=== PATIENT | female | born 1975 | race Caucasian/White ===

== ENCOUNTER 2017-07-12 05:02 | Inpatient (IN) | payer OTHER ==
[2017-07-12] MEDS ORDERED: levETIRAcetam IV 1,000 MG in SALINE 1 100ML.BAG IVPB STA (05:07)
[2017-07-12] MEDS ORDERED: SODIUM CHLORIDE 0.9% 500 ML IV STA (05:07)
[2017-07-12] MEDS ORDERED: SODIUM CHLORIDE 0.9% 1,000 ML IV STA ×2 (05:07)
--- NOTE | 2017-07-12 05:10 | ED ---
General Adult HPI - General Stated complaint: Overdose Time Seen by Provider: 07/12/17 05:07 Source: RN notes reviewed, old records reviewed - History of Present Illness Initial comments: This is a 41-year-old female to the ER for evaluation of suspected overdose. Patient is unable to give history secondary to scleral condition, unresponsiveness. Patient's history is obtained from from by EMS, patient's prior chart. Patient is presrcibed baclofen, has a prior history of seizures, roommate said that the patient did fill prescription today. - Related Data Home Medications Medication Instructions Recorded Confirmed HYDROcodone/APAP 10-325MG [[place] 1 tab PO Q6H PRN 07/12/17 07/12/17 10-325] Methylphenidate HCl [Ritalin] 20 mg PO TID 07/12/17 07/12/17 Allergies Allergy/AdvReac Type Severity Reaction Status Date / Time No Known Allergies Allergy Verified 02/16/14 02:01 Review of Systems ROS Statement: Those systems with pertinent positive or pertinent negative responses have been documented in the HPI. ROS Other: All systems not noted in ROS Statement are negative. Past Medical History Past Medical History: Seizure Disorder History of Any Multi-Drug Resistant Organisms: None Reported Past Psychological History: Unable to Obtain Smoking Status: Current every day smoker Past Alcohol Use History: Occasional Past Drug Use History: None Reported - Past Family History Mother Family Medical History: Cancer Father History Unknown: Yes General Exam Limitations: altered mental status, physical limitation General appearance: alert, anxious, lethargic, in distress Head exam: Present: atraumatic, normocephalic, normal inspection Eye exam: Present: normal appearance, PERRL, EOMI. Absent: scleral icterus, conjunctival injection, periorbital swelling ENT exam: Present: normal exam, mucous membranes moist Neck exam: Present: normal inspection. Absent: tenderness, meningismus, lymphadenopathy Respiratory exam: Present: normal lung sounds bilaterally, decreased breath sounds. Absent: respiratory distress, wheezes, rales, rhonchi, stridor Cardiovascular Exam: Present: regular rate, normal rhythm, normal heart sounds. Absent: systolic murmur, diastolic murmur, rubs, gallop, clicks GI/Abdominal exam: Present: soft, normal bowel sounds. Absent: distended, tenderness, guarding, rebound, rigid Extremities exam: Present: normal inspection, full ROM, normal capillary refill. Absent: tenderness, pedal edema, joint swelling, calf tenderness Back exam: Present: normal inspection Neurological exam: Present: altered, CN II-XII intact, other (responsive to painful stimuli). Absent: oriented X3 Psychiatric exam: Present: agitated Skin exam: Present: warm, dry, intact, normal color. Absent: rash Course Vital Signs 07/12/17 07/12/17 07/12/17 05:03 05:50 06:11 Temperature 97.9 F Pulse Rate 84 82 79 Respiratory 20 22 Rate Blood Pressure 150/84 155/80 153/81 O2 Sat by Pulse 93 L 99 99 Oximetry 07/12/17 07/12/17 07/12/17 06:45 07:15 07:41 Temperature 97.4 F L Pulse Rate 73 86 0 L Respiratory 20 16 Rate Blood Pressure 137/85 147/83 O2 Sat by Pulse 100 96 Oximetry 07/12/17 07/12/17 07/12/17 08:00 08:15 08:30 Temperature Pulse Rate 0 L 86 108 H Respiratory 20 16 Rate Blood Pressure 160/58 169/69 O2 Sat by Pulse 99 97 Oximetry 07/12/17 07/12/17 07/12/17 08:45 09:00 09:30 Temperature 98.7 F Pulse Rate 102 H 92 87 Respiratory 14 16 26 H Rate Blood Pressure 168/96 158/62 144/87 O2 Sat by Pulse 98 98 99 Oximetry - Reevaluation(s) Reevaluation #1: 07/12/17 07:23 patient is completely unresponsive to Narcan, was given Ativan for sedation as she is flailing around uncontrollably danger to herself and staff Reevaluation #2: 07/12/17 07:23 patient is reevaluated, continues to have uncontrolled body movements, positive gag EKG Findings - EKG Comments: EKG Findings:: EKG shows normal sinus rhythm rate of 78, MO 124, QRS 94, QTc 462 Medical Decision Making - Medical Decision Making 41 female to the ED for evaluation regarding his overdose, patient has positive opiates on drug screen, no response to Narcan, also follow baclofen at bedside. Patient has seizure history therefore given Regular the emergency room secondary to possible tonic-clonic movements. Patient has maintained oxygenation without difficulty here in the emergency room. Placed on supplemental O2 for support. Patient has positive GERD reflux, this time no need for the patient is patient is protecting airway without ventilatory failure. Patient was admitted to ICU for further evaluation and management of overdose - Lab Data Result diagrams: 07/12/17 05:15 07/12/17 05:15 Lab Results 07/12/17 07/12/17 07/12/17 Range/Units 05:15 05:15 05:15 WBC 13.3 H (3.8-10.6) k/uL RBC 4.48 (3.80-5.40) m/uL Hgb 13.5 (11.4-16.0) gm/dL Hct 43.1 (34.0-46.0) % MCV 96.3 (80.0-100.0) fL MCH 30.1 (25.0-35.0) pg MCHC 31.3 (31.0-37.0) g/dL RDW 15.2 (11.5-15.5) % Plt Count 193 (150-450) k/uL Neutrophils % 83 % Lymphocytes % 11 % Monocytes % 5 % Eosinophils % 1 % Basophils % 0 % Neutrophils # 11.1 H (1.3-7.7) k/uL Lymphocytes # 1.4 (1.0-4.8) k/uL Monocytes # 0.6 (0-1.0) k/uL Eosinophils # 0.1 (0-0.7) k/uL Basophils # 0.0 (0-0.2) k/uL Sodium 145 (137-145) mmol/L Potassium 5.1 (3.5-5.1) mmol/L Chloride 110 H (98-107) mmol/L Carbon Dioxide 25 (22-30) mmol/L Anion Gap 10 mmol/L BUN 22 H (7-17) mg/dL Creatinine 1.30 H (0.52-1.04) mg/dL Est GFR (MDRD) Af Amer 54 (>60 ml/min/1.73 sqM) Est GFR (MDRD) Non-Af 45 (>60 ml/min/1.73 sqM) Glucose 105 H (74-99) mg/dL Lactic Ac Sepsis Rflx Plasma Lactic Acid Kurtis (0.7-2.0) mmol/L Calcium 9.5 (8.4-10.2) mg/dL Total Bilirubin 0.3 (0.2-1.3) mg/dL AST 23 (14-36) U/L ALT 25 (9-52) U/L Alkaline Phosphatase 94 (38-126) U/L Ammonia (<30) umol/L Total Creatine Kinase 103 (30-135) U/L CK-MB (CK-2) 2.5 H* (0.0-2.4) ng/mL CK-MB (CK-2) Rel Index 2.4 Total Protein 7.1 (6.3-8.2) g/dL Albumin 4.2 (3.5-5.0) g/dL Lipase 84 (23-300) U/L Urine Color Urine Appearance (Clear) Urine pH (5.0-8.0) Ur Specific [place] (1.001-1.035) Urine Protein (Negative) Urine Glucose (UA) (Negative) Urine Ketones (Negative) Urine Blood (Negative) Urine Nitrite (Negative) Urine Bilirubin (Negative) Urine Urobilinogen (<2.0) mg/dL Ur Leukocyte Esterase (Negative) Urine WBC (0-5) /hpf Ur Squamous Epith Cells (0-4) /hpf Amorphous Sediment (None) /hpf Urine HCG, Qual (Not Detectd) Salicylates <1.0 mg/dL Urine Opiates Screen (NotDetected) Ur Oxycodone Screen (NotDetected) Urine Methadone Screen (NotDetected) Ur Propoxyphene Screen (NotDetected) Acetaminophen <10.0 ug/mL Ur Barbiturates Screen (NotDetected) Phenytoin <3.0 ug/mL Valproic Acid <10.0 ug/mL Carbamazepine <3.0 ug/mL U Tricyclic Antidepress (NotDetected) Ur Phencyclidine Scrn (NotDetected) Ur Amphetamines Screen (NotDetected) U Methamphetamines Scrn (NotDetected) U Benzodiazepines Scrn (NotDetected) [place] <0.2 mmol/L Urine Cocaine Screen (NotDetected) U Marijuana (THC) Screen (NotDetected) Serum Alcohol <10 mg/dL 07/12/17 07/12/17 07/12/17 Range/Units 05:31 05:31 05:37 WBC (3.8-10.6) k/uL RBC (3.80-5.40) m/uL Hgb (11.4-16.0) gm/dL Hct (34.0-46.0) % MCV (80.0-100.0) fL MCH (25.0-35.0) pg MCHC (31.0-37.0) g/dL RDW (11.5-15.5) % Plt Count (150-450) k/uL Neutrophils % % Lymphocytes % % Monocytes % % Eosinophils % % Basophils % % Neutrophils # (1.3-7.7) k/uL Lymphocytes # (1.0-4.8) k/uL Monocytes # (0-1.0) k/uL Eosinophils # (0-0.7) k/uL Basophils # (0-0.2) k/uL Sodium (137-145) mmol/L Potassium (3.5-5.1) mmol/L Chloride (98-107) mmol/L Carbon Dioxide (22-30) mmol/L Anion Gap mmol/L BUN (7-17) mg/dL Creatinine (0.52-1.04) mg/dL Est GFR (MDRD) Af Amer (>60 ml/min/1.73 sqM) Est GFR (MDRD) Non-Af (>60 ml/min/1.73 sqM) Glucose (74-99) mg/dL Lactic Ac Sepsis Rflx Plasma Lactic Acid Kurtis 2.4 H* (0.7-2.0) mmol/L Calcium (8.4-10.2) mg/dL Total Bilirubin (0.2-1.3) mg/dL AST (14-36) U/L ALT (9-52) U/L Alkaline Phosphatase (38-126) U/L Ammonia 14 (<30) umol/L Total Creatine Kinase (30-135) U/L CK-MB (CK-2) (0.0-2.4) ng/mL CK-MB (CK-2) Rel Index Total Protein (6.3-8.2) g/dL Albumin (3.5-5.0) g/dL Lipase (23-300) U/L Urine Color Light Yellow Urine Appearance Cloudy H (Clear) Urine pH 7.0 (5.0-8.0) Ur Specific [place] 1.009 (1.001-1.035) Urine Protein Negative (Negative) Urine Glucose (UA) Negative (Negative) Urine Ketones Negative (Negative) Urine Blood Negative (Negative) Urine Nitrite Negative (Negative) Urine Bilirubin Negative (Negative) Urine Urobilinogen <2.0 (<2.0) mg/dL Ur Leukocyte Esterase Negative (Negative) Urine WBC <1 (0-5) /hpf Ur Squamous Epith Cells 1 (0-4) /hpf Amorphous Sediment Rare H (None) /hpf Urine HCG, Qual Not Detected (Not Detectd) Salicylates mg/dL Urine Opiates Screen Detected H (NotDetected) Ur Oxycodone Screen Not Detected (NotDetected) Urine Methadone Screen Not Detected (NotDetected) Ur Propoxyphene Screen Not Detected (NotDetected) Acetaminophen ug/mL Ur Barbiturates Screen Not Detected (NotDetected) Phenytoin ug/mL Valproic Acid ug/mL Carbamazepine ug/mL U Tricyclic Antidepress Not Detected (NotDetected) Ur Phencyclidine Scrn Not Detected (NotDetected) Ur Amphetamines Screen Not Detected (NotDetected) U Methamphetamines Scrn Not Detected (NotDetected) U Benzodiazepines Scrn Not Detected (NotDetected) [place] mmol/L Urine Cocaine Screen Not Detected (NotDetected) U Marijuana (THC) Screen Not Detected (NotDetected) Serum Alcohol mg/dL 07/12/17 Range/Units 06:09 WBC (3.8-10.6) k/uL RBC (3.80-5.40) m/uL Hgb (11.4-16.0) gm/dL Hct (34.0-46.0) % MCV (80.0-100.0) fL MCH (25.0-35.0) pg MCHC (31.0-37.0) g/dL RDW (11.5-15.5) % Plt Count (150-450) k/uL Neutrophils % % Lymphocytes % % Monocytes % % Eosinophils % % Basophils % % Neutrophils # (1.3-7.7) k/uL Lymphocytes # (1.0-4.8) k/uL Monocytes # (0-1.0) k/uL Eosinophils # (0-0.7) k/uL Basophils # (0-0.2) k/uL Sodium (137-145) mmol/L Potassium (3.5-5.1) mmol/L Chloride (98-107) mmol/L Carbon Dioxide (22-30) mmol/L Anion Gap mmol/L BUN (7-17) mg/dL Creatinine (0.52-1.04) mg/dL Est GFR (MDRD) Af Amer (>60 ml/min/1.73 sqM) Est GFR (MDRD) Non-Af (>60 ml/min/1.73 sqM) Glucose (74-99) mg/dL Lactic Ac Sepsis Rflx Y Plasma Lactic Acid Kurtis (0.7-2.0) mmol/L Calcium (8.4-10.2) mg/dL Total Bilirubin (0.2-1.3) mg/dL AST (14-36) U/L ALT (9-52) U/L Alkaline Phosphatase (38-126) U/L Ammonia (<30) umol/L Total Creatine Kinase (30-135) U/L CK-MB (CK-2) (0.0-2.4) ng/mL CK-MB (CK-2) Rel Index Total Protein (6.3-8.2) g/dL Albumin (3.5-5.0) g/dL Lipase (23-300) U/L Urine Color Urine Appearance (Clear) Urine pH (5.0-8.0) Ur Specific [place] (1.001-1.035) Urine Protein (Negative) Urine Glucose (UA) (Negative) Urine Ketones (Negative) Urine Blood (Negative) Urine Nitrite (Negative) Urine Bilirubin (Negative) Urine Urobilinogen (<2.0) mg/dL Ur Leukocyte Esterase (Negative) Urine WBC (0-5) /hpf Ur Squamous Epith Cells (0-4) /hpf Amorphous Sediment (None) /hpf Urine HCG, Qual (Not Detectd) Salicylates mg/dL Urine Opiates Screen (NotDetected) Ur Oxycodone Screen (NotDetected) Urine Methadone Screen (NotDetected) Ur Propoxyphene Screen (NotDetected) Acetaminophen ug/mL Ur Barbiturates Screen (NotDetected) Phenytoin ug/mL Valproic Acid ug/mL Carbamazepine ug/mL U Tricyclic Antidepress (NotDetected) Ur Phencyclidine Scrn (NotDetected) Ur Amphetamines Screen (NotDetected) U Methamphetamines Scrn (NotDetected) U Benzodiazepines Scrn (NotDetected) [place] mmol/L Urine Cocaine Screen (NotDetected) U Marijuana (THC) Screen (NotDetected) Serum Alcohol mg/dL - Radiology Data Radiology results: report reviewed (CT brain is negative for acute disease, chest x-ray is negative for acute disease), image reviewed Disposition Clinical Impression: Drug overdose, Altered mental state Disposition: ADMITTED IP TO THIS [facility] Condition: Serious
[2017-07-12] MEDS ORDERED: LORazepam 2 MG/ML INJ IV STA ×2 (05:19→21:30)
[2017-07-12 05:36] LABS: Basophils % (A) 0 %; CH 30.5; CHCM 31.8; Eosinophils # (A) 0.1 k/uL (0-0.7); Eosinophils % (A) 1 %; HCT 43.1 % (34.0-46.0); HDW 2.15; HGB 13.5 gm/dL (11.4-16.0); Luc # (Auto) 0.11; Luc % (Auto) 1; Lymphocytes # (A) 1.4 k/uL (1.0-4.8); Lymphocytes % (A) 11 %; MCH 30.1 pg (25.0-35.0); MCHC 31.3 g/dL (31.0-37.0); MCV 96.3 fL (80.0-100.0); Mean Platelet Volume 8.1; Monocytes # (A) 0.6 k/uL (0-1.0); Monocytes % (A) 5 %; Neutrophils # (A) 11.1 k/uL (1.3-7.7); Neutrophils % (A) 83 %; RBC 4.48 m/uL (3.80-5.40); RDW 15.2 % (11.5-15.5); WBC 13.3 k/uL (3.8-10.6); WBC (Perox) 12.94
[2017-07-12 05:49] LABS: ALT 25 U/L (9-52); AST 23 U/L (14-36); Acetaminophen <10.0 ug/mL; Alcohol <10 mg/dL; Alkaline Phosphatase 94 U/L (38-126); Anion Gap 10 mmol/L; Blood Urea Nitrogen 22 mg/dL (7-17); Calcium 9.5 mg/dL (8.4-10.2); Carbamazepine (Tegretol) <3.0 ug/mL; Carbon Dioxide 25 mmol/L (22-30); Chloride 110 mmol/L (98-107); Glucose 105 mg/dL (74-99); Lithium <0.2 mmol/L; Non-African American GFR(MDRD) 45 (>60 ml/min/1.73 sqM); Potassium 5.1 mmol/L (3.5-5.1); Salicylate <1.0 mg/dL; Sodium 145 mmol/L (137-145); Total Bilirubin 0.3 mg/dL (0.2-1.3); Total Protein 7.1 g/dL (6.3-8.2)
[2017-07-12 05:53] LABS: Amorphous Sediment,Urine Rare /hpf; Appearance,Urine Cloudy (Clear); Bilirubin,Urine Negative (Negative); Glucose,Urine (UA) Negative (Negative); Ketones,Urine Negative (Negative); Leukocyte Esterase,Urine Negative (Negative); Nitrite,Urine Negative (Negative); Particle Count 1997; Protein,Urine Negative (Negative); Specific Gravity,Urine 1.009 (1.001-1.035); Squamous Epithelial Cell,Urine 1 /hpf (0-4); UA Billing (MACRO vs. MICRO) MICRO; Urobilinogen,Urine <2.0 mg/dL (<2.0); WBC,Urine <1 /hpf (0-5)
[2017-07-12 06:13] LABS: Creatine Kinase MB 2.5 ng/mL (0.0-2.4)
[2017-07-12] MEDS ORDERED: NALOXONE 0.4 MG/ML 10 ML VIAL IVP STA (06:33)
--- NOTE | 2017-07-12 07:05 | CT ---
EXAM: CT Head Without Intravenous Contrast. CLINICAL HISTORY: Reason: seizure activity TECHNIQUE: Axial computed tomography images of the head/brain without intravenous contrast. CTDI is 59.6 mGy and DLP is 1204 mGy-cm. This CT exam was performed using one or more of the following dose reduction techniques: automated exposure control, adjustment of the mA and/or kV according to patient size, and/or use of iterative reconstruction technique. COMPARISON: 02/16/14 FINDINGS: Brain: Unremarkable. No hemorrhage. No significant white matter disease. No edema. Ventricles: Unremarkable. No ventriculomegaly. Ventricular volumes are unchanged since the prior exam. Bones: No acute fracture. Sinuses: Unremarkable as visualized. No acute sinusitis. Mastoid air cells: Unremarkable as visualized. No mastoid effusion. IMPRESSION: No evidence of acute intracranial abnormality.
[2017-07-12] MEDS ORDERED: NALOXONE 0.4 MG/ML 1 ML VIAL IV PRN (07:14)
[2017-07-12] MEDS: IPRATROPIUM-ALBUTEROL 3 ML NEB INHALATION SCH ×4 (07:58→19:34)
--- NOTE | 2017-07-12 08:12 | XR ---
EXAMINATION TYPE: XR chest 1V portable DATE OF EXAM: 07/12/2017 COMPARISON: Prior chest x-ray 07/02/2013 HISTORY: Unresponsive, possible overdose TECHNIQUE: Single frontal view of the chest is obtained. FINDINGS: The patient is rotated. There are overlying cardiac leads. There is no focal air space opac ity, pleural effusion, or pneumothorax seen. The cardiac silhouette size is within normal limits. The osseous structures are intact. IMPRESSION: No acute process.
[2017-07-12] MEDS ORDERED: MIDAZOLAM (PF) 1 MG/ML 5 ML VIAL IV STA (08:21)
[2017-07-12] MEDS ORDERED: SUCCINYLCHOLINE CHLORIDE VIAL 200 MG/10 ML VIAL IV STA ×2 (08:21→08:41)
--- NOTE | 2017-07-12 08:53 | XR ---
EXAMINATION TYPE: XR chest 1V portable DATE OF EXAM: 07/12/2017 COMPARISON: Prior chest x-ray same date earlier time. HISTORY: Status post intubation TECHNIQUE: Single frontal view of the chest is obtained. FINDINGS: Interval placement of an endotracheal tube and NG tube which are overlying appropriate pos itions. No significant change. IMPRESSION: Status post intubation.
[2017-07-12] MEDS: PROPOFOL 1,000 MG/100 ML VIAL IV SCH ×3 (09:01→14:08)
[2017-07-12 09:45] LABS: Glucose,Whole Blood 118 mg/dL (75-99)
[2017-07-12 09:51] LABS: ABG PH 7.34 (7.35-7.45)
[2017-07-12 09:52] LABS: ABG Base Excess -4.5 mmol/L; ABG HCO3 20 mmol/L (21-25); ABG Oxygen Saturation 99.7 % (94-97); ABG PCO2 39 mmHg (35-45); ABG PO2 210 mmHg (83-108); ABG TCO2 21 mmol/L (19-24)
--- NOTE | 2017-07-12 10:06 | P.CNPUL ---
History of Present Illness Consult date: 07/12/17 Chief complaint: Drug overdose History of present illness: This is a 41-year-old female patient with a history of seizure disorders and chronic and ongoing tobacco dependence. Her home medications as listed as [place] 7.5-325 mg every 4 hours when necessary and Ritalin. She was found unresponsive and brought to the emergency room. There is some question of baclofen overdose. She remained unresponsive to Narcan. She eventually received Ativan for sedation. She received Keppra. She was flailing about became a danger to herself and staff. She was subsequently intubated and placed on the mechanical ventilator and transferred here to the intensive care unit. Her urine drug screen was positive for opiates. She is currently on assist control mode at 24, tidal volume 350, FiO2 60% and a PEEP of 5. Blood gases reveal a P O2 of 210, pCO2 39 pH 7.34 on 100% FiO2 at the time. She is currently sedated with propofol at 32 mcg/kg/m. She is a 0.9 normal saline at 100 mL per hour. Labs reveal a white count of 13.3. Hemoglobin 13.5. Creatinine 1.30. Lactic acid 2.4. Chest x-ray reveals atelectasis of the right lung base. She's been afebrile. Hemodynamically stable. Review of Systems ROS unobtainable: due to endotracheal tube Past Medical History Past Medical History: Seizure Disorder History of Any Multi-Drug Resistant Organisms: None Reported Past Surgical History: Unable to Obtain Past Psychological History: Unable to Obtain Smoking Status: Current every day smoker Past Alcohol Use History: Occasional Past Drug Use History: None Reported Medications and Allergies Home Medications Medication Instructions Recorded Confirmed Type HYDROcodone/APAP 10-325MG [[place] 1 tab PO Q6H PRN 07/12/17 07/12/17 History 10-325] Methylphenidate HCl [Ritalin] 20 mg PO TID 07/12/17 07/12/17 History Allergies Allergy/AdvReac Type Severity Reaction Status Date / Time No Known Allergies Allergy Verified 02/16/14 02:01 Physical Exam Vitals: Vital Signs Temp Pulse Resp BP Pulse Ox 07/12/17 09:30 98.7 F 87 26 H 144/87 99 07/12/17 09:00 92 16 158/62 98 07/12/17 08:45 102 H 14 168/96 98 07/12/17 08:30 108 H 16 169/69 97 07/12/17 08:15 86 20 160/58 99 07/12/17 07:15 86 16 147/83 96 07/12/17 06:45 97.4 F L 73 20 137/85 100 07/12/17 06:11 79 153/81 99 07/12/17 05:50 82 22 155/80 99 07/12/17 05:03 97.9 F 84 20 150/84 93 L Intake and Output 07/11/17 07/12/17 07/12/17 22:59 06:59 14:59 Intake Total 6.748 Output Total 750 Balance -743.252 Intake: Intake, IV Titration 6.748 Amount Propofol 1,000 mg In 100 6.748 ml @ Titrate IV .Q0M JAMES Rx#:[id number] Output: Gastric Drainage 200 Urine 550 Other: # Bowel Movements 2 Weight 86.137 kg GENERAL EXAM: Intubated, sedated. HEAD: Normocephalic. EYES: Sluggish reaction of pupils, equal size. NOSE: Clear with pink turbinates. THROAT: Endotracheal and gastric tube secured in place. No erythema or exudates. NECK: No masses, no JVD. CHEST: No chest wall deformity. LUNGS: Equal air entry with no crackles, wheeze, rhonchi or dullness. CVS: S1 and S2 normal with no audible murmur, regular rhythm. ABDOMEN: No hepatosplenomegaly, normal bowel sounds, no guarding or rigidity. SPINE: No scoliosis or deformity SKIN: No rashes CENTRAL NERVOUS SYSTEM: No focal deficits, tone is normal in all 4 extremities. EXTREMITIES: There is no peripheral edema. No clubbing, no cyanosis. Peripheral pulses are intact. Results - Laboratory Findings CBC and BMP: 07/12/17 05:15 07/12/17 05:15 Abnormal lab findings: Abnormal Labs 07/12/17 07/12/17 07/12/17 05:15 05:15 05:15 WBC 13.3 H Neutrophils # 11.1 H Chloride 110 H BUN 22 H Creatinine 1.30 H Glucose 105 H POC Glucose (mg/dL) Plasma Lactic Acid Kurtis CK-MB (CK-2) 2.5 H* Urine Appearance Amorphous Sediment Urine Opiates Screen 11/07/12/17 07/12/17 05:31 05:37 09:43 WBC Neutrophils # Chloride BUN Creatinine Glucose POC Glucose (mg/dL) 118 H Plasma Lactic Acid Kurt[place] 2.4 H* CK-MB (CK-2) Urine Appearance Cloudy H Amorphous Sediment Rare H Urine Opiates Screen Detected H - Diagnostic Findings Chest x-ray: image reviewed Assessment and Plan Assessment: Impression: #1 Drug overdose of unclear intention with significant altered mental status requiring intubation and mechanical ventilatory support. #2 Acute hypoxic respiratory failure secondary to drug overdose. #3 History of seizure disorder. #4 Chronic tobacco dependence. Plan: The patient was seen and evaluated by Dr. Martinez. Her chest x-ray, ABGs and labs were all reviewed. Ventilator adjustment were were made. We'll continue with sedation with propofol for now. Continue IV fluids. She is on bronchodilators every 4 hours. She is on Lovenox for DVT prophylaxis. Protonix for GI prophylaxis. We will obtain an EEG stat as the patient does have a history of seizure disorder. She did receive Keppra in the emergency room. We will continue to follow and make further recommendations based on her clinical status. When she is more fully awake and cooperative we'll plan for extubation. I, the cosigning physician, have performed a history and physical examination on the patient. She remains intubated and on the mechanical ventilator. Lung sounds are clear. Maintaining good O2 saturations in the 90s. I have discussed the assessment and plan of care with my nurse practitioner, Beatriz Khan. I attest the above note as dictated by her. Time with Patient: Greater than 30
[2017-07-12] MEDS ORDERED: HYDROmorphone 1 MG/ML 1 ML SYRINGE IVP PRN (10:23)
[2017-07-12] MEDS: ENOXAPARIN 40 MG/0.4 ML SYRINGE SQ SCH (10:41)
[2017-07-12] MEDS: PANTOPRAZOLE 40 MG/10 ML VIAL IVP SCH (10:41)
[2017-07-12 11:16] LABS: ABG Base Excess -7.1 mmol/L; ABG HCO3 17 mmol/L (21-25); ABG Oxygen Saturation 99.7 % (94-97); ABG PCO2 30 mmHg (35-45); ABG PH 7.37 (7.35-7.45); ABG PO2 191 mmHg (83-108); ABG TCO2 18 mmol/L (19-24)
[2017-07-12] MEDS: HYDROmorphone 1 MG/ML 1 ML SYRINGE IVP PRN ×2 (13:58→21:00)
--- NOTE | 2017-07-12 20:45 | EEG ---
ELECTROENCEPHALOGRAM REPORT INDICATION FOR EXAMINATION: This patient is a 41-year-old female who currently intubated on the ventilator and is unresponsive in the ICU. Patient with suspected drug overdose. AGE: 41. EEG FINDINGS: A routine 21-channel awake digital EEG recording was accomplished utilizing the 10-20 international system with bipolar and referential montages. The background activity in the most alert resting state consists of a low amplitude, poorly developed and poorly sustained 4 Hz activity over the posterior head region. This posterior rhythm attenuates minimally to eye opening. There is a small amount of low amplitude 18-20 Hz beta activity seen maximally over the anterior head regions. Muscle and movement artifact was minimally seen throughout the tracing. Hyperventilation was not performed. Photic stimulation at flash frequencies of 2-30 Hz produced a minimal occipital driving response. The main feature of this tracing is the finding of an early burst suppression pattern with episodes of attenuation followed by 3-4 Hz activity frequently throughout the entire tracing. No epileptiform discharges were seen. IMPRESSION: This EEG gives evidence of a severe widespread diffuse disturbance in cerebral function. The EEG failed to reveal any focal, lateralized, or epileptiform abnormalities. The EEG also demonstrates early signs of burst suppression pattern. Would recommend a follow-up EEG for comparison. Clinical correlation is strongly recommended. MMEVE / NENAN: [id number] /
--- NOTE | 2017-07-12 21:51 | P.CNNES ---
History of Present Illness Consult date: 07/12/17 Reason for Consult: Patient being evaluated for obtundation and drug overdose. History of Present Illness: This patient is a 41-year-old right-handed white female who was found unresponsive in her apartment by her roommate. Apparently she was collapsed on the floor and was not arousable. Apparently she was found to have an empty bottle of baclofen living next to her and she had just filled the prescription the day before. There was concern she may have overdosed on this medication. The patient remained unresponsive and EMS was called to the scene. She was transferred by EMS to the emergency room where she apparently showed signs of agitation and was moving her arms and legs all about. She was given some Ativan. She has a history of underlying seizure disorder and it was not clear if these abnormal movements were related to seizure activity. She was loaded with 1 g of IV Keppra in the ER and then had to be intubated for protection of her airways. Her urine drug screen was performed and was positive for opiates. She was sent for a computed tomography scan of the brain which was reported negative for any acute intracranial abnormality. The patient was then transferred to the intensive care unit where she remained on the ventilator. Apparently she was having frequent myoclonic jerks in the ICU this morning. For this reason a stat EEG was ordered and was reviewed this afternoon. The EEG failed to reveal any epileptic discharge to explain her movements. The patient was given some Ativan and then placed on a Diprivan drip. This evening the patient remains on 65 mics of Diprivan. Despite this heavy sedation when evaluated in the ICU this evening she is agitated and opening her eyes. She is attempting to remove the ET tube. She was restrained and given some sedation. Most likely she will be given a weaning parameters tomorrow. We have recommended that she should be maintained on Keppra 500 mg IV piggyback every 12 hours. We will plan to get a repeat CAT scan of the brain tomorrow as well as the initial CAT scan failed to reveal good pineda-white differentiation. This suggests possibility is some edema. We will plan to get a follow-up CT of the brain tomorrow. The patient was very agitated when examined today in the ICU. She does not follow any commands. She is moving all 4 extremities. At this time she will be placed back on the higher dose of Diprivan and closely monitored overnight. Neurology is now been consulted for further evaluation and recommendations. Review of Systems ROS unobtainable: due to mental status Constitutional: Denies chills, Denies fever Eyes: denies blurred vision, denies pain Ears, nose, mouth and throat: Denies headache, Denies sore throat Cardiovascular: Denies chest pain, Denies shortness of breath Respiratory: Denies cough Gastrointestinal: Denies abdominal pain, Denies diarrhea, Denies nausea, Denies vomiting Genitourinary: Denies dysuria, Denies hematuria Musculoskeletal: Denies myalgias Integumentary: Denies pruritus, Denies rash Neurological: Reports change in mentation, Reports confusion, Reports convulsions, Denies numbness, Denies weakness Psychiatric: Denies anxiety, Denies depression Endocrine: Denies fatigue, Denies weight change Past Medical History Past Medical History: Cancer, CVA/TIA, GERD/Reflux, Memory Impairment, Seizure Disorder, Thyroid Disorder Additional Past Medical History / Comment(s): "EPILEPSY"-LAST SEIZURE IN 2011. OVERDOSE W/RESP FAILURE AND PLACED ON VENT IN 2011. THYROID CANCER. RADIATION, HERNIATED DISCS, PAST MIGRAINES,LOWER BACK AND RT HIP PAIN.PER PTS FAMILY-PT IS AN ALCOHOLIC". PER FAMILY "PT HAVING DIARRHEA/WATERY/BLOODY STOOL ON DAILY BASIS AND BELIEVE SHE WAS ON ABX WHEN INCARCERATED ABOUT MONTH AGO" History of Any Multi-Drug Resistant Organisms: None Reported Past Surgical History: Heart Catheterization, Tubal Ligation Additional Past Surgical History / Comment(s): D&C, RT GROIN CYST REMOVED, PAST PICC LINE/REMOVED Past Anesthesia/Blood Transfusion Reactions: No Reported Reaction Smoking Status: Current every day smoker - Past Family History Mother Family Medical History: Cancer Father History Unknown: Yes Medications and Allergies Home Medications Medication Instructions Recorded Confirmed Type HYDROcodone/APAP 10-325MG [[place] 1 tab PO Q6H PRN 07/12/17 07/12/17 History 10-325] Methylphenidate HCl [Ritalin] 20 mg PO TID 07/12/17 07/12/17 History Allergies Allergy/AdvReac Type Severity Reaction Status Date / Time No Known Allergies Allergy Verified 02/16/14 02:01 Physical Examination - Vital Signs Vital Signs: Vital Signs Temp Pulse Pulse Resp BP BP Pulse Ox 07/12/17 19:00 69 30 H 133/68 100 07/12/17 18:56 68 29 H 133/68 100 07/12/17 18:43 69 24 124/77 100 07/12/17 17:02 75 24 121/81 98 07/12/17 16:30 70 24 121/81 99 07/12/17 16:27 74 07/12/17 16:08 69 07/12/17 16:00 68 24 115/77 100 07/12/17 15:30 72 24 116/79 99 07/12/17 15:24 75 24 99 07/12/17 15:00 72 24 119/74 99 07/12/17 14:30 70 24 122/70 99 07/12/17 14:00 74 24 137/85 99 07/12/17 13:30 82 24 151/99 99 07/12/17 13:00 75 80 24 138/86 99 07/12/17 12:30 75 24 147/93 100 07/12/17 12:00 98.2 F 76 24 140/92 99 07/12/17 11:30 76 24 145/95 07/12/17 11:26 75 24 07/12/17 11:24 99 07/12/17 11:00 80 24 156/94 99 07/12/17 10:30 75 160/87 100 07/12/17 10:00 97.2 F L 93 24 141/82 100 07/12/17 09:42 76 07/12/17 09:30 98.7 F 87 26 H 144/87 99 07/12/17 09:00 92 16 158/62 98 07/12/17 08:45 102 H 14 168/96 98 07/12/17 08:30 108 H 16 169/69 97 07/12/17 08:15 86 20 160/58 99 07/12/17 08:00 0 L 07/12/17 07:41 0 L 07/12/17 07:15 86 16 147/83 96 07/12/17 06:45 97.4 F L 73 20 137/85 100 07/12/17 06:11 79 153/81 99 07/12/17 05:50 82 22 155/80 99 07/12/17 05:03 97.9 F 84 20 150/84 93 L Intake and Output 07/12/17 07/12/17 07/12/17 06:59 14:59 22:59 Intake Total 590.740 500 Output Total 1300 700 Balance -709.260 -200 Intake: Intake, IV Titration 590.740 500 Amount Propofol 1,000 mg In 100 90.740 ml @ Titrate IV .Q0M [facility] Rx#:[id number] Sodium Chloride 0.9% 1, 500 500 000 ml @ 100 mls/hr IV . Q10H [facility] Rx#:[id number] Output: Gastric Drainage 200 Urine 1100 700 Other: Voiding Method Indwelling Catheter Indwelling Catheter # Bowel Movements 2 Weight 86.137 kg 86.137 kg Patient Weight 07/13/17 06:59 Weight 86.137 kg - Constitutional General appearance: average body habitus - EENT EENT: PERRL, mucous membranes moist - Respiratory Respiratory: lungs clear, normal breath sounds - Cardiovascular Cardiovascular: regular rate, normal S1, normal S2 Extremities: no peripheral edema bilaterally - Gastrointestinal Gastrointestinal: normoactive bowel sounds - Integumentary Integumentary: normal - Neurologic Cranial nerve examination: PERRL, EOMI, V1/V2/V3 grossly intact, face symmetric , intact gag reflex Speech examination: other (Patient currently intubated on the ventilator.) Sensorimotor examination: intact Detailed motor examination: grossly full strength in all extremities Motor examination - right side: 4/5: biceps, triceps, wrist flexion, wrist extension, surveillance supervisor, hip flexors, knee extensors, dorsiflexion, toe extension (EHL) , plantarflexion Motor examination - left side: 4/5: biceps, triceps, wrist flexion, wrist extension, surveillance supervisor, hip flexors, knee extensors, dorsiflexion, toe extension (EHL) , plantarflexion Detailed sensory examination: intact Reflex and gait examination: intact Reflexes: 1+: ankle, bicep, knee, tricep - Musculoskeletal Musculoskeletal: no pain Results - Laboratory Findings CBC and BMP: 07/12/17 05:15 07/12/17 05:15 Abnormal Lab Findings: Abnormal Labs 07/12/17 07/12/17 07/12/17 05:15 05:15 05:15 WBC 13.3 H Neutrophils # 11.1 H ABG pH ABG pCO2 ABG pO2 ABG HCO3 ABG Total CO2 ABG O2 Saturation Chloride 110 H BUN 22 H Creatinine 1.30 H Glucose 105 H POC Glucose (mg/dL) Plasma Lactic Acid Kurtis CK-MB (CK-2) 2.5 H* Urine Appearance Amorphous Sediment Urine Opiates Screen 07/12/17 07/12/17 07/12/17 05:31 05:37 09:04 WBC Neutrophils # ABG pH 7.34 L ABG pCO2 ABG pO2 210 H ABG HCO3 20 L ABG Total CO2 ABG O2 Saturation 99.7 H Chloride BUN Creatinine Glucose POC Glucose (mg/dL) Plasma Lactic Acid Kurtis 2.4 H* CK-MB (CK-2) Urine Appearance Cloudy H Amorphous Sediment Rare H Urine Opiates Screen Detected H 07/12/17 07/12/17 09:43 11:05 WBC Neutrophils # ABG pH ABG pCO2 30 L ABG pO2 191 H ABG HCO3 17 L ABG Total CO2 18 L ABG O2 Saturation 99.7 H Chloride BUN Creatinine Glucose POC Glucose (mg/dL) 118 H Plasma Lactic Acid Kurtis CK-MB (CK-2) Urine Appearance Amorphous Sediment Urine Opiates Screen Assessment and Plan (1) Drug overdose Current Visit: Yes Status: Acute SNOMED Code(s): 55375753 (2) Acute encephalopathy Current Visit: Yes Status: Acute SNOMED Code(s): 0468987 (3) Myoclonus Current Visit: Yes Status: Acute SNOMED Code(s): 02751626 (4) History of seizures Current Visit: Yes Status: Acute SNOMED Code(s): 853352033 Plan: This patient is a 41-year-old female who was found unresponsive at her home. There was question of possible drug overdose with baclofen. An empty bottle was found next to her at her home. She was transferred to the emergency room where she was treated with Narcan. She then became excessively agitated and was intubated for protection of her airways. Coming into the ICU she began having myoclonic jerks. She has a history of seizure disorder but was not taking any anticonvulsant medications at the time of her admission to ER. Patient was given a bolus of IV Keppra in the ER and admitted to the ICU. She was intubated as noted for airway protection. She was sent for a computed tomography scan of the brain which was reported negative for any acute changes. She did undergo routine EEG today which revealed severe slowing with early burst suppression pattern. We have recommended to have a follow-up EEG for comparison. The patient remains on Diprivan at this time in the ICU however still is very agitated. She was startled and began moving all extremities attempting to pull out her ET tube during her neurological examination in the ICU. She was given 90 sedation in her dose of Diprivan was increased. We have recommended the patient have a repeat computed tomography scan of the brain tomorrow morning for comparison. We will also plan to get a repeat EEG in 24 hours depending on how responsive she is tomorrow. The patient does seem to be moving all 4 extremities despite being on fairly high dose of Diprivan. We will continue close neurological follow-up with this patient in the ICU. Her overall prognosis at this time remains very guarded. Time with Patient: Greater than 30
[2017-07-12] MEDS: levETIRAcetam IV 500 MG in SODIUM CHLORIDE 0.9% 100 ML IVPB SCH (22:44)
[2017-07-13] MEDS: HYDROmorphone 1 MG/ML 1 ML SYRINGE IVP PRN ×3 (02:10→06:51)
[2017-07-13] MEDS ORDERED: LORazepam 2 MG/ML INJ IV PRN (02:41)
[2017-07-13 04:36] LABS: Basophils % (A) 0 %; CH 30.4; CHCM 30.7; Eosinophils # (A) 0.1 k/uL (0-0.7); Eosinophils % (A) 1 %; HCT 37.8 % (34.0-46.0); HDW 2.27; HGB 11.7 gm/dL (11.4-16.0); Hypochromasia Slight; Luc % (Auto) 1; Lymphocytes # (A) 1.2 k/uL (1.0-4.8); Lymphocytes % (A) 10 %; MCH 30.9 pg (25.0-35.0); MCHC 31.1 g/dL (31.0-37.0); MCV 99.4 fL (80.0-100.0); Mean Platelet Volume 7.2; Monocytes # (A) 0.3 k/uL (0-1.0); Monocytes % (A) 3 %; Neutrophils # (A) 10.1 k/uL (1.3-7.7); Neutrophils % (A) 85 %; RDW 13.7 % (11.5-15.5); WBC 11.9 k/uL (3.8-10.6); WBC (Perox) 12.16
[2017-07-13 05:10] LABS: ALT 25 U/L (9-52); AST 20 U/L (14-36); Alkaline Phosphatase 76 U/L (38-126); Anion Gap 8 mmol/L; Blood Urea Nitrogen 8 mg/dL (7-17); Calcium 8.5 mg/dL (8.4-10.2); Carbon Dioxide 20 mmol/L (22-30); Non-African American GFR(MDRD) >60 (>60 ml/min/1.73 sqM); Phosphorus 3.9 mg/dL (2.5-4.5); Potassium 3.4 mmol/L (3.5-5.1); Sodium 143 mmol/L (137-145); Total Bilirubin 0.4 mg/dL (0.2-1.3); Total Protein 6.3 g/dL (6.3-8.2)
[2017-07-13] MEDS ORDERED: Potassium Replacement Protocol 1 EACH MISC MISCELLANE PRN (06:05)
[2017-07-13 06:09] LABS: Chloride 115 mmol/L (98-107); Glucose 94 mg/dL (74-99)
[2017-07-13] MEDS ORDERED: ONDANSETRON 4 MG/2 ML VIAL IVP PRN (07:00)
[2017-07-13] MEDS: POTASSIUM CHLORIDE ER 20 MEQ TAB.ER PO SCH (07:48)
[2017-07-13] MEDS: ENOXAPARIN 40 MG/0.4 ML SYRINGE SQ SCH (08:17)
[2017-07-13] MEDS: PANTOPRAZOLE 40 MG/10 ML VIAL IVP SCH (08:17)
[2017-07-13] MEDS: levETIRAcetam IV 500 MG in SODIUM CHLORIDE 0.9% 100 ML IVPB SCH ×2 (08:17→20:24)
[2017-07-13] MEDS: IPRATROPIUM-ALBUTEROL 3 ML NEB INHALATION SCH ×4 (08:26→19:49)
--- NOTE | 2017-07-13 08:29 | XR ---
EXAMINATION TYPE: XR chest 1V DATE OF EXAM: 07/13/2017 COMPARISON: Prior chest x-ray 07/02/2017 HISTORY: Shortness of breath, extubated TECHNIQUE: Single frontal view of the chest is obtained. FINDINGS: Retrocardiac density is suspected, patient is rotated. There are overlying cardiac leads. Patchy basilar density also noted on the right. No evident pneumothorax or pleural effusion. Cardiome diastinal silhouette not significantly changed. Pulmonary vascularity and jesus are stable. There is b een interval removal of endotracheal and NG tube. IMPRESSION: Basilar atelectasis, correlate to exclude pneumonia, follow-up PA and lateral chest x-ra y suggested. Interval extubation.
--- NOTE | 2017-07-13 09:34 | CT ---
EXAMINATION TYPE: CT brain wo con DATE OF EXAM: 07/13/2017 COMPARISON: 07/12/2017 INDICATION: Follow up to prior CT, overdose DLP: 931 mGycm, Automated exposure control for dose reduction was used. CONTRAST: None CT of the brain is performed utilizing 3 mm thick sections through the posterior fossa and 3 mm thick sections through the remaining calvarium. Study is not performed within 24 hours of arrival to the hospital. No abnormal hyperdensity is present to suggest an acute intracranial hemorrhage. No mass lesion is evident. No acute infarcts are evident. Ventricles and sulci are appropriate for the patient age. Paranasal sinuses and mastoid air cells within the [id number] are clear. IMPRESSIONS: 1. No acute intracranial process. 2. No significant change from prior study
[2017-07-13] MEDS: ACETAMINOPHEN TAB 325 MG TAB PO PRN ×2 (10:41→16:52)
--- NOTE | 2017-07-13 12:08 | P.PN ---
Subjective Progress Note Date: 07/13/17 Principal diagnosis: overdose 41-year-old female that was admitted yesterday with suspected overdose. Patient was intubated into ER secondary to patient not protecting her airway. Patient was admitted to the ICU. In the ICU she will circumflex coronary high doses of sedation still was not able to sedate. The patient was extubated last night. No seizures no chest pain no nausea no vomiting no abdominal pain she denies any shortness of breath Objective - Vital Signs Vital signs: Vital Signs Temp 98.6 F 07/13/17 08:00 Pulse 84 07/13/17 11:28 Resp 26 H 07/13/17 11:00 BP 142/90 07/13/17 11:00 Pulse Ox 92 L 07/13/17 11:00 Intake & Output 07/12/17 07/13/17 07/13/17 18:59 06:59 18:59 Intake Total 318.186 6606 600 Output Total 1900 710 270 Balance -909.260 990 330 Weight 86.137 kg 86.2 kg Intake: IV 1200 200 Sodium Chloride 0.9% 1, 1200 200 000 ml @ 100 mls/hr IV . Q10H [facility] Rx#:[id number] Intake, IV Titration 990.740 200 400 Amount Propofol 1,000 mg In 100 90.740 100 ml @ Titrate IV .Q0M [facility] Rx#:[id number] Sodium Chloride 0.9% 1, 900 100 000 ml @ 100 mls/hr IV . Q10H [facility] Rx#:[id number] levETIRAcetam IV 500 mg 400 In Sodium Chloride 0.9% 100 ml @ 400 mls/hr IVPB Q12HR [facility] Rx#:[id number] Oral 300 Output: Gastric Drainage 200 Urine 1700 710 270 Other: Voiding Method Indwelling Catheter Indwelling Catheter Indwelling Catheter # Bowel Movements 2 - Exam gen:alert and oriented lungs:clear to auscultation heart:s1s2 abdomen:soft and depressible,non tender ext:no edema - Labs CBC & Chem 7: 07/13/17 04:05 07/13/17 04:05 Labs: Abnormal Lab Results - Last 24 Hours (Table) 07/13/17 07/13/17 Range/Units 04:05 04:05 WBC 11.9 H (3.8-10.6) k/uL Neutrophils # 10.1 H (1.3-7.7) k/uL Potassium 3.4 L (3.5-5.1) mmol/L Chloride 115 H (98-107) mmol/L Carbon Dioxide 20 L (22-30) mmol/L Albumin 3.3 L (3.5-5.0) g/dL Microbiology - Last 24 Hours (Table) 07/12/17 12:30 Urine Culture - Preliminary Urine,Catheterized Assessment and Plan (1) Altered mental state Narrative/Plan: I suspect secondary to baclofen, now resolved Current Visit: Yes Status: Acute Code(s): R41.82 - ALTERED MENTAL STATUS, UNSPECIFIED SNOMED Code(s): 963843299 (2) Drug overdose Narrative/Plan: Patient and bottles of baclofen with 30 tablets only had 14 in ER We'll ask for psych eval Patient denies any intent to commit suicide Current Visit: Yes Status: Acute Code(s): T50.901A - POISONING BY UNSP DRUG/ MEDS/BIOL SUBST, ACCIDENTAL, INIT SNOMED Code(s): 16758387 (3) Seizure Current Visit: Yes Status: Acute Code(s): R56.9 - UNSPECIFIED CONVULSIONS SNOMED Code(s): 20372325 (4) Respiratory failure Narrative/Plan: extubated yesterday Current Visit: Yes Status: Acute Code(s): J96.90 - RESPIRATORY FAILURE, UNSP , UNSP W HYPOXIA OR HYPERCAPNIA SNOMED Code(s): 842502253 Plan: transfer to med surg tele
--- NOTE | 2017-07-13 12:11 | P.PN ---
Subjective Progress Note Date: 07/13/17 Principal diagnosis: Drug overdose of unclear intention, severely depressed LOC, requiring intubation and mechanical ventilation This is a 41-year-old female patient with a history of seizure disorders and chronic and ongoing tobacco dependence. Her home medications as listed as [place] 7.5-325 mg every 4 hours when necessary and Ritalin. She was found unresponsive and brought to the emergency room. There is some question of baclofen overdose. She remained unresponsive to Narcan. She eventually received Ativan for sedation. She received Keppra. She was flailing about became a danger to herself and staff. She was subsequently intubated and placed on the mechanical ventilator and transferred here to the intensive care unit. Her urine drug screen was positive for opiates. She is currently on assist control mode at 24, tidal volume 350, FiO2 60% and a PEEP of 5. Blood gases reveal a P O2 of 210, pCO2 39 pH 7.34 on 100% FiO2 at the time. She is currently sedated with propofol at 32 mcg/kg/m. She is a 0.9 normal saline at 100 mL per hour. Labs reveal a white count of 13.3. Hemoglobin 13.5. Creatinine 1.30. Lactic acid 2.4. Chest x-ray reveals atelectasis of the right lung base. She's been afebrile. Hemodynamically stable. On 07/13/2017 patient seen in follow-up in the intensive care. She was extubated yesterday in the evening, Dr. Martinez was paged because patient was completely awake of 65 mics of propofol, following commands, hemodynamically stable, but extremely anxious. Decision was made to proceed with extubation, the patient was successfully extubated to 4 L nasal cannula. This morning she is awake, alert, although has memory lapses, she does not remember taking excess medication, she denies intentionally overdosing. She does not remember being brought to the hospital, or anything beyond that. He is alert, oriented 2. She is currently on room air with O2 sat at 92%. Her respirations are even and nonlabored, lung sounds are positive for some bibasilar crackles. But no wheezes, no rhonchi noted. She has an effective cough. She sit up in bed in no acute distress. She has been tolerating a regular diet. Chest x-ray from has been reviewed with Dr. Martinez and shows basilar atelectasis. She's had no seizure activity. The EEG failed to reveal any epileptic discharge to explain her myoclonic jerks yesterday. CT of the brain on 07/12/2017 showed no evidence of acute intracranial abnormality. Repeat CT from 07/13/2017 showed no acute process and no significant change from prior study. 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 He states patient has been a heavy drinker, drinks on average appointment of [employer] every other day. She's had a previous intentional suicide about 8 years ago after the of her fianc, at that time she was found unresponsive and was intubated as well. Patient denies any psychiatric history, she denies intentionally trying to hurt herself. Objective - Vital Signs Vital signs: Vital Signs Temp 98.6 F 07/13/17 08:00 Pulse 84 07/13/17 11:28 Resp 26 H 07/13/17 11:00 BP 142/90 07/13/17 11:00 Pulse Ox 92 L 07/13/17 11:00 Intake & Output 07/12/17 07/13/17 07/13/17 18:59 06:59 18:59 Intake Total 934.639 2873 600 Output Total 1900 710 270 Balance -909.260 990 330 Weight 86.137 kg 86.2 kg Intake: IV 1200 200 Sodium Chloride 0.9% 1, 1200 200 000 ml @ 100 mls/hr IV . Q10H [facility] Rx#:[id number] Intake, IV Titration 990.740 200 400 Amount Propofol 1,000 mg In 100 90.740 100 ml @ Titrate IV .Q0M [facility] Rx#:[id number] Sodium Chloride 0.9% 1, 900 100 000 ml @ 100 mls/hr IV . Q10H [facility] Rx#:[id number] levETIRAcetam IV 500 mg 400 In Sodium Chloride 0.9% 100 ml @ 400 mls/hr IVPB Q12HR [facility] Rx#:[id number] Oral 300 Output: Gastric Drainage 200 Urine 1700 710 270 Other: Voiding Method Indwelling Catheter Indwelling Catheter Indwelling Catheter # Bowel Movements 2 - Exam GENERAL EXAM: Alert, active, comfortable in no apparent distress. HEAD: Normocephalic/atraumatic. EYES: Normal reaction of pupils, equal size. Conjunctiva pink, sclera white. NOSE: Clear with pink turbinates. THROAT: No erythema or exudates. NECK: No masses, no JVD, no thyroid enlargement, no adenopathy. CHEST: No chest wall deformity. Symmetrical expansion. LUNGS: Equal air entry with bibasilar crackles, but no wheezes, no rhonchi or dullness. CVS: Regular rate and rhythm, normal S1 and S2, no gallops, no murmurs, no rubs ABDOMEN: Soft, nontender. No hepatosplenomegaly, normal bowel sounds, no guarding or rigidity. EXTREMITIES: No clubbing, no edema, no cyanosis, 2+ pulses and upper and lower extremities. MUSCULOSKELETAL: Muscle strength and tone normal. SPINE: No scoliosis or deformity SKIN: No rashes CENTRAL NERVOUS SYSTEM: Alert and oriented -3. No focal deficits, tone is normal in all 4 extremities. PSYCHIATRIC: Alert and oriented -2. Appropriate affect. Intact judgment and insight. - Labs CBC & Chem 7: 07/13/17 04:05 07/13/17 04:05 Labs: Abnormal Lab Results - Last 24 Hours (Table) 07/13/17 07/13/17 Range/Units 04:05 04:05 WBC 11.9 H (3.8-10.6) k/uL Neutrophils # 10.1 H (1.3-7.7) k/uL Potassium 3.4 L (3.5-5.1) mmol/L Chloride 115 H (98-107) mmol/L Carbon Dioxide 20 L (22-30) mmol/L Albumin 3.3 L (3.5-5.0) g/dL Microbiology - Last 24 Hours (Table) 07/12/17 12:30 Urine Culture - Preliminary Urine,Catheterized Assessment and Plan Plan: Impression: #1 Drug overdose of unclear intention with significant altered mental status requiring intubation and mechanical ventilatory support. #2 Acute hypoxic respiratory failure secondary to drug overdose. #3 History of seizure disorder. #4 Chronic tobacco dependence. #5 history of previous drug overdose 8 years ago after the of her fianc, that required intubation and mechanical ventilation #6 substance abuse, EtOH abuse, reportedly drinks a pint of [place] whiskey every other day Plan: We will stop the IV fluids, patient is tolerating oral intake well. Hemodynamically stable, also stable from pulmonary standpoint. She is stable for transfer out to medical surgical floor today. We will let the primary decide whether to consult psychiatric services. Encourage incentive spirometer. Monitor for DTs, unknown the date of patient's last drink. I performed a history & physical examination of the patient and discussed their management with my nurse practitioner, Patricia Darden. I reviewed the nurse practitioner's note and agree with the documented findings and plan of care. Lung sounds are positive for bibasilar crackles, no rhonchi, no wheezes. The findings and the impression was discussed with the patient. I attest to the documentation by the nurse practitioner. Time with Patient: Greater than 30
[2017-07-13] MEDS ORDERED: KETOROLAC 30 MG/ML 1 ML VIAL IVP ONE (15:43)
--- NOTE | 2017-07-13 17:10 | P.HPIM ---
History of Present Illness H&P Date: 07/12/17 Chief Complaint: altered mental status 41-year-old female that was admitted to the ER with altered mental status with suspected baclofen overdose. Patient only has 14 tablets left from a prescription she had trouble yesterday. No other history been able to obtain at this time Review of Systems ROS unobtainable: due to mental status Constitutional: Reports fever Ears, nose, mouth and throat: Denies sore throat Past Medical History Past Medical History: Seizure Disorder History of Any Multi-Drug Resistant Organisms: None Reported Past Surgical History: Unable to Obtain Past Psychological History: Unable to Obtain Smoking Status: Current every day smoker Past Alcohol Use History: Occasional Past Drug Use History: None Reported - Past Family History Mother Family Medical History: Cancer Father History Unknown: Yes Medications and Allergies Home Medications Medication Instructions Recorded Confirmed Type HYDROcodone/APAP 10-325MG [[place] 1 tab PO Q6H PRN 07/12/17 07/12/17 History 10-325] Methylphenidate HCl [Ritalin] 20 mg PO TID 07/12/17 07/12/17 History Allergies Allergy/AdvReac Type Severity Reaction Status Date / Time No Known Allergies Allergy Verified 02/16/14 02:01 Physical Exam Vitals: Vital Signs Temp Pulse Resp BP Pulse Ox 07/12/17 06:45 97.4 F L 73 20 137/85 100 07/12/17 06:11 79 153/81 99 07/12/17 05:50 82 22 155/80 99 07/12/17 05:03 97.9 F 84 20 150/84 93 L Intake and Output 07/11/17 07/12/17 07/12/17 22:59 06:59 14:59 Other: Weight 86.137 kg - Constitutional General appearance: obese, severe distress - EENT Eyes: PERRLA - Neck Neck: no lymphadenopathy, stridor - Respiratory Respiratory: bilateral: rhonchi, negative: wheezing - Cardiovascular Rhythm: regular Heart sounds: normal: S1, S2 - Integumentary Integumentary: normal, no rash - Neurologic Patient not following commands seems to be moving extremities - Psychiatric not following commands Results CBC & Chem 7: 07/13/17 04:05 07/13/17 04:05 Labs: Abnormal Lab Results - Last 24 Hours (Table) 11/07/12/17 07/12/17 Range/Units 05:15 05:15 05:15 WBC 13.3 H (3.8-10.6) k/uL Neutrophils # 11.1 H (1.3-7.7) k/uL Chloride 110 H (98-107) mmol/L BUN 22 H (7-17) mg/dL Creatinine 1.30 H (0.52-1.04) mg/dL Glucose 105 H (74-99) mg/dL Plasma Lactic Acid Kurtis (0.7-2.0) mmol/L CK-MB (CK-2) 2.5 H* (0.0-2.4) ng/mL Urine Appearance (Clear) Amorphous Sediment (None) /hpf Urine Opiates Screen (NotDetected) 07/12/17 07/12/17 Range/Units 05:31 05:37 WBC (3.8-10.6) k/uL Neutrophils # (1.3-7.7) k/uL Chloride (98-107) mmol/L BUN (7-17) mg/dL Creatinine (0.52-1.04) mg/dL Glucose (74-99) mg/dL Plasma Lactic Acid Kurtis 2.4 H* (0.7-2.0) mmol/L CK-MB (CK-2) (0.0-2.4) ng/mL Urine Appearance Cloudy H (Clear) Amorphous Sediment Rare H (None) /hpf Urine Opiates Screen Detected H (NotDetected) Assessment and Plan (1) Altered mental state Narrative/Plan: Suspect secondary to baclofen overdose Concerns for airway Discussed with Dr. Alvarado We'll intubate Current Visit: Yes Status: Acute Code(s): R41.82 - ALTERED MENTAL STATUS, UNSPECIFIED SNOMED Code(s): 139308930 (2) Drug overdose Narrative/Plan: 14 pills out of 30 pill bottle No further history at this time Current Visit: Yes Status: Acute Code(s): T50.901A - POISONING BY UNSP DRUG/ MEDS/BIOL SUBST, ACCIDENTAL, INIT SNOMED Code(s): 25198985 (3) Seizure Current Visit: Yes Status: Acute Code(s): R56.9 - UNSPECIFIED CONVULSIONS SNOMED Code(s): 45654767 Plan: We'll admit to ICU Dr. Martinez to assist with management of mechanical ventilation Time with Patient: Greater than 30
[2017-07-13] MEDS ORDERED: KETOROLAC 30 MG/ML 1 ML VIAL IVP SCH (18:00)
[2017-07-14 07:20] VITALS: BP 130/85; PULSE 72; RESP 18; TEMP 98.1
[2017-07-14] MEDS: IPRATROPIUM-ALBUTEROL 3 ML NEB INHALATION SCH ×2 (07:28→11:13)
[2017-07-14] MEDS: ACETAMINOPHEN TAB 325 MG TAB PO PRN (08:23)
[2017-07-14] MEDS: ENOXAPARIN 40 MG/0.4 ML SYRINGE SQ SCH (08:24)
[2017-07-14] MEDS: PANTOPRAZOLE 40 MG/10 ML VIAL IVP SCH (08:25)
--- NOTE | 2017-07-14 09:12 | P.PN ---
Subjective Progress Note Date: 07/13/17 Patient seen today in the ICU for neurologic follow-up and evaluation. She was seen yesterday in the ICU for possible drug overdose. She was intubated at the time of her neurological evaluation yesterday. She showed sudden alertness and agitation and was attempting to pull out her ET Tube and lines. She was on 65 mics of Diprivan at that time. It was decided by Pulmonary Medicine to extubate her yesterday evening. The patient is now examined in the intensive care unit. She was extubated yesterday evening. She is able to answer all questions appropriately. She denies any attempt at overdose or suicide with her medications. She is not clear how the baclofen medications were not accounted for when she was found unresponsive at her home. Apparently she has a history of suicidal attempt 8 years ago. This was following the of her fiance at the time. Her physician has now ordered a psychiatry consultation for her. The patient did undergo follow-up CAT scan of the brain today. This is reported negative and unchanged from her previous. She is showing significant improvement in her mental status compared to yesterday and does not require further follow-up EEG at this time. The patient is anticipating discharge hopefully in the next 24 hours. Neurologically she is very much intact with no focal deficits. We will continue close neurological follow-up with this patient during this admission. Objective - Vital Signs Vital signs: Vital Signs Temp 98.6 F 07/13/17 12:00 Pulse 95 07/13/17 13:00 Resp 24 07/13/17 13:00 BP 148/73 07/13/17 13:00 Pulse Ox 92 L 07/13/17 13:00 Intake & Output 07/12/17 07/13/17 07/13/17 18:59 06:59 18:59 Intake Total 925.320 7690 900 Output Total 1900 710 470 Balance -909.260 990 430 Weight 86.137 kg 86.2 kg Intake: IV 1200 500 Sodium Chloride 0.9% 1, 1200 500 000 ml @ 100 mls/hr IV . Q10H [facility] Rx#:[id number] Intake, IV Titration 990.740 200 400 Amount Propofol 1,000 mg In 100 90.740 100 ml @ Titrate IV .Q0M [facility] Rx#:[id number] Sodium Chloride 0.9% 1, 900 100 000 ml @ 100 mls/hr IV . Q10H [facility] Rx#:[id number] levETIRAcetam IV 500 mg 400 In Sodium Chloride 0.9% 100 ml @ 400 mls/hr IVPB Q12HR [facility] Rx#:[id number] Oral 300 Output: Gastric Drainage 200 Urine 1700 710 470 Other: Voiding Method Indwelling Catheter Indwelling Catheter Indwelling Catheter # Bowel Movements 2 - Exam Physical Examination: PHYSICAL EXAMINATION: Patient is resting comfortably in bed. VITAL SIGNS: Blood pressure is [138/65]. Heart rate is [81]. Respiration is [24] . Temperature is [98.2]. HEENT: Head is atraumatic, neck is supple, there were no carotid bruits. CHEST: Lungs are clear to auscultation and percussion. CARDIAC: S1, S2 normal rate and rhythm. There is no murmur. ABDOMEN: Soft and nontender. Bowel sounds are present. EXTREMITIES: There is no pedal edema. Peripheral pulses are present. Neurological examination: This patient has a nonfocal neurological examination today in the ICU. - Labs CBC & Chem 7: 07/13/17 04:05 07/13/17 04:05 Labs: Abnormal Lab Results - Last 24 Hours (Table) 07/13/17 07/13/17 Range/Units 04:05 04:05 WBC 11.9 H (3.8-10.6) k/uL Neutrophils # 10.1 H (1.3-7.7) k/uL Potassium 3.4 L (3.5-5.1) mmol/L Chloride 115 H (98-107) mmol/L Carbon Dioxide 20 L (22-30) mmol/L Albumin 3.3 L (3.5-5.0) g/dL Microbiology - Last 24 Hours (Table) 07/12/17 12:30 Urine Culture - Preliminary Urine,Catheterized Assessment and Plan (1) Drug overdose Current Visit: Yes Status: Acute SNOMED Code(s): 10355113 (2) Acute encephalopathy Current Visit: Yes Status: Acute SNOMED Code(s): 1702026 (3) Myoclonus Current Visit: Yes Status: Acute SNOMED Code(s): 97914155 (4) History of seizures Current Visit: Yes Status: Acute SNOMED Code(s): 039246433 Plan: This patient is a 41 year old female being evaluated in the ICU for suspected drug overdose and obtundation yesterday. The patient was intially intubated and was on the ventilator last night at the time of her neurologic examination. She was sucessfully extubated yesterday evening and is now more awake and alert. Patient is back to baseline today in the ICU. She is following all commands. Her neurological examination is nonfocal. She was restarted on Keppra as she does have a history of seizure disorder. Her Keppra blood level is pending from the laboratory today. She does complain of chronic low back pain and muscle spasms. We recommended that a vitamin D level should be checked for her. We will have her continue on Keppra 500 mg twice a day and we will await her blood levels to return from the laboratory. Patient will be transferred out of the ICU later today. We will continue close neurological follow-up with this patient. Her overall prognosis at this time remains guarded.
[2017-07-14] MEDS: levETIRAcetam IV 500 MG in SODIUM CHLORIDE 0.9% 100 ML IVPB SCH (09:47)
--- NOTE | 2017-07-14 18:50 | P.PN ---
Subjective Progress Note Date: 07/14/17 Patient seen today in the ICU for neurologic follow-up and evaluation. She was seen yesterday in the ICU for possible drug overdose. She was intubated at the time of her neurological evaluation yesterday. She showed sudden alertness and agitation and was attempting to pull out her ET Tube and lines. She was on 65 mics of Diprivan at that time. It was decided by Pulmonary Medicine to extubate her yesterday evening. The patient is now examined in the intensive care unit. She was extubated yesterday evening. She is able to answer all questions appropriately. She denies any attempt at overdose or suicide with her medications. She is not clear how the baclofen medications were not accounted for when she was found unresponsive at her home. Apparently she has a history of suicidal attempt 8 years ago. This was following the of her fiance at the time. Her physician has now ordered a psychiatry consultation for her. The patient did undergo follow-up CAT scan of the brain today. This is reported negative and unchanged from her previous. She is showing significant improvement in her mental status compared to yesterday and does not require further follow-up EEG at this time. The patient is anticipating discharge hopefully in the next 24 hours. Neurologically she is very much intact with no focal deficits. The patient is cleared by psychiatry she may be considered for discharge home. We will continue close neurological follow-up with this patient during this admission. Objective - Vital Signs Vital signs: Vital Signs Temp 98.1 F 07/14/17 07:19 Pulse 72 07/14/17 07:19 Resp 18 07/14/17 07:19 BP 130/85 07/14/17 07:19 Pulse Ox 96 07/14/17 07:19 Intake & Output 07/13/17 07/14/17 07/14/17 18:59 06:59 18:59 Intake Total 900 950 Output Total 820 Balance 80 950 Intake: IV 500 Sodium Chloride 0.9% 1, 500 000 ml @ 100 mls/hr IV . Q10H [facility] Rx#:[id number] Intake, IV Titration 400 Amount levETIRAcetam IV 500 mg 400 In Sodium Chloride 0.9% 100 ml @ 400 mls/hr IVPB Q12HR [facility] Rx#:[id number] Oral 950 Output: Urine 820 Other: Voiding Method Indwelling Catheter Toilet # Voids 1 - Exam Physical Examination: PHYSICAL EXAMINATION: Patient is resting comfortably in bed. VITAL SIGNS: Blood pressure is [130/85]. Heart rate is [72]. Respiration is [18] . Temperature is [98.1]. HEENT: Head is atraumatic, neck is supple, there were no carotid bruits. CHEST: Lungs are clear to auscultation and percussion. CARDIAC: S1, S2 normal rate and rhythm. There is no murmur. ABDOMEN: Soft and nontender. Bowel sounds are present. EXTREMITIES: There is no pedal edema. Peripheral pulses are present. Neurological examination: This patient has a nonfocal neurological examination today. - Labs CBC & Chem 7: 07/13/17 04:05 07/13/17 04:05 Labs: Microbiology - Last 24 Hours (Table) 07/12/17 12:30 Urine Culture - Final Urine,Catheterized Assessment and Plan (1) Drug overdose Status: Acute SNOMED Code(s): 77106187 (2) Acute encephalopathy Status: Acute SNOMED Code(s): 5346474 (3) Myoclonus Status: Acute SNOMED Code(s): 30853950 (4) History of seizures Status: Acute SNOMED Code(s): 008299784 Plan: This patient is a 41-year-old right-handed white female who was initially evaluated in the intensive care unit after being found unresponsive at home. Patient was initially intubated and transferred to the ICU. She was extubated yesterday and is now back to baseline level of function. She underwent a routine EEG which failed to reveal any evidence of underlying seizure disorder. She does have a history of previous seizures in the past. She has now been restarted on Keppra monotherapy for seizure prophylaxis. Patient apparently overdosed on baclofen at home. She is awaiting an psychiatry consultation for further evaluation regarding history of previous suicidal attempt 8 years ago. Neurologically the patient is intact. We are waiting final recommendations per psychiatry. She is being considered for possible discharge home later today. Overall prognosis at this time remains guarded.
--- NOTE | 2017-08-27 17:05 | P.PN ---
Progress Note - Text Progress Note Date: 07/14/17 I was told that patient had left against medical advise. We were not informed of this until after the fact by 45min. Again patient had denied any suicidal intent in overdose yesterday. Psychiatry has not evaluated the patient yet.
--- NOTE | 2017-08-27 17:10 | P.DS ---
Providers Date of admission: 07/12/17 07:14 Expected date of discharge: 07/14/17 Attending physician: Jeferson Albright MD Consults: 07/12/17 07:14 Consult Physician Routine Consulting Provider: Luis Miguel Martinez Consult Reason/Comments: icu Do you want consulting provider notified?: Yes 07/12/17 09:51 Consult Physician Stat Consulting Provider: Jose Lin Consult Reason/Comments: seizures, overdose Do you want consulting provider notified?: Yes 07/13/17 13:06 Consult Physician Routine Consulting Provider: Ashli Irving Consult Reason/Comments: poss. intentional overdose Do you want consulting provider notified?: Yes Primary care physician: Stated None - Discharge Diagnosis(es) (1) Altered mental state Status: Acute (2) Drug overdose Status: Acute (3) Seizure Status: Acute Hospital Course: 41 y/o female that was admiitd to the icu after a suspected overdose. Pt was intubated in the er for airway protection. Patient was later extubated the same day. Ptient transfered to the floor next day. Patient then left AMA before psych eval. We were not called until after patient left. Patient Condition at Discharge: Stable Plan - Discharge Summary Discharge Rx Participant: No New Discharge Prescriptions: No Action Methylphenidate HCl [Ritalin] 20 mg PO TID HYDROcodone/APAP 10-325MG [[place] 10-325] 1 tab PO Q6H PRN PRN Reason: Pain Discharge Medication List HYDROcodone/APAP 10-325MG [[place] 10-325] 1 tab PO Q6H PRN 07/12/17 [History] Methylphenidate HCl [Ritalin] 20 mg PO TID 07/12/17 [History] Follow up Appointment(s)/Referral(s): None,Stated [Primary Care Provider] - 1-2 days Discharge Disposition: Left Against Medical Advice
== END 2017-07-14 09:15 | disposition left against medical advice (07) | DRG 812 ==
LOC: EC 05:02 → 6ICU 07:14 → 5ONC 07-13 21:36
PROVIDERS: ADMIT Family Medicine; ATTEND Family Medicine
PROC: 5A1935Z Respiratory Ventilation, Less than 24 Consecutive Hours (ICD-10-PCS; principal; 2017-07-12)
PROC: 0BH17EZ Insertion of Endotracheal Airway into Trachea, Via Natural or Artificial Opening (ICD-10-PCS; 2017-07-12)
DX: T42.8X1A Poisoning by antiparkinsonism drugs and other central muscle-tone depressants, accidental (unintentional), initial encounter (principal); J96.01 Acute respiratory failure with hypoxia; G93.40 Encephalopathy, unspecified; F10.10 Alcohol abuse, uncomplicated; F17.200 Nicotine dependence, unspecified, uncomplicated; G40.909 Epilepsy, unspecified, not intractable, without status epilepticus; J98.11 Atelectasis; K21.9 Gastro-esophageal reflux disease without esophagitis; G43.909 Migraine, unspecified, not intractable, without status migrainosus; G25.3 Myoclonus; Z85.850 Personal history of malignant neoplasm of thyroid; Z79.899 Other long term (current) drug therapy; Z91.5 Personal history of self-harm; Y92.009 Unspecified place in unspecified non-institutional (private) residence as the place of occurrence of the external cause
CPT/HCPCS: 31500; 36415; 36600; 43753; 51702; 70450; 71010; 80053; 80156; 80164; 80178; 80185; 80306; 80320; 81001; 81025; 82140; 82306; 82550; 82553; 82805; 83520; 83605; 83690; 83735; 84100; 85025; 87086; 93005; 94640; 95816; 96360; 96361; 96374; 96375; 99285

== ENCOUNTER 2018-01-15 09:29 | Day surgery (SDC) | payer OTHER ==
[2018-01-11 10:07] VITALS: BMI 28.8
[~2018-01-15 09:29] MED LIST: LACTATED RINGERS 1,000 ML IV SCH; LIDOCAINE 1% 20 ML VIAL (10MG/ML) FOR IV START INTRADERMA PRN
[2018-01-15 09:51] VITALS: RESP 16; TEMP 98.2
[2018-01-15] MEDS ORDERED: PROPOFOL 10 MG/ML 20 ML VIAL IV ONE (10:07)
[2018-01-15] MEDS ORDERED: LIDOCAINE 1% INJ 10MG/ML (20 ML MDV) ONE (10:07)
--- NOTE | 2018-01-15 10:57 | P.PCN ---
Date of Procedure: 01/15/18 Procedure(s) Performed: Procedure: 1. Esophagogastroduodenoscopy and biopsy. 2. Colonoscopy and biopsy. Preoperative diagnosis: 1. Small sliding hiatal hernia with no obvious esophagitis or complicated reflux disease. 2. Mild antral gastritis. 3. Normal colon and terminal ileum. 4. Multiple biopsies obtained from the duodenum, antrum, esophagus, terminal ileum and right colon. Preparation: HalfLytely prep. Sedation: Was provided by anesthesia. Brief clinical history: The patient is a 42-year-old female who I have evaluated in the office earlier this month for chronic diarrhea. This evaluation is to assess for celiac disease, inflammatory bowel disease or other pathology. Procedure: With the patient on her left lateral decubitus and after informed consent and adequate sedation, I passed the Olympus-GIF 160 video upper endoscope through the cricopharyngeus down the esophagus. GE junction was at 41 cm from the incisors and there was a small sliding hiatal hernia but no obvious esophagitis or complicated reflux disease. The endoscope was then passed into the stomach which was insufflated with air and inspected in detail including the retroflex view in the cardia. There was minimal mottling and erythema in the antrum but no ulcers or erosions. Pyloric channel, duodenal bulb, post bulbar area and descending duodenum appeared within normal limits because of her diarrhea, I obtained biopsies from the duodenum, antrum and esophagus then the endoscope was withdrawn and I proceeded with the colonoscopy. Perianal area did not show any fissures or fistulas. There were no masses felt on digital rectal examination. The Olympus CFQ 160L video colonoscope was then inserted in the rectum in the usual fashion and advanced to the cecum. I intubated the ileocecal valve and examined the terminal ileum. The preparation was less than ideal. Terminal ileum and colon appeared healthy with no edema, erythema, friability, ulceration, exudation or spontaneous bleeding. No polyps or tumors were seen or any obvious diverticular disease. I obtained biopsies from the terminal ileum and right colon then the endoscope was withdrawn. The patient tolerated the procedure well. Plan: The patient was reassured. Will await biopsy results and make further plans based on her course and biopsy results. I will keep you updated on her progress.
[2018-01-15 11:17] VITALS: BP 130/79; PULSE 64
== END 2018-01-15 11:40 | disposition home or self-care (01) ==
LOC: ORWHC2ENDO 09:29
DX: K29.50 Unspecified chronic gastritis without bleeding (principal); K44.9 Diaphragmatic hernia without obstruction or gangrene; K21.9 Gastro-esophageal reflux disease without esophagitis; M19.90 Unspecified osteoarthritis, unspecified site; E78.5 Hyperlipidemia, unspecified; G43.909 Migraine, unspecified, not intractable, without status migrainosus; M54.5 Low back pain; E07.9 Disorder of thyroid, unspecified; Z85.850 Personal history of malignant neoplasm of thyroid; F17.210 Nicotine dependence, cigarettes, uncomplicated; Z79.899 Other long term (current) drug therapy
CPT/HCPCS: 81025; 88305; 45380; 43239; J2001; J2704

== ENCOUNTER 2018-04-28 11:38 | Emergency (ER) | payer OTHER ==
[2018-04-28 11:54] VITALS: RESP 18
[2018-04-28] MEDS ORDERED: LORazepam 2 MG/ML INJ IV STA (12:01)
--- NOTE | 2018-04-28 12:04 | ED ---
General Adult HPI - General Chief complaint: Seizure Stated complaint: SEIZURE Time Seen by Provider: 04/28/18 11:49 Source: patient, EMS, RN notes reviewed Mode of arrival: EMS Limitations: no limitations - History of Present Illness Initial comments: 42-year-old female presents for evaluation of seizure. "EMS patient had a 3 minute seizure while at alcohol rehab. She has been sober for approximately one week. Patient states she has been given Ativan and trazodone while at rehab. Patient does have remote history of seizure disorder. She is not on any daily prophylactic medication. He does spend many years since she had her last seizure. Patient has no complaints time my evaluation. No headache. No numbness or tingling. No focal weakness. Denies any injury or pain. - Related Data Home Medications Medication Instructions Recorded Confirmed Methylphenidate HCl [Ritalin] 20 mg PO TID 07/12/17 01/15/18 Fenofibrate Nanocrystallized 145 mg PO DAILY 01/11/18 01/15/18 [Fenofibrate] Allergies Allergy/AdvReac Type Severity Reaction Status Date / Time No Known Allergies Allergy Verified 01/11/18 10:01 Review of Systems ROS Statement: Those systems with pertinent positive or pertinent negative responses have been documented in the HPI. ROS Other: All systems not noted in ROS Statement are negative. Past Medical History Past Medical History: Cancer, Hyperlipidemia, Osteoarthritis (OA), Seizure Disorder Additional Past Medical History / Comment(s): LAST SEIZURE IN 2011. OVERDOSE W/ RESP FAILURE AND PLACED ON VENT IN 2011. THYROID CANCER. RADIATION, HERNIATED DISCS, PAST MIGRAINES,LOWER BACK AND RT HIP PAIN, AND KNEE. PT HAVING DIARRHEA /WATERY/BLOODY STOOL ON DAILY BASIS History of Any Multi-Drug Resistant Organisms: None Reported Past Surgical History: Tubal Ligation Additional Past Surgical History / Comment(s): D&C, RT GROIN CYST REMOVED, PAST PICC LINE/REMOVED Past Anesthesia/Blood Transfusion Reactions: No Reported Reaction Past Psychological History: ADD/ADHD, Anxiety Smoking Status: Current every day smoker - Past Family History Mother Family Medical History: Cancer Father History Unknown: Yes Family Medical History: Deep Vein Thrombosis (DVT) General Exam Limitations: no limitations General appearance: alert, in no apparent distress Head exam: Present: atraumatic, normocephalic Eye exam: Present: normal appearance, PERRL, EOMI ENT exam: Present: normal exam Neck exam: Present: normal inspection. Absent: tenderness, meningismus Respiratory exam: Present: normal lung sounds bilaterally. Absent: respiratory distress, wheezes Cardiovascular Exam: Present: regular rate, normal rhythm, bradycardia GI/Abdominal exam: Present: soft. Absent: distended, tenderness, guarding Extremities exam: Present: normal inspection, full ROM Back exam: Present: normal inspection, full ROM Neurological exam: Present: alert, oriented X3, CN II-XII intact. Absent: motor sensory deficit Psychiatric exam: Present: normal affect, normal mood Skin exam: Present: warm, dry, intact. Absent: cyanosis, diaphoretic Course Vital Signs 04/28/18 04/28/18 11:49 12:48 Temperature 98.4 F Pulse Rate 68 65 Respiratory 18 18 Rate Blood Pressure 125/71 O2 Sat by Pulse 95 97 Oximetry EKG Findings - EKG Comments: EKG Findings:: EKG: Normal sinus rhythm, rate of 68, WI interval 144, QRS duration 102, QTC 429, no signs of ST segment elevation Medical Decision Making - Medical Decision Making 42-year-old female presenting with suspected seizure. Patient does have history of seizure disorder. She is not on prophylactic medication. She is alert and oriented time my evaluation. She is 7 days since her last drink although she has no signs of delirium tremens. She is on Ativan and is given additional dose in the emergency department. Vitals are stable, well-appearing , normal neurologic exam. She will be discharged back to rehab. May require increased dose of Ativan. Follow up as an outpatient with neurology. - Lab Data Result diagrams: 04/28/18 12:43 04/28/18 12:43 Lab Results 04/28/18 04/28/18 Range/Units 12:43 12:43 WBC 8.9 (3.8-10.6) k/uL RBC 4.03 (3.80-5.40) m/uL Hgb 13.6 (11.4-16.0) gm/dL Hct 43.1 (34.0-46.0) % MCV 107.1 H (80.0-100.0) fL MCH 33.7 (25.0-35.0) pg MCHC 31.5 (31.0-37.0) g/dL RDW 15.5 (11.5-15.5) % Plt Count 185 (150-450) k/uL Neutrophils % Not Reportable Neutrophils % (Manual) 77 % Lymphocytes % Not Reportable Lymphocytes % (Manual) 12 % Monocytes % Not Reportable Monocytes % (Manual) 11 % Eosinophils % Not Reportable Basophils % Not Reportable Myelocytes % 1 % Neutrophils # Not Reportable Neutrophils # (Manual) 6.85 (1.3-7.7) k/uL Lymphocytes # Not Reportable Lymphocytes # (Manual) 1.07 (1.0-4.8) k/uL Monocytes # Not Reportable Monocytes # (Manual) 0.98 (0-1.0) k/uL Eosinophils # Not Reportable Basophils # Not Reportable Myelocytes # (Manual) 0.09 H (0) k/uL Nucleated RBCs 0 (0-0) /100 WBC Manual Slide Review Performed Polychromasia Present Macrocytosis Marked Sodium 140 (137-145) mmol/L Potassium 4.6 (3.5-5.1) mmol/L Chloride 104 (98-107) mmol/L Carbon Dioxide 29 (22-30) mmol/L Anion Gap 7 mmol/L BUN 13 (7-17) mg/dL Creatinine 0.55 (0.52-1.04) mg/dL Est GFR (CKD-EPI)AfAm >90 (>60 ml/min/1.73 sqM) Est GFR (CKD-EPI)NonAf >90 (>60 ml/min/1.73 sqM) Glucose 119 H (74-99) mg/dL Calcium 9.2 (8.4-10.2) mg/dL Total Bilirubin 0.3 (0.2-1.3) mg/dL AST 72 H (14-36) U/L ALT 82 H (9-52) U/L Alkaline Phosphatase 83 (38-126) U/L Total Protein 6.6 (6.3-8.2) g/dL Albumin 3.6 (3.5-5.0) g/dL Serum Alcohol <10 mg/dL Disposition Clinical Impression: Generalized seizure, History of seizures Disposition: HOME SELF-CARE Condition: Fair Instructions: Recurrent Seizures in Adults (ED) Is patient prescribed a controlled substance at d/c from ED?: No Referrals: Jim Rojas MD [Primary Care Provider] - 1-2 days Anastacia Gomez MD [STAFF PHYSICIAN] - 1-2 days Time of Disposition: 13:51
[2018-04-28 13:03] LABS: HCT 43.1 % (34.0-46.0); HGB 13.6 gm/dL (11.4-16.0); MCH 33.7 pg (25.0-35.0); MCHC 31.5 g/dL (31.0-37.0); MCV 107.1 fL (80.0-100.0); Macrocytosis Marked; Mean Platelet Volume 7.7; Platelet Count 185 k/uL (150-450); RBC 4.03 m/uL (3.80-5.40); RDW 15.5 % (11.5-15.5); WBC 8.9 k/uL (3.8-10.6)
[2018-04-28 13:10] LABS: ALT 82 U/L (9-52); AST 72 U/L (14-36); Albumin 3.6 g/dL (3.5-5.0); Alcohol <10 mg/dL; Alkaline Phosphatase 83 U/L (38-126); Anion Gap 7 mmol/L; Blood Urea Nitrogen 13 mg/dL (7-17); Calcium 9.2 mg/dL (8.4-10.2); Carbon Dioxide 29 mmol/L (22-30); Chloride 104 mmol/L (98-107); Glucose 119 mg/dL (74-99); Potassium 4.6 mmol/L (3.5-5.1); Sodium 140 mmol/L (137-145); Total Bilirubin 0.3 mg/dL (0.2-1.3); Total Protein 6.6 g/dL (6.3-8.2)
[2018-04-28 13:19] LABS: Lymphocytes # (M) 1.07 k/uL (1.0-4.8); Monocytes # (M) 0.98 k/uL (0-1.0); Myelocytes # (M) 0.09 k/uL (0); Myelocytes % 1 %; Neutrophils # (M) 6.85 k/uL (1.3-7.7); Neutrophils % (M) 77 %; Nucleated Red Blood Cells 0 /100 WBC (0-0); Total Cells Counted 200
[2018-04-28 13:20] LABS: Polychromasia Present
[2018-04-28 14:15] VITALS: BP 122/68; PULSE 66; TEMP 98.6
== END 2018-04-28 14:16 | disposition home or self-care (01) ==
LOC: EC 11:38
DX: G40.909 Epilepsy, unspecified, not intractable, without status epilepticus (principal); F41.9 Anxiety disorder, unspecified; E78.5 Hyperlipidemia, unspecified; F90.9 Attention-deficit hyperactivity disorder, unspecified type; F17.200 Nicotine dependence, unspecified, uncomplicated; Z85.850 Personal history of malignant neoplasm of thyroid; Z79.899 Other long term (current) drug therapy
CPT/HCPCS: 36415; 93005; 80053; 85025; 99284; 96374; G0480; J2060; 80320

== ENCOUNTER 2018-04-28 20:15 | Inpatient (IN) | payer OTHER ==
[2018-04-28] MEDS ORDERED: THIAMINE 100 MG/ML 2 ML VIAL IM STA (20:42)
[2018-04-28] MEDS ORDERED: LORazepam 2 MG/ML INJ IV PRN ×3 (20:42)
[2018-04-28] MEDS ORDERED: ACETAMINOPHEN TAB 325 MG TAB PO STA (20:43)
--- NOTE | 2018-04-28 20:46 | ED ---
Seizure HPI - General Chief Complaint: Seizure Stated Complaint: seizure Time Seen by Provider: 04/28/18 20:17 Source: patient, EMS Mode of arrival: EMS Limitations: language barrier - History of Present Illness Initial Comments: Patient is a 42-year-old female presenting for seizure. Patient states that she was seen here earlier today after she had a seizure. She does not recall any of the details that seizure and states that she was given Ativan and discharged back to [place] where she is in a call rehab. She states that she did drink one fifth alcohol daily and her last drink was approximately 9 days ago. She went back to [place] and couple hours later, she had another seizure where she fell and hit her head. She is again unclear of the details of the seizure but states that she has no lingering symptoms but does have head pain were her head hit the ground. She denies any back pain, neck pain, nausea/vomiting/diarrhea. - Related Data Home Medications Medication Instructions Recorded Confirmed Methylphenidate HCl [Ritalin] 20 mg PO TID 07/12/17 01/15/18 Fenofibrate Nanocrystallized 145 mg PO DAILY 01/11/18 01/15/18 [Fenofibrate] Allergies Allergy/AdvReac Type Severity Reaction Status Date / Time No Known Allergies Allergy Verified 01/11/18 10:01 Review of Systems ROS Statement: Those systems with pertinent positive or pertinent negative responses have been documented in the HPI. Constitutional: Negative for chills, fatigue and fever. HENT: Negative for congestion. Respiratory: Negative for chest tightness, shortness of breath and wheezing. Negative for cough Cardiovascular: Negative for chest pain and palpitations. Gastrointestinal: Negative for abdominal pain. Negative for abdominal distention , diarrhea, nausea and vomiting. Genitourinary: Negative for dysuria. Musculoskeletal: Negative for back pain, neck pain and neck stiffness. Skin: Negative for color change. Neurological: Negative for dizziness, speech difficulty, weakness and light- headedness. Positive for headache and seizure Psychiatric/Behavioral: Negative for agitation and confusion. Negative for anxiety ROS Other: All systems not noted in ROS Statement are negative. Past Medical History Past Medical History: Cancer, Hyperlipidemia, Osteoarthritis (OA), Seizure Disorder Additional Past Medical History / Comment(s): LAST SEIZURE IN 2011. OVERDOSE W/ RESP FAILURE AND PLACED ON VENT IN 2011. THYROID CANCER. RADIATION, HERNIATED DISCS, PAST MIGRAINES,LOWER BACK AND RT HIP PAIN, AND KNEE. PT HAVING DIARRHEA /WATERY/BLOODY STOOL ON DAILY BASIS History of Any Multi-Drug Resistant Organisms: None Reported Past Surgical History: Tubal Ligation Additional Past Surgical History / Comment(s): D&C, RT GROIN CYST REMOVED, PAST PICC LINE/REMOVED Past Anesthesia/Blood Transfusion Reactions: No Reported Reaction Past Psychological History: ADD/ADHD, Anxiety Smoking Status: Current every day smoker Past Alcohol Use History: Abuse Past Drug Use History: None Reported - Past Family History Mother Family Medical History: Cancer Father History Unknown: Yes Family Medical History: Deep Vein Thrombosis (DVT) General Exam - General Exam Comments Initial Comments: Constitutional: Pt is oriented to person, place, and time. Pt appears well- developed and well-nourished. No distress. HENT: Head: Normocephalic and scalp hematoma present on the occipital region Eyes: EOM are normal. Neck: Normal range of motion. Neck supple. Cardiovascular: Normal rate, regular rhythm, S1 normal, S2 normal and normal heart sounds. Exam reveals no gallop and no friction rub. No murmur heard. Pulmonary/Chest: Effort normal and breath sounds normal. No tachypnea and no bradypnea. No respiratory distress. No wheezes or rales noted. Abdominal: Soft. Bowel sounds are normal. Pt exhibits no shifting dullness, no distension, no pulsatile liver, no fluid wave, no abdominal bruit and no ascites. There is no tenderness. There is no rigidity, no rebound, no guarding, no tenderness at McBurney's point and negative Zhu's sign. Musculoskeletal: Normal range of motion. Neurological: Pt is alert and oriented to person, place, and time. No cranial nerve deficit. No tremors present. Skin: Skin is warm and dry. No rash noted. Pt is not diaphoretic. No erythema. No pallor. Psychiatric: Pt has a normal mood and affect. Pt behavior is normal. Thought content normal. Limitations: language barrier Course Vital Signs 04/28/18 04/28/18 04/28/18 20:15 21:37 22:39 Temperature 98.5 F 101.3 F H 98.9 F Pulse Rate 85 83 Respiratory 16 16 Rate Blood Pressure 135/90 112/56 O2 Sat by Pulse 95 97 Oximetry Medical Decision Making - Medical Decision Making Laboratory studies showed that there is no leukocytosis and there is no anion. Serum alcohol was also less than 10. However, because patient has had repeated seizures, it was felt that it was unsafe to send the patient home and therefore she will be admitted to hospital for seizure precautions and treatment for delirium tremens. Additionally, CT of the head was performed and showed no evidence of acute pathology.Explained all labs and diagnostic test results and that we will admit patient to hospital. Pt is agreeable to plan and case has been discussed with Dr. Frost and they agree to accept the pt. - Lab Data Result diagrams: 04/28/18 21:20 04/28/18 21:20 Lab Results 04/28/18 04/28/18 Range/Units 21:20 21:20 WBC 8.0 (3.8-10.6) k/uL RBC 3.53 L (3.80-5.40) m/uL Hgb 12.1 (11.4-16.0) gm/dL Hct 36.8 (34.0-46.0) % MCV 104.3 H (80.0-100.0) fL MCH 34.2 (25.0-35.0) pg MCHC 32.8 (31.0-37.0) g/dL RDW 15.0 (11.5-15.5) % Plt Count 170 (150-450) k/uL Neutrophils % 75 % Lymphocytes % 13 % Monocytes % 8 % Eosinophils % 1 % Basophils % 1 % Neutrophils # 6.0 (1.3-7.7) k/uL Lymphocytes # 1.1 (1.0-4.8) k/uL Monocytes # 0.6 (0-1.0) k/uL Eosinophils # 0.1 (0-0.7) k/uL Basophils # 0.0 (0-0.2) k/uL Macrocytosis Moderate Sodium 139 (137-145) mmol/L Potassium 4.7 (3.5-5.1) mmol/L Chloride 102 (98-107) mmol/L Carbon Dioxide 32 H (22-30) mmol/L Anion Gap 5 mmol/L BUN 12 (7-17) mg/dL Creatinine 0.60 (0.52-1.04) mg/dL Est GFR (CKD-EPI)AfAm >90 (>60 ml/min/1.73 sqM) Est GFR (CKD-EPI)NonAf >90 (>60 ml/min/1.73 sqM) Glucose 141 H (74-99) mg/dL Calcium 9.3 (8.4-10.2) mg/dL Serum Alcohol <10 mg/dL Disposition Clinical Impression: Alcohol withdrawal, Seizure Disposition: ADMITTED IP TO THIS [facility] Condition: Good Referrals: Jim Rojas MD [Primary Care Provider] - 1-2 days Decision to Admit Reason: Admit from EC Decision Date: 04/29/18 Decision Time: 00:01
[2018-04-28 21:39] LABS: Basophils % (A) 1 %; Eosinophils # (A) 0.1 k/uL (0-0.7); Eosinophils % (A) 1 %; HCT 36.8 % (34.0-46.0); HGB 12.1 gm/dL (11.4-16.0); Lymphocytes # (A) 1.1 k/uL (1.0-4.8); Lymphocytes % (A) 13 %; MCH 34.2 pg (25.0-35.0); MCHC 32.8 g/dL (31.0-37.0); MCV 104.3 fL (80.0-100.0); Macrocytosis Moderate; Mean Platelet Volume 7.9; Monocytes # (A) 0.6 k/uL (0-1.0); Monocytes % (A) 8 %; Neutrophils % (A) 75 %; Platelet Count 170 k/uL (150-450); RBC 3.53 m/uL (3.80-5.40)
[2018-04-28 21:57] LABS: Alcohol <10 mg/dL; Anion Gap 5 mmol/L; Blood Urea Nitrogen 12 mg/dL (7-17); Calcium 9.3 mg/dL (8.4-10.2); Carbon Dioxide 32 mmol/L (22-30); Chloride 102 mmol/L (98-107); Glucose 141 mg/dL (74-99); Potassium 4.7 mmol/L (3.5-5.1); Sodium 139 mmol/L (137-145)
--- NOTE | 2018-04-28 22:01 | CT ---
EXAMINATION TYPE: CT brain wo con DATE OF EXAM: 04/28/2018 COMPARISON: 07/13/2017 HISTORY: 42-year-old female pain and Seizure. TECHNIQUE: Examination was done in axial plane without intravenous contrast. Coronal and sagittal r econstructions performed. CT DLP: 820.7 mGycm Automated exposure control for dose reduction was used. FINDINGS: There is no evidence of acute intracranial hemorrhage, acute ischemic changes, mass, mass-effect, or extra-axial fluid collection. There is no effacement of cerebral sulci or basal subarachnoid cister ns. There is no hydrocephalus. There is no midline shift. Cox-white matter distinction is preserv ed. Partially empty sella. Large posterior scalp contusion. No underlying calvarial fracture. Paranasal sinuses and mastoid air cells well pneumatized. Orbits and globes are intact. IMPRESSION: Large posterior scalp contusion/hematoma. No acute intracranial abnormality seen.
[2018-04-28] MEDS: THIAMINE 100 MG TAB PO SCH (22:48)
[2018-04-29] MEDS ORDERED: NALOXONE 0.4 MG/ML 1 ML VIAL IV PRN (00:02)
--- NOTE | 2018-04-29 00:07 | ED ---
Medical Decision Making - Lab Data Result diagrams: 04/28/18 21:20 04/28/18 21:20 Lab Results 04/28/18 04/28/18 Range/Units 21:20 21:20 WBC 8.0 (3.8-10.6) k/uL RBC 3.53 L (3.80-5.40) m/uL Hgb 12.1 (11.4-16.0) gm/dL Hct 36.8 (34.0-46.0) % MCV 104.3 H (80.0-100.0) fL MCH 34.2 (25.0-35.0) pg MCHC 32.8 (31.0-37.0) g/dL RDW 15.0 (11.5-15.5) % Plt Count 170 (150-450) k/uL Neutrophils % 75 % Lymphocytes % 13 % Monocytes % 8 % Eosinophils % 1 % Basophils % 1 % Neutrophils # 6.0 (1.3-7.7) k/uL Lymphocytes # 1.1 (1.0-4.8) k/uL Monocytes # 0.6 (0-1.0) k/uL Eosinophils # 0.1 (0-0.7) k/uL Basophils # 0.0 (0-0.2) k/uL Macrocytosis Moderate Sodium 139 (137-145) mmol/L Potassium 4.7 (3.5-5.1) mmol/L Chloride 102 (98-107) mmol/L Carbon Dioxide 32 H (22-30) mmol/L Anion Gap 5 mmol/L BUN 12 (7-17) mg/dL Creatinine 0.60 (0.52-1.04) mg/dL Est GFR (CKD-EPI)AfAm >90 (>60 ml/min/1.73 sqM) Est GFR (CKD-EPI)NonAf >90 (>60 ml/min/1.73 sqM) Glucose 141 H (74-99) mg/dL Calcium 9.3 (8.4-10.2) mg/dL Serum Alcohol <10 mg/dL - EKG Data EKG Comments: EKG shows normal sinus rhythm with a rate of 75 bpm. MS interval 144, QRS duration 92, QTC 437. There is nonspecific T-wave inversions in lead V2 but no significant ST depressions or elevations. Disposition Clinical Impression: Alcohol withdrawal, Seizure Disposition: ADMITTED IP TO THIS [facility] Condition: Good Referrals: Jim Rojas MD [Primary Care Provider] - 1-2 days
[2018-04-29 01:42] VITALS: BMI 29.1
[2018-04-29] MEDS: SODIUM CHLORIDE 0.9% 1,000 ML IV SCH ×2 (01:51→06:27)
[2018-04-29] MEDS: ACETAMINOPHEN TAB 325 MG TAB PO PRN ×2 (04:19→10:17)
[2018-04-29] MEDS ORDERED: LORazepam 2 MG/ML INJ IV PRN (04:29)
--- NOTE | 2018-04-29 06:06 | P.HPIM ---
History of Present Illness H&P Date: 04/29/18 Chief Complaint: seizure 42 year old female with history of alcohol abuse. No history of seizure disorder , but patient had a seizure attack 9 years ago related to alcohol withdrawal. Patient is currently at [facility], for alcohol rehab, she voluntarily admitted 1 week ago, with her last alcohol drink was 1 week ago. she was kept on ativan per CIWA scale, for alcohol withdrawal precautions up until ( 2 days ago ). SHe had a seizure on monday and was brought to the hospital , given some ativan and was discharged back to [facility]. THen while there , she was smoking at the smoking pod, when bystanders described that she fell backward and hit her head on the cement, and started to have body shakes in what looked like a seizure, it is not clear if she threw up during the attack or after, but she denies any tongue biting, loss of bladder or bowel control , she woke up confused initially and was not fully aware until she got to the hospital by ambulance. bystanders described the seizure attack lasting 2-3 minutes. EMS called and was brought to the hospital. she was given some zofran for nausea en route to the hospital. no further seizure attacks since then. Patient was admited for further monitoring . CT of the head showed posterior scalp contusion/hematoma, no acute intracranial abnormalities. patient is not currently taking any medications. She used to be on synthroid in the past, but her doctor has stopped it. she currently denies any chest pain, trouble breathing, coughing, fevers, chills , denies any changes in her bowel or urinary habits, she denies any GI bleeding. denies any abd pain, changes in her vision, or hearing, denies any focal neurological deficits at this time. She is bothered by the throbbing pain in the back of her head secondary to the fall. she admits to alcohol abuse where she was drinking a 1/5 th daily Review of Systems Pertinent positives as noted in HPI. All other systems were reviewed and are negative Past Medical History Past Medical History: Hyperlipidemia, Osteoarthritis (OA) Additional Past Medical History / Comment(s): 2 seizures on 04/28/18 at [facility]. apparently was last day ativan was given to patient at [facility].LAST SEIZURE IN 2011 due to withdrawals. OVERDOSE W/RESP FAILURE AND PLACED ON VENT IN 2011. THYROID disorder (denies hisotry of cancer), HERNIATED DISCS, PAST MIGRAINES,LOWER BACK AND RT HIP PAIN, AND KNEE. History of Any Multi-Drug Resistant Organisms: None Reported Past Surgical History: Tubal Ligation Additional Past Surgical History / Comment(s): EGD and colonoscopy recently, D&C , RT GROIN CYST REMOVED, PAST PICC LINE/REMOVED Past Anesthesia/Blood Transfusion Reactions: No Reported Reaction Past Psychological History: ADD/ADHD, Anxiety Additional Psychological History / Comment(s): pt currently residing at [facility] for etoh drinks a fifth a day last drink 9 days ago Smoking Status: Current every day smoker Past Alcohol Use History: Abuse Additional Past Alcohol Use History / Comment(s): SMOKES 1PPD FROM AGE 20 Past Drug Use History: None Reported - Past Family History Mother Family Medical History: Cancer Father History Unknown: Yes Family Medical History: Deep Vein Thrombosis (DVT) Medications and Allergies Home Medications Medication Instructions Recorded Confirmed Type Loperamide [Imodium] 2 mg PO QID 04/29/18 04/29/18 History traZODone HCL 150 mg PO HS 04/29/18 04/29/18 History Allergies Allergy/AdvReac Type Severity Reaction Status Date / Time No Known Allergies Allergy Verified 04/29/18 01:27 Physical Exam Vitals: Vital Signs Temp Pulse Pulse Resp BP BP Pulse Ox 04/29/18 01:18 97.8 F 74 18 124/73 94 L 04/29/18 00:49 97.7 F 72 16 111/60 94 L 04/28/18 22:39 98.9 F 83 16 112/56 97 04/28/18 21:37 101.3 F H 04/28/18 20:15 98.5 F 85 16 135/90 95 Intake and Output 04/28/18 04/28/18 04/29/18 14:59 22:59 06:59 Other: Voiding Method Toilet Weight 81.647 kg 89.5 kg Constitutional: No acute distress, conversant, pleasant, well- developed Eyes: Anicteric sclerae, moist conjunctiva, no lid-lag Pupils equal round reactive to light ENMT: NC , palpable lump over the occipital region of the head 4 x 4 centimeters raised with contusion no active bleeding no visible wounds tender to palpation Oropharynx clear, no erythema, or exudates Neck: Supple, FROM, no masses, or JVD No carotid bruits No thyromegaly Lungs: Clear to auscultation Clear to percussion Normal respiratory effort, no accessory muscle use Cardiovascular: Heart regular in rate and rhythm, No murmurs, gallops, or rubs No peripheral edema Abdominal: Soft Nontender, no guarding, rebound or rigidity Abdomen moving with respiration Normoactive bowel sounds No hepatomegaly, No splenomegaly No palpable mass No abdominal wall hernia noted Skin: Normal temperature, tone, texture, turgor No induration No subcutaneous nodules No rash, lesions No ulcers Extremities: No digital cyanosis No clubbing Pedal pulses intact and symmetrical Radial pulses intact and symmetrical No calf tenderness Psychiatric: Alert and oriented to person, place and time Appropriate affect fair judgment Neuro Muscles Strength 5/5 in all 4 extremities Sensation to light touch grossly present throughout Cranial nerves II-XII grossly intact No focal sensory deficits Lymphatics: no palpable cervical or supraclavicular , or inguinal lymph nodes Results CBC & Chem 7: 04/28/18 21:20 04/28/18 21:20 Labs: Abnormal Lab Results - Last 24 Hours (Table) 04/28/18 04/28/18 Range/Units 21:20 21:20 RBC 3.53 L (3.80-5.40) m/uL MCV 104.3 H (80.0-100.0) fL Carbon Dioxide 32 H (22-30) mmol/L Glucose 141 H (74-99) mg/dL Thrombosis Risk Factor Assmnt - Choose All That Apply Any of the Below Risk Factors Present?: Yes Each Factor Represents 1 point: Age 41-60 years, Obesity (BMI >25) Other Risk Factors: No Other congenital or acquired thrombophilia - If yes, enter type in comment: No Thrombosis Risk Factor Assessment Total Risk Factor Score: 2 Thrombosis Risk Factor Assessment Level: Low Risk Assessment and Plan Assessment: 42-year-old female with history of withdrawal seizures, admitted as an inpatient with anticipated length of stay of more than 48 hours due to repeated seizures, resulting and occipital scalp hematoma. Patient admits to alcohol abuse her last drink was about 7 days ago she voluntarily admitted to [facility] for rehab. She was kept on benzos per CIWA scale for alcohol withdrawal precautions up until 2 days ago. Plan: Seizure attack, could be related to alcohol withdrawal however her last drink was over 7 days ago Check EEG Neuro consult Seizure precautions and pads Ativan when necessary for seizures Ativan for symptoms of alcohol withdrawals Thiamine IV fluid hydration Fall precautions Occipital scalp hematoma Monitor for any increase in size Avoid blood thinners Tobacco smoking Patient counseled to quit smoking Nicotine replacement therapy offered DVT prophylaxis Mechanical, will avoid pharmacologic DVT prophylaxis due to scalp hematoma History of thyroid disorder Currently not on Synthroid Check TSH Macrocytosis without anemia Check vitamin B12 and RBC folate This is most likely due to alcohol abuse 1 spike of fever No evidence of acute infection symptoms No leukocytosis Continue to monitor Alcohol abuse Patient counseled to abstain from alcohol Management as above Surrogate decision-maker: Patient's son Dilip CODE STATUS: Full code Anticipated discharge: 48-[address]: Pending clinical course most likely back to [facility] rehab A total of 60 minutes was spent on the care of this complex patient more than 50 % of the time was spent in counseling and care coordination.
[2018-04-29 07:27] LABS: Basophils # (A) 0.1 k/uL (0-0.2); Basophils % (A) 1 %; Eosinophils # (A) 0.1 k/uL (0-0.7); Eosinophils % (A) 1 %; HCT 38.1 % (34.0-46.0); Lymphocytes # (A) 1.5 k/uL (1.0-4.8); Lymphocytes % (A) 25 %; MCH 33.9 pg (25.0-35.0); MCHC 31.6 g/dL (31.0-37.0); MCV 107.3 fL (80.0-100.0); Macrocytosis Marked; Mean Platelet Volume 7.2; Monocytes # (A) 0.6 k/uL (0-1.0); Monocytes % (A) 9 %; Neutrophils # (A) 3.8 k/uL (1.3-7.7); Neutrophils % (A) 62 %; Platelet Count 169 k/uL (150-450); RBC 3.55 m/uL (3.80-5.40); RDW 15.5 % (11.5-15.5); WBC 6.1 k/uL (3.8-10.6)
[2018-04-29 07:41] LABS: ALT 72 U/L (9-52); AST 54 U/L (14-36); Albumin 3.1 g/dL (3.5-5.0); Alkaline Phosphatase 64 U/L (38-126); Anion Gap 5 mmol/L; Blood Urea Nitrogen 12 mg/dL (7-17); Calcium 8.9 mg/dL (8.4-10.2); Carbon Dioxide 28 mmol/L (22-30); Chloride 107 mmol/L (98-107); Glucose 87 mg/dL (74-99); Potassium 4.3 mmol/L (3.5-5.1); Sodium 140 mmol/L (137-145); Total Bilirubin 0.2 mg/dL (0.2-1.3); Total Protein 5.7 g/dL (6.3-8.2)
[2018-04-29 07:58] LABS: Polychromasia Present
--- NOTE | 2018-04-29 11:58 | P.CONS ---
History of Present Illness - Reason for Consult Consult date: 04/29/18 Alcohol withdrawal seizure - Chief Complaint Alcohol withdrawal seizure - History of Present Illness This 42-year-old female being evaluated by the neurology service for seizure activity. She has no history of seizure disorder and is on no antiepileptic medication. She reports having 1 seizure about 9 years ago that she says were related to drug overdose. She was at the [facility] rehab facility for about a week. She said they stopped her Ativan which apparently is given for the first week only. She was on a smoke break when she had what sounds like tonic clonic seizure activity by bystanders. Was no tongue biting, no sphincter incontinence. Apparently there was some confusion afterwards. There is been no seizure activity since then. At the time my exam she is resting comfortably in bed in no acute distress. I did awaken her in the first thing she asked was for a dose of Ativan. She is asking that she be discharged with an order for continued Ativan. He does have some occipital pain from the fall. CT of the brain showed no acute intracranial abnormalities but she did show a contusion in this area. Review of Systems All systems: negative Constitutional: Reports as per HPI Past Medical History Past Medical History: Hyperlipidemia, Osteoarthritis (OA) Additional Past Medical History / Comment(s): 2 seizures on 04/28/18 at [facility]. apparently was last day ativan was given to patient at [facility].LAST SEIZURE IN 2011 due to withdrawals. OVERDOSE W/RESP FAILURE AND PLACED ON VENT IN 2011. THYROID disorder (denies hisotry of cancer), HERNIATED DISCS, PAST MIGRAINES,LOWER BACK AND RT HIP PAIN, AND KNEE. History of Any Multi-Drug Resistant Organisms: None Reported Past Surgical History: Tubal Ligation Additional Past Surgical History / Comment(s): EGD and colonoscopy recently, D&C , RT GROIN CYST REMOVED, PAST PICC LINE/REMOVED Past Anesthesia/Blood Transfusion Reactions: No Reported Reaction Past Psychological History: ADD/ADHD, Anxiety Additional Psychological History / Comment(s): pt currently residing at [facility] for etoh drinks a fifth a day last drink 9 days ago Smoking Status: Current every day smoker Past Alcohol Use History: Abuse Additional Past Alcohol Use History / Comment(s): SMOKES 1PPD FROM AGE 20 Past Drug Use History: None Reported - Past Family History Mother Family Medical History: Cancer Father History Unknown: Yes Family Medical History: Deep Vein Thrombosis (DVT) Medications and Allergies Home Medications Medication Instructions Recorded Confirmed Type Loperamide [Imodium] 2 mg PO QID 04/29/18 04/29/18 History traZODone HCL 150 mg PO HS 04/29/18 04/29/18 History Allergies Allergy/AdvReac Type Severity Reaction Status Date / Time No Known Allergies Allergy Verified 04/29/18 01:27 Physical Exam Vitals: Vital Signs Temp Pulse Pulse Resp BP BP Pulse Ox 04/29/18 08:56 55 L 18 04/29/18 05:47 98.2 F 55 L 18 111/66 95 04/29/18 01:18 97.8 F 74 18 124/73 94 L 04/29/18 00:49 97.7 F 72 16 111/60 94 L 04/28/18 22:39 98.9 F 83 16 112/56 97 04/28/18 21:37 101.3 F H 04/28/18 20:15 98.5 F 85 16 135/90 95 Intake and Output 04/28/18 04/29/18 04/29/18 22:59 06:59 14:59 Intake Total 440 Balance 440 Intake: Oral 440 Other: Voiding Method Toilet Toilet # Voids 1 Weight 81.647 kg 89.5 kg 89.5 kg - Constitutional General appearance: cooperative, disheveled, no acute distress - EENT Eyes: no abnormal pupil, EOMI, PERRLA, poor dentition, no ptosis ENT: hearing grossly normal - Neck Neck: normal ROM, no rigidity - Respiratory Respiratory: negative: prolonged expiration, prolonged inspiration - Cardiovascular Rhythm: regular - Gastrointestinal General gastrointestinal: no distended, no tenderness - Neurologic The patient is alert awake and oriented 3. Speech and language are normal. There is no facial asymmetry. Strength is 5 out of 5 in bilateral upper and lower extremities. There is no sensory deficit. No tremors or seizures are seen. Cranial nerves II through XII are intact globally. Results CBC & Chem 7: 04/29/18 06:41 04/29/18 06:41 Labs: Abnormal Lab Results - Last 24 Hours (Table) 04/28/18 04/28/18 04/29/18 Range/Units 21:20 21:20 06:41 RBC 3.53 L 3.55 L (3.80-5.40) m/uL MCV 104.3 H 107.3 H (80.0-100.0) fL Carbon Dioxide 32 H (22-30) mmol/L Glucose 141 H (74-99) mg/dL AST (14-36) U/L ALT (9-52) U/L Total Protein (6.3-8.2) g/dL Albumin (3.5-5.0) g/dL 04/29/18 Range/Units 06:41 RBC (3.80-5.40) m/uL MCV (80.0-100.0) fL Carbon Dioxide (22-30) mmol/L Glucose (74-99) mg/dL AST 54 H (14-36) U/L ALT 72 H (9-52) U/L Total Protein 5.7 L (6.3-8.2) g/dL Albumin 3.1 L (3.5-5.0) g/dL Assessment and Plan (1) Hypothyroidism Current Visit: Yes Status: Chronic Code(s): E03.9 - HYPOTHYROIDISM, UNSPECIFIED SNOMED Code(s): 02530711 (2) Alcohol withdrawal Current Visit: Yes Status: Acute Code(s): F10.239 - ALCOHOL DEPENDENCE WITH WITHDRAWAL, UNSPECIFIED SNOMED Code(s): 108693798 (3) Seizure Current Visit: Yes Status: Acute Code(s): R56.9 - UNSPECIFIED CONVULSIONS SNOMED Code(s): 35477381 Plan: This patient has had some witnessed seizure activity likely associated with her alcohol withdrawal. Continue seizure precautions. Continue IV fluids. No need for initiation of antiepileptic medication at this point. However, if she has further unprovoked seizures she would need to be started on antiepileptic medication. EEG will be ordered. We can be called as needed for any further seizure activity. I have performed a history and physical on the above patient. I have reviewed the above note, and agree.
[2018-04-29] MEDS: THIAMINE 100 MG TAB PO SCH ×2 (12:29→17:24)
[2018-04-29] MEDS ORDERED: IBUPROFEN 600 MG TAB PO PRN (13:25)
[2018-04-29] MEDS ORDERED: HYOSCYAMINE ORAL DROPS 1.875 MG/15 ML BOTTLE SUBLINGUAL PRN (13:25)
[2018-04-29] MEDS ORDERED: NON-FORMULARY DRUG (Calcium/Magnesium 1000mg/500mg 1 TAB) PO PRN (13:25)
[2018-04-29] MEDS ORDERED: busPIRone HCl 10 MG TAB PO SCH (13:30)
--- NOTE | 2018-04-29 13:30 | P.PN ---
Progress Note - Text Progress Note Date: 04/29/18 Patient was seen and examined. No acute events overnight. Patient reports having a seizure on Monday,after being taken off of Ativan on at [facility]. Patient states she came to the ED here, and was sent back with by mouth Ativan. Patient reports having 2 seizure like episodes all at [facility]. She does not remember any of the events. Patient reports postictal confusion after these episodes. Patient is admitted for alcohol withdrawal induced seizures and Neurology consult. AOx3 RRR. Normal S1-S2. No murmurs rubs or gallops. Clear to auscultation bilaterally. No lower extremity edema. 1. Seizure: Likely EtOH induced. CIWA protocol. Ativan IV PRN for SZ. Neurology consulted, recommends no AE medications at this time. Seizure precautions. FU Neurology and EEG 2. EtOH abuse: Stopped Ativan taper on . CIWA protocol. Ativan IV PRN for WD. Start Thiamine, FA and MVI. Seizure precautions. 3. Headache: At the site of laceration. CT head shows large posterior scalp contusion. Local wound care. Tylenol and Ibuprofen PRN for pain management. 4. Macrocytosis: MCV 107.3. FU B12/Folate 5. Transaminitis: AST 54 ALT 72. Likely due to EtOH abuse. NS at 100 ml/h. FU acute Hep panel 6. Thyroid disorder? No medications at home. TSH within normal limits. 7. IBS: Continue Imodium scheduled and Hyoscyamine PRN. 8. DVT/GI Prophylaxis: Heparin 5000 units TID.
[2018-04-29] MEDS: LOPERAMIDE 2 MG CAP PO SCH ×2 (17:24→20:32)
[2018-04-29] MEDS: HEPARIN SODIUM,PORCINE 5,000 UNIT/ML 1 ML VIAL SQ SCH (20:32)
[2018-04-30] MEDS: LOPERAMIDE 2 MG CAP PO SCH ×4 (07:39→19:59)
[2018-04-30] MEDS: HEPARIN SODIUM,PORCINE 5,000 UNIT/ML 1 ML VIAL SQ SCH ×2 (07:39→19:59)
[2018-04-30] MEDS: SODIUM CHLORIDE 0.9% 1,000 ML IV SCH (10:30)
--- NOTE | 2018-04-30 11:36 | P.PN ---
Subjective Progress Note Date: 04/30/18 Principal diagnosis: Seizures Patient was seen and examined. No acute events overnight. Patient reports no further seizure episodes. She denies any complaints. Patient states that she needs antiepileptic medication to go back to rehab. Objective - Vital Signs Vital signs: Vital Signs Temp 97.8 F 04/30/18 07:21 Pulse 62 04/30/18 07:21 Resp 18 04/30/18 07:21 BP 157/80 04/30/18 07:21 Pulse Ox 98 04/30/18 07:21 Intake & Output 04/29/18 04/30/18 04/30/18 18:59 06:59 18:59 Intake Total 1620 Balance 1620 Weight 89.5 kg 89.5 kg 89.5 kg Intake: Intake, IV Titration 700 Amount Sodium Chloride 0.9% 1, 700 000 ml @ 100 mls/hr IV . Q10H [facility] Rx#:[id number] Oral 920 Other: Voiding Method Toilet Toilet Toilet # Voids 1 2 2 - Exam General: [non toxic], [no distress], [appears at stated age] Derm: [warm], [dry] Head: [atraumatic], [normocephalic], [symmetric] Eyes: [EOMI], [no lid lag], [anicteric sclera] Mouth: [no lip lesion], [mucus membranes moist] Cardiovascular: [S1S2 reg], [no murmur], [positive posterior tibial pulse bilateral], Lungs: [CTA bilateral], [no rhonchi, no rales] , [no accessory muscle use] Abdominal: [soft], [ nontender to palpation], [no guarding], [no appreciable organomegaly] Ext: [no gross muscle atrophy], [no edema], [no contractures] Neuro: [ CN II-XI grossly intact], [no focal neuro deficits] Psych: [Alert], [oriented], [appropriate affect] - Labs CBC & Chem 7: 04/29/18 06:41 04/29/18 06:41 Assessment and Plan Assessment: 1. Seizure: Likely EtOH induced. [facility] protocol. Ativan IV PRN for SZ. Neurology consulted, recommends no AE medications at this time. Seizure precautions. FU Neurology and EEG 2. EtOH abuse: Stopped Ativan taper on . CIWA protocol. Ativan IV PRN for WD. Start Thiamine, FA and MVI. Seizure precautions. 3. Headache: At the site of laceration. CT head shows large posterior scalp contusion. Local wound care. Tylenol and Ibuprofen PRN for pain management. 4. Macrocytosis: MCV 107.3. FU B12/Folate 5. Transaminitis: AST 54 ALT 72. Likely due to EtOH abuse. NS at 100 ml/h. FU acute Hep panel 6. Thyroid disorder? No medications at home. TSH within normal limits. 7. IBS: Continue Imodium scheduled and Hyoscyamine PRN. 8. DVT/GI Prophylaxis: Heparin 5000 units TID. Patient has had no further seizure episodes. She is pending EEG, likely to be done tomorrow. Neurology to decide between AE medication after her EEG. Likely DC back to rehab tomorrow.
[2018-04-30] MEDS: THIAMINE 100 MG TAB PO SCH ×2 (12:12→17:06)
[2018-04-30] MEDS: FOLIC ACID 1 MG TAB PO SCH (12:13)
[2018-04-30] MEDS: MULTIVITAMINS, THERA 1 EACH TAB PO SCH (12:13)
[2018-05-01] MEDS: SODIUM CHLORIDE 0.9% 1,000 ML IV SCH ×3 (06:05→16:51)
[2018-05-01] MEDS: ACETAMINOPHEN TAB 325 MG TAB PO PRN (07:24)
[2018-05-01] MEDS: LOPERAMIDE 2 MG CAP PO SCH ×3 (08:41→18:10)
[2018-05-01] MEDS: HEPARIN SODIUM,PORCINE 5,000 UNIT/ML 1 ML VIAL SQ SCH (08:41)
--- NOTE | 2018-05-01 10:39 | P.PN ---
Progress Note - Text Progress Note Date: 05/01/18 No additional seizure activity. Hope to discharge home today if EEG negative.
[2018-05-01] MEDS: THIAMINE 100 MG TAB PO SCH ×2 (11:37→16:52)
[2018-05-01] MEDS: FOLIC ACID 1 MG TAB PO SCH (11:37)
[2018-05-01] MEDS: MULTIVITAMINS, THERA 1 EACH TAB PO SCH (11:37)
[2018-05-01 12:13] LABS: Hepatitis B Core IgM Non-Reactive (Non-Reactive)
[2018-05-01 15:25] VITALS: BP 144/69; PULSE 50; RESP 18; TEMP 98
--- NOTE | 2018-05-01 18:27 | P.DS ---
Providers Date of admission: 04/29/18 00:01 Expected date of discharge: 05/01/18 Attending physician: Dulce Frost MD Consults: 04/29/18 06:17 Consult Physician Routine Consulting Provider: Anastacia Gomez Consult Reason/Comments: seizure Do you want consulting provider notified?: Yes Primary care physician: Jim Rojas Hospital Course: Discharge Diagnosis: Seizure secondary to alcohol withdrawal Alcohol abuse Macrocytosis Mild transaminitis secondary to EtOH use Hospital Course: Patient is a 42-year-old female with a history of dyslipidemia, osteoarthritis, alcohol abuse who was sent in from [place] for seizure. Patient had been admitted to [place] one week prior. Her CIWA scale was discontinued 2 days prior to admission. On admission her vital signs were within normal limits. Initial laboratory analysis was unremarkable. Head CT showed large posterior scalp contusion or hematoma. She was admitted to the general medical floor for further monitoring. She was seen by neurology. They recommended an EEG. She was monitored and did not require any additional CIWA scale. Her headache resolved and her hematoma with healing. She was determined stable for discharge by neurology. There was some discrepancy about whether she'll be able to return to [place] her home. Patient was fine with either disposition and wanted to leave the hospital. Neurology did not recommend any antiepileptic drug is all of her seizures have been associated with alcohol. Her last one prior to this was when detoxing 9 years ago. She was also noted to have transaminitis which was decreasing. She underwent a hepatitis profile which was negative. She was noted to have macrocytosis and TSH, RBC folate, and B12 were also within normal limits. She will follow up with her primary care physician Dr. Rojas. Patient seen and examined at bedside. Headache resolved. No additional seizures. Anxious to go home. No chest pain, shortness of breath, nausea, or vomiting. Vital signs reviewed and stable. General: non toxic, no distress, appears at stated age Derm: warm, dry Head: atraumatic, normocephalic, symmetric Eyes: EOMI, no lid lag, anicteric sclera Mouth: no lip lesion, mucus membranes moist Cardiovascular: S1S2 reg, no murmur, positive posterior tibial pulse bilateral, Lungs: CTA bilateral, no rhonchi, no rales , no accessory muscle use Abdominal: soft, nontender to palpation, no guarding, no appreciable organomegaly Ext: no gross muscle atrophy, no edema, no contractures Neuro: CN II-XI grossly intact, no focal neuro deficits Psych: Alert, oriented, appropriate affect A total of 32 minutes of time were spent preparing this complex discharge summary . Pertinent Studies: Head CT showed large posterior scalp contusion or hematoma Patient Condition at Discharge: Good Plan - Discharge Summary New Discharge Prescriptions: Continue traZODone HCL 50 - 150 mg PO HS Ibuprofen [Motrin] 600 mg PO Q6HR PRN PRN Reason: Fever And/ Or Pain Acetaminophen Tab [Tylenol] 650 mg PO Q4H PRN PRN Reason: Fever And/ Or Pain Multivitamins, Thera [Multivitamin (formulary)] 1 tab PO DAILY Calcium/Magnesium 1000mg/500mg 1 tab PO TID PRN PRN Reason: MUSCLE CRAMPS Discontinued Loperamide [Imodium] 2 mg PO QID PRN PRN Reason: Diarrhea Trimethobenzamide HCl [Tigan] 300 mg PO Q6H PRN PRN Reason: Nausea Tigan 200mg Im 200 mg PO Q6H PRN PRN Reason: Nausea Ondansetron [Zofran] 4 mg IM Q6H PRN PRN Reason: Nausea And Vomiting Ondansetron HCl [Zofran] 8 mg PO Q6H PRN PRN Reason: Nausea And Vomiting cloNIDine HCL [Catapres] 0.1 mg PO Q4H PRN PRN Reason: high bp busPIRone HCl [Buspar] 10 mg PO DIRECTED Chlorpheniramine Maleate [Chlor-Trimeton] 4 mg PO Q4HR PRN PRN Reason: allergies/anxiety Thiamine [Vitamin B-1] 100 mg PO DAILY Hyoscyamine Sulfate [Levsin-Sl] 0.125 mg SL QID PRN PRN Reason: STOMACH CRAMPS Discharge Medication List Acetaminophen Tab [Tylenol] 650 mg PO Q4H PRN 04/29/18 [History] Calcium/Magnesium 1000mg/500mg 1 tab PO TID PRN 04/29/18 [History] Ibuprofen [Motrin] 600 mg PO Q6HR PRN 04/29/18 [History] Multivitamins, Thera [Multivitamin (formulary)] 1 tab PO DAILY 04/29/18 [History ] traZODone HCL 50 - 150 mg PO HS 04/29/18 [History] Follow up Appointment(s)/Referral(s): Jim Rojas MD [Primary Care Provider] - 1-2 days Activity/Diet/Wound Care/Special Instructions: Regular diet activity as tolerated Abstain from alcohol. Pending Studies Pending Results: Formal EEG read
--- NOTE | 2018-05-02 10:46 | EEG ---
ELECTROENCEPHALOGRAM REPORT DATE OF SERVICE: 05/01/2018 REASON FOR TESTING: Seizure. DESCRIPTION OF THE PROCEDURE: This EEG was performed using a 21 channel digital electroencephalograph, following international 10-20 system. From the beginning of the tracing, and with patient's eyes closed, the background rhythm was mostly consisting of 10 Hz alpha frequency in the posterior occipital leads. No obvious asymmetry is seen. Frequent movement and muscle artifacts are seen. Photic stimulation was performed with a minimal driving response seen. No pathological waves were elicited. More frequent movement artifacts are seen later in the tracing. Hyperventilation was not performed. The patient remains awake throughout the tracing. No epileptiform discharges were seen. INTERPRETATION: This awake EEG is limited due to the frequency of movement artifacts. No obvious epileptiform discharges were seen. The absence of epileptiform discharges does not rule out the diagnosis of epilepsy; therefore clinical correlation is recommended. MMEVE / CHARLES: [id number] /
[2018-05-02 16:11] LABS: Hepatitis A Antibody IgM Negative
== END 2018-05-01 18:45 | disposition home or self-care (01) | DRG 897 ==
LOC: EC 20:15 → 5MS5E 04-29 00:01
PROVIDERS: ADMIT Internal Medicine; ATTEND Internal Medicine
DX: F10.231 Alcohol dependence with withdrawal delirium (principal); F05 Delirium due to known physiological condition; E78.5 Hyperlipidemia, unspecified; E03.9 Hypothyroidism, unspecified; D75.89 Other specified diseases of blood and blood-forming organs; S00.03XA Contusion of scalp, initial encounter; G40.909 Epilepsy, unspecified, not intractable, without status epilepticus; G43.909 Migraine, unspecified, not intractable, without status migrainosus; K58.0 Irritable bowel syndrome with diarrhea; F90.9 Attention-deficit hyperactivity disorder, unspecified type; F41.9 Anxiety disorder, unspecified; R74.0 Nonspecific elevation of levels of transaminase and lactic acid dehydrogenase [LDH]; E07.9 Disorder of thyroid, unspecified; M19.91 Primary osteoarthritis, unspecified site; F17.210 Nicotine dependence, cigarettes, uncomplicated; Z71.6 Tobacco abuse counseling; Z79.899 Other long term (current) drug therapy; Z98.51 Tubal ligation status; Y90.0 Blood alcohol level of less than 20 mg/100 ml; Z80.9 Family history of malignant neoplasm, unspecified; Z83.2 Family history of diseases of the blood and blood-forming organs and certain disorders involving the immune mechanism; W19.XXXA Unspecified fall, initial encounter
CPT/HCPCS: 36415; 70450; 80048; 80053; 80074; 80320; 82607; 82747; 84443; 85025; 93005; 95816; 96372; 99285

== ENCOUNTER 2018-08-08 09:34 | Emergency (ER) | payer OTHER ==
[2018-08-08] MEDS ORDERED: ONDANSETRON 4 MG/2 ML VIAL IVP STA ×2 (10:00→12:32)
[2018-08-08] MEDS ORDERED: SODIUM CHLORIDE 0.9% 1,000 ML IV STA (10:00)
[2018-08-08] MEDS ORDERED: FAMOTIDINE 20 MG/2 ML VIAL IV STA (10:01)
[2018-08-08] MEDS ORDERED: ACETAMINOPHEN IV (For NPO) 1,000 MG in EMPTY BAG 1 BAG IVPB STA (10:01)
--- NOTE | 2018-08-08 10:11 | ED ---
General Adult HPI - General Chief complaint: Nausea/Vomiting/Diarrhea Stated complaint: NVD, Ear Pain Time Seen by Provider: 08/08/18 09:49 Source: patient, RN notes reviewed Mode of arrival: ambulatory Limitations: no limitations - History of Present Illness Initial comments: Patient's a 42-year-old female presented to the emergency room today with a chief complaint of nausea vomiting diarrhea over the last 2 weeks. She states that the symptoms last 4 days have been worse. Having difficult time keeping anything down. Does admit to pain in the upper abdomen. Patient denies any signs of blood in the emesis or stool. Denies any other complaints. Patient denies any recent fever, chills, shortness of breath, chest pain, back pain, numbness or tingling, dysuria or hematuria, constipation, headaches or visual changes, or any other complaints. - Related Data Home Medications Medication Instructions Recorded Confirmed Loperamide [Imodium] 2 - 6 mg PO QID PRN 08/08/18 08/08/18 Previous Rx's Medication Instructions Recorded Ondansetron Odt [Zofran ODT] 4 mg PO Q8HR PRN #20 tab 08/08/18 Allergies Allergy/AdvReac Type Severity Reaction Status Date / Time No Known Allergies Allergy Verified 08/08/18 10:13 Review of Systems ROS Statement: Those systems with pertinent positive or pertinent negative responses have been documented in the HPI. ROS Other: All systems not noted in ROS Statement are negative. Past Medical History Past Medical History: Hyperlipidemia, Osteoarthritis (OA) Additional Past Medical History / Comment(s): 2 seizures on 04/28/18 at [place]. apparently was last day ativan was given to patient at [place].LAST SEIZURE IN 2011 due to withdrawals. OVERDOSE W/RESP FAILURE AND PLACED ON VENT IN 2011. THYROID disorder (denies hisotry of cancer), HERNIATED DISCS, PAST MIGRAINES,LOWER BACK AND RT HIP PAIN, AND KNEE. History of Any Multi-Drug Resistant Organisms: None Reported Past Surgical History: Tubal Ligation Additional Past Surgical History / Comment(s): EGD and colonoscopy recently, D&C , RT GROIN CYST REMOVED, PAST PICC LINE/REMOVED Past Anesthesia/Blood Transfusion Reactions: No Reported Reaction Past Psychological History: ADD/ADHD, Anxiety Smoking Status: Current every day smoker Past Alcohol Use History: Abuse Past Drug Use History: None Reported - Past Family History Mother Family Medical History: Cancer Father History Unknown: Yes Family Medical History: Deep Vein Thrombosis (DVT) General Exam - General Exam Comments Initial Comments: General: The patient is awake and alert, in mild distress. Eye: There is normal conjunctiva bilaterally. No signs of icterus. Ears, nose, mouth and throat: There are moist mucous membranes and no oral lesions. Neck: The neck is supple, there is no tenderness or JVD. Cardiovascular: There is a regular rate and rhythm. No murmur, rub or gallop is appreciated. Respiratory: Lungs are clear to auscultation, respirations are non-labored, breath sounds are equal. No wheezes, stridor, rales, or rhonchi. Gastrointestinal: Abdomen soft on palpation. Patient does have tenderness epigastric and both right and left upper quadrants. No rebound, guarding or CVA tenderness. Musculoskeletal: Normal ROM, no tenderness. . Neurological: A&O x 3. CN II-XII intact, There are no obvious motor or sensory deficits. Coordination appears grossly intact. Speech is normal. Skin: Skin is warm and dry and no rashes or lesions are noted. Psychiatric: Cooperative, appropriate mood & affect, normal judgment. Limitations: no limitations Course Vital Signs 08/08/18 09:38 Temperature 98.2 F Pulse Rate 116 H Respiratory 20 Rate Blood Pressure 142/96 O2 Sat by Pulse 99 Oximetry Medical Decision Making - Medical Decision Making Patient reexamined at this time shows no signs of distress. She is resting comfortably. Patient states still feeling somewhat nauseated. Patient's labs been reviewed. Shows lipase greater than 800. Patient is a daily drinker. Patient's ultrasound of the right upper quadrant shows no evidence of cholecystitis. There is a common bile duct mildly dilated at 0.7 options were discussed with patient about admission to the hospital which she has declined. She states she would like to go home with nausea medication. Patient is advised to follow-up family doctor return here to the emergency room symptoms increase or worsen. - Lab Data Result diagrams: 08/08/18 10:35 08/08/18 10:35 Lab Results 08/08/18 08/08/18 08/08/18 Range/Units 10:35 10:35 12:04 WBC 10.6 (3.8-10.6) k/uL RBC 3.37 L (3.80-5.40) m/uL Hgb 12.6 (11.4-16.0) gm/dL Hct 36.0 (34.0-46.0) % MCV 106.8 H (80.0-100.0) fL MCH 37.4 H (25.0-35.0) pg MCHC 35.0 (31.0-37.0) g/dL RDW 18.6 H (11.5-15.5) % Plt Count 117 L (150-450) k/uL Neutrophils % 82 % Lymphocytes % 13 % Monocytes % 2 % Eosinophils % 1 % Basophils % 0 % Neutrophils # 8.8 H (1.3-7.7) k/uL Lymphocytes # 1.4 (1.0-4.8) k/uL Monocytes # 0.3 (0-1.0) k/uL Eosinophils # 0.1 (0-0.7) k/uL Basophils # 0.0 (0-0.2) k/uL Manual Slide Review Performed Anisocytosis Slight Macrocytosis Marked Sodium 134 L (137-145) mmol/L Potassium 3.3 L (3.5-5.1) mmol/L Chloride 97 L (98-107) mmol/L Carbon Dioxide 22 (22-30) mmol/L Anion Gap 15 mmol/L BUN 17 (7-17) mg/dL Creatinine 0.63 (0.52-1.04) mg/dL Est GFR (CKD-EPI)AfAm >90 (>60 ml/min/1.73 sqM) Est GFR (CKD-EPI)NonAf >90 (>60 ml/min/1.73 sqM) Glucose 141 H (74-99) mg/dL Calcium 8.4 (8.4-10.2) mg/dL Total Bilirubin 1.4 H (0.2-1.3) mg/dL AST 87 H (14-36) U/L ALT 29 (9-52) U/L Alkaline Phosphatase 100 (38-126) U/L Total Protein 6.8 (6.3-8.2) g/dL Albumin 3.6 (3.5-5.0) g/dL Amylase 65 (30-110) U/L Lipase 868 H (23-300) U/L Urine Color Yellow Urine Appearance Clear (Clear) Urine pH 6.0 (5.0-8.0) Ur Specific [place] 1.027 (1.001-1.035) Urine Protein 1+ H (Negative) Urine Glucose (UA) Negative (Negative) Urine Ketones Trace H (Negative) Urine Blood Negative (Negative) Urine Nitrite Negative (Negative) Urine Bilirubin Negative (Negative) Urine Urobilinogen 2.0 (<2.0) mg/dL Ur Leukocyte Esterase Negative (Negative) Urine RBC 3 (0-5) /hpf Urine WBC 1 (0-5) /hpf Ur Squamous Epith Cells 3 (0-4) /hpf Hyaline Casts 37 H (0-2) /lpf Urine Mucus Few H (None) /hpf Disposition Clinical Impression: Acute pancreatitis Disposition: HOME SELF-CARE Condition: Good Instructions: Pancreatitis (ED) Additional Instructions: Please use medication as discussed. Please follow-up with family doctor in the next 2 days of symptoms have not improved. Please return to emergency room if the symptoms increase or worsen or for any other concerns. Prescriptions: Ondansetron Odt [Zofran ODT] 4 mg PO Q8HR PRN #20 tab PRN Reason: Nausea Is patient prescribed a controlled substance at d/c from ED?: No Referrals: None,Stated [Primary Care Provider] - 1-2 days Time of Disposition: 12:31
[2018-08-08 10:59] LABS: Anisocytosis Slight; Basophils % (A) 0 %; Eosinophils # (A) 0.1 k/uL (0-0.7); Eosinophils % (A) 1 %; HGB 12.6 gm/dL (11.4-16.0); Lymphocytes # (A) 1.4 k/uL (1.0-4.8); Lymphocytes % (A) 13 %; MCH 37.4 pg (25.0-35.0); MCV 106.8 fL (80.0-100.0); Macrocytosis Marked; Mean Platelet Volume 8.2; Monocytes # (A) 0.3 k/uL (0-1.0); Monocytes % (A) 2 %; Neutrophils # (A) 8.8 k/uL (1.3-7.7); Neutrophils % (A) 82 %; Platelet Count 117 k/uL (150-450); RBC 3.37 m/uL (3.80-5.40); RDW 18.6 % (11.5-15.5); WBC 10.6 k/uL (3.8-10.6)
--- NOTE | 2018-08-08 11:37 | US ---
EXAMINATION TYPE: US abdomen limited DATE OF EXAM: 08/08/2018 COMPARISON: NONE CLINICAL HISTORY: Pain. N/V/D, patient states unable to eat EXAM MEASUREMENTS: Liver Length: 19.1 cm Gallbladder Wall: 0.2 cm CBD: 0.7 cm CHD: 0.7 cm Right Kidney: 12.7 x 4.7 x 4.4 cm Pancreas: Appears echogenic in appearance Liver: Appears echogenic and course. Enlarged. Gallbladder: wnl Evidence for sonographic Zhu's sign: neg CBD: dilated CHD: dilated Right Kidney: wnl IMPRESSION: 1. Mild prominence of the common bile duct is 0.7 cm. Normal less than 0.6 cm. 2. Mild fatty infiltration the liver. Hepatomegaly is present in 19 cm. Normal less than 15.5 cm.
[2018-08-08 11:44] LABS: ALT 29 U/L (9-52); AST 87 U/L (14-36); Albumin 3.6 g/dL (3.5-5.0); Alkaline Phosphatase 100 U/L (38-126); Amylase 65 U/L (30-110); Anion Gap 15 mmol/L; Blood Urea Nitrogen 17 mg/dL (7-17); Calcium 8.4 mg/dL (8.4-10.2); Carbon Dioxide 22 mmol/L (22-30); Chloride 97 mmol/L (98-107); Glucose 141 mg/dL (74-99); Lipase 868 U/L (23-300); Potassium 3.3 mmol/L (3.5-5.1); Sodium 134 mmol/L (137-145); Total Bilirubin 1.4 mg/dL (0.2-1.3); Total Protein 6.8 g/dL (6.3-8.2)
[2018-08-08 12:20] LABS: Appearance,Urine Clear (Clear); Bilirubin,Urine Negative (Negative); Blood,Urine Negative (Negative); Color,Urine Yellow; Glucose,Urine (UA) Negative (Negative); Hyaline Casts,Urine 37 /lpf (0-2); Ketones,Urine Trace (Negative); Leukocyte Esterase,Urine Negative (Negative); Mucus,Urine Few /hpf; Nitrite,Urine Negative (Negative); Protein,Urine 1+ (Negative); RBC,Urine 3 /hpf (0-5); Specific Gravity,Urine 1.027 (1.001-1.035); Squamous Epithelial Cell,Urine 3 /hpf (0-4); WBC,Urine 1 /hpf (0-5)
[2018-08-08 12:44] VITALS: BP 124/87; PULSE 87; RESP 18; TEMP 98
== END 2018-08-08 12:43 | disposition home or self-care (01) ==
LOC: EC 09:34
DX: K85.90 Acute pancreatitis without necrosis or infection, unspecified (principal); K83.8 Other specified diseases of biliary tract; E78.5 Hyperlipidemia, unspecified; H92.09 Otalgia, unspecified ear; F17.200 Nicotine dependence, unspecified, uncomplicated
CPT/HCPCS: 36415; 80053; 82150; 83690; 85025; 81001; 76705; 99284; 96365; 96375 ×2; 96376; 96361; J2405; J0131

== ENCOUNTER 2018-08-26 07:09 | Observation (INO) | payer OTHER ==
[2018-08-26] MEDS ORDERED: PANTOPRAZOLE 40 MG/10 ML VIAL IVP STA (07:28)
[2018-08-26] MEDS ORDERED: ONDANSETRON 4 MG/2 ML VIAL IVP STA (07:28)
[2018-08-26] MEDS ORDERED: SODIUM CHLORIDE 0.9% 1,000 ML IV STA ×2 (07:28)
[2018-08-26] MEDS ORDERED: MORPHINE SULFATE 4 MG/ML SYRINGE IV STA (07:28)
[2018-08-26] MEDS ORDERED: LORazepam 2 MG/ML INJ IV STA ×2 (07:39→10:40)
--- NOTE | 2018-08-26 07:43 | ED ---
Abdominal Pain HPI - General Chief Complaint: Abdominal Pain Stated Complaint: NVD, Chest Pain Time Seen by Provider: 08/26/18 07:27 Source: patient, RN notes reviewed, old records reviewed Mode of arrival: ambulatory Limitations: no limitations - History of Present Illness Initial Comments: Patient is a 42-year-old female with a history of alcohol abuse presents emergency department today with severe epigastric abdominal pain. Patient reports that she was diagnosed with pancreatitis 2 weeks ago. She states she is followed up with Dr. Bland. Patient states that she has had uncontrollable nausea and vomiting. She also complains of bloody bowel movements. She presents emergency department today writhing in pain. She appears to be somewhat intoxicated. Yelling and screaming. She reports that her last drink was last night but she continued to throw everything up. Patient states her abdomen feels very bloated and that her stomach is about to burst. Patient states that she has had a slight cough as well. - Related Data Home Medications Medication Instructions Recorded Confirmed Loperamide [Imodium] 10 mg PO QID PRN 08/08/18 08/26/18 Allergies Allergy/AdvReac Type Severity Reaction Status Date / Time No Known Allergies Allergy Verified 08/26/18 08:36 Review of Systems ROS Statement: Those systems with pertinent positive or pertinent negative responses have been documented in the HPI. ROS Other: All systems not noted in ROS Statement are negative. Past Medical History Past Medical History: Hyperlipidemia, Osteoarthritis (OA) Additional Past Medical History / Comment(s): 2 seizures on 04/28/18 at [facility]. apparently was last day ativan was given to patient at [facility].LAST SEIZURE IN 2011 due to withdrawals. OVERDOSE W/RESP FAILURE AND PLACED ON VENT IN 2011. THYROID disorder (denies hisotry of cancer), HERNIATED DISCS, PAST MIGRAINES,LOWER BACK AND RT HIP PAIN, AND KNEE. History of Any Multi-Drug Resistant Organisms: None Reported Past Surgical History: Tubal Ligation Additional Past Surgical History / Comment(s): EGD and colonoscopy recently, D&C , RT GROIN CYST REMOVED, PAST PICC LINE/REMOVED Past Anesthesia/Blood Transfusion Reactions: No Reported Reaction Past Psychological History: ADD/ADHD, Anxiety Smoking Status: Current every day smoker Past Alcohol Use History: Abuse Past Drug Use History: None Reported - Past Family History Mother Family Medical History: Cancer Father History Unknown: Yes Family Medical History: Deep Vein Thrombosis (DVT) General Exam - General Exam Comments Initial Comments: Patient is a 42-year-old female. Appears intoxicated. Yelling profanities. Complaining of epigastric abdominal pain. Limitations: no limitations General appearance: alert, in no apparent distress Head exam: Present: atraumatic, normocephalic, normal inspection Eye exam: Present: normal appearance, PERRL, EOMI. Absent: scleral icterus, conjunctival injection, periorbital swelling ENT exam: Present: normal exam, mucous membranes moist Neck exam: Present: normal inspection. Absent: tenderness, meningismus, lymphadenopathy Respiratory exam: Present: wheezes (Wheezing bilaterally). Absent: normal lung sounds bilaterally, respiratory distress, rales, rhonchi, stridor Cardiovascular Exam: Present: regular rate, normal rhythm, normal heart sounds. Absent: systolic murmur, diastolic murmur, rubs, gallop, clicks GI/Abdominal exam: Present: soft, tenderness (Epigastric tenderness), normal bowel sounds Extremities exam: Present: normal inspection, full ROM, normal capillary refill. Absent: tenderness, pedal edema, joint swelling, calf tenderness Back exam: Present: normal inspection Neurological exam: Present: alert, oriented X3, CN II-XII intact Psychiatric exam: Present: normal affect, normal mood Skin exam: Present: warm, dry, intact, normal color. Absent: rash Course Vital Signs 08/26/18 08/26/18 07:16 10:55 Temperature 98.1 F Pulse Rate 131 H 92 Respiratory 24 18 Rate Blood Pressure 159/104 128/103 O2 Sat by Pulse 97 98 Oximetry Medical Decision Making - Medical Decision Making Patient is a 42-year-old female with history of severe alcoholism presents emergency department today with severe abdominal pain. She feels like her stomach is "about to burst". She complains of severe epigastric burning pain. She also relates that she has had some bloody stools. Patient was very irate and initial examination and intoxicated. Patient was given IV fluids. Initial 4 monos of morphine and 1 of Ativan. Patient continued to be destructive getting up. Lab work was reviewed. She does have elevated liver enzymes. Due to patient's significant pain and tenderness and presentation we did complete a computed tomography scan. The CT shows evidence of hepatomegaly. No other acute changes. Patient's pancreatic enzymes were within normal limits. They were ran twice. Patient was given a GI cocktail with some improvement of her pain. Patient EKG was reviewed and negative for any acute changes. Troponin was normal. Her serum alcohol level is 400. She was given 2 L bolus, and started on a banana bag. At this time and the Patient suffering from severe gastritis likely peptic ulcer disease due to her EtOH abuse. She does follow with Dr. Bland. At this time Patient admitted for alcohol abuse, and gastritis. Consult to GI. - Lab Data Result diagrams: 08/26/18 07:36 08/26/18 07:36 Lab Results 08/26/18 08/26/18 08/26/18 Range/Units 07:36 07:36 07:37 WBC 6.0 (3.8-10.6) k/uL RBC 3.06 L (3.80-5.40) m/uL Hgb 12.5 (11.4-16.0) gm/dL Hct 36.1 (34.0-46.0) % MCV 118.1 H D (80.0-100.0) fL MCH 40.9 H (25.0-35.0) pg MCHC 34.6 (31.0-37.0) g/dL RDW 19.0 H (11.5-15.5) % Plt Count 176 D (150-450) k/uL Neutrophils % 52 % Lymphocytes % 37 % Monocytes % 5 % Eosinophils % 2 % Basophils % 1 % Neutrophils # 3.1 (1.3-7.7) k/uL Lymphocytes # 2.2 (1.0-4.8) k/uL Monocytes # 0.3 (0-1.0) k/uL Eosinophils # 0.1 (0-0.7) k/uL Basophils # 0.1 (0-0.2) k/uL Manual Slide Review Performed Anisocytosis Slight Macrocytosis Marked Sodium 143 (137-145) mmol/L Potassium 4.3 (3.5-5.1) mmol/L Chloride 107 (98-107) mmol/L Carbon Dioxide 22 (22-30) mmol/L Anion Gap 14 mmol/L BUN 6 L (7-17) mg/dL Creatinine 0.74 (0.52-1.04) mg/dL Est GFR (CKD-EPI)AfAm >90 (>60 ml/min/1.73 sqM) Est GFR (CKD-EPI)NonAf >90 (>60 ml/min/1.73 sqM) Glucose 178 H (74-99) mg/dL Calcium 8.2 L (8.4-10.2) mg/dL Magnesium 1.9 (1.6-2.3) mg/dL Total Bilirubin 0.5 (0.2-1.3) mg/dL AST 270 H (14-36) U/L ALT 70 H (9-52) U/L Alkaline Phosphatase 187 H (38-126) U/L Troponin I <0.012 (0.000-0.034) ng/mL Total Protein 7.0 (6.3-8.2) g/dL Albumin 3.8 (3.5-5.0) g/dL Amylase 66 (30-110) U/L Lipase 277 (23-300) U/L Urine Color Urine Appearance (Clear) Urine pH (5.0-8.0) Ur Specific [place] (1.001-1.035) Urine Protein (Negative) Urine Glucose (UA) (Negative) Urine Ketones (Negative) Urine Blood (Negative) Urine Nitrite (Negative) Urine Bilirubin (Negative) Urine Urobilinogen (<2.0) mg/dL Ur Leukocyte Esterase (Negative) Urine Opiates Screen (NotDetected) Ur Oxycodone Screen (NotDetected) Urine Methadone Screen (NotDetected) Ur Propoxyphene Screen (NotDetected) Ur Barbiturates Screen (NotDetected) U Tricyclic Antidepress (NotDetected) Ur Phencyclidine Scrn (NotDetected) Ur Amphetamines Screen (NotDetected) U Methamphetamines Scrn (NotDetected) U Benzodiazepines Scrn (NotDetected) Urine Cocaine Screen (NotDetected) U Marijuana (THC) Screen (NotDetected) Serum Alcohol 401 H* mg/dL 08/26/18 Range/Units 09:40 WBC (3.8-10.6) k/uL RBC (3.80-5.40) m/uL Hgb (11.4-16.0) gm/dL Hct (34.0-46.0) % MCV (80.0-100.0) fL MCH (25.0-35.0) pg MCHC (31.0-37.0) g/dL RDW (11.5-15.5) % Plt Count (150-450) k/uL Neutrophils % % Lymphocytes % % Monocytes % % Eosinophils % % Basophils % % Neutrophils # (1.3-7.7) k/uL Lymphocytes # (1.0-4.8) k/uL Monocytes # (0-1.0) k/uL Eosinophils # (0-0.7) k/uL Basophils # (0-0.2) k/uL Manual Slide Review Anisocytosis Macrocytosis Sodium (137-145) mmol/L Potassium (3.5-5.1) mmol/L Chloride (98-107) mmol/L Carbon Dioxide (22-30) mmol/L Anion Gap mmol/L BUN (7-17) mg/dL Creatinine (0.52-1.04) mg/dL Est GFR (CKD-EPI)AfAm (>60 ml/min/1.73 sqM) Est GFR (CKD-EPI)NonAf (>60 ml/min/1.73 sqM) Glucose (74-99) mg/dL Calcium (8.4-10.2) mg/dL Magnesium (1.6-2.3) mg/dL Total Bilirubin (0.2-1.3) mg/dL AST (14-36) U/L ALT (9-52) U/L Alkaline Phosphatase (38-126) U/L Troponin I (0.000-0.034) ng/mL Total Protein (6.3-8.2) g/dL Albumin (3.5-5.0) g/dL Amylase (30-110) U/L Lipase (23-300) U/L Urine Color Yellow Urine Appearance Clear (Clear) Urine pH 6.5 (5.0-8.0) Ur Specific [place] 1.050 H (1.001-1.035) Urine Protein Negative (Negative) Urine Glucose (UA) Negative (Negative) Urine Ketones Negative (Negative) Urine Blood Negative (Negative) Urine Nitrite Negative (Negative) Urine Bilirubin Negative (Negative) Urine Urobilinogen <2.0 (<2.0) mg/dL Ur Leukocyte Esterase Negative (Negative) Urine Opiates Screen Detected H (NotDetected) Ur Oxycodone Screen Not Detected (NotDetected) Urine Methadone Screen Not Detected (NotDetected) Ur Propoxyphene Screen Not Detected (NotDetected) Ur Barbiturates Screen Not Detected (NotDetected) U Tricyclic Antidepress Not Detected (NotDetected) Ur Phencyclidine Scrn Not Detected (NotDetected) Ur Amphetamines Screen Not Detected (NotDetected) U Methamphetamines Scrn Not Detected (NotDetected) U Benzodiazepines Scrn Detected H (NotDetected) Urine Cocaine Screen Not Detected (NotDetected) U Marijuana (THC) Screen Not Detected (NotDetected) Serum Alcohol mg/dL 08/26/18 09:29 EKG performed at a 27 shows normal sinus rhythm, prolonged QT. Abnormal EKG. Ventricular rate of 94 bpm. Intervals 136 ms. QRS ration 72 ms. QT QTC 3 dissection 482 ms. - Radiology Data Radiology results: report reviewed CT abdomen and pelvis shows Fatty liver with mild hepatomegaly. Chest x-ray is negative for any acute cardio upon her process. Ultrasound Fatty liver. Gallbladder was within normal limits on ultrasound. Disposition Clinical Impression: ETOH abuse, Gastritis Disposition: ADMITTED IP TO THIS HOSP Condition: Stable Is patient prescribed a controlled substance at d/c from ED?: No Referrals: None,Stated [Primary Care Provider] - 1-2 days Time of Disposition: 12:10
[2018-08-26] MEDS ORDERED: SODIUM CHLORIDE 0.9% 1,000 ML IV ONE (07:53)
[2018-08-26 08:21] LABS: ALT 70 U/L (9-52); AST 270 U/L (14-36); Albumin 3.8 g/dL (3.5-5.0); Alkaline Phosphatase 187 U/L (38-126); Amylase 66 U/L (30-110); Anion Gap 14 mmol/L; Blood Urea Nitrogen 6 mg/dL (7-17); Calcium 8.2 mg/dL (8.4-10.2); Carbon Dioxide 22 mmol/L (22-30); Chloride 107 mmol/L (98-107); Glucose 178 mg/dL (74-99); Magnesium 1.9 mg/dL (1.6-2.3); Potassium 4.3 mmol/L (3.5-5.1); Sodium 143 mmol/L (137-145); Total Bilirubin 0.5 mg/dL (0.2-1.3)
--- NOTE | 2018-08-26 08:29 | CT ---
EXAMINATION TYPE: CT abdomen pelvis w con DATE OF EXAM: 08/26/2018 COMPARISON: HISTORY: Generalized abdominal pain, ETOH CT DLP: 1260 mGycm CONTRAST: CT scan of the abdomen and pelvis is performed without Oral Contrast and with IV Contrast, patient in jected with 100 mL of Isovue 300. FINDINGS: LUNG BASES-: No visible nodule. No infiltrate. LIVER/GB: No calcified gallstones. Fatty liver. Hepatomegaly. No space occupying hepatic lesion. B iliary tree is of normal caliber. PANCREAS: No inflammation. No distinct mass. SPLEEN: No splenic enlargement. No lesion seen. ADRENALS: No nodule. No thickening. KIDNEYS/BLADDER: No hydronephrosis. No nephrolithiasis. No distinct renal mass. Urinary bladder g rossly unremarkable. BOWEL: Normal appendix. Normal bowel caliber. No inflammation. GENITAL ORGANS: No gross abnormality. LYMPH NODES: No greater than 1cm abdominal or pelvic lymph nodes are appreciated. AORTA: No significant abnormality. OSSEOUS STRUCTURES: No significant abnormality is seen. OTHER: No significant additional abnormality is seen. IMPRESSION: 1. Fatty liver with mild hepatomegaly.
[2018-08-26 08:32] LABS: Alcohol 401 mg/dL
--- NOTE | 2018-08-26 08:32 | XR ---
EXAMINATION TYPE: XR chest 2V DATE OF EXAM: 08/26/2018 CLINICAL HISTORY: Pain TECHNIQUE: Frontal and lateral views of the chest are obtained. COMPARISON: 07/13/2017 FINDINGS: There is no focal air space opacity, pleural effusion, or pneumothorax seen. The cardiac silhouette size is within normal limits. The osseous structures are intact. IMPRESSION: No acute cardiopulmonary process.
[2018-08-26 08:46] LABS: Anisocytosis Slight; Basophils # (A) 0.1 k/uL (0-0.2); Basophils % (A) 1 %; Eosinophils # (A) 0.1 k/uL (0-0.7); Eosinophils % (A) 2 %; HCT 36.1 % (34.0-46.0); HGB 12.5 gm/dL (11.4-16.0); Lymphocytes # (A) 2.2 k/uL (1.0-4.8); Lymphocytes % (A) 37 %; MCH 40.9 pg (25.0-35.0); MCHC 34.6 g/dL (31.0-37.0); Macrocytosis Marked; Mean Platelet Volume 7.7; Monocytes # (A) 0.3 k/uL (0-1.0); Monocytes % (A) 5 %; Neutrophils # (A) 3.1 k/uL (1.3-7.7); Neutrophils % (A) 52 %; RBC 3.06 m/uL (3.80-5.40)
[2018-08-26 08:48] LABS: MCV 118.1 fL (80.0-100.0); Platelet Count 176 k/uL (150-450)
[2018-08-26] MEDS ORDERED: HYDROmorphone 1 MG/ML 1 ML SYRINGE IVP STA ×2 (08:50→10:40)
[2018-08-26] MEDS ORDERED: THIAMINE 100 MG/ML 2 ML VIAL IM STA (08:51)
[2018-08-26] MEDS ORDERED: LORazepam 2 MG/ML INJ IV PRN (08:51)
[2018-08-26] MEDS ORDERED: SODIUM CHLORIDE 0.9% 1,000 ML with MVI, ADULT NO.4 WITH VIT K 10 ML, THIAMINE 100 MG, F... IV ONE ×4 (09:00)
[2018-08-26 09:09] LABS: Lipase 277 U/L (23-300)
[2018-08-26 09:44] LABS: Appearance,Urine Clear (Clear); Bilirubin,Urine Negative (Negative); Blood,Urine Negative (Negative); Color,Urine Yellow; Glucose,Urine (UA) Negative (Negative); Ketones,Urine Negative (Negative); Leukocyte Esterase,Urine Negative (Negative); Nitrite,Urine Negative (Negative); PH, Urine 6.5 (5.0-8.0); Protein,Urine Negative (Negative); Urobilinogen,Urine <2.0 mg/dL (<2.0)
[2018-08-26] MEDS ORDERED: MAG HYDROX/AL HYDROX/SIMETH 30 ML, HYOSCYAMINE ELIXIR 10 ML, CIMETIDINE HCL 300 MG, LID... PO STA ×4 (09:44)
[2018-08-26 10:11] LABS: Cocaine Screen,Urine Not Detected (NotDetected); Opiate Screen,Urine Detected (NotDetected); Phencyclidine Screen,Urine Not Detected (NotDetected); Urn Cannabinoid Scrn Not Detected (NotDetected)
[2018-08-26 10:12] LABS: Amphetamine Screen,Urine Not Detected (NotDetected); Barbiturate Screen,Urine Not Detected (NotDetected); Benzodiazepines Screen,Urine Detected (NotDetected); Methadone Screen, Urine Not Detected (NotDetected); Oxycodone Screen, Urine Not Detected (NotDetected); Tricyclic Antidepressant,Urine Not Detected (NotDetected)
--- NOTE | 2018-08-26 10:37 | US ---
EXAMINATION TYPE: US gallbladder DATE OF EXAM: 08/26/2018 COMPARISON: US & CT CLINICAL HISTORY: Pain. Pt states severe ABD pain, h/o pancreatitis, ETOH abuse EXAM MEASUREMENTS: Liver Length: 22.8 cm Gallbladder Wall: 0.2 cm CBD: 1.0 cm Right Kidney: 12.4 x 4.4 x 4.9 cm Pancreas: wnl, tail obscured by overlying bowel gas Liver: Enlarged, heterogeneous, difficult to penetrate Gallbladder: wnl Evidence for sonographic Zhu's sign: Yes CBD: Dilated Right Kidney: wnl IMPRESSION: 1. Fatty liver. 2. Gallbladder is within normal limits.
[2018-08-26] MEDS ORDERED: NALOXONE 0.4 MG/ML 1 ML VIAL IV PRN (12:11)
[2018-08-26] MEDS ORDERED: ONDANSETRON 4 MG/2 ML VIAL IVP PRN (12:11)
[2018-08-26] MEDS: LORazepam 2 MG/ML INJ IV PRN ×3 (14:42→19:32)
[2018-08-26 15:01] VITALS: BMI 26.6
[2018-08-26] MEDS: HYDROmorphone 1 MG/ML 1 ML SYRINGE IVP PRN ×3 (15:03→22:43)
[2018-08-26] MEDS: THIAMINE 100 MG TAB PO SCH (17:00)
[2018-08-26] MEDS ORDERED: LOPERAMIDE 2 MG CAP PO PRN (18:04)
[2018-08-26] MEDS ORDERED: TEMAZEPAM 15 MG CAP PO PRN (18:05)
[2018-08-26] MEDS ORDERED: cloNIDine HCL 0.1 MG TAB PO PRN (18:05)
[2018-08-26] MEDS ORDERED: HYDROcodone/APAP 5-325MG 1 EACH TAB PO PRN (18:05)
[2018-08-26] MEDS: NICOTINE 14MG/24HR PATCH TRANSDERM SCH (18:40)
[2018-08-26] MEDS: HEPARIN SODIUM,PORCINE 5,000 UNIT/ML 1 ML VIAL SQ SCH (19:33)
[2018-08-27] MEDS: LORazepam 2 MG/ML INJ IV PRN ×5 (01:07→10:26)
--- NOTE | 2018-08-27 01:48 | XR ---
EXAMINATION TYPE: XR KUB portable DATE OF EXAM: 08/27/2018 COMPARISON: NONE HISTORY: Abdominal pain TECHNIQUE: 2 views supine FINDINGS: There is no sign of free air. Lung bases are clear. There are no pathologic calcifications over the kidneys. There are some air-filled loops of small bowel in the mid abdomen. IMPRESSION: Small bowel air could relate to ileus. No free air seen. There is a relative lack of larg e bowel gas that raises the possibility of a mechanical obstruction.
[2018-08-27] MEDS: HYDROmorphone 1 MG/ML 1 ML SYRINGE IVP PRN (02:09)
[2018-08-27] MEDS ORDERED: SODIUM CHLORIDE 0.9% 1,000 ML with MVI, ADULT NO.4 WITH VIT K 10 ML, THIAMINE 100 MG, F... IV ONE ×4 (03:00)
[2018-08-27] MEDS: HEPARIN SODIUM,PORCINE 5,000 UNIT/ML 1 ML VIAL SQ SCH (07:30)
[2018-08-27] MEDS: NICOTINE 14MG/24HR PATCH TRANSDERM SCH (07:30)
[2018-08-27 07:39] VITALS: BP 153/108; PULSE 101; RESP 18; TEMP 98
--- NOTE | 2018-08-27 08:04 | HP ---
HISTORY AND PHYSICAL DATE OF SERVICE: 08/26/2018 CHIEF COMPLAINT: Alcohol withdrawal, early delirium tremens, abdominal pains and diarrhea. HISTORY OF PRESENT ILLNESS: This 42-year-old woman with a past medical history of multiple medical problems including hypertension, hyperlipidemia, hypothyroidism, seizures, history of EtOH, ADD and ADHD, anxiety and depression not being followed by any primary physician in the outpatient setting is also seeing Dr. Verde for abdominal pain. The patient was apparently diagnosed to have pancreatitis. Currently the patient is complaining of abdominal pain and CT scan of the abdomen showed only fatty liver. Amylase, lipase is normal. There is no evidence of acute pancreatitis. Chronic pancreatitis is a possibility. However, the patient has significant amount of alcohol intake up to a pint a day and the patient is complaining of tremulousness and DTs also. The patient is slightly confused. There is no history of fever, rigors or chills. No history of headache, loss of consciousness or seizures. PAST MEDICAL HISTORY: History of DJD, history of hypothyroidism, history of seizures, history of ADHD, anxiety, depression. MEDICATIONS: Home medications are reviewed and include Imodium. ALLERGIES: None. FAMILY HISTORY: History of cancer in the family. SOCIAL HISTORY: History of alcohol, history of smoking. REVIEW OF SYSTEMS: ENT: No diminished hearing or vision. CARDIOVASCULAR: No angina or palpitations. RESPIRATORY: No cough. GASTROINTESTINAL: As mentioned earlier. : No dysuria. NERVOUS SYSTEM: No numbness /weakness. ALLERGY/IMMUNOLOGY: No asthma or hayfever. MUSCULOSKELETAL as mentioned. HEMATOLOGY/ONCOLOGY: No history of anemia. ENDOCRINE: No history of diabetes. CONSTITUTIONAL: As mentioned earlier. Dermatology: Negative. Rheumatology: Negative. Psychiatry: As mentioned earlier. PHYSICAL EXAM: GENERAL: Patient is alert, oriented x3. VITAL SIGNS: The pulse is 92, blood pressure 131/92, respiration 20, temperature 98.2, pulse ox 98% on room air. HEENT: Conjunctivae normal. Oral mucosa moist. NECK is no jugular venous distention. No carotid bruit. No lymph node enlargement. CARDIOVASCULAR SYSTEM: S1, S2. RESPIRATORY: Breath sounds diminished in the bases. A few scattered rhonchi and crackles. ABDOMEN: Soft. Mild diffuse tenderness. No guarding. No rigidity. No mass palpable. LEGS: No edema. No swelling. NERVOUS SYSTEM: Higher functions as mentioned earlier. Moves all four extremities. No focal deficits. LYMPHATICS: No lymph nodes palpable in the neck, axillae or groin. SKIN: No ulcer, rash or bleeding. JOINTS: No active deforming arthropathy. LABS: At this time reviewed: WBC 6, hemoglobin 12.2, MCV 118.1. AST 270, ALT 70, ETOH is 401. ASSESSMENT: 1. Acute alcohol intoxication as well as acute delirium tremens. 2. Increased AST, ALT, acute alcoholic hepatitis. 3. Increased MCV. 4. Diarrhea possibly secondary to chronic pancreatitis. 5. History of hyperlipidemia. 6. History of degenerative joint disease. 7. Hypothyroidism. 8. History of seizures. 9. History of opiate overdose and [facility]. 10.History attention-deficit disorder/attention-deficit/hyperactivity disorder. 11.Anxiety, depression. RECOMMENDATIONS AND DISCUSSION: In this 42-year-old woman who presented with multiple complex medical issues, we will monitor the patient closely, continue the current medications, management and symptomatic treatment. Otherwise, at this time, I recommend continue with symptomatic treatment. WA protocol. Gastroenterology consultation. I would also recommend IV fluids. DVT prophylaxis. Repeat labs. Guarded prognosis because of multiple complex medical issues. Further recommendations to follow. See orders for details. I will also consult [employer] sounds for continued followup also. Discussed with staff at length. Discussed with the patient. See orders for details. MMODL / IJN: [id number] /
[2018-08-27 08:30] LABS: ALT 77 U/L (9-52); AST 328 U/L (14-36); Alkaline Phosphatase 166 U/L (38-126); Anion Gap 9 mmol/L; Blood Urea Nitrogen 4 mg/dL (7-17); Calcium 7.2 mg/dL (8.4-10.2); Carbon Dioxide 21 mmol/L (22-30); Chloride 109 mmol/L (98-107); Glucose 93 mg/dL (74-99); Potassium 4.3 mmol/L (3.5-5.1); Sodium 139 mmol/L (137-145); Total Bilirubin 0.9 mg/dL (0.2-1.3); Total Protein 5.8 g/dL (6.3-8.2)
[2018-08-27 08:31] LABS: Anisocytosis Slight; Basophils % (A) 1 %; Eosinophils # (A) 0.1 k/uL (0-0.7); Eosinophils % (A) 2 %; HCT 34.2 % (34.0-46.0); Lymphocytes # (A) 0.9 k/uL (1.0-4.8); Lymphocytes % (A) 14 %; MCH 39.3 pg (25.0-35.0); MCHC 32.2 g/dL (31.0-37.0); MCV 121.8 fL (80.0-100.0); Macrocytosis Marked; Mean Platelet Volume 7.6; Monocytes # (A) 0.3 k/uL (0-1.0); Monocytes % (A) 4 %; Neutrophils # (A) 4.9 k/uL (1.3-7.7); Neutrophils % (A) 79 %; Platelet Count 125 k/uL (150-450); RBC 2.81 m/uL (3.80-5.40); RDW 18.7 % (11.5-15.5); WBC 6.3 k/uL (3.8-10.6)
[2018-08-27] MEDS ORDERED: PANTOPRAZOLE 40 MG/10 ML VIAL IV SCH (09:00)
[2018-08-27 09:04] LABS: Anisocytosis (M) Present
[2018-08-27] MEDS: THIAMINE 100 MG TAB PO SCH (12:14)
--- NOTE | 2018-08-28 00:52 | PN ---
PROGRESS NOTE DATE OF SERVICE: 08/27/2018. HISTORY: This 43-year-old female was admitted with significant alcohol withdrawal for abdominal pain and discomfort. The patient also had some diarrhea. C diff is negative. The patient has acute delirium tremens also. No chest pain. No palpitations. PAST MEDICAL HISTORY: Reviewed. REVIEW OF SYSTEMS: CARDIOVASCULAR: No angina. RESPIRATORY: As mentioned. GI: As mentioned. : As mentioned. CURRENT MEDICATIONS: 1. [place] 5 mg every 6 hours p.r.n. 2. Catapres. 3. Heparin 5000 subcu b.i.d. 4. Dilaudid p.r.n. 5. Ativan 1 mg p.r.n. 6. Habitrol 14. 7. Zofran. 8. Protonix. 9. Thiamine 100 mg p.o. daily. PHYSICAL EXAM: Patient is alert, oriented x2. Pulse is 101, blood pressure 151/80, respirations 18, temperature 98 degrees pulse ox 100 percent room air. HEENT: Conjunctivae normal. NECK: No JVD. CARDIOVASCULAR: S1 and S2 muffled. LUNGS: Breath sounds diminished at the bases. Few scattered rhonchi. ABDOMEN: Soft, mild diffuse discomfort. EXTREMITIES: ntd. NETWORK INTERN: Higher functions as mentioned. Moves all limbs equally. LYMPHATICS: No lymph nodes palpable. SKIN: No ulcer, rash or bleeding. LABS: Reviewed. ASSESSMENT: 1. Acute alcohol intoxication with acute delirium tremens. 2. Increased AST and ALT, acute alcoholic hepatitis. 3. Diarrhea and abdominal pain. 4. Increased MCV. 5. Possible chronic pancreatitis. 6. History of hyperlipidemia. 7. History of degenerative joint disease. 8. Hypothyroidism. 9. History of seizure disorder. 10.History of opiate overdose in [facility]. 11.History ADHD. 12.Anxiety and depression. RECOMMENDATIONS: Recommend to continue current management. Continue monitoring and symptomatic treatment. Otherwise at this time, continue with symptomatic treatment. Imodium p.r.n. Since the C difficile was negative, symptomatic treatment for the abdominal pain. Gastroenterology consultation. Continue with Ativan protocol. Prognosis guarded because of multiple complex medical problems. Further recommendations to follow. MMODL / IJN: [id number] / [id number]
--- NOTE | 2018-08-28 01:09 | DS ---
DISCHARGE SUMMARY FINAL DIAGNOSES: 1. Acute alcohol intoxication. 2. Acute delirium tremens. 3. Increased AST, ALT, possibly acute alcohol. 4. Increased MCV. 5. Diarrhea possibly secondary to chronic pancreatitis. 6. History hyperlipidemia. 7. History of degenerative joint disease. 8. Hypothyroidism. 9. History of seizure disorder. 10.History of opiate overdose and [facility]. 11.History attention-deficit disorder, attention-deficit/hyperactivity disorder. 12.Anxiety. Depression. DISCHARGE DISPOSITION: The patient left the hospital AGAINST MEDICAL ADVICE. HISTORY OF PRESENT ILLNESS: This 42-year-old woman with multiple medical problems, was admitted with DTs/ acute alcohol intoxication, diarrhea, abdominal, multiple complex medical issues. However, the patient is not willing to stay. Gastroenterology was consulted. patient left the hospital AGAINST MEDICAL ADVICE after several explanations. Please refer to the multiple progress notes and staff notes for the impression. Prognosis remained extremely guarded throughout the hospital stay. MMODL / IJN: [id number] / [id number]
== END 2018-08-27 12:57 | disposition left against medical advice (07) ==
LOC: EC 07:09 → 4MS4W 12:15 → OBSVTOIN 08-27 10:44 → INTOOBSV 08-27 10:44 → UNDODISIN 08-27 12:57
PROVIDERS: ADMIT Internal Medicine; ATTEND Internal Medicine
DX: F10.221 Alcohol dependence with intoxication delirium (principal); F10.231 Alcohol dependence with withdrawal delirium; K70.10 Alcoholic hepatitis without ascites; K29.70 Gastritis, unspecified, without bleeding; K76.0 Fatty (change of) liver, not elsewhere classified; I10 Essential (primary) hypertension; M19.90 Unspecified osteoarthritis, unspecified site; E78.5 Hyperlipidemia, unspecified; G43.909 Migraine, unspecified, not intractable, without status migrainosus; F90.9 Attention-deficit hyperactivity disorder, unspecified type; F32.9 Major depressive disorder, single episode, unspecified; F41.9 Anxiety disorder, unspecified; E03.9 Hypothyroidism, unspecified; R06.2 Wheezing; R19.7 Diarrhea, unspecified; Y90.8 Blood alcohol level of 240 mg/100 ml or more; F17.200 Nicotine dependence, unspecified, uncomplicated; F11.11 Opioid abuse, in remission; Z86.59 Personal history of other mental and behavioral disorders; Z91.5 Personal history of self-harm; Z98.51 Tubal ligation status; Z87.19 Personal history of other diseases of the digestive system; Z86.69 Personal history of other diseases of the nervous system and sense organs; Z83.2 Family history of diseases of the blood and blood-forming organs and certain disorders involving the immune mechanism; Z80.9 Family history of malignant neoplasm, unspecified
CPT/HCPCS: 96376 ×3; 96366 ×2; 96372 ×3; 96361; 96365; 96375; 99285; 36415; 93005; 80053 ×2; 82150; 83690; 83735; 84484; 85025 ×2; 82272; 81003; 87324; 80306; 71046; 74018; 76705; 74177; G0378 ×2; G0480; S4990; J2060 ×2; J2270; J1644 ×2; J3411 ×2; J2405; J1170 ×2; C9113 ×2; Q9967; 80320

== ENCOUNTER → 2018-12-31 | Outpatient (CLI) | payer OTHER ==
--- NOTE | 2018-12-31 16:11 | CT ---
EXAMINATION TYPE: CT brain wo con DATE OF EXAM: 12/31/2018 COMPARISON: CT brain April 28, 2018 HISTORY: Seizure disorder, hematoma of the scalp,compare to 04/2018 CT DLP: 1121 mGycm. Automated Exposure Control for Dose Reduction was Utilized. TECHNIQUE: CT scan of the head is performed without contrast. FINDINGS: There is no acute intracranial hemorrhage, mass effect, or midline shift identified. The ventricles and sulci are within normal limits in size. The globes are intact and the visualized sin uses are clear. Interval complete resolution of posterior scalp hematoma. IMPRESSION: No acute intracranial hemorrhage or midline shift is seen current study.
== END | disposition home or self-care (01) ==
LOC: RADCTMAIN 15:48
PROVIDERS: ATTEND Psychiatry & Neurology Neurology
DX: G40.909 Epilepsy, unspecified, not intractable, without status epilepticus (principal); S00.03XD Contusion of scalp, subsequent encounter
CPT/HCPCS: 70450

== ENCOUNTER → 2019-01-01 | Outpatient (CLI) | payer OTHER ==
--- NOTE | 2019-01-01 16:14 | US ---
EXAMINATION TYPE: US abdomen complete DATE OF EXAM: 01/01/2019 COMPARISON: US , CT CLINICAL HISTORY: F10.10 Alcohol abuse; epigastric pain EXAM MEASUREMENTS: Liver Length: 18.9 cm Gallbladder Wall: 0.2 cm CBD: 1.0 cm Spleen: 8.0 x 9.3 x 3.2 cm Right Kidney: 11.4 x 5.7 x 4.3 cm Left Kidney: 11.6 x 5.7 x 5.7 cm Pancreas: wnl; enlarged CBD at head of pancreas best seen on image # [id number] Liver: enlarged, fatty as posterior attenuation is noted too Gallbladder: wnl and better seen supinely Evidence for sonographic Zhu's sign: no CBD: enlarged as greater than 0.6cm. Spleen: wnl Right Kidney: No hydronephrosis or masses seen Left Kidney: No hydronephrosis or masses seen Upper IVC: wnl Abd Aorta: mild intimal thickening is noted distally IMPRESSION: 1. Prominent common bile duct at the level of the pancreas measuring 1.1 cm. Normal less than 0.5 cm. Consider ERCP for additional evaluation.
== END | disposition home or self-care (01) ==
LOC: RADUSWWP 08:53
PROVIDERS: ATTEND Family Medicine
DX: F10.10 Alcohol abuse, uncomplicated (principal)
CPT/HCPCS: 76700

== ENCOUNTER → 2020-06-23 | Outpatient (CLI) | payer OTHER | END | disposition home or self-care (01) | LOC: LABWHC1 12:06 | PROVIDERS: ATTEND Family Medicine | DX: R05 Cough (principal); R50.81 Fever presenting with conditions classified elsewhere; M79.10 Myalgia, unspecified site | CPT/HCPCS: U0003; C9803 ==

== ENCOUNTER 2020-08-22 14:47 | Inpatient (IN) | payer MEDICAID, OTHER ==
[2020-08-22] MEDS ORDERED: LORazepam 1 MG TAB PO STA (15:30)
[2020-08-22 15:56] LABS: Amphetamine Screen,Urine Not Detected (NotDetected); Barbiturate Screen,Urine Not Detected (NotDetected); Benzodiazepines Screen,Urine Not Detected (NotDetected); Cocaine Screen,Urine Detected (NotDetected); Methadone Screen, Urine Not Detected (NotDetected); Opiate Screen,Urine Not Detected (NotDetected); Oxycodone Screen, Urine Not Detected (NotDetected); Phencyclidine Screen,Urine Not Detected (NotDetected); Tricyclic Antidepressant,Urine Not Detected (NotDetected); Urn Cannabinoid Scrn Not Detected (NotDetected)
--- NOTE | 2020-08-22 18:38 | ED ---
General Adult HPI - General Chief complaint: Psychiatric Symptoms Stated complaint: Mental health Time Seen by Provider: 08/22/20 15:22 Source: patient, RN notes reviewed, old records reviewed Mode of arrival: ambulatory Limitations: no limitations - History of Present Illness Initial comments: 44-year-old female patient to ED for evaluation of anxiety depression. Patient was that she has been feeling very stressed. She sometimes feels as if it would be better if she were . She denies any other physical complaints. Systemic: Pt denies fatigue, fever/chills, rash. Pt denies weakness, night sweats, weight loss. Neuro: Pt denies headache, visual disturbances, syncope or pre-syncope. HEENT: Pt denies ocular discharge or irritation, otalgia, rhinorrhea, pharyngitis or notable lymphadenopathy. Cardiopulmonary: Pt denies chest pain, SOB, heart palpitations, dyspnea on exertion. Abdominal/GI: Pt denies abdominal pain, n/v/d. : Pt denies dysuria, burning w/ urination, frequency/urgency. Denies new onset urinary or bowel incontinence. MSK: Pt denies myalgia, loss of strength or function in extremities. Neuro: Pt denies new onset weakness, paresthesias. - Related Data Home Medications Medication Instructions Recorded Confirmed busPIRone HCL 15 mg PO TID 08/22/20 08/22/20 traZODone HCL 50 mg PO HS 08/22/20 08/22/20 traZODone HCL 100 mg PO HS 08/22/20 08/22/20 Allergies Allergy/AdvReac Type Severity Reaction Status Date / Time No Known Allergies Allergy Verified 08/22/20 17:13 Review of Systems ROS Statement: Those systems with pertinent positive or pertinent negative responses have been documented in the HPI. ROS Other: All systems not noted in ROS Statement are negative. Past Medical History Past Medical History: Hyperlipidemia, Osteoarthritis (OA), Thyroid Disorder Additional Past Medical History / Comment(s): 2 Seizures on 04/28/18 at [place]. OVERDOSE of opiates W/RESP FAILURE AND PLACED ON VENT IN 2011. THYROID disorder (denies hisotry of cancer), HERNIATED DISCS, PAST MIGRAINES,LOWER BACK AND RT HIP PAIN, AND KNEE pain . History of Any Multi-Drug Resistant Organisms: None Reported Past Surgical History: Tubal Ligation Additional Past Surgical History / Comment(s): EGD and colonoscopy recently, D&C, RT GROIN CYST REMOVED, PAST PICC LINE/REMOVED Past Anesthesia/Blood Transfusion Reactions: No Reported Reaction Past Psychological History: ADD/ADHD, Anxiety, Depression Smoking Status: Current every day smoker Past Alcohol Use History: Abuse, Daily Past Drug Use History: None Reported - Past Family History Mother Family Medical History: Cancer Father History Unknown: Yes Family Medical History: Deep Vein Thrombosis (DVT) General Exam - General Exam Comments Initial Comments: Constitutional: NAD, AOX3, Pt has pleasant affect. HEENT: NC/AT, trachea midline, neck supple, no lymphadenopathy. Posterior pharynx non erythematous, without exudates. External ears appear normal, without discharge. Mucous membranes moist. Eyes PERRLA, EOM intact. There is no scleral icterus. No pallor noted. Cardiopulmonary: RRR, no murmurs, rubs or gallops, no JVD noted. Lungs CTAB in anterior and posterior carballo. No peripheral edema. Abdominal exam: Abdomen soft and non-distended. Neuro: CN II-XII grossly intact. No nuchal rigidity. No raccon eyes, no odonnell sign, no hemotympanum. No cervical spinal tenderness. MSK: Full active ROM in upper and lower extremities, 5/5 stregnth. Limitations: no limitations Course Vital Signs 08/22/20 14:59 Temperature 98.9 F Pulse Rate 89 Respiratory 20 Rate Blood Pressure 124/80 O2 Sat by Pulse 98 Oximetry Medical Decision Making - Medical Decision Making 44 old female patient depression and suicidal ideations. Evaluated by EPS they recommended admission. Patient signing herself in the hospital. Case discussed with Dr. Cazares. - Lab Data Lab Results 08/22/20 08/22/20 Range/Units 15:00 15:00 Urine HCG, Qual Not Detected (Not Detectd) Urine Opiates Screen Not Detected (NotDetected) Ur Oxycodone Screen Not Detected (NotDetected) Urine Methadone Screen Not Detected (NotDetected) Ur Propoxyphene Screen Not Detected (NotDetected) Ur Barbiturates Screen Not Detected (NotDetected) U Tricyclic Antidepress Not Detected (NotDetected) Ur Phencyclidine Scrn Not Detected (NotDetected) Ur Amphetamines Screen Not Detected (NotDetected) U Methamphetamines Scrn Detected H (NotDetected) U Benzodiazepines Scrn Not Detected (NotDetected) Urine Cocaine Screen Detected H (NotDetected) U Marijuana (THC) Screen Not Detected (NotDetected) Disposition Clinical Impression: Depression Disposition: ADMITTED IP TO THIS HOSP Condition: Serious Is patient prescribed a controlled substance at d/c from ED?: No Referrals: Christie Prince MD [Primary Care Provider] - 1-2 days
[2020-08-22] MEDS ORDERED: MAG HYDROX/AL HYDROX/SIMETH 30 ML CUP PO PRN (19:34)
[2020-08-22] MEDS ORDERED: ACETAMINOPHEN TAB 325 MG TAB PO PRN (19:34)
[2020-08-22] MEDS ORDERED: MAGNESIUM HYDROXIDE 2,400 MG/10 ML CUP PO PRN (19:34)
[2020-08-22] MEDS ORDERED: LORazepam 1 MG TAB PO PRN (19:34)
[2020-08-22] MEDS ORDERED: HALOPERIDOL LACTATE 5 MG/ML 1 ML VIAL IM PRN (20:33)
[2020-08-23] MEDS: NICOTINE 21MG/24HR PATCH TRANSDERM SCH ×2 (08:57→08:59)
[2020-08-23 11:20] LABS: Basophils # (A) 0.1 k/uL (0-0.2); Basophils % (A) 1 %; Eosinophils # (A) 0.2 k/uL (0-0.7); Eosinophils % (A) 2 %; HGB 13.8 gm/dL (11.4-16.0); Lymphocytes # (A) 1.8 k/uL (1.0-4.8); Lymphocytes % (A) 19 %; MCH 28.6 pg (25.0-35.0); MCHC 32.1 g/dL (31.0-37.0); MCV 88.8 fL (80.0-100.0); Mean Platelet Volume 7.2; Monocytes # (A) 0.3 k/uL (0-1.0); Monocytes % (A) 4 %; Neutrophils # (A) 7.2 k/uL (1.3-7.7); Neutrophils % (A) 74 %; Platelet Count 231 k/uL (150-450); RBC 4.84 m/uL (3.80-5.40); RDW 13.3 % (11.5-15.5); WBC 9.7 k/uL (3.8-10.6)
[2020-08-23 11:36] LABS: ALT 17 U/L (4-34); AST 25 U/L (14-36); African American GFR (CKD) >90 (>60 ml/min/1.73 sqM); Albumin 3.8 g/dL (3.5-5.0); Alkaline Phosphatase 64 U/L (38-126); Anion Gap 4 mmol/L; Blood Urea Nitrogen 13 mg/dL (7-17); Calcium 9.3 mg/dL (8.4-10.2); Carbon Dioxide 30 mmol/L (22-30); Chloride 101 mmol/L (98-107); Glucose 132 mg/dL (74-99); Non-African American GFR(CKD) 84 (>60 ml/min/1.73 sqM); Sodium 135 mmol/L (137-145); Total Bilirubin 0.4 mg/dL (0.2-1.3); Total Protein 6.6 g/dL (6.3-8.2)
[2020-08-23 15:04] LABS: Appearance,Urine Clear (Clear); Bilirubin,Urine Negative (Negative); Blood,Urine Negative (Negative); Color,Urine Light Yellow; Glucose,Urine (UA) Negative (Negative); Ketones,Urine Negative (Negative); Leukocyte Esterase,Urine Negative (Negative); Nitrite,Urine Negative (Negative); Protein,Urine Negative (Negative); Specific Gravity,Urine 1.014 (1.001-1.035); Urobilinogen,Urine <2.0 mg/dL (<2.0)
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
--- NOTE | 2020-08-23 16:53 | P.CONS ---
History of Present Illness - History of Present Illness This is a pleasant 44 years old female with past medical history of hyperlipi demia, osteoarthritis, hypothyroidism, seizure disorder, migraine, anxiety and depression. Patient was admitted to the mental health unit for signs symptoms of depression. Medical consult was requested for routine medical management. Patient denies any headache, no chest pain or dyspnea. No change in urine or bowel habits. No fever. Vital signs are stable including CBC, BMP, liver enzymes, urine drug screen Is positive for methamphetamine and cocaine Urine hCG G is negative. Urinalysis is negative for infection. [place] far as not detected Review of Systems CONSTITUTIONAL: No fever, no malaise, no fatigue. HEENT: No recent visual problems or hearing problems. Denied any sore throat. CARDIOVASCULAR: No orthopnea, PND, no palpitations, no syncope. PULMONARY: No shortness of breath, no cough, no hemoptysis. GASTROINTESTINAL: No diarrhea, no nausea, no vomiting, no abdominal pain. Normoactive bowel sounds. NEUROLOGICAL: No headaches, no weakness, no numbness. HEMATOLOGICAL: Denies any bleeding or petechiae. GENITOURINARY: Denies any burning micturition, frequency, or urgency. MUSCULOSKELETAL/RHEUMATOLOGICAL: Denies any joint pain, swelling, or any muscle pain. ENDOCRINE: Denies any polyuria or polydipsia. Past Medical History Past Medical History: Hyperlipidemia, Osteoarthritis (OA), Thyroid Disorder Additional Past Medical History / Comment(s): 2 Seizures on 04/28/18 at [place]. OVERDOSE of opiates W/RESP FAILURE AND PLACED ON VENT IN 2011. THYROID disorder (denies hisotry of cancer), HERNIATED DISCS, PAST MIGRAINES,LOWER BACK AND RT HIP PAIN, AND KNEE pain . History of Any Multi-Drug Resistant Organisms: None Reported Past Surgical History: Tubal Ligation Additional Past Surgical History / Comment(s): EGD and colonoscopy recently, D&C, RT GROIN CYST REMOVED, PAST PICC LINE/REMOVED while in hospital for overdose, Past Anesthesia/Blood Transfusion Reactions: No Reported Reaction Past Psychological History: ADD/ADHD, Anxiety, Depression Additional Psychological History / Comment(s): [facility] used to drink a fifth a day last drink 2 years ago. Smoking Status: Current every day smoker Past Alcohol Use History: Abuse, Daily Additional Past Alcohol Use History / Comment(s): Patient reports drinking a fifth of alcohol daily in the past. Smokes 1 pack per day. ETOH blood level 401 past admission. Past Drug Use History: Cocaine, Methamphetamine, Opiates Additional Drug Use History / Comment(s): Reports no drugs in last 3 days before admission 08-22-2020 - Past Family History Mother Family Medical History: Cancer Father History Unknown: Yes Family Medical History: Deep Vein Thrombosis (DVT) Medications and Allergies Home Medications Medication Instructions Recorded Confirmed Type busPIRone HCL 15 mg PO TID 08/22/20 08/22/20 History traZODone HCL 50 mg PO HS 08/22/20 08/22/20 History traZODone HCL 100 mg PO HS 08/22/20 08/22/20 History Allergies Allergy/AdvReac Type Severity Reaction Status Date / Time No Known Allergies Allergy Verified 08/22/20 21:34 Physical Exam Vitals: Vital Signs Temp Pulse Pulse Resp BP BP Pulse Ox 08/23/20 13:02 97.7 F 08/23/20 01:00 97.6 F 73 18 115/73 94 L 08/22/20 21:19 97.9 F 85 20 118/71 08/22/20 14:59 98.9 F 89 20 124/80 98 Intake and Output 08/22/20 08/23/20 08/23/20 22:59 06:59 14:59 Other: Weight 81.465 kg 82.5 kg GENERAL: The patient is alert and oriented x3, not in any acute distress. Well developed, well nourished. HEENT: Pupils are round and equally reacting to light. EOMI. No scleral icterus. No conjunctival pallor. Normocephalic, atraumatic. No pharyngeal erythema. No thyromegaly. CARDIOVASCULAR: S1 and S2 present. No murmurs, rubs, or gallops. PULMONARY: Chest is clear to auscultation, no wheezing or crackles. ABDOMEN: Soft, nontender, nondistended, normoactive bowel sounds. No palpable organomegaly. MUSCULOSKELETAL: No joint swelling or deformity. EXTREMITIES: No cyanosis, clubbing, or pedal edema. NEUROLOGICAL: Gross neurological examination did not reveal any focal deficits. SKIN: No rashes. No petechiae Results CBC & Chem 7: 08/23/20 10:48 08/23/20 10:48 Labs: Abnormal Lab Results - Last 24 Hours (Table) 08/22/20 08/23/20 Range/Units 15:00 10:48 Sodium 135 L (137-145) mmol/L Glucose 132 H (74-99) mg/dL U Methamphetamines Scrn Detected H (NotDetected) Urine Cocaine Screen Detected H (NotDetected) Assessment and Plan Assessment: -Anxiety and depression, management as per second primary team -Substance abuse with cocaine and amphetamine, patient is counseled to quit, -Nicotine dependence, patient is counseled and she is not interested of quitting smoking currently DVT prophylaxis: Patient is mobile and low risk for DVT We recommend patient follow up with her PCP in one week after discharge and patient was instructed with the same Thank you for consulting us, we will see the patient on an as-needed basis. Please free to contact us for any further question or clarification
[2020-08-23] MEDS: OLANZapine 7.5 MG TAB PO SCH ×2 (16:54→21:19)
[2020-08-24] MEDS ORDERED: OLANZapine 10 MG TAB PO SCH ×2 (09:00→21:00)
[2020-08-24] MEDS: NICOTINE 21MG/24HR PATCH TRANSDERM SCH ×2 (09:22→09:31)
--- NOTE | 2020-08-24 10:37 | P.PN ---
Progress Note - Text Progress Note Date: 08/24/20 Interval History: Patient was seen laying down in her bed today and was directable and agreeable to speak with video games storywriter in the office. Patient states that she feels "out of it" today and appeared to be somewhat tired. She did take a while to get up out of bed when video games storywriter approached her to be interviewed in the office. She was calm and appropriate with video games storywriter for the most part. She states that she recently relapsed back on cocaine and meth and when asked how much she was using she states "only a little bit". She states that her voices have been progressively increasing over the past years and states that "at this point they're arguing back and forth with each other". She states that she was able to sleep throughout the night last night and when video games storywriter spoke with her about her medications specifically Zyprexa and other antipsychotic medications that would be an option, patient states that "I like this medication and I want to stay on it". She claims that her appetite has been fair. At this time patient denies any suicidal or homical ideations, intent or plan. Patient denies any auditory hallucinations and denies any paranoia or delusions. She denies any anxiety today however does claim that she feels depressed. Mental Status Exam: General Appearance: Patient appears to be stated age is tall, somewhat sedated, directable, and cooperative. Poor hygiene and grooming Behavior: Patient is calmly seated without any agitated behavior. Attempts to cooperate. Speech: Patient's speech is fluent and nonpressured. Mood/Affect: Mood is depressed at times, affect is congruent and constricted. Suicidality/Homicidality: Patient denies having any suicidal or homicidal ideation intent or plan. Perceptions: Patient denies any visual hallucinations and denies any auditory hallucinations Though content/process: There is no evidence of any delusional thought content and thought process is linear and goal-directed. [place]. Focused on her symptoms. Memory and concentration: AOX3, grossly intact for the purposes of this session Judgment and insight: Poor, Improving mildly Assessment Schizoaffective disorder. Methamphetamine abuse Cocaine abuse Nicotine dependence Plan: -Patient continues to meet criteria for inpatient psychiatric admission for symptom stabilization and safety. Patient has signed adult voluntary form and medication consent and was placed in patient's chart. -Medications: Patient would like to remain on Zyprexa at this point even though she was offered other antipsychotic medications. Change dose to Zyprexa 10 mg daily at bedtime for psychosis/insomnia. -When necessary Ativan and Haldol for agitation/aggression. -NRT - nicotine patch -SW on board for discharge planning. Encouraged the patient to participate in milieu. Patient states that she would be interested in going to [place] for inpatient rehab. medical office worker to give patient access line number today.
[2020-08-24] MEDS ORDERED: OLANZapine 5 MG TAB PO SCH (21:00)
[2020-08-25 06:30] VITALS: BP 108/69; PULSE 74; RESP 17; TEMP 97.9
[2020-08-25] MEDS: NICOTINE 21MG/24HR PATCH TRANSDERM SCH (08:41)
[2020-08-25] MEDS ORDERED: hydrOXYzine pamoate 25 MG CAP PO PRN (10:11)
--- NOTE | 2020-08-25 10:16 | P.PN ---
Progress Note - Text Progress Note Date: 08/25/20 Interval History: Patient was seen near the nurse's desk today and was directable and agreeable to speak with mortgage underwriter in the office. Patient appears to be fairly anxious and restless today and states that she feels her anxiety and mood did not improve much. She also claims that she did not sleep well last night approximately one hour. She claims that she is continuing to hear the voices in her head talking back and forth which are distressing to her. She was calm and appropriate with mortgage underwriter for the most part during the interview. She claims that she tried to call the number for rehab however it was not the correct number and will need to speak to the social services again about it. She states that she is agreeable to have her Zyprexa increased today. She claims that her appetite has been fair. At this time patient denies any suicidal or homical ideations, intent or plan. Patient denies any auditory hallucinations and denies any paranoia or delusions. Mental Status Exam: General Appearance: Patient appears to be stated age is tall, somewhat sedated, directable, and cooperative. He appears to be restless. Improving hygiene and grooming Behavior: Patient is calmly seated without any agitated behavior. Attempts to cooperate. Speech: Patient's speech is fluent and nonpressured. Mood/Affect: Mood is depressed at times, affect is congruent and anxious. Suicidality/Homicidality: Patient denies having any suicidal or homicidal ideation intent or plan. Perceptions: Patient denies any visual hallucinations and denies any auditory hallucinations Though content/process: There is no evidence of any delusional thought content and thought process is linear and goal-directed. [place] Memory and concentration: AOX3, grossly intact for the purposes of this session Judgment and insight: Poor, Improving mildly Assessment Schizoaffective disorder. Methamphetamine abuse Cocaine abuse Nicotine dependence Plan: -Patient continues to meet criteria for inpatient psychiatric admission for symptom stabilization and safety. Patient has signed adult voluntary form and m edication consent and was placed in patient's chart. -Medications: Increased Zyprexa 5 mg daily + 15mg qhs for psychosis/insomnia. -When necessary Ativan and Haldol for agitation/aggression. -NRT - nicotine patch -SW on board for discharge planning. Encouraged the patient to participate in milieu. Patient states that she would be interested in going to [facility] for inpatient rehab. progress worker to give patient access line number today.
[2020-08-25] MEDS ORDERED: OLANZapine 5 MG TAB PO SCH (10:30)
[2020-08-25] MEDS ORDERED: LORazepam 2 MG/ML INJ IM STA (10:35)
--- NOTE | 2020-08-25 11:43 | CT ---
EXAMINATION TYPE: CT brain wo con DATE OF EXAM: 08/25/2020 COMPARISON: CT brain 12/31/2018 HISTORY: seizure CT DLP: 981 mGycm. Automated Exposure Control for Dose Reduction was Utilized. TECHNIQUE: CT scan of the head is performed without contrast. FINDINGS: There is no acute intracranial hemorrhage, mass effect, or midline shift identified. The ventricles and sulci are within normal limits in size. The globes are intact and the visualized sin uses are clear. There are cerebral vascular calcifications present. Small cephalohematoma present ove r the left frontoparietal calvarium. IMPRESSION: No acute intracranial hemorrhage, mass effect, or midline shift is seen. Cephalohematoma .
--- NOTE | 2020-08-25 12:14 | P.DS ---
Providers Date of admission: 08/22/20 19:31 Expected date of discharge: 08/25/20 Attending physician: Gualberto Gutierrez MD Consults: 08/22/20 19:34 Consult Physician Routine Consulting Provider: Jean Woodson Consult Reason/Comments: H and P Do you want consulting provider notified?: Yes Primary care physician: Christie Prince - Discharge Diagnosis(es) (1) Schizoaffective disorder Status: Acute Priority: High (2) Methamphetamine abuse Status: Acute Priority: Medium (3) Cocaine abuse Status: Acute Priority: Medium (4) Nicotine dependence Status: Acute Priority: Low Hospital Course: Admission HPI: Admission note was completed by Dr. Alonso and is summarized as. Patient is a 44-year-old female who currently lives alone and presented initially to the ER for evaluation for her psychiatric symptoms. Patient stated that her last psychiatric hospitalization in the facility was approximately 10 years ago. She was complaining of ongoing and increasing auditory hallucinations which progressed the point of yelling. Patient claimed how distressing these auditory hallucinations were to her. She states that she was dealing with anxiety she had stated that she feels other people can hear her thoughts. She states that she has not been on antipsychotics for quite some time and recalled being on Seroquel and Zyprexa. She stated that she stopped her medications because she was doing fairly well. She had also noted that she has an ongoing substance abuse issue. She admitted to using cocaine and methamphetamine recently. She had mentioned that she has a lot of restless energy. She also endorsed high anxiety and panic symptoms. Hospital course: Upon admission to the unit patient was initially brought into the psychiatric unit for psychotic symptoms, auditory hallucinations. Patient was however directable and agreeable to commence treatment and signed adult voluntary form. Patient got along well with other patients on the unit and followed unit protocol. Patient was compliant with the medications and denied any side effects. Patient was started on Zyprexa and titrated up to a dose of 5 mg daily +15 mg daily at bedtime for psychosis/insomnia. Patient on day of discharge was noticed to be cyanotic near the nurse's desk and appeared to be mildly confused and then had a seizure on the mental health unit. Patient was given Ativan at that time and vital signs were checked. Patient was then evaluated by [facility] physician who agreed to transfer patient to the medical floors for evaluation. Mental status exam: Please see mental status exam from psychiatric progress note on 08/25/2020. Impression: Schizoaffective disorder Methamphetamine abuse Cocaine abuse Nicotine dependence Plan: Patient will be transferred to the medical floors for further observation and treatment. Neurology consultation for seizure. Patient will undergo a STAT CT Head and EEG. Psychiatry to be consulted once patient is on the medical floors for further continuity of care. Please continue with one-to-one sitter while on the medical floors. Patient Condition at Discharge: Serious Plan - Discharge Summary Discharge Rx Participant: No New Discharge Prescriptions: No Action traZODone HCL 50 mg PO HS busPIRone HCL 15 mg PO TID traZODone HCL 100 mg PO HS Discharge Medication List busPIRone HCL 15 mg PO TID 08/22/20 [History] traZODone HCL 50 mg PO HS 08/22/20 [History] traZODone HCL 100 mg PO HS 08/22/20 [History] Follow up Appointment(s)/Referral(s): Christie Prince MD [Primary Care Provider] - 1-2 days Activity/Diet/Wound Care/Special Instructions: Activity and diet as tolerated. Avoid the use of street drugs and alcohol. Take all medications as prescribed. When you are in need of refills on your medications please contact your medical provider and/or outpatient psychiatrist to have this done. Please go to scheduled outpatient appointment for aftercare treatment. If symptoms return or become worse, call the crisis line at and/or go to the nearest emergency room for evaluation. Discharge Disposition: ADMITTED IP TO THIS HOSP
[2020-08-25] MEDS ORDERED: OLANZapine 7.5 MG TAB PO SCH (21:00)
== END 2020-08-25 10:55 | disposition home or self-care (01) | DRG 885 ==
LOC: EC 14:47 → 3MHU 19:31
PROVIDERS: ADMIT Psychiatry & Neurology Psychiatry; ATTEND Psychiatry & Neurology Psychiatry
DX: F25.0 Schizoaffective disorder, bipolar type (principal); R45.851 Suicidal ideations; G40.909 Epilepsy, unspecified, not intractable, without status epilepticus; F14.10 Cocaine abuse, uncomplicated; F15.10 Other stimulant abuse, uncomplicated; E03.9 Hypothyroidism, unspecified; E78.5 Hyperlipidemia, unspecified; F17.200 Nicotine dependence, unspecified, uncomplicated; G47.00 Insomnia, unspecified; Z20.828 Contact with and (suspected) exposure to other viral communicable diseases; F41.9 Anxiety disorder, unspecified; M19.90 Unspecified osteoarthritis, unspecified site; F90.9 Attention-deficit hyperactivity disorder, unspecified type; G43.909 Migraine, unspecified, not intractable, without status migrainosus; Z79.899 Other long term (current) drug therapy; Z98.51 Tubal ligation status; Z98.890 Other specified postprocedural states; Z80.9 Family history of malignant neoplasm, unspecified; Z82.49 Family history of ischemic heart disease and other diseases of the circulatory system
CPT/HCPCS: 70450; 80053; 80306; 81003; 81025; 82075; 84443; 85025; 87635; 99285

== ENCOUNTER 2020-08-25 10:58 | Observation (INO) | payer OTHER ==
--- NOTE | 2020-08-25 11:22 | P.EN ---
Called to [facility] for A-Team. Pt had just experienced tonic-clonic seizure and a fall where she hit her head. Pt has a history of withdrawal seizures but no primary seizure disorder recorded. Pt was post-ictal upon arrival, however, moving all extremities. She was s/p 2mg ativan IM. Plan is to move patient to med-surg bed, STAT CT Head, EEG, neuro consult. Nursing to update primary medical team.
[2020-08-25] MEDS ORDERED: NALOXONE 0.4 MG/ML 1 ML VIAL IV PRN (12:08)
[2020-08-25] MEDS ORDERED: LORazepam 2 MG/ML INJ IV PRN (12:12)
[2020-08-25] MEDS ORDERED: ACETAMINOPHEN TAB 500 MG TAB PO PRN (12:17)
[2020-08-25] MEDS: SODIUM CHLORIDE 0.9% 1,000 ML IV SCH (12:18)
--- NOTE | 2020-08-25 13:16 | XR ---
EXAMINATION TYPE: XR chest 1V portable DATE OF EXAM: 08/25/2020 COMPARISON: Prior chest x-ray 08/26/2018 HISTORY: Pneumonia TECHNIQUE: Single frontal view of the chest is obtained. FINDINGS: There is no focal air space opacity, pleural effusion, or pneumothorax seen. The cardiac silhouette size is within normal limits. The osseous structures are intact. IMPRESSION: No acute process.
--- NOTE | 2020-08-25 13:44 | HP ---
HISTORY AND PHYSICAL CHIEF COMPLAINT: Seizure disorder. HISTORY OF PRESENT ILLNESS: This 44-year-old woman with a past medical history of multiple medical problems including hyperlipidemia, history of DJD, history of hypothyroidism, history of seizure disorder, ADD, ADHD, anxiety, depression, being followed by Dr. Christie Prince in the outpatient setting had extensive history of substance abuse. The patient was in [facility] for alcohol abuse. The patient used to drink a fifth a day. Patient also had seizures and the last seizure was on 04/28/2018 at [facility]. The patient apparently also had overdose with opiates, but currently the patient was admitted with auditory hallucinations and possible suicidal ideations and depression to psych floor. On the psych floor, evaluation showed the urine was positive for methamphetamines and cocaine. The patient while on the psych floor had apparently generalized tonic-clonic seizure with cyanosis and unresponsive. The patient also had developed a hematoma in the left frontoparietal area. A CT scan did not show any acute abnormality. Patient regained consciousness and is not complaining of any soreness anywhere and the patient is unable to remember what happened during that time and the patient was transferred to medical floor and admitted on remote telemetry at this time. There is no history of any fever, rigors or chills. No history of chest pain, palpitation. No history of any contact with COVID also at this time. PAST MEDICAL HISTORY: History of hyperlipidemia, schizoaffective disorder, seizure disorder, ADD, ADHD, anxiety, depression, polysubstance abuse. MEDICATIONS: Medications prior to admission: 1. Trazodone 150 mg at bedtime. 2. Buspirone 15 mg p.o. t.i.d. ALLERGIES: None. FAMILY HISTORY: History of cancer in the family. SOCIAL HISTORY: 1. History of polysubstance abuse. 2. History of smoking. 3. History of cocaine. REVIEW OF SYSTEMS: ENT: No diminished hearing or diminished vision. CARDIOVASCULAR SYSTEM: No angina or palpations. RESPIRATORY SYSTEM: No cough or hemoptysis. GI: No nausea, vomiting, diarrhea. : No dysuria. NERVOUS SYSTEM: As mentioned earlier. ALLERGIES/IMMUNOLOGY: No asthma or hayfever. MUSCULOSKELETAL: As mentioned earlier. HEMATOLOGY/ONCOLOGY: No history of anemia. ENDOCRINE: No history of diabetes, hypothyroidism. CONSTITUTIONAL: As mentioned earlier. DERMATOLOGY: Negative. RHEUMATOLOGY: Negative. PSYCHIATRY: Negative. PHYSICAL EXAMINATION: Patient is alert and oriented x3. Pulse is 94, blood pressure 130/83, respiration 14, temperature 98.4, pulse ox 94% on room air. HEENT: Conjunctivae normal. NECK: No jugular venous distention. CARDIOVASCULAR: S1, S2 muffled. RESPIRATORY: Breath sounds diminished at the bases. No rhonchi, no crackles. ABDOMEN: Soft, nontender. No mass palpable. LEGS: No edema, no swelling. NERVOUS SYSTEM: Higher functions as mentioned earlier. Moves all 4 limbs. Otherwise some involuntary abnormal movements also present. No focal motor or sensory deficits. LYMPHATICS: No lymphadenopathy of the neck, axillae or groin. SKIN: No ulcer, rash or bleeding. JOINTS: No active deforming arthropathy. LABS: Labs are pending at this time. ASSESSMENT: 1. Acute seizure disorder, generalized tonic-clonic. 2. History of depression with suicidal ideations and auditory hallucinations. 3. History of seizure disorder previously. 4. Hyperlipidemia. 5. History of degenerative joint disease. 6. Hypothyroidism. 7. History of polysubstance abuse with opiate overdose and respiratory failure in 2011. 8. History of EtOH. 9. History of migraine. 10.History of tubal ligation. 11.History attention deficit disorder, attention deficit hyperactivity disorder. 12.Anxiety, depression. 13.History of nicotine dependence, continued ongoing. 14.History of cocaine. 15.FULL CODE. RECOMMENDATIONS AND DISCUSSION: This 44-year-old woman who presented with multiple complex medical issues. At this time, the patient had features of acute tonic-clonic seizures. Patient might benefit from long-term antiseizure medications. The patient also had a history of multiple polysubstance abuse also. We will watch for any more withdrawal symptoms or any seizures. Neurology evaluation, complete neurovascular workup and basic labs also will be sought. Overall prognosis guarded because of multiple complex medical issues. Further recommendations to follow. A copy of dictation forwarded to Dr. Christie Prince, who is the primary physician. MMFRANCISCOL / NENAN: [id number] /
--- NOTE | 2020-08-25 14:54 | P.CN ---
Psychiatric Consult - . Consult date: 08/25/20 Consult:: 08/25/20 14:42 IDENTIFYING DATA: This patient is a 44-year-old female with a history of seizure disorder, psychosis and substance abuse who was initially admitted to the mental health unit for her psychiatric symptoms and suffered a seizure while on the unit and transferred to the medical floors. REASON FOR REFERRAL: Psychiatry was consulted for continuity of care. HISTORY OF PRESENT ILLNESS: The patient presented to the hospital initially for increase in her psychiatric symptoms including hearing voices and anxiety along with depression. Patient was apparently off her psychiatric medications for several years and her last psychiatric admission was 10 years ago. Patient was admitting to using cocaine and methamphetamine prior to coming into the hospital. Patient was admitted to the mental health unit and started on Zyprexa for psychosis. Patient's dose was titrated up to 5 mg daily +15 mg daily at bedtime today. Patient was seen earlier this morning by insurance underwriter sales on the mental unit, please see progress note from 08/25/2020 for further details. Patient was continuing to hear voices and having difficulties with sleep and had her medications adjusted this morning. Patient then suffered a seizure shortly a fter being interviewed by the nurse's desk. Patient apparently turned cyanotic briefly and began convulsing on the floor. Patient was then transferred to the medical floors for further evaluation EEG and computed tomography scan. Computed tomography scan did not show any acute abnormalities. Patient did regain her consciousness. She was seen at the bedside with a one-to-one sitter and appeared to be more awake and cooperative with insurance underwriter sales. She states that she is still feeling anxious and depressed and continues to speak about her auditory hallucinations of voices "yelling at each other". She claims that she does not remember much about what happened this morning and states that she does have a history of seizure disorder however is not taking any antiepileptic medications. She states that she did not know what triggered her seizure today. At this time patient denies any suicidal or homical ideations, intent or plan. She denies any paranoia or delusions. PAST PSYCHIATRIC HISTORY: Patient has a a history of psychosis anxiety and depression. Patient is on Zyprexa, Vistaril when necessary and melatonin. Patient states that her last psychiatric hospitalization was over 10 years ago. Patient denies any psychiatric outpatient follow-up. Patient denies any history of suicide attempts in the past. PAST MEDICAL HISTORY: Hyperlipidemia, seizure disorder. ALLERGIES: as per EMR. CHEMICAL DEPENDENCY HISTORY: as per HPI. FAMILY PSYCHIATRIC/SUBSTANCE USE HISTORY: denies SOCIAL HISTORY: Patient has a GED and did some college work. She worked in [employer] previously. She has been unemployed since March. She currently lives alone and states that her 10 years ago in July. She has 4 adult children and one recent grandson. MENTAL STATUS EXAM: General Appearance: Patient appears to be tall, stated age is alert, pleasant, and cooperative. Patient appears to have poor hygiene and grooming wearing hospital gown with fair eye contact. Behavior: Patient is calmly lying in bed without any agitated behavior. Speech: Patient's speech is fluent and nonpressured. Soft tone of voice. Mood/Affect: Patient reports their mood is "depressed and anxious", affect is congruent Suicidality/Homicidality: Patient denies having any suicidal or homicidal ideation intent or plan. Perceptions: Patient denies any visual hallucinations and denies any auditory hallucinations Though content/process: There is no evidence of any delusional thought content and thought process is linear and goal-directed. [place]. Memory and concentration: AOX3, grossly intact for the purposes of this session. Can spell "WORLD" backwards Judgment and insight: poor IMPRESSIONS: Schizoaffective disorder. Methamphetamine abuse Cocaine abuse Nicotine dependence PLAN: -Would recommend the following medication changes/additions: Continue Zyprexa 5 mg daily +15 mg daily at bedtime for psychosis/mood stabilization. Can continue with Vistaril 25 mg 3 times a day when necessary for anxiety. Continue melatonin 5 mg daily at bedtime when necessary for insomnia. -Continue 1:1 sitter for safety until patient is transferred back to MHU. -Will await results of EEG, neuro evaluation and recommendations. -Once patient is medically stable, patient is eligible for transfer to a psych bed when available. -Will continue to follow along peripherally. -Please contact with any questions.
[2020-08-25 14:58] LABS: Appearance,Urine Clear (Clear); Bilirubin,Urine Negative (Negative); Blood,Urine Negative (Negative); Color,Urine Light Yellow; Glucose,Urine (UA) Negative (Negative); Ketones,Urine Negative (Negative); Leukocyte Esterase,Urine Negative (Negative); Nitrite,Urine Negative (Negative); PH, Urine 6.5 (5.0-8.0); Protein,Urine Negative (Negative); Specific Gravity,Urine 1.007 (1.001-1.035); Urobilinogen,Urine <2.0 mg/dL (<2.0)
[2020-08-25 15:27] LABS: Basophils # (A) 0.1 k/uL (0-0.2); Basophils % (A) 1 %; Eosinophils # (A) 0.2 k/uL (0-0.7); Eosinophils % (A) 1 %; HCT 44.5 % (34.0-46.0); Lymphocytes # (A) 1.9 k/uL (1.0-4.8); Lymphocytes % (A) 12 %; MCH 29.8 pg (25.0-35.0); MCHC 33.7 g/dL (31.0-37.0); MCV 88.4 fL (80.0-100.0); Mean Platelet Volume 7.1; Monocytes # (A) 0.5 k/uL (0-1.0); Monocytes % (A) 3 %; Neutrophils # (A) 12.8 k/uL (1.3-7.7); Neutrophils % (A) 82 %; Platelet Count 254 k/uL (150-450); RBC 5.04 m/uL (3.80-5.40); RDW 13.2 % (11.5-15.5); WBC 15.7 k/uL (3.8-10.6)
[2020-08-25 15:34] LABS: ALT 20 U/L (4-34); AST 23 U/L (14-36); African American GFR (CKD) >90 (>60 ml/min/1.73 sqM); Albumin 4.2 g/dL (3.5-5.0); Albumin/Globulin Ratio 1.3; Alkaline Phosphatase 85 U/L (38-126); Anion Gap 7 mmol/L; Blood Urea Nitrogen 17 mg/dL (7-17); C Reactive Protein 9.7 mg/L (<10.0); Calcium 9.5 mg/dL (8.4-10.2); Carbon Dioxide 25 mmol/L (22-30); Chloride 102 mmol/L (98-107); Creatine Kinase 46 U/L (30-135); Globulin 3.2 g/dL; Glucose 128 mg/dL (74-99); Non-African American GFR(CKD) >90 (>60 ml/min/1.73 sqM); Phosphorus 5.2 mg/dL (2.5-4.5); Potassium 4.3 mmol/L (3.5-5.1); Sodium 134 mmol/L (137-145); Total Bilirubin 0.3 mg/dL (0.2-1.3); Total Protein 7.4 g/dL (6.3-8.2)
[2020-08-25 17:48] LABS: Erythrocyte Sedimentation Rate 7 mm/hr (0-20)
--- NOTE | 2020-08-25 18:10 | P.CNNES ---
History of Present Illness Consult date: 08/25/20 Requesting physician: Jean Woodson Reason for Consult: Seizure History of Present Illness: Patient is a 44-year-old female, who was admitted to mental health unit on 08/23/2020 for depression. Patient apparently in the morning had tonic- clonic seizure and a fall where she hit her head. Patient did not bite her tongue. She was transferred to general medical floor for further evaluation. Patient states that she has history of withdrawal seizures in the past. She states that she is about 40-50 seizures in her lifetime. She has not been on any seizure medication for a long time. Patient used to have problems with alcohol and opiates, but she is on Vivitrol, therefore she is completely clean of alcohol and opiates for the last 13-14 months. Patient states that recently she did do "very little" amount of cocaine and metamphetamine. Patient states her last seizure was couple years ago. She has previously been on Dilantin, Lamictal and Keppra but none for long time. According to ED report, patient has history of withdrawal seizures but no primary seizure disorder recorded. Patient was post ictal upon arrival. However she was moving all extremities. Patient was given 2 mg Ativan IM. Patient takes trazodone 150 mg, BuSpar 50 mg 3 times a day. Patient's blood test shows WBC 15.7 hemoglobin 15.0 and platelets 254, sodium 134 potassium 4.3, normal renal functions. Hepatic functions normal. Patient's urine drug screen on 08/22/2020 was positive for cocaine, methamphetamine. Patient has history of an episode in which she was found unresponsive in her apartment by her roommate on 07/12/2017, was seen by another neurologist. She was found to have an empty bottle of baclofen next to her and there was concern about possible overdose. Patient still smokes one pack per day for last 20 years. Denies any family history of seizure disorder. Review of Systems Positive for depression. All other 14 point of review of systems reviewed with the patient, unremarkable. Denies fever, chest pain. Past Medical History Past Medical History: Hyperlipidemia, Osteoarthritis (OA), Thyroid Disorder Additional Past Medical History / Comment(s): 2 Seizures on 04/28/18 at [facility]. OVERDOSE of opiates W/RESP FAILURE AND PLACED ON VENT IN 2011. THYROID disorder (denies hisotry of cancer), HERNIATED DISCS, PAST MIGRAINES,LOWER BACK AND RT HIP PAIN, AND KNEE pain . History of Any Multi-Drug Resistant Organisms: None Reported Past Surgical History: Tubal Ligation Additional Past Surgical History / Comment(s): EGD and colonoscopy recently, D&C, RT GROIN CYST REMOVED, PAST PICC LINE/REMOVED while in hospital for overdose, Past Anesthesia/Blood Transfusion Reactions: No Reported Reaction Past Psychological History: ADD/ADHD, Anxiety, Depression Additional Psychological History / Comment(s): [facility] used to drink a fifth a day last drink 2 years ago. Smoking Status: Current every day smoker Past Alcohol Use History: Abuse, Daily Additional Past Alcohol Use History / Comment(s): Patient reports drinking a fifth of alcohol daily in the past. Smokes 1 pack per day. ETOH blood level 401 past admission. Past Drug Use History: Cocaine, Methamphetamine, Opiates Additional Drug Use History / Comment(s): Reports no drugs in last 3 days before admission 08-22-2020 - Past Family History Mother Family Medical History: Cancer Father History Unknown: Yes Family Medical History: Deep Vein Thrombosis (DVT) Medications and Allergies Home Medications Medication Instructions Recorded Confirmed Type busPIRone HCL 15 mg PO TID 08/22/20 08/25/20 History traZODone HCL 50 mg PO HS 08/22/20 08/25/20 History traZODone HCL 100 mg PO HS 08/22/20 08/25/20 History Allergies Allergy/AdvReac Type Severity Reaction Status Date / Time No Known Allergies Allergy Verified 08/25/20 11:19 Physical Examination - Vital Signs Vital Signs: Vital Signs Temp Pulse Resp BP Pulse Ox 08/25/20 14:00 98 F 77 16 101/65 98 08/25/20 12:08 94 L 08/25/20 11:24 98.4 F 94 14 130/83 94 L Intake and Output 08/25/20 08/25/20 08/25/20 06:59 14:59 22:59 Other: Weight 80.4 kg On examination patient is a middle aged female, in no acute distress. Patient is alert and awake oriented to time place and person. Speech and language functions are normal. Attention and concentration fund of knowledge is adequate. On cranial exam showed pupils are round and reacting to light, visual carballo are full, extraocular muscles are intact with no nystagmus. Face is symmetric, tongue protrudes to the midline. Palatal elevation sensation normal, hearing and shoulder shrug normal. On muscle strength testing there is no pronator drift and the strength is normal in arms and legs distally and proximally. Reflexes are diminished and plantars are downgoing. Sensory touch is equal. No ataxia for [id number] testing. Tone and bulk of muscles normal. Gait deferred. There is no carotid bruit, S1 and S2 audible, abdomen soft nontender, chest clear, peripheral pulses present. No edema. Results - Laboratory Findings CBC and BMP: 08/25/20 15:10 08/25/20 15:10 Abnormal Lab Findings: Abnormal Labs 08/25/20 08/25/20 15:10 15:10 WBC 15.7 H Neutrophils # 12.8 H Sodium 134 L Glucose 128 H Phosphorus 5.2 H Assessment and Plan Assessment: * 44-year-old female with previous history of withdrawal seizures, had a wi tnessed seizure in the mental health unit where she was admitted for treatment of depression. Patient states that she has been clean of alcohol and opiates for last 14 months. Her urine was however positive for cocaine, methamphetamine, uncertain if contributing to current seizure. * Depression * History of substance abuse * Tobacco use Plan: * Patient had an EEG performed today. It was an abnormal sleep EEG with presence of sporadic paroxysmal burst of generalized polyspike wave at 2 Hz. This implies tendency for generalized seizures. * Patient will be started on Lamictal 25 mg twice a day for one week, then increase to 50 mg on week 2, and then maintain on 100 mg twice a day. Patient was recommended to stop medication if she gets any rash. * Patient was informed of [place] state law of no driving unless seizure free for 6 months, climbing ladders, operating dangerous machinery or unsupervised swimming. * Neurologically clear for transfer to mental health unit.
--- NOTE | 2020-08-25 18:32 | EEG ---
ELECTROENCEPHALOGRAM REPORT DATE OF SERVICE: 08/25/2020 PREAMBLE: This is a 44-year-old female with a history of possible withdrawal seizures. She had a grand mal seizure witnessed in the hospital. This study is performed to evaluate for any epileptiform activity. EEG FINDINGS: This is a 21-channel routine EEG recording in a patient utilizing 10/20 international system with referential and bipolar montages. Background consists of well developed, well regulated, moderate voltage activity in 10-12 hertz alpha, intermixed with some fast frequency beta activity. The patient was asleep during most of the study, with presence of sleep spindles, vertex waves and K complexes. At times the K complexes appear high amplitudes, polyspike, but during the later part of the study, while patient was awake, the patient still had these polyspike and waves seen at about 2 hertz. No electrographic seizure was recorded. Photic driving response was not seen. Some electrode artifact was seen frequently at T4. EKG rhythm lead revealed some frequent PVCs. IMPRESSION: This is an abnormal EEG due to presence of sporadic generalized polyspike and waves at about 2 hertz. This implies tendency for primary generalized seizures. No electrographic seizure was recorded. MMODL / IJN: [id number] /
[2020-08-25] MEDS: lamoTRIgine 25 MG TAB PO SCH (20:58)
[2020-08-25] MEDS: MELATONIN 5 MG TABLET PO PRN (20:58)
[2020-08-25] MEDS ORDERED: OLANZapine 7.5 MG TAB PO SCH (21:00)
[2020-08-26 07:01] LABS: Basophils # (A) 0.1 k/uL (0-0.2); Basophils % (A) 1 %; Eosinophils # (A) 0.2 k/uL (0-0.7); Eosinophils % (A) 2 %; Lymphocytes # (A) 2.7 k/uL (1.0-4.8); Lymphocytes % (A) 24 %; MCH 29.4 pg (25.0-35.0); MCHC 33.3 g/dL (31.0-37.0); MCV 88.3 fL (80.0-100.0); Mean Platelet Volume 7.1; Monocytes # (A) 0.5 k/uL (0-1.0); Monocytes % (A) 4 %; Neutrophils # (A) 7.7 k/uL (1.3-7.7); Neutrophils % (A) 68 %; Platelet Count 273 k/uL (150-450); RDW 13.3 % (11.5-15.5); WBC 11.4 k/uL (3.8-10.6)
[2020-08-26] MEDS: OLANZapine 5 MG TAB PO SCH (07:40)
[2020-08-26] MEDS: lamoTRIgine 25 MG TAB PO SCH ×2 (07:40→19:43)
[2020-08-26 09:56] LABS: African American GFR (CKD) 102.5 (60.0-200.0); Anion Gap 12.9 mmol/L (4.00-12.00); BUN/Creat Ratio 18.75 Ratio (12.00-20.00); Calcium 9.3 mg/dL (8.7-10.3); Carbon Dioxide 23.1 mmol/L (21.6-31.8); Non-African American GFR(CKD) 88.4 (60.0-200.0)
--- NOTE | 2020-08-26 13:31 | P.PN ---
Progress Note - Text Progress Note Date: 08/26/20 Interval History: Patient was seen today for psychiatric follow-up regarding her mood and psycho sis. Patient's nurse claims that patient has been fairly cooperative however has been anxious at times. Patient was seen at the bedside today and claims that she feels mild improvement with regards to her symptoms and continues to state that she is hearing voices. She states that the voices continue to be arguing back and forth and it is hard for her to follow. She states that she has found this time of the year or very "hard for me" and spoke about the different losses that she's had in the past. She states that she has been eating her meals regularly and has fair energy level. She states that the morning times she feels more anxious and was encouraged to take Vistaril. She states that she was able to sleep mildly better from the day before however is still poor. At this time patient denies any suicidal or homical ideations, intent or plan. She is not endorsing any paranoia or delusions. Mental Status Exam: General Appearance: Patient appears to be tall, stated age is alert, anxious, and cooperative. Patient appears to have improving hygiene and grooming wearing hospital gown with fair eye contact. Behavior: Patient is calmly lying in bed without any agitated behavior. Speech: Patient's speech is fluent and nonpressured. Soft tone of voice. Mood/Affect: Patient reports their mood is " improving mildly, affect is congruent Suicidality/Homicidality: Patient denies having any suicidal or homicidal ideation intent or plan. Perceptions: Patient denies any visual hallucinations and denies any auditory hallucinations Though content/process: There is no evidence of any delusional thought content and thought process is linear and goal-directed. Not endorsing any delusions or paranoia. Memory and concentration: AOX3, grossly intact for the purposes of this session Judgment and insight: poor, improving mildly. Assessment Schizoaffective disorder. Methamphetamine abuse Cocaine abuse Nicotine dependence Plan: -Would recommend the following medication changes/additions: Increased Zyprexa 5 mg daily +20 mg daily at bedtime for psychosis/mood stabilization. Can continue with Vistaril 25 mg 3 times a day when necessary for anxiety. Continue melatonin 5 mg daily at bedtime when necessary for insomnia. Can continue with Lamictal 25 mg twice a day for mood stabilization/seizures. -Continue 1:1 sitter for safety until patient is transferred back to MHU. -Reviewed EEG report and appreciate neuro evaluation and recommendations. -Psychiatry will sign off at this time, patient to be transferred back to the mental health unit tomorrow for further care and treatment. -Discussed the above-mentioned plan with primary team ELECTR[employer] SIGN WIRER HELPER and patient's nurse. -Please contact with any questions.
[2020-08-26] MEDS: SODIUM CHLORIDE 0.9% 1,000 ML IV SCH (14:30)
--- NOTE | 2020-08-26 16:22 | P.PN ---
Subjective Progress Note Date: 08/26/20 This is a 44-year-old female who was recently admitted with auditory hallucinations and possible suicidal ideations and severe depression to the psychiatric inpatient unit. Patient apparently had a witnessed generalized tonic-clonic seizure and was unresponsive. Patient was brought to the medical floor and was placed on telemetry. Patient does have a suicide sitter at the bedtime. Psychiatry is following. Patient states she did have a past medical history of seizure-like activity when withdrawing from alcohol and opiates 3 years back. Patient continues to have a mild headache today although denies any severe pain, dizziness, or visual disturbance. She has been up into the bathroom with a steady gait and no difficulties. Patient is requesting to take a shower. Patient is currently denying any suicidal ideation and states she does not have any thoughts of wanting to hurt herself or others. Patient admits to hearing voices intermittently. Review of systems: Constitutional: No reports of fatigue, fever, or chills Cardiovascular: No reports of chest pain or palpitations Respiratory: No reports of shortness of breath or cough GI: No reports of nausea, vomiting, or diarrhea : No reports of dysuria or retention Neurovascular: No reports of weakness or numbness, reports mild headache and tenderness noted on the left side of the head All medications have been reviewed Objective - Vital Signs Vital signs: Vital Signs Temp 98.1 F 08/26/20 07:46 Pulse 51 L 08/26/20 07:46 Resp 17 08/26/20 07:46 BP 111/61 08/26/20 07:46 Pulse Ox 95 08/26/20 07:46 Intake & Output 08/25/20 08/26/20 08/26/20 18:59 06:59 18:59 Weight 80.4 kg Other: Voiding Method Toilet # Voids 1 - Exam Gen: This is a 44 are old female lying in bed awake, alert and oriented 3, well-developed, well-nourished. Suicide sitter at the bedside. Temp is 98.1F, pulse is 51, respirations are 17, blood pressure is 111/61, oxygen saturation is 95% on room air. HEENT: Head is atraumatic, normocephalic. Pupils equal, round. Sclerae is anicteric. Left side tenderness noted on palpation of the head NECK: Supple. No JVD. No lymphadenopathy. No thyromegaly. LUNGS: Diminished breath sounds bilaterally with no wheezing or rhonchi noted No intercostal retractions. HEART: S1, S2 are muffled ABDOMEN: Soft. Bowel sounds are present. No masses. No tenderness. EXTREMITIES: No pedal edema. No calf tenderness. NEUROLOGICAL: Patient is awake, alert and oriented x3. Cranial nerves 2 through 12 are grossly intact. - Labs CBC & Chem 7: 08/26/20 06:44 08/26/20 06:44 Labs: Abnormal Lab Results - Last 24 Hours (Table) 08/25/20 08/25/20 08/26/20 Range/Units 15:10 15:10 06:44 WBC 15.7 H 11.4 H (3.8-10.6) k/uL Neutrophils # 12.8 H (1.3-7.7) k/uL Sodium 134 L (137-145) mmol/L Anion Gap (4.00-12.00) mmol/L Glucose 128 H (74-99) mg/dL Phosphorus 5.2 H (2.5-4.5) mg/dL 08/26/20 Range/Units 06:44 WBC (3.8-10.6) k/uL Neutrophils # (1.3-7.7) k/uL Sodium (137-145) mmol/L Anion Gap 12.90 H (4.00-12.00) mmol/L Glucose 122 H (74-99) mg/dL Phosphorus (2.5-4.5) mg/dL Assessment and Plan Assessment: Acute seizure disorder, generalized tonic-clonic History of depression with suicidal ideations and auditory hallucinations History of seizure disorder previously Hyperlipidemia and sinus history of degenerative joint disease Hypothyroidism History of polysubstance abuse with opiate overdose and respiratory failure in 2011 History of EtOH history of migraine history of tubal ligation history of attention deficit disorder, attention deficit hyperactivity disorder Anxiety, depression history of nicotine dependence, continued ongoing History of cocaine Full code ReCommendations and discussion: Recommend continue current medications, management, and symptomatically tr eatment. Continue with suicide sitter at the bedside at this time. Psychiatry along with neurology following. Patient was started on Lamictal 25 mg twice a day and will increase to 50 mg on week 2 and then to 100 mg twice daily and will continue to monitor closely. Patient has a continued mild headache and states is relieved with Tylenol. Due to multiple complex medical issues, prognosis is guarded. Further recommendations to follow. Possible transfer back to inpatient psychiatric unit in 24 hours.
[2020-08-26] MEDS: hydrOXYzine pamoate 25 MG CAP PO PRN (17:43)
--- NOTE | 2020-08-26 17:45 | P.PN ---
Subjective Progress Note Date: 08/26/20 Patient feeling fine, offers no complaints. Laying in the bed comfortably. Sitter was also present. No seizures. Objective - Vital Signs Vital signs: Vital Signs Temp 98.4 F 08/26/20 14:00 Pulse 74 08/26/20 14:00 Resp 16 08/26/20 14:00 BP 93/59 08/26/20 14:00 Pulse Ox 96 08/26/20 14:00 Intake & Output 08/25/20 08/26/20 08/26/20 18:59 06:59 18:59 Intake Total 320 Balance 320 Weight 80.4 kg Intake: Oral 320 Other: Voiding Method Toilet # Voids 1 1 - Exam Normal, nonfocal. - Labs CBC & Chem 7: 08/26/20 06:44 08/26/20 06:44 Labs: Abnormal Lab Results - Last 24 Hours (Table) 08/26/20 08/26/20 Range/Units 06:44 06:44 WBC 11.4 H (3.8-10.6) k/uL Anion Gap 12.90 H (4.00-12.00) mmol/L Glucose 122 H (70-110) mg/dL Assessment and Plan Assessment: * 44-year-old female with previous history of withdrawal seizures, had a witnessed seizure in the mental health unit where she was admitted for t reatment of depression. Patient states that she has been clean of alcohol and opiates for last 14 months. Her urine was however positive for cocaine, methamphetamine, uncertain if contributing to current seizure. * Depression * History of substance abuse * Tobacco use Plan: * Patient had an EEG performed today. It was an abnormal sleep EEG with presence of sporadic paroxysmal burst of generalized polyspike wave at 2 Hz. This implies tendency for generalized seizures. * Patient will be started on Lamictal 25 mg twice a day for one week, then increase to 50 mg twice a day on week 2, and then maintain on 100 mg twice a day. Patient was recommended to stop medication if she gets any rash. * Patient was informed of [place] state law of no driving unless seizure free for 6 months, climbing ladders, operating dangerous machinery or unsupervised swimming. * Neurologically clear for transfer to mental health unit.
[2020-08-26] MEDS: MELATONIN 5 MG TABLET PO PRN (19:43)
[2020-08-26] MEDS ORDERED: OLANZapine 10 MG TAB PO SCH (21:00)
[2020-08-27] MEDS: hydrOXYzine pamoate 25 MG CAP PO PRN (09:03)
[2020-08-27] MEDS: lamoTRIgine 25 MG TAB PO SCH (09:04)
[2020-08-27] MEDS: OLANZapine 5 MG TAB PO SCH (09:04)
[2020-08-27 09:24] VITALS: BP 114/53; PULSE 80; RESP 19; TEMP 97.9
--- NOTE | 2020-08-27 13:13 | P.DS ---
Providers Date of admission: 08/25/20 11:10 Expected date of discharge: 08/27/20 Attending physician: Jean Woodson Consults: 08/25/20 11:35 Consult Physician Routine Consulting Provider: Gualberto Gutierrez Consult Reason/Comments: Mental health transfere Do you want consulting provider notified?: Yes Placement Type Exists?: Yes 08/25/20 12:10 Consult Physician Routine Consulting Provider: Ricardo Pickering Consult Reason/Comments: seizure Do you want consulting provider notified?: Yes Primary care physician: Stated None Hospital Course: Final diagnosis Acute seizure disorder, generalized tonic-clonic History of depression with suicidal ideations and auditory hallucinations History of seizure disorder previously Hyperlipidemia and sinus history of degenerative joint disease Hypothyroidism History of polysubstance abuse with opiate overdose and respiratory failure in 2011 History of EtOH history of migraine history of tubal ligation history of attention deficit disorder, attention deficit hyperactivity disorder Anxiety, depression history of nicotine dependence, continued ongoing History of cocaine Full code Discharge disposition Patient is being transferred in a stable condition with guarded prognosis to [facility] inpatient psychiatric unit on the third floor. Patient will continue with Lamictal 25 mg twice daily and titrate accordingly per neurology recommendations. Total time taken is greater than 35 minutes. Hospital course This is a 44-year-old female who was recently admitted with tonic-clonic seizure activity on the psychiatric unit and brought to the medical floor and was being closely monitored. Patient was seen and evaluated by neurology and underwent EEG which was abnormal and patient was started on Lamictal 25 mg twice daily. Patient will titrate to 50 mg twice daily in one week and then increase to 100 mg twice daily. Patient was followed by psychiatry and recommending return to psych unit once medically stable. Patient is medically stable and cleared for transfer to the psychiatric unit. Currently no reports of chest pain, shortness of breath, or palpitations. Patient is afebrile. No reports of nausea or vomiting and patient is tolerating diet. Patient will be transferred to inpatient psychiatric unit today. On exam vital signs are stable. Temp is 97.9F, pulse is 80, respirations are 19, blood pressure is 114/53, oxygen saturation is 94% on room air. Cardio S1, S2 are muffled. Respiratory system shows diminished breath sounds at the bases with no wheezing or rhonchi noted. Abdomen is soft and nontender. Nervous system shows no focal deficits. Please refer to medication reconciliation sheet for a list of medications. Patient Condition at Discharge: Stable Plan - Discharge Summary Discharge Rx Participant: Yes New Discharge Prescriptions: New lamoTRIgine [LaMICtal] 25 mg PO BID tab Melatonin 5 mg PO HS PRN tablet PRN Reason: Insomnia Acetaminophen Tab [Tylenol] 500 mg PO Q6HR PRN tab PRN Reason: Fever And/ Or Pain hydrOXYzine pamoate [Vistaril] 25 mg PO TID PRN cap PRN Reason: Anxiety OLANZapine [ZyPREXA] 5 mg PO DAILY tab OLANZapine [ZyPREXA] 20 mg PO HS tab Discontinued traZODone HCL 50 mg PO HS busPIRone HCL 15 mg PO TID traZODone HCL 100 mg PO HS Discharge Medication List Acetaminophen Tab [Tylenol] 500 mg PO Q6HR PRN tab 08/27/20 [Rx] Melatonin 5 mg PO HS PRN tablet 08/27/20 [Rx] OLANZapine [ZyPREXA] 5 mg PO DAILY tab 08/27/20 [Rx] OLANZapine [ZyPREXA] 20 mg PO HS tab 08/27/20 [Rx] hydrOXYzine pamoate [Vistaril] 25 mg PO TID PRN cap 08/27/20 [Rx] lamoTRIgine [LaMICtal] 25 mg PO BID tab 08/27/20 [Rx] Activity/Diet/Wound Care/Special Instructions: Patient is medically stable and cleared for transfer to inpatient psychiatric floor Discharge Disposition: TRANSFER TO PSYCH HOSP/UNIT
--- NOTE | 2020-08-27 13:56 | P.PN ---
Subjective Progress Note Date: 08/27/20 Patient feeling fine, offers no complaints. Sitting in the bed comfortably. Sitter was also present. No seizures. Objective - Vital Signs Vital signs: Vital Signs Temp 97.9 F 08/27/20 08:00 Pulse 80 08/27/20 08:00 Resp 19 08/27/20 08:00 BP 114/53 08/27/20 08:00 Pulse Ox 94 L 08/27/20 08:00 Intake & Output 08/26/20 08/27/20 08/27/20 18:59 06:59 18:59 Intake Total 320 Balance 320 Intake: Oral 320 Other: Voiding Method Toilet # Voids 1 2 - Exam Normal, nonfocal. - Labs CBC & Chem 7: 08/26/20 06:44 08/26/20 06:44 Assessment and Plan Assessment: * 44-year-old female with previous history of withdrawal seizures, had a witnessed seizure in the mental health unit where she was admitted for treatment of depression. Patient states that she has been clean of alcohol and opiates for last 14 months. Her urine was however positive for cocaine, methamphetamine, uncertain if contributing to current seizure. * Depression * History of substance abuse * Tobacco use Plan: * EEG was abnormal with presence of sporadic paroxysmal burst of generalized polyspike wave at 2 Hz. This implies tendency for generalized seizures. * Patient will be started on Lamictal 25 mg twice a day for one week, then increase to 50 mg twice a day on week 2, and then maintain on 100 mg twice a day. Patient was recommended to stop medication if she gets any rash. * Patient was informed of [place] state law of no driving unless seizure free for 6 months, climbing ladders, operating dangerous machinery or unsupervised swimming. * Neurologically clear for transfer to mental health unit.
== END 2020-08-27 14:11 ==
LOC: 5NMEDONC 11:10 → INTOOBSV 11:10 → 4SSUR 16:30 → UNDODISIN 08-27 14:11
PROVIDERS: ADMIT Hospitalist; ATTEND Hospitalist
DX: G40.409 Other generalized epilepsy and epileptic syndromes, not intractable, without status epilepticus (principal); R45.851 Suicidal ideations; R94.01 Abnormal electroencephalogram [EEG]; F25.9 Schizoaffective disorder, unspecified; F15.10 Other stimulant abuse, uncomplicated; F14.10 Cocaine abuse, uncomplicated; F32.9 Major depressive disorder, single episode, unspecified; E78.5 Hyperlipidemia, unspecified; M19.90 Unspecified osteoarthritis, unspecified site; E03.9 Hypothyroidism, unspecified; F90.9 Attention-deficit hyperactivity disorder, unspecified type; F17.210 Nicotine dependence, cigarettes, uncomplicated; F41.9 Anxiety disorder, unspecified; M51.9 Unspecified thoracic, thoracolumbar and lumbosacral intervertebral disc disorder; S00.83XA Contusion of other part of head, initial encounter; Z74.3 Need for continuous supervision; Z79.899 Other long term (current) drug therapy; Z91.5 Personal history of self-harm; Z86.69 Personal history of other diseases of the nervous system and sense organs; Z98.51 Tubal ligation status; Z87.09 Personal history of other diseases of the respiratory system; Z98.890 Other specified postprocedural states; Z80.9 Family history of malignant neoplasm, unspecified; Z82.49 Family history of ischemic heart disease and other diseases of the circulatory system; X58.XXXA Exposure to other specified factors, initial encounter
CPT/HCPCS: 96374; 95819; 93005; 80053; 80048; 85652; 82550; 83735; 84100; 85025 ×2; 86140; 81003; 71045; G0378 ×4; G0379; J2060

== ENCOUNTER 2020-08-27 12:59 | Inpatient (IN) | payer MEDICAID, OTHER ==
[2020-08-27] MEDS ORDERED: MAGNESIUM HYDROXIDE 2,400 MG/10 ML CUP PO PRN (14:00)
[2020-08-27] MEDS ORDERED: ACETAMINOPHEN TAB 325 MG TAB PO PRN (14:00)
[2020-08-27] MEDS ORDERED: MAG HYDROX/AL HYDROX/SIMETH 30 ML CUP PO PRN (14:00)
[2020-08-27] MEDS ORDERED: MELATONIN 5 MG TABLET PO PRN (14:03)
[2020-08-27] MEDS ORDERED: LORazepam 2 MG/ML INJ IM PRN (14:04)
[2020-08-27] MEDS ORDERED: HALOPERIDOL LACTATE 5 MG/ML 1 ML VIAL IM PRN (14:04)
[2020-08-27] MEDS: LORazepam 1 MG TAB PO PRN (16:13)
[2020-08-27] MEDS: NICOTINE 14MG/24HR PATCH TRANSDERM SCH (16:32)
[2020-08-27] MEDS: lamoTRIgine 25 MG TAB PO SCH (21:29)
[2020-08-27] MEDS: OLANZapine 10 MG TAB PO SCH (21:29)
[2020-08-28] MEDS: LORazepam 1 MG TAB PO PRN ×2 (00:08→08:25)
[2020-08-28] MEDS: lamoTRIgine 25 MG TAB PO SCH ×2 (08:24→22:05)
[2020-08-28] MEDS: OLANZapine 5 MG TAB PO SCH (08:24)
[2020-08-28] MEDS: NICOTINE 14MG/24HR PATCH TRANSDERM SCH (08:24)
--- NOTE | 2020-08-28 11:20 | P.HP ---
Psychiatric H&P - . H&P Date: 08/28/20 History & Physical: Allergies Allergy/AdvReac Type Severity Reaction Status Date / Time No Known Allergies Allergy Verified 08/27/20 14:57 Vital Signs Temp 98.0 F 08/28/20 02:57 Pulse 95 08/28/20 08:26 Resp 17 08/28/20 02:57 BP 113/67 08/28/20 08:26 Pulse Ox 95 08/28/20 02:57 Intake & Output 08/27/20 08/28/20 08/28/20 18:59 06:59 18:59 Weight 80.4 kg 08/28/20 10:44 IDENTIFYING DATA: This patient is a 44-year-old female with a history of seizure disorder, psychosis and substance abuse who was initially admitted to the mental health unit for her psychiatric symptoms and suffered a seizure while on the unit and transferred to the medical floors. HISTORY OF PRESENT ILLNESS: The patient presented to the hospital initially for increase in her psychiatric symptoms including hearing voices and anxiety along with depression. Patient was apparently off her psychiatric medications for several years and her last psychiatric admission was 10 years ago. Patient was admitting to using cocaine and methamphetamine prior to coming into the hospital. Patient was admitted to the mental health unit and started on Zyprexa for psychosis. Patient's dose was titrated up to 5 mg daily +15 mg daily at bedtime today. Patient was continuing to hear voices and having difficulties with sleep and had her medications adjusted this morning. Patient then suffered a seizure while on the mental health floor shortly after being interviewed by the nurse's desk. Patient apparently turned cyanotic briefly and began convulsing on the floor. Patient was then transferred to the medical floors for further evaluation EEG and computed tomography scan. Computed tomography scan did not show any acute abnormalities. Patient did regain her consciousness. While on the medical floors patient was seen by psychiatric consultation for continuation of care. Neurology had signed off on patient and patient had been transferred back to the mental health floor. Patient was seen this morning laying in her bed and was agreeable to speak to typewriter assembly and parts inspector. She states that she is now "seeing things" and spoke about seeing people working outside of her door yesterday and states that it "freaked me out". She states that today she has not seen this and claims that her auditory hallucinations have been gradually improving. She claims that she did not sleep well last night and continues to have some anxiety. She requested to be back on trazodone as she has been on it in the past. At this time patient denies any suicidal or homical ideations, intent or plan. She denies any paranoia or delusions. PAST PSYCHIATRIC HISTORY: Patient has a a history of psychosis anxiety and depression. Patient is on Zyprexa, Vistaril Lamictal and melatonin. Patient states that her last psychiatric hospitalization was over 10 years ago. Patient denies any psychiatric outpatient follow-up. Patient denies any history of suicide attempts in the past. PAST MEDICAL HISTORY: Hyperlipidemia, seizure disorder. ALLERGIES: as per EMR. CHEMICAL DEPENDENCY HISTORY: as per HPI. FAMILY PSYCHIATRIC/SUBSTANCE USE HISTORY: denies SOCIAL HISTORY: Patient has a GED and did some college work. She worked in [employer] previously. She has been unemployed since March. She currently lives alone and states that her 10 years ago in July. She has 4 adult children and one recent grandson. MENTAL STATUS EXAM: General Appearance: Patient appears to be tall, stated age is alert, pleasant, and attempts to be cooperative. Patient appears to have improving hygiene and grooming wearing hospital gown with fair eye contact. Behavior: Patient is calmly sitting in the chair without any agitated behavior. Speech: Patient's speech is fluent and nonpressured. Mood/Affect: Patient reports their mood is "a bit better", affect is congruent and constricted Suicidality/Homicidality: Patient denies having any suicidal or homicidal ideation intent or plan. Perceptions: Patient denies any auditory hallucinations. She was endorsing visual hallucinations of "people working outside of my door". Though content/process: There is no evidence of any delusional thought content and thought process is linear and goal-directed. Nunda. Perseverates on her visual hallucinations. Memory and concentration: AOX3, grossly intact for the purposes of this session. Can spell "WORLD" backwards Judgment and insight: poor, improving mildly. STRENGTHS/WEAKNESSES: strength is that patient is resilient. Weakness is that patient has poor judgment and is impulsive INTELLECT: average IMPRESSIONS: Schizoaffective disorder. Methamphetamine abuse Cocaine abuse Seizure disorder Nicotine dependence PLAN: -Patient is admitted under voluntary status to MHU for stabilization of psychiatric symptoms and safety. Patient has signed adult voluntary form and medication consent and is placed in patient's chart. -Medications : Will start patient on trazodone 50 mg daily at bedtime for insomnia/mood, continue with Zyprexa 5 mg daily +20 mg daily at bedtime for psychosis/mood stabilization. Continue with melatonin 5 mg daily at bedtime when necessary for insomnia. Continue with Vistaril 25 mg when necessary for anxiety. -Continue with Lamictal 25mg bid for seizure disorder. Spoke with patient about the risks of a rash and to monitor skin regularly and patient claims that she is monitoring it and denies having any rash. -Ativan and Haldol PRN for agitation/aggression -Patient was counselled on substance abuse and desired to cut back on use -Patient was informed of the risks, benefits and side effects of the medication and patient verbally consented to taking the medications. Patient signed med consent form and was placed in chart. -Internal Medicine consult to perform medical evaluation and physical. -NRT - nicotine patch -SW on board for discharge planning. Encourage patient to participate in groups to work on coping skills. Patient will be observed over the weekend and if patient improves likely discharge early next week. 08/28/20 11:19
[2020-08-28] MEDS: hydrOXYzine pamoate 25 MG CAP PO PRN (18:16)
--- NOTE | 2020-08-28 19:06 | CONS ---
CONSULTATION DATE OF SERVICE: 08/28/2020. REASON FOR CONSULTATION: Advice regarding seizure disorder, multiple medical issues, requested by Dr. Gutierrez. HISTORY OF PRESENT ILLNESS: 44-year-old woman with a past medical history of multiple medical problems including history of hyperlipidemia, history of degenerative joint disease, hypothyroidism, history of seizure disorder, history ADD/ADHD, anxiety, depression, history of significant alcohol, polysubstance, including cocaine, methamphetamine, opiates, being followed by Dr. Christie Prince in the outpatient setting initially admitted to psych floor. In the psych floor, the patient had multiple episodes of seizures and the patient transferred to medical floor and currently evaluated. The patient started on Lamictal 25 mg twice daily by Neurology, Dr. Ng. Lamictal has been recommended to be increased to 50 mg twice b.i.d. in 1 week and ultimately 100 mg twice b.i.d. in the outpatient setting. Otherwise, currently the patient is in psych floor. There is no history of fever, rigors. No headache, loss of consciousness, chest pain, palpitations at this time. PAST MEDICAL HISTORY: Hyperlipidemia, DJD, hypothyroidism, ADD/ ADHD, anxiety, depression, schizoaffective disorder. MEDICATIONS: Medications prior to admission include Lamictal, Vistaril, Zyprexa, melatonin, Tylenol. ALLERGIES: None. FAMILY HISTORY: History of cancer in the family. SOCIAL HISTORY: History of alcohol, polysubstance abuse nicotine dependence, history of cocaine, methamphetamine, opiates. REVIEW OF SYSTEMS: ENT: No diminished vision. No diminished hearing. CARDIOVASCULAR: No angina. Respiration: No cough. GI no nausea or vomiting. no dysuria. Nervous system: No numbness, weakness. Allergy/Immunology: No asthma or hayfever. MUSCULOSKELETAL as mentioned earlier. Hematology/Oncology: No history of anemia. Endocrine: No history of diabetes or hypothyroidism. Constitutional: As mentioned earlier. DERMATOLOGY: Negative. RHEUMATOLOGY negative. PSYCHIATRY as mentioned earlier. PHYSICAL EXAMINATION: The patient is alert and oriented x3. Pulse 95, blood pressure 118/60. Respirations 17, temperature 98 degrees, pulse ox 94% on room air. HEENT: Conjunctivae normal. NECK: No JVD. CARDIOVASCULAR: S1, S2 muffled. RESPIRATORY: Breath sounds diminished in the bases. A few rhonchi and crackles. ABDOMEN: Soft, nontender. No mass palpable. LEGS: No edema. No swelling. NERVOUS SYSTEM: Higher functions as mentioned earlier. Cranial nerves 2 thru 12 grossly intact. Otherwise movements are full in all directions. No nystagmus. No diplopia. No signs of cerebellar dysfunction. Gait is normal. No focal deficits. Skin: No ulcers. No rashes and no bleeding. JOINTS: No active deforming arthropathy. LYMPHATICS: No lymph nodes palpable in the neck, axillae or groin. LABS: At this time shows labs are pending. ASSESSMENT: 1. Generalized tonic-clonic seizures. 2. History of depression, suicidal ideation and auditory hallucinations. 3. History of schizoaffective disorder. 4. History of seizure disorder, previously. 5. Hyperlipidemia. 6. History of degenerative joint disease. 7. Hypothyroidism. 8. History of polysubstance abuse with opiate overdose and respiratory failure in 2011. 9. History of ETOH. 10.History of cocaine. 11.History of methamphetamine abuse. 12.History of migraine. 13.History of tubal ligation. 14.History of attention deficit hyperactivity disorder. 15.History of anxiety, depression. 16.History of nicotine dependence, continued ongoing. 17.FULL CODE. RECOMMENDATIONS AND DISCUSSION: In this 44-year-old woman who presented with multiple complex medical issues, we will monitor the patient closely. Continue the current medications. Symptomatic treatment. Otherwise, I recommend substance abuse rehab. Otherwise closely follow with psych floor and recommend close followup with Dr. Christie Prince in the outpatient setting. The neurologist recommended continue the Lamictal 25 mg p.o. b.i.d. for 1 week and then increase the dose to 50 mg p.o. b.i.d. and subsequently to 100 mg p.o. b.i.d. in another week if the patient is tolerating. This could be followed up in the outpatient setting. Recommend follow with Dr. Chritsie Prince closely in the outpatient setting. A copy of this dictation is being forwarded to Dr. Christie Prince, who is the primary physician. MMFRANCISCOL / NENAN: [id number] /
[2020-08-28] MEDS: traZODone HCL 50 MG TAB PO SCH (22:05)
[2020-08-28] MEDS: OLANZapine 10 MG TAB PO SCH (22:05)
[2020-08-29] MEDS: NICOTINE 14MG/24HR PATCH TRANSDERM SCH (09:06)
[2020-08-29] MEDS: lamoTRIgine 25 MG TAB PO SCH ×2 (09:06→20:54)
[2020-08-29] MEDS: OLANZapine 5 MG TAB PO SCH (09:06)
[2020-08-29] MEDS: hydrOXYzine pamoate 25 MG CAP PO PRN ×2 (09:08→16:54)
[2020-08-29] MEDS: LORazepam 1 MG TAB PO PRN ×2 (11:05→22:16)
--- NOTE | 2020-08-29 15:58 | P.PN ---
Progress Note - Text Progress Note Date: 08/29/20 Clinical Problems: Schizoaffective disorder bipolar type, methamphetamine use disorder, cocaine use disorder, seizure disorder, tobacco use Interim history: I reviewed the medical record and interviewed the patient. She has a 44-year-old female who presented to the psychiatric unit v oluntarily with worsening psychotic symptoms characterized by auditory hallucinations, paranoia and paranoid delusional beliefs. The psychosis appeared to worsen after using methamphetamine and cocaine. The psychosis was treated with Zyprexa at doses up to be milligrams daily. She had a seizure on the psychiatric unit. She was transferred from medicine where her evaluation included a neurological consultation, EEG and computed tomography scan. The EEG was abnormal and showed presence of sporadic proximal purse of generalized polyspike wave. Computed tomography scan was normal. The ce rologist diagnosed a seizure disorder and recommended Lamictal 25 mg twice a day with titration to 100 mg twice a day. After she returned to the psychiatric unit we resume Zyprexa 10 mg morning and 20 mg at bedtime as well as Desyrel 50 mg at bedtime. She complains of anxiety not relieved by Vistaril. She continues to experience auditory hallucinations, ideas reference and delusional beliefs. She described hearing workmen outside her window talking and it seems standing outside the window. She is also referred them "working on the roof." She denied side effect to either the Zyprexa or trazodone. She seldom attends therapeutic groups and activities. She slept 6 hours last night. She has had no seizures since transfer from [facility]. Mental status exam: She presented with 44-year-old edentulous female who was pleasant on approach. She made eye contact and attended to the interview. She had psychomotor retardation but no abnormal involuntary movements. Her speech was spontaneous but dysarthric. Her affect was blunted. She denied suicidal ideation or wishes. She denied feeling hopeless or helpless. She expressed ideas reference, paranoid ideation and paranoid beliefs. Her thinking was concrete and associations were not organized and goal-directed. He described both auditory and visual hallucinations. Assessment: He continues to have auditory hallucinations, ideas reference and a fixed delusional belief. Plan: Continue inpatient treatment. Continue 6 precautions. Continue Zyprexa 25 mg daily in divided doses. Continue Vistaril 25 mg by mouth 3 times a day when necessary for anxiety. Ativan 1 mg by mouth 3 times a day when necessary for anxiety. Continue Lamictal 25 mg by mouth twice a day and titrate as recommended by the neurologist. Ativan and Haldol by mouth or IM when necessary for agitation or aggression. Encourage participation in therapeutic groups and activities. Evaluate clinical status response to treatment daily basis.
[2020-08-29] MEDS: traZODone HCL 50 MG TAB PO SCH (20:54)
[2020-08-29] MEDS: OLANZapine 10 MG TAB PO SCH (20:54)
[2020-08-30 07:08] VITALS: BP 97/53; PULSE 67; RESP 16
[2020-08-30] MEDS: lamoTRIgine 25 MG TAB PO SCH ×2 (08:20→20:43)
[2020-08-30] MEDS: OLANZapine 5 MG TAB PO SCH (08:20)
[2020-08-30] MEDS: hydrOXYzine pamoate 25 MG CAP PO PRN ×2 (09:14→20:43)
[2020-08-30 13:12] VITALS: TEMP 97.5
[2020-08-30] MEDS: LORazepam 1 MG TAB PO PRN ×2 (13:42→19:45)
--- NOTE | 2020-08-30 14:38 | P.PN ---
Progress Note - Text Progress Note Date: 08/30/20 Clinical Problems: Schizoaffective disorder bipolar type, methamphetamine use disorder, cocaine use disorder, seizure disorder, tobacco use Interim history: I reviewed the medical record and interviewed the patient. She denied problems or concerns. She denied experiencing auditory or visual h allucinations. She is not preoccupied about men working and talking outside the window of her room. She appears embarrassed when I brought up a conversation from yesterday. She stated that she was up and confused. She seldom attends therapeutic groups and activities. She slept 6 hours last night. She has had no seizures since transfer from [facility]. Mental status exam: She presented with 44-year-old edentulous female who was pleasant on approach. She made eye contact and attended to the interview. She had involuntary movements affecting her legs and arms. Her speech was spontaneous and coherent. Her affect was blunted but bright. She denied suicidal ideation or wishes. She denied feeling hopeless or helpless. She denied ideas reference, paranoid ideation and paranoid beliefs. Her thinking was concrete and associations were organized and goal-directed. He denied both auditory and visual hallucinations. Assessment: She appears much improved and is currently denying paranoia, hallucinations or ideas reference. Plan: Continue inpatient treatment. Continue safety precautions. Continue Zyprexa 25 mg daily in divided doses. Continue Vistaril 25 mg by mouth 3 times a day when necessary for anxiety. Ativan 1 mg by mouth 3 times a day when necessary for anxiety. Continue Lamictal 25 mg by mouth twice a day and titrate as recommended by the neurologist. Ativan and Haldol by mouth or IM when necessary for agitation or aggression. Encourage participation in therapeutic groups and activities. Evaluate clinical status response to treatment daily basis.
[2020-08-30] MEDS: OLANZapine 10 MG TAB PO SCH (20:43)
[2020-08-30] MEDS: traZODone HCL 50 MG TAB PO SCH (20:43)
[2020-08-31] MEDS: lamoTRIgine 25 MG TAB PO SCH (08:43)
[2020-08-31] MEDS: hydrOXYzine pamoate 25 MG CAP PO PRN (08:43)
[2020-08-31] MEDS: OLANZapine 5 MG TAB PO SCH (08:43)
[2020-08-31] MEDS ORDERED: hydrOXYzine pamoate 25 MG CAP PO PRN (10:58)
[2020-08-31] MEDS ORDERED: traZODone HCL 100 MG TAB PO PRN (10:59)
--- NOTE | 2020-08-31 11:24 | P.DS ---
Providers Date of admission: 08/27/20 14:16 Expected date of discharge: 08/31/20 Attending physician: Gualberto Gutierrez MD Consults: 08/27/20 14:00 Consult Physician Routine Consulting Provider: Jean Woodson Consult Reason/Comments: Admission H & P Do you want consulting provider notified?: Yes Primary care physician: Stated None - Discharge Diagnosis(es) (1) Schizoaffective disorder Current Visit: Yes Status: Acute Priority: High (2) Methamphetamine abuse Current Visit: Yes Status: Acute Priority: Medium (3) Cocaine abuse Current Visit: Yes Status: Acute Priority: Medium (4) Seizure disorder Current Visit: Yes Status: Acute Priority: Medium (5) Nicotine dependence Current Visit: Yes Status: Acute Priority: Low Hospital Course: Admission HPI: Admission note competed by repairer typewriter "This patient is a 44-year-old female with a history of seizure disorder, psychosis and substance abuse who was initially admitted to the mental health unit for her psychiatric symptoms and suffered a seizure while on the unit and transferred to the medical floors. The patient presented to the hospital initially for increase in her psychiatric symptoms including hearing voices and anxiety along with depression. Patient was apparently off her psychiatric medications for several years and her last psychiatric admission was 10 years ago. Patient was admitting to using cocaine and methamphetamine prior to coming into the hospital. Patient was admitted to the mental health unit and started on Zyprexa for psychosis. Patient's dose was titrated up to 5 mg daily +15 mg daily at bedtime today. Patient was continuing to hear voices and having difficulties with sleep and had her medications adjusted this morning. Patient then suffered a seizure while on the mental health floor shortly after being interviewed by the nurse's desk. Patient apparently turned cyanotic briefly and began convulsing on the floor. Patient was then transferred to the medical floors for further evaluation EEG and computed tomography scan. Computed tomography scan did not show any acute abnormalities. Patient did regain her consciousness. While on the medical floors patient was seen by psychiatric consultation for continuation of care. Neurology had signed off on patient and patient had been transferred back to the mental health floor. Patient was seen this morning laying in her bed and was agreeable to speak to repairer typewriter. She states that she is now "seeing things" and spoke about seeing people working outside of her door yesterday and states that it "freaked me out". She states that today she has not seen this and claims that her auditory hallucinations have been gradually improving. She claims that she did not sleep well last night and continues to have some anxiety. She requested to be back on trazodone as she has been on it in the past. At this time patient denies any suicidal or homical ideations, intent or plan. She denies any paranoia or delusions. " Hospital course: Upon admission to the unit patient was initially experiencing severe auditory hallucinations, distress and depression/anxiety. Patient was however directable and agreeable to commence treatment and signed adult voluntary form. Patient got along well with other patients on the unit and followed unit protocol. Patient was compliant with the medications and denied any side effects throughout hospital course. Patient was started on Zyprexa and titrated up to a dose of 20 mg daily at bedtime +5 mg daily for psychosis/mood stabilization. Patient was also started on trazodone titrated up to dose of 100 mg daily at bedtime when necessary for insomnia/mood. Patient was also started on Vistaril and titrated up to dose of 50 mg every 8 hours when necessary for anxiety. Lamictal was started while on the medical floors by neurology and patient will remain on 25 mg twice a day for 7 days then titrated up to a dose of 50 mg twice a day for seizures/mood stabilization. Patient will be following up with her neurologist/PCP for further increase in his medication for seizures. Patient spoke of her stressors and engaged in therapy both group and individual. Patient was also seen by medical team for history and physical exam. Throughout the course of the hospitalization patient gradually improved with regards to mood, anxiety, psychosis/hallucinations, sleep and became more future oriented with improved insight and judgment. On the day of discharge patient denied any suicidal or homicidal ideations intent or plan denied any auditory or visual hallucinations. Patient endorsed wanting to live for her health and family. The patient denied any access to guns or weapons. Patient denied any paranoia and did not endorse any delusions. Patient does have a significant history of substance abuse and was counseled on abstaining from all substances including alcohol and marijuana. Patient was offered however declined inpatient substance- abuse rehab at this current time however states that she will continue to consider it in the near future. Patient was also counseled on the medications an d need for regular compliance and was encouraged to follow-up with their outpatient appointment for mental health and also for primary care. Prior to discharge a family meeting will be arranged by health care social worker to answer any questions and ensure safety upon discharge. Mental status exam: General Appearance: Patient appears to be tall, stated age is alert, pleasant, and cooperative. Patient is in no acute distress and has improved hygiene and grooming Behavior: Patient is calmly seated without any agitated behavior. Speech: Patient's speech is fluent and nonpressured. Mood/Affect: Patient reports their mood is "good", affect is congruent and euthymic. Suicidality/Homicidality: Patient denies having any suicidal or homicidal ideation intent or plan. Perceptions: Patient denies any auditory or visual hallucinations. Though content/process: There is no evidence of any delusional thought content and thought process is linear and goal-directed. more future oriented Memory and concentration: AOX3, grossly intact for the purposes of this session. Can spell "WORLD" backwards correctly. Judgment and insight: improved with guarded prognosis Impression: Schizoaffective disorder Methamphetamine abuse Cocaine abuse Seizure disorder Nicotine dependence Plan: -Continue with discharge today as patient has improved and stabilized psychiatrically and is not currently an imminent threat to herself and/or others. Patient will remain at chronically elevated risk for harm to self and/or others due to her impulsivity and polysubstance abuse. -Continue medications: Continue Zyprexa 20 mg daily at bedtime for psychosis/mood stabilization, trazodone 100 mg daily at bedtime when necessary for insomnia/mood, Vistaril 50 mg every 8 hours when necessary for anxiety. Continue with Lamictal 25 mg twice a day for seizure disorder and this dose is to be increased to 50 mg twice a day after 7 days. Patient was warned about the monitoring for potential rash from Lamictal and to have it discontinued if she does experience a rash and seek urgent medical attention. Patient to be followed up by her PCP Dr. Christie Prince for further monitoring of her seizure disorder and neurology. -Patient was counseled on the need for medication compliance and appropriate follow-up at mental health and also primary care for medical issues. Patient verbalized understanding and agreed. -Social work to arrange for and conduct family meeting to ensure safety upon discharge and answer any questions/concerns. Social work also to arrange for patients follow up appointments for psychiatric care along with follow up with primary care provider. -Patient counseled on abstaining from recreational drugs and marijuana and alcohol. Was informed/educated on the adverse effects on their physical and mental health. Patient verbally agreed and understood. Patient was offered substance abuse treatment however declined at this time and claims that she wants to think about it more and will consider it in the near future. -Patient was instructed to return to the hospital or seek immediate medical care if their psychiatric or medical symptoms do worsen or reoccur. Allergies Allergy/AdvReac Type Severity Reaction Status Date / Time No Known Allergies Allergy Verified 08/27/20 14:57 Vital Signs Temp 97.5 F L 08/30/20 13:12 Pulse 67 08/30/20 06:40 Resp 16 08/30/20 06:40 BP 97/53 08/30/20 06:40 Pulse Ox 95 08/28/20 02:57 Intake & Output 08/30/20 08/31/20 08/31/20 18:59 06:59 18:59 Weight 83.4 kg Patient Condition at Discharge: Stable Plan - Discharge Summary New Discharge Prescriptions: New traZODone HCL [Desyrel] 100 mg PO HS PRN 30 Days tab PRN Reason: Insomnia hydrOXYzine pamoate [Vistaril] 50 mg PO Q8HR PRN 30 Days cap PRN Reason: Anxiety OLANZapine [ZyPREXA] 20 mg PO HS 30 Days tab lamoTRIgine [LaMICtal] 25 mg PO BID 7 Days tab lamoTRIgine [LaMICtal] 50 mg PO BID 21 Days tab Continue OLANZapine [ZyPREXA] 5 mg PO DAILY 30 Days tab Discontinued lamoTRIgine [LaMICtal] 25 mg PO BID tab Melatonin 5 mg PO HS PRN tablet PRN Reason: Insomnia Acetaminophen Tab [Tylenol] 500 mg PO Q6HR PRN tab PRN Reason: Fever And/ Or Pain hydrOXYzine pamoate [Vistaril] 25 mg PO TID PRN cap PRN Reason: Anxiety OLANZapine [ZyPREXA] 20 mg PO HS tab Discharge Medication List OLANZapine [ZyPREXA] 5 mg PO DAILY 30 Days tab 08/31/20 [Rx] OLANZapine [ZyPREXA] 20 mg PO HS 30 Days tab 08/31/20 [Rx] hydrOXYzine pamoate [Vistaril] 50 mg PO Q8HR PRN 30 Days cap 08/31/20 [Rx] lamoTRIgine [LaMICtal] 25 mg PO BID 7 Days tab 08/31/20 [Rx] lamoTRIgine [LaMICtal] 50 mg PO BID 21 Days tab 08/31/20 [Rx] traZODone HCL [Desyrel] 100 mg PO HS PRN 30 Days tab 08/31/20 [Rx] Activity/Diet/Wound Care/Special Instructions: Activity and diet as tolerated. Avoid the use of street drugs and alcohol. Take all medications as prescribed. When you are in need of refills on your medications please contact your medical provider and/or outpatient psychiatrist to have this done. Please go to scheduled outpatient appointment for aftercare treatment. If symptoms return or become worse, call the crisis line at and/or go to the nearest emergency room for evaluation. Make sure to continue Lamictal 25mg BID for seizures per Dr. Woodson.
== END 2020-08-31 12:10 | disposition home or self-care (01) | DRG 885 ==
LOC: 3MHU 14:16
PROVIDERS: ADMIT Psychiatry & Neurology Psychiatry; ATTEND Psychiatry & Neurology Psychiatry
DX: F25.0 Schizoaffective disorder, bipolar type (principal); R45.851 Suicidal ideations; E03.9 Hypothyroidism, unspecified; E78.5 Hyperlipidemia, unspecified; F14.10 Cocaine abuse, uncomplicated; F15.10 Other stimulant abuse, uncomplicated; F17.210 Nicotine dependence, cigarettes, uncomplicated; F41.9 Anxiety disorder, unspecified; G40.909 Epilepsy, unspecified, not intractable, without status epilepticus; G47.00 Insomnia, unspecified; Z79.899 Other long term (current) drug therapy; Z80.9 Family history of malignant neoplasm, unspecified; Z98.51 Tubal ligation status; F90.9 Attention-deficit hyperactivity disorder, unspecified type; G43.909 Migraine, unspecified, not intractable, without status migrainosus

== ENCOUNTER → 2020-09-11 | Outpatient (CLI) | payer OTHER ==
[2020-09-11 19:23] LABS: African American GFR (CKD) 88.9 (60.0-200.0); Albumin 4.7 g/dL (3.80-4.90); Albumin/Globulin Ratio 1.88 (1.60-3.17); BUN/Creat Ratio 14.44 Ratio (12.00-20.00); Calcium 9.7 mg/dL (8.7-10.3); Globulin 2.5 g/dL (1.6-3.3); Non-African American GFR(CKD) 76.7 (60.0-200.0); Potassium 4.7 mmol/L (3.5-5.5); Total Bilirubin 0.2 mg/dL (0.3-1.2); Total Protein 7.2 g/dL (6.2-8.2)
== END | disposition home or self-care (01) ==
LOC: LABWHC1 13:24
PROVIDERS: ATTEND Family Medicine
DX: F11.20 Opioid dependence, uncomplicated (principal)
CPT/HCPCS: 36415; 80053

== ENCOUNTER 2022-05-24 01:35 | Emergency (ER) | payer OTHER ==
[2022-05-24] MEDS ORDERED: LORazepam 2 MG/ML INJ IV STA (01:46)
--- NOTE | 2022-05-24 01:48 | ED ---
Seizure HPI - General Stated Complaint: Seizure Time Seen by Provider: 05/24/22 01:36 Source: family, RN notes reviewed - History of Present Illness Initial Comments: This is a pleasant 38-year-old female who arrives via EMS after having seizure activity. Witness by roommate, unknown seizure time, sounds as if it was tonic-clonic. Patient states this is alcohol withdrawal seizures. Patient admits to her last alcoholic drink this morning. Also admitting to using methamphetamine 3 days ago. Patient also states that she just got out of rehabilitation 3 days ago when she relapsed. Patient was at [facility]. Patient denying any injury. She remembers being in a room. Patient was not standing prior to the seizure activity. Patient takes lamotrigine for seizure control. Patient denies being diagnosed with epilepsy previously. Patient previously has had alcohol withdrawal seizures. Patient denies any other substance abuse other than the methamphetamine and alcohol. Patient does have a history of polysubstance abuse. Patient states she is having some confusion since having the seizure. However denies headache. Denies any focal weakness. Denies any vision or hearing disturbance. No vertigo. No headache, no fever or chills, no changes in vision or hearing, no sore throat or difficulty with speech, no neck pain, no chest pain or shortness of breath, no abdominal pain, no nausea or vomiting, no whitley ges in urination or bowel movements, no numbness or tingling, no extremity pain, no skin rashes or lesions. Past medical, surgical, social, and family history reviewed. MD Complaint: seizure, feel seizure coming on - Related Data Previous Rx's Medication Instructions Recorded OLANZapine [ZyPREXA] 5 mg PO DAILY 30 Days tab 08/31/20 OLANZapine [ZyPREXA] 20 mg PO HS 30 Days tab 08/31/20 hydrOXYzine pamoate [Vistaril] 50 mg PO Q8HR PRN 30 Days cap 08/31/20 lamoTRIgine [LaMICtal] 25 mg PO BID 7 Days tab 08/31/20 lamoTRIgine [LaMICtal] 50 mg PO BID 21 Days tab 08/31/20 traZODone HCL [Desyrel] 100 mg PO HS PRN 30 Days tab 08/31/20 Allergies Allergy/AdvReac Type Severity Reaction Status Date / Time No Known Allergies Allergy Verified 08/27/20 14:57 Review of Systems ROS Statement: Those systems with pertinent positive or pertinent negative responses have been documented in the HPI. ROS Other: All systems not noted in ROS Statement are negative. Past Medical History Past Medical History: Hyperlipidemia, Osteoarthritis (OA), Thyroid Disorder Additional Past Medical History / Comment(s): 2 Seizures on 04/28/18 at [facility]. OVERDOSE of opiates W/RESP FAILURE AND PLACED ON VENT IN 2011. THYROID disorder (denies hisotry of cancer), HERNIATED DISCS, PAST MIGRAINES,LOWER BACK AND RT HIP PAIN, AND KNEE pain . History of Any Multi-Drug Resistant Organisms: None Reported Past Surgical History: Tubal Ligation Additional Past Surgical History / Comment(s): EGD and colonoscopy recently, D&C, RT GROIN CYST REMOVED, PAST PICC LINE/REMOVED while in hospital for overdose, Past Anesthesia/Blood Transfusion Reactions: No Reported Reaction Past Psychological History: ADD/ADHD, Anxiety, Depression Additional Psychological History / Comment(s): [place] for etoh used to drink a fifth a day last drink 2 years ago. Smoking Status: Current every day smoker Past Alcohol Use History: Abuse, Daily Additional Past Alcohol Use History / Comment(s): Patient reports drinking a fifth of alcohol daily in the past. Smokes 1 pack per day. ETOH blood level 401 past admission. Past Drug Use History: Cocaine, Methamphetamine, Opiates Additional Drug Use History / Comment(s): Reports no drugs in last 3 days before admission 08-22-2020 - Past Family History Mother Family Medical History: Cancer Father History Unknown: Yes Family Medical History: Deep Vein Thrombosis (DVT) General Exam - General Exam Comments Initial Comments: Cranial nerves II through XII are intact. Patient appears to be alert and oriented 4. Patient answering questions appropriately. General appearance: alert, in no apparent distress Head exam: Present: atraumatic, normocephalic, normal inspection Eye exam: Present: normal appearance, PERRL, EOMI. Absent: scleral icterus, conjunctival injection, periorbital swelling Pupils: Present: normal accommodation ENT exam: Present: normal exam, normal oropharynx, mucous membranes moist, TM's normal bilaterally, other (No evidence of oral trauma. No evidence of tongue biting.). Absent: mucous membranes dry, normal external ear exam Neck exam: Present: normal inspection, full ROM. Absent: tenderness, menin gismus, lymphadenopathy Respiratory exam: Present: normal lung sounds bilaterally. Absent: respiratory distress, wheezes, rales, rhonchi, stridor, chest wall tenderness, accessory muscle use Cardiovascular Exam: Present: regular rate, normal rhythm, normal heart sounds. Absent: systolic murmur, diastolic murmur, rubs, gallop, clicks GI/Abdominal exam: Present: soft, normal bowel sounds. Absent: distended, tenderness, guarding, rebound, rigid Extremities exam: Present: normal inspection, full ROM, normal capillary refill. Absent: tenderness, pedal edema, joint swelling, calf tenderness Back exam: Present: normal inspection Neurological exam: Present: alert, oriented X3, CN II-XII intact Expanded Patient oriented to: Present: person, place, time Speech: Present: fluid speech Cranial nerves: EOM's Intact: Normal, Gag Reflex: Normal, Tongue Deviation: Normal, Nystagmus: Normal, Facial Sensation: Normal, Facial Palsy with Forehead Movement: Normal, Facial Palsy without Forehead Movement: Normal Cerebellar function: Finger to Nose: Normal, Heel to [place]: Normal Upper motor neuron: Josue Neglect: Normal, Pronator Drift: Normal, Babinski Sign: Normal, Sensory Extinction: Normal Sensory exam: Upper Extremity Light Touch: Normal, Lower Extremity Light Touch: Normal Motor strength exam: RUE: 5, LUE: 5, RLE: 5, LLE: 5 Eye Response: (4) open spontaneously Motor Response: (6) obeys commands Verbal Response: (5) oriented [place] Total: 15 Psychiatric exam: Present: normal affect, normal mood Skin exam: Present: warm, dry, intact, normal color. Absent: rash Course Vital Signs 05/24/22 01:36 Temperature 99.0 F Pulse Rate 102 H Respiratory 20 Rate Blood Pressure 140/97 O2 Sat by Pulse 97 Oximetry - Reevaluation(s) Reevaluation #1: 05/24/22 02:46 Patient reevaluated, cranial nerves II through XII are intact. Patient is alert and oriented 4. CIWA score is 0. Patient states that she wants to go home. 05/24/22 03:05 Reevaluation #2: 05/24/22 03:22 Patient does have elevations of her transaminases, mild elevations of MALT, AST, and GGT. Nonfasting glucose was elevated at 173. Chloride minimally low at 97. BUN/creatinine of 18 with a normal creatinine 0.60. Salicylate, acetaminophen, and alcohol level were all negative. Currently awaiting urine toxicology and urinalysis. Chest x-ray read by me reveals no acute findings. Patient reevaluated and is neurologically intact. Cranial nerves II through XII intact. Alert and oriented 4. No distress. Vital signs reviewed. Reevaluation #3: 05/24/22 03:25 Patient's urine drug screen positive for amphetamines, methamphetamine, benzodiazepines. Urinalysis consistent with contamination with 9 squamous epithelial cells occasional bacteria, 2 white cells, 1 red cell, 3 hyalin casts Procedures - Smoking Cessation Time Spent Discussing Smoking Cessation w/Patient (Minutes): 5 Patient Acknowledges Need for Cessation: Yes Medical Decision Making - Medical Decision Making Patient presented after having observed seizure activity. No injury. EMS was called by patient's roommate. Patient states she feels well. She is denying any hallucinations. No tremor. No nausea or vomiting. No tactile disturbances. Last alcohol drink was this morning. Patient does not want to be admitted. Patient is alert, lucid, able to make her own medical decisions. Patient was told to return to the ER for any signs or symptoms worsen. Told to return immediately if any other problems arise. All questions answered. Treatment plan discussed. Patient in agreement Every effort has been made to ensure accuracy of this dictation. However, due to the limitations of electronic medical records and dictation devices, errors in charting still occur. Patient will be instructed to follow-up with her regular physician and her neurologist. Of course no driving. Patient unsure about her dose of Lamictal but states she is taking once daily. We'll have the patient follow up with her neurologist, restart the current dosage of Lamictal. I did give 100 mg of Lamictal here prior to leaving. Patient counseled on smoking cessation. Counseled on avoidance of substance abuse. The case was discussed in detail with ED attending physician. Presentation, findings, treatment plan discussed in detail. Transport Truck [employer] Dr. Cazares - Lab Data Result diagrams: 05/24/22 02:12 05/24/22 02:12 Lab Results 05/24/22 05/24/22 05/24/22 Range/Units 02:12 02:12 02:12 WBC 8.5 (3.8-10.6) k/uL RBC 4.63 (3.80-5.40) m/uL Hgb 14.7 (11.4-16.0) gm/dL Hct 44.1 (34.0-46.0) % MCV 95.3 (80.0-100.0) fL MCH 31.7 (25.0-35.0) pg MCHC 33.3 (31.0-37.0) g/dL RDW 14.9 (11.5-15.5) % Plt Count 201 (150-450) k/uL MPV 7.8 Neutrophils % 76 % Lymphocytes % 15 % Monocytes % 5 % Eosinophils % 1 % Basophils % 1 % Neutrophils # 6.5 (1.3-7.7) k/uL Lymphocytes # 1.3 (1.0-4.8) k/uL Monocytes # 0.4 (0-1.0) k/uL Eosinophils # 0.1 (0-0.7) k/uL Basophils # 0.0 (0-0.2) k/uL Sodium 138 (137-145) mmol/L Potassium 4.0 (3.5-5.1) mmol/L Chloride 97 L (98-107) mmol/L Carbon Dioxide 26 (22-30) mmol/L Anion Gap 15 mmol/L BUN 18 H (7-17) mg/dL Creatinine 0.60 (0.52-1.04) mg/dL Est GFR (CKD-EPI)AfAm >90 (>60 ml/min/1.73 sqM) Est GFR (CKD-EPI)NonAf >90 (>60 ml/min/1.73 sqM) Glucose 173 H (74-99) mg/dL Calcium 10.1 (8.4-10.2) mg/dL Magnesium 2.0 (1.6-2.3) mg/dL Total Bilirubin 0.5 (0.2-1.3) mg/dL GGT 101 H (12-43) U/L AST 72 H (14-36) U/L ALT 42 H (4-34) U/L Alkaline Phosphatase 91 (38-126) U/L Troponin I <0.012 (0.000-0.034) ng/mL Total Protein 8.0 (6.3-8.2) g/dL Albumin 5.1 H (3.5-5.0) g/dL Urine Color Urine Appearance (Clear) Urine pH (5.0-8.0) Ur Specific [place] (1.001-1.035) Urine Protein (Negative) Urine Glucose (UA) (Negative) Urine Ketones (Negative) Urine Blood (Negative) Urine Nitrite (Negative) Urine Bilirubin (Negative) Urine Urobilinogen (<2.0) mg/dL Ur Leukocyte Esterase (Negative) Urine RBC (0-5) /hpf Urine WBC (0-5) /hpf Ur Squamous Epith Cells (0-4) /hpf Urine Bacteria (None) /hpf Hyaline Casts (0-2) /lpf Urine Mucus (None) /hpf Urine HCG, Qual (Not Detectd) Salicylates <1.0 mg/dL Urine Opiates Screen (NotDetected) Ur Oxycodone Screen (NotDetected) Urine Methadone Screen (NotDetected) Ur Propoxyphene Screen (NotDetected) Acetaminophen <10.0 ug/mL Ur Barbiturates Screen (NotDetected) U Tricyclic Antidepress (NotDetected) Ur Phencyclidine Scrn (NotDetected) Ur Amphetamines Screen (NotDetected) U Methamphetamines Scrn (NotDetected) U Benzodiazepines Scrn (NotDetected) Urine Cocaine Screen (NotDetected) U Marijuana (THC) Screen (NotDetected) Serum Alcohol <10 mg/dL 05/24/22 05/24/22 05/24/22 Range/Units 03:00 03:00 03:00 WBC (3.8-10.6) k/uL RBC (3.80-5.40) m/uL Hgb (11.4-16.0) gm/dL Hct (34.0-46.0) % MCV (80.0-100.0) fL MCH (25.0-35.0) pg MCHC (31.0-37.0) g/dL RDW (11.5-15.5) % Plt Count (150-450) k/uL MPV Neutrophils % % Lymphocytes % % Monocytes % % Eosinophils % % Basophils % % Neutrophils # (1.3-7.7) k/uL Lymphocytes # (1.0-4.8) k/uL Monocytes # (0-1.0) k/uL Eosinophils # (0-0.7) k/uL Basophils # (0-0.2) k/uL Sodium (137-145) mmol/L Potassium (3.5-5.1) mmol/L Chloride (98-107) mmol/L Carbon Dioxide (22-30) mmol/L Anion Gap mmol/L BUN (7-17) mg/dL Creatinine (0.52-1.04) mg/dL Est GFR (CKD-EPI)AfAm (>60 ml/min/1.73 sqM) Est GFR (CKD-EPI)NonAf (>60 ml/min/1.73 sqM) Glucose (74-99) mg/dL Calcium (8.4-10.2) mg/dL Magnesium (1.6-2.3) mg/dL Total Bilirubin (0.2-1.3) mg/dL GGT (12-43) U/L AST (14-36) U/L ALT (4-34) U/L Alkaline Phosphatase (38-126) U/L Troponin I (0.000-0.034) ng/mL Total Protein (6.3-8.2) g/dL Albumin (3.5-5.0) g/dL Urine Color Yellow Urine Appearance Cloudy H (Clear) Urine pH 5.5 (5.0-8.0) Ur Specific [place] 1.030 (1.001-1.035) Urine Protein 1+ H (Negative) Urine Glucose (UA) Negative (Negative) Urine Ketones Trace H (Negative) Urine Blood Negative (Negative) Urine Nitrite Negative (Negative) Urine Bilirubin Negative (Negative) Urine Urobilinogen <2.0 (<2.0) mg/dL Ur Leukocyte Esterase Negative (Negative) Urine RBC 1 (0-5) /hpf Urine WBC 2 (0-5) /hpf Ur Squamous Epith Cells 9 H (0-4) /hpf Urine Bacteria Occasional H (None) /hpf Hyaline Casts 3 H (0-2) /lpf Urine Mucus Few H (None) /hpf Urine HCG, Qual Not Detected (Not Detectd) Salicylates mg/dL Urine Opiates Screen Not Detected (NotDetected) Ur Oxycodone Screen Not Detected (NotDetected) Urine Methadone Screen Not Detected (NotDetected) Ur Propoxyphene Screen Not Detected (NotDetected) Acetaminophen ug/mL Ur Barbiturates Screen Not Detected (NotDetected) U Tricyclic Antidepress Not Detected (NotDetected) Ur Phencyclidine Scrn Not Detected (NotDetected) Ur Amphetamines Screen Detected H (NotDetected) U Methamphetamines Scrn Detected H (NotDetected) U Benzodiazepines Scrn Detected H (NotDetected) Urine Cocaine Screen Not Detected (NotDetected) U Marijuana (THC) Screen Not Detected (NotDetected) Serum Alcohol mg/dL - EKG Data -: EKG Interpreted by Me EKG Comments: EKG done at 1:50 AM and read by the ED attending physician reveals sinus rhythm with a rate of 91. Possible left atrial enlargement. Normal intervals. Normal axis. No evidence of acute ST or T-wave abnormalities. When compared to the previous EKG from 08/25/2020, there is no significant acute change. - Radiology Data Radiology results: pending (No evidence of acute changes as read by me. Awaiting radiology interpretation.), image reviewed Disposition Clinical Impression: Observed seizure-like activity, History of seizure, Seizure disorder, Polysubstance abuse, Cigarette smoker Narrative: Possible alcohol withdrawal seizure--however patient also has a history of generalized seizures controlled with Lamictal which she states she is only taking once daily. Disposition: HOME SELF-CARE Condition: Good Instructions (If sedation given, give patient instructions): How to Stop Smoking (ED), Polysubstance Abuse (ED), Recurrent Seizures in Adults (ED) Additional Instructions: Follow-up with your regular physician as directed. Return to the ER immediately if any symptoms worsen, new symptoms arise, or any other problems develop. No driving of vehicles or operating machinery for 6 months seizure-free or until clearance by your regular physician or neurology. Call in the morning at 8 AM to schedule an appointment with your neurologist. Restart your current dose of Lamictal. Work on smoking cessation and alcohol avoidance. Is patient prescribed a controlled substance at d/c from ED?: No Referrals: Christie Prince MD [Primary Care Provider] - 1-2 days Ricardo Pickering MD [STAFF PHYSICIAN] - As Soon As Possible Time of Disposition: 03:25
[2022-05-24 01:53] VITALS: RESP 20; TEMP 99
[2022-05-24 02:16] LABS: Basophils % (A) 1 %; Eosinophils # (A) 0.1 k/uL (0-0.7); Eosinophils % (A) 1 %; HCT 44.1 % (34.0-46.0); HGB 14.7 gm/dL (11.4-16.0); Lymphocytes # (A) 1.3 k/uL (1.0-4.8); Lymphocytes % (A) 15 %; MCH 31.7 pg (25.0-35.0); MCHC 33.3 g/dL (31.0-37.0); MCV 95.3 fL (80.0-100.0); Mean Platelet Volume 7.8; Monocytes # (A) 0.4 k/uL (0-1.0); Monocytes % (A) 5 %; Neutrophils # (A) 6.5 k/uL (1.3-7.7); Neutrophils % (A) 76 %; Platelet Count 201 k/uL (150-450); RBC 4.63 m/uL (3.80-5.40); RDW 14.9 % (11.5-15.5); WBC 8.5 k/uL (3.8-10.6)
[2022-05-24 02:37] LABS: ALT 42 U/L (4-34); AST 72 U/L (14-36); Acetaminophen <10.0 ug/mL; African American GFR (CKD) >90 (>60 ml/min/1.73 sqM); Albumin 5.1 g/dL (3.5-5.0); Alcohol <10 mg/dL; Alkaline Phosphatase 91 U/L (38-126); Anion Gap 15 mmol/L; Blood Urea Nitrogen 18 mg/dL (7-17); Calcium 10.1 mg/dL (8.4-10.2); Carbon Dioxide 26 mmol/L (22-30); Chloride 97 mmol/L (98-107); GGT 101 U/L (12-43); Glucose 173 mg/dL (74-99); Non-African American GFR(CKD) >90 (>60 ml/min/1.73 sqM); Salicylate <1.0 mg/dL; Sodium 138 mmol/L (137-145); Total Bilirubin 0.5 mg/dL (0.2-1.3)
[2022-05-24] MEDS ORDERED: lamoTRIgine 100 MG TAB PO STA (02:57)
[2022-05-24 03:22] LABS: Appearance,Urine Cloudy (Clear); Bacteria,Urine Occasional /hpf; Bilirubin,Urine Negative (Negative); Blood,Urine Negative (Negative); Color,Urine Yellow; Glucose,Urine (UA) Negative (Negative); Hyaline Casts,Urine 3 /lpf (0-2); Ketones,Urine Trace (Negative); Leukocyte Esterase,Urine Negative (Negative); Mucus,Urine Few /hpf; Nitrite,Urine Negative (Negative); PH, Urine 5.5 (5.0-8.0); Protein,Urine 1+ (Negative); RBC,Urine 1 /hpf (0-5); Squamous Epithelial Cell,Urine 9 /hpf (0-4); Urobilinogen,Urine <2.0 mg/dL (<2.0); WBC,Urine 2 /hpf (0-5)
[2022-05-24 03:23] LABS: Amphetamine Screen,Urine Detected (NotDetected); Barbiturate Screen,Urine Not Detected (NotDetected); Benzodiazepines Screen,Urine Detected (NotDetected); Cocaine Screen,Urine Not Detected (NotDetected); Methadone Screen, Urine Not Detected (NotDetected); Opiate Screen,Urine Not Detected (NotDetected); Oxycodone Screen, Urine Not Detected (NotDetected); Phencyclidine Screen,Urine Not Detected (NotDetected); Tricyclic Antidepressant,Urine Not Detected (NotDetected); Urn Cannabinoid Scrn Not Detected (NotDetected)
--- NOTE | 2022-05-24 03:37 | XR ---
EXAMINATION TYPE: XR chest 1V portable DATE OF EXAM: 05/24/2022 COMPARISON: 08/25/2020 HISTORY: Short of breath. Cough TECHNIQUE: FINDINGS: Heart and mediastinum are normal. Lungs are clear of infiltrate. No heart failure. There ar e no hilar masses. Costophrenic angles are clear. Bony thorax is intact. IMPRESSION: No active cardiopulmonary disease. Normal heart. No change.
[2022-05-24 03:58] VITALS: BP 143/97; PULSE 86
== END 2022-05-24 03:58 | disposition home or self-care (01) ==
LOC: EC 01:35
DX: G40.909 Epilepsy, unspecified, not intractable, without status epilepticus (principal); F17.210 Nicotine dependence, cigarettes, uncomplicated; F10.10 Alcohol abuse, uncomplicated; F15.10 Other stimulant abuse, uncomplicated; F13.10 Sedative, hypnotic or anxiolytic abuse, uncomplicated; E78.5 Hyperlipidemia, unspecified; M19.90 Unspecified osteoarthritis, unspecified site; E07.9 Disorder of thyroid, unspecified; Y90.0 Blood alcohol level of less than 20 mg/100 ml
CPT/HCPCS: 36415; 80053; 80175; 82977; 83735; 84484; 85025; 81001; 81025; 80306; 80143; 80179; 71045; 99285; 96374; G0480; J2060; 80320

== ENCOUNTER 2023-04-04 15:08 | Emergency (ER) | payer OTHER ==
[2023-04-04 15:15] VITALS: RESP 18
[2023-04-04 17:02] LABS: Basophils % (A) 1 %; Eosinophils # (A) 0.3 k/uL (0-0.7); Eosinophils % (A) 4 %; HCT 40.1 % (34.0-46.0); HGB 13.9 gm/dL (11.4-16.0); Lymphocytes # (A) 1.9 k/uL (1.0-4.8); Lymphocytes % (A) 26 %; MCH 32.2 pg (25.0-35.0); MCHC 34.7 g/dL (31.0-37.0); MCV 92.7 fL (80.0-100.0); Mean Platelet Volume 7.9; Monocytes # (A) 0.5 k/uL (0-1.0); Monocytes % (A) 6 %; Neutrophils # (A) 4.4 k/uL (1.3-7.7); Neutrophils % (A) 61 %; Platelet Count 214 k/uL (150-450); RBC 4.33 m/uL (3.80-5.40); RDW 13.4 % (11.5-15.5); WBC 7.2 k/uL (3.8-10.6)
[2023-04-04 17:32] LABS: INR 0.9 (<1.2); Partial Thromboplastin Time 22.5 sec (22.0-30.0); Prothrombin Time 9.9 sec (9.0-12.0)
[2023-04-04 17:37] LABS: ALT 19 U/L (4-34); African American GFR (CKD) >90 (>60 ml/min/1.73 sqM); Anion Gap 12 mmol/L; Blood Urea Nitrogen 14 mg/dL (7-17); Calcium 8.4 mg/dL (8.4-10.2); Carbon Dioxide 25 mmol/L (22-30); Chloride 102 mmol/L (98-107); Glucose 112 mg/dL (74-99); Lipase 86 U/L (23-300); Non-African American GFR(CKD) >90 (>60 ml/min/1.73 sqM); Sodium 139 mmol/L (137-145); Total Bilirubin 0.5 mg/dL (0.2-1.3)
[2023-04-04 17:40] LABS: AST 36 U/L (14-36); Albumin 3.9 g/dL (3.5-5.0); Alkaline Phosphatase 81 U/L (38-126); Magnesium 1.8 mg/dL (1.6-2.3); Potassium 4.4 mmol/L (3.5-5.1)
--- NOTE | 2023-04-04 18:09 | ED ---
General Adult HPI - General Chief complaint: Recheck/Abnormal Lab/Rx Stated complaint: post op - rectal pain Time Seen by Provider: 04/04/23 15:29 Source: patient Mode of arrival: ambulatory Limitations: no limitations - History of Present Illness Initial comments: This is a 47-year-old female with a past medical history including hyperlipidemia presents emergency department for a rectal prolapse. The patient stated that this is been present over the last several weeks where she did undergo colonoscopy last week but stated that it did not improve after. The patient stated that the prolapse persisted after the colonoscopy and stated that she continued pressure and sensation. The patient stated that she was tired of this and did not have a follow-up with a surgeon yet and became frustrated and needed to be evaluated. The patient stated that she feels that she needs have bowel movements and urinate multiple times at the day but was unable to produce any stool or urine. The patient was laying in bed on my evaluation without any acute distress. - Related Data Home Medications Medication Instructions Recorded Confirmed Atorvastatin [Lipitor] 10 mg PO HS 11/08/22 04/04/23 Lurasidone [Latuda] 40 mg PO HS 11/08/22 04/04/23 traZODone HCL 150 mg PO HS 11/08/22 04/04/23 busPIRone HCL 15 mg PO BID 04/04/23 04/04/23 Allergies Allergy/AdvReac Type Severity Reaction Status Date / Time No Known Allergies Allergy Verified 04/04/23 16:43 Review of Systems ROS Statement: Those systems with pertinent positive or pertinent negative responses have been documented in the HPI. ROS Other: All systems not noted in ROS Statement are negative. Past Medical History Past Medical History: Hyperlipidemia, Osteoarthritis (OA), Thyroid Disorder Additional Past Medical History / Comment(s): 2 Seizures on 04/28/18 at [employer] [facility]. OVERDOSE of opiates W/RESP FAILURE AND PLACED ON VENT IN 2011. THYROID disorder (denies hisotry of cancer), HERNIATED DISCS, PAST MIGRAINES,LOWER BACK AND RT HIP PAIN, AND KNEE pain . PANCREATITIS AND BLOOD IN STOOL WITH CHRONIC DIARRHEA History of Any Multi-Drug Resistant Organisms: None Reported Past Surgical History: Tubal Ligation Additional Past Surgical History / Comment(s): EGD and colonoscopy recently, D&C, RT GROIN CYST REMOVED, PAST PICC LINE/REMOVED while in hospital for overdose, Past Anesthesia/Blood Transfusion Reactions: No Reported Reaction Past Psychological History: ADD/ADHD, Anxiety, Depression Smoking Status: Current every day smoker Past Alcohol Use History: Abuse, Daily, Heavy Past Drug Use History: Methamphetamine - Past Family History Mother Family Medical History: Cancer Father History Unknown: Yes Family Medical History: Deep Vein Thrombosis (DVT) General Exam Limitations: no limitations General appearance: alert, in distress (2/2 pain) Head exam: Present: atraumatic, normocephalic, normal inspection Eye exam: Present: normal appearance, PERRL Pupils: Present: normal accommodation ENT exam: Present: normal exam, normal oropharynx, mucous membranes moist Neck exam: Present: normal inspection, full ROM Respiratory exam: Present: normal lung sounds bilaterally Cardiovascular Exam: Present: regular rate, normal rhythm, normal heart sounds GI/Abdominal exam: Present: soft, normal bowel sounds Rectal exam: Present: other (Rectal prolapse noted ) Extremities exam: Present: normal inspection, full ROM Back exam: Present: normal inspection, full ROM Neurological exam: Present: alert, oriented X3, CN II-XII intact Psychiatric exam: Present: normal affect, normal mood Skin exam: Present: warm, dry Course Vital Signs 04/04/23 04/04/23 04/04/23 15:12 15:15 18:17 Temperature 99.2 F 99 F Pulse Rate 66 95 77 Respiratory 18 18 18 Rate Blood Pressure 117/79 117/97 124/95 O2 Sat by Pulse 94 L 95 97 Oximetry Medical Decision Making - Medical Decision Making Was pt. sent in by a medical professional or institution (, PA, MANUFACTURING TEACHER, urgent care, hospital, or longterm...) When possible be specific @ -No Did you speak to anyone other than the patient for history (EMS, parent, family, police, friend...)? What history was obtained from this source @ -No Did you review nursing and triage notes (agree or disagree)? Why? @ -I reviewed and agree with nursing and triage notes Were old charts reviewed (outside hosp., previous admission, EMS record, old EKG, old radiological studies, urgent care reports/EKG's, longterm records)? Report findings @ -No old charts were reviewed Differential Diagnosis (chest pain, altered mental status, abdominal pain women, abdominal pain men, vaginal bleeding, weakness, fever, dyspnea, syncope, headache, dizziness, GI bleed, back pain, seizure, CVA, palpatations, mental health)? @ -Rectal prolapse, external hemorrhoid, internal hemorrhoid EKG interpreted by me (3pts min.). @ -None X-rays interpreted by me (1pt min.). @ -None done CT interpreted by me (1pt min.). @ -None done U/S interpreted by me (1pt. min.). @ -None done What testing was considered but not performed or refused? (CT, X-rays, U/S, labs)? Why? @ -None What meds were considered but not given or refused? Why? @ -None Did you discuss the management of the patient with other professionals (professionals i.e. , PA, MANUFACTURING TEACHER, lab, RT, psych nurse, social staff worker, livestock buyer, teacher, flight communications officer, family caseworker)? Give summary @ -The surgeon on-call, Dr. Alejandro was contacted regarding the patient a did recommend outpatient follow-up in 2 days. Was smoking cessation discussed for >3mins.? @ -No Was critical care preformed (if so, how long)? @ -No Were there social determinants of health that impacted care today? How? (Homelessness, low income, unemployed, alcoholism, drug addiction, transportation, low edu. Level, literacy, decrease access to med. care, usp, rehab)? @ -No Was there de-escalation of care discussed even if they declined (Discuss DNR or withdrawal of care, Hospice)? DNR status @ -No What co-morbidities impacted this encounter? (DM, HTN, Smoking, COPD, CAD, Cancer, CVA, ARF, Chemo, Hep., AIDS, mental health diagnosis, sleep apnea, morbid obesity)? @ -None Was patient admitted / discharged? Hospital course, mention meds given and route, prescriptions, significant lab abnormalities, going to OR and other pertinent info. @ -The patient was seen and evaluated emergency department. Physical exam, the patient was resting in bed in moderate distress secondary to rectal prolapse. Vital signs admission were stable. He, I did place granulated sugar on the prolapse and was able to reduce the prolapse successfully. The patient then went to the bathroom and stated that the prolapse recurred and stated "this happens every time I go to the bathroom and get up." The patient was clearly frustrated and was angry. Because of this, laboratory workup was obtained and was within normal limits. The surgeon on-call was also contacted and did state that he could see the patient as an outpatient in 2 days for further workup and likely surgical evaluation. The patient was agreeable to this and was given a work note. The patient was discharged home and understood the instructions on her questions answered appropriately. Undiagnosed new problem with uncertain prognosis? @ -No Drug Therapy requiring intensive monitoring for toxicity (Heparin, Nitro, Insulin, Cardizem)? @ -No Were any procedures done? @ -No Diagnosis/symptom? @ -Rectal prolapse Acute, or Chronic, or Acute on Chronic? @ -Acute on chronic Uncomplicated (without systemic symptoms) or Complicated (systemic symptoms)? @ -Uncomplicated Side effects of treatment? @ -No Exacerbation, Progression, or Severe Exacerbation? @ -No Poses a threat to life or bodily function? How? (Chest pain, USA, DC, pneumonia, PE, COPD, DKA, ARF, appy, cholecystitis, CVA, Diverticulitis, Homicidal, Suicidal, threat to staff... and all critical care pts) @ -No - Lab Data Result diagrams: 04/04/23 16:52 04/04/23 03:58 Lab Results 04/04/23 04/04/23 04/04/23 Range/Units 03:58 16:52 17:10 WBC 7.2 (3.8-10.6) k/uL RBC 4.33 (3.80-5.40) m/uL Hgb 13.9 (11.4-16.0) gm/dL Hct 40.1 (34.0-46.0) % MCV 92.7 (80.0-100.0) fL MCH 32.2 (25.0-35.0) pg MCHC 34.7 (31.0-37.0) g/dL RDW 13.4 (11.5-15.5) % Plt Count 214 (150-450) k/uL MPV 7.9 Neutrophils % 61 % Lymphocytes % 26 % Monocytes % 6 % Eosinophils % 4 % Basophils % 1 % Neutrophils # 4.4 (1.3-7.7) k/uL Lymphocytes # 1.9 (1.0-4.8) k/uL Monocytes # 0.5 (0-1.0) k/uL Eosinophils # 0.3 (0-0.7) k/uL Basophils # 0.0 (0-0.2) k/uL PT 9.9 (9.0-12.0) sec INR 0.9 (<1.2) APTT 22.5 (22.0-30.0) sec Sodium 139 (137-145) mmol/L Potassium 4.4 (3.5-5.1) mmol/L Chloride 102 (98-107) mmol/L Carbon Dioxide 25 (22-30) mmol/L Anion Gap 12 mmol/L BUN 14 (7-17) mg/dL Creatinine 0.38 L (0.52-1.04) mg/dL Est GFR (CKD-EPI)AfAm >90 (>60 ml/min/1.73 sqM) Est GFR (CKD-EPI)NonAf >90 (>60 ml/min/1.73 sqM) Glucose 112 H (74-99) mg/dL Calcium 8.4 (8.4-10.2) mg/dL Magnesium 1.8 (1.6-2.3) mg/dL Total Bilirubin 0.5 (0.2-1.3) mg/dL AST 36 (14-36) U/L ALT 19 (4-34) U/L Alkaline Phosphatase 81 (38-126) U/L Total Protein 7.0 (6.3-8.2) g/dL Albumin 3.9 (3.5-5.0) g/dL Lipase 86 (23-300) U/L Disposition Clinical Impression: Rectal prolapse Disposition: HOME SELF-CARE Condition: Stable Instructions (If sedation given, give patient instructions): Rectal Prolapse (ED) Is patient prescribed a controlled substance at d/c from ED?: No Referrals: Christie Prince MD [Primary Care Provider] - 1-2 days Aj Alejandro MD [STAFF PHYSICIAN] - 1-2 days Time of Disposition: 16:30
[2023-04-04 18:19] VITALS: BP 124/95; PULSE 77; TEMP 99
== END 2023-04-04 18:21 | disposition home or self-care (01) ==
LOC: EC 15:08
DX: K62.3 Rectal prolapse (principal); E78.5 Hyperlipidemia, unspecified; F41.9 Anxiety disorder, unspecified; F32.A Depression, unspecified; F90.9 Attention-deficit hyperactivity disorder, unspecified type; F17.200 Nicotine dependence, unspecified, uncomplicated; F15.90 Other stimulant use, unspecified, uncomplicated; Z79.899 Other long term (current) drug therapy
CPT/HCPCS: 36415; 80053; 83690; 83735; 85025; 85610; 85730; 99284

== ENCOUNTER → 2023-04-20 | Outpatient (CLI) | payer OTHER ==
[2023-04-20 19:43] LABS: Anion Gap 14.1 mmol/L (4.00-12.00); Carbon Dioxide 20.9 mmol/L (21.6-31.8); Potassium 3.8 mmol/L (3.5-5.5)
[2023-04-20 22:58] LABS: Basophils # (A) 0.06 X 10*3/uL (0.00-0.10); Eosinophils # (A) 0.11 X 10*3/uL (0.04-0.35); Eosinophils % (A) 1.8 %; HGB 13.7 d/dL (12.0-15.0); Lymphocytes # (A) 1.41 X 10*3/uL (0.90-5.00); Lymphocytes % (A) 22.7 %; MCH 31.1 pg (27.0-32.0); MCHC 33.4 d/dL (32.0-37.0); Monocytes # (A) 0.44 X 10*3/uL (0.20-1.00); Monocytes % (A) 7.1 %; NRBC Per 100 WBC 0 X 10*3/uL (0.00-0.01); Neutrophils # (A) 4.13 X 10*3/uL (1.80-7.70); Neutrophils % (A) 66.6 %; Platelet Count 198 X 10*3/uL (140-440); RBC 4.41 X 10*6/uL (4.10-5.20); RDW 13.8 % (11.5-14.5)
== END | disposition home or self-care (01) ==
LOC: LABPAT 15:41
PROVIDERS: ATTEND Surgery
DX: Z01.812 Encounter for preprocedural laboratory examination (principal); K62.3 Rectal prolapse
CPT/HCPCS: 80051; 85025

== ENCOUNTER → 2023-04-21 | Outpatient (CLI) | payer OTHER | END | disposition home or self-care (01) | LOC: LABWHC1 11:14 | PROVIDERS: ATTEND Surgery | DX: Z01.812 Encounter for preprocedural laboratory examination (principal); I49.3 Ventricular premature depolarization; R94.31 Abnormal electrocardiogram [ECG] [EKG] | CPT/HCPCS: 36415; 93005 ==

== ENCOUNTER → 2023-05-31 | Outpatient (CLI) | payer OTHER ==
--- NOTE | 2023-05-31 10:30 | US ---
EXAMINATION TYPE: US venous doppler duplex LE DATE OF EXAM: 05/31/2023 10:07 AM COMPARISON: NONE CLINICAL INDICATION: Female, 47 years old with history of I82.402 ACUTE EMBOLISM AND THOMBOS UNSP GARFIELD P VEINS; Left thigh pain. No redness or swelling. SIDE PERFORMED: Bilateral TECHNIQUE: The lower extremity deep venous system is examined utilizing real time linear array sonog pedrito with graded compression, doppler sonography and color-flow sonography. VESSELS IMAGED: Common Femoral Vein Deep Femoral Vein Greater Saphenous Vein * Femoral Vein Popliteal Vein Small Saphenous Vein * Proximal Calf Veins (* superficial vessels) Grayscale, color doppler, spectral doppler imaging performed of the deep veins of the lower extremiti es. There is normal flow, compressibility, vascular waveforms. Right Leg: Negative for DVT Left Leg: Negative for DVT IMPRESSION: No deep venous thrombosis of the bilateral lower extremities.
== END | disposition home or self-care (01) ==
LOC: RADUSWWP 09:44
PROVIDERS: ATTEND Surgery
DX: I82.402 Acute embolism and thrombosis of unspecified deep veins of left lower extremity (principal)
CPT/HCPCS: 93970

== ENCOUNTER 2024-04-23 17:44 | Inpatient (IN) | payer OTHER ==
--- NOTE | 2024-04-23 18:12 | ED ---
General Adult HPI - General Stated complaint: Mental health Time Seen by Provider: 04/23/24 17:58 - History of Present Illness Initial comments: Dictation was produced using [employer] dictation software. please excuse any grammatical, word or spelling errors. Chief Complaint: 48-year-old female brought in from home for psychiatric evaluation History of Present Illness: Patient is a 48-year-old female who presents to the emergency department for psychiatric evaluation. Patient states she was brought in from home after psychologist social called ambulance to bring her to the ER to be evaluated. Patient states she is having abdominal pain she did drink large amounts of whiskey today. She drinks daily. Patient concerned she is having recurrence of pancreatitis. Patient reports history of illicit drug use. The ROS documented in this emergency department record has been reviewed and confirmed by me. Those systems with pertinent positive or negative responses have been documented in the HPI. All other systems are other negative and/or noncontributory. - Related Data Home Medications Medication Instructions Recorded Confirmed Atorvastatin [Lipitor] 10 mg PO HS 11/08/22 04/20/23 Lurasidone [Latuda] 40 mg PO HS 11/08/22 04/20/23 traZODone HCL 150 mg PO HS 11/08/22 04/24/23 busPIRone HCL 15 mg PO BID PRN 04/04/23 04/24/23 Previous Rx's Medication Instructions Recorded Acetaminophen Tab [Tylenol] 1,000 mg PO Q6HR PRN #30 tablet 04/28/23 Ibuprofen [Motrin] 600 mg PO Q8HR PRN #30 tab 04/28/23 Allergies Allergy/AdvReac Type Severity Reaction Status Date / Time No Known Allergies Allergy Verified 04/23/24 18:22 Review of Systems ROS Statement: Those systems with pertinent positive or pertinent negative responses have been documented in the HPI. ROS Other: All systems not noted in ROS Statement are negative. Past Medical History Past Medical History: Diabetes Mellitus, Hyperlipidemia, Osteoarthritis (OA), Seizure Disorder, Thyroid Disorder Additional Past Medical History / Comment(s): Hx "high blood sugar was on Metformin but sugars are normal now and no longer taking Metformin." Hx 2 seizures on 04/28/18 at [place], from alcohol withdrawl. Hx opiate overdose 2 011, with respiratory failure, on vent. HERNIATED DISCS. MIGRAINES. HX PANCREATITIS. IBS. History of Any Multi-Drug Resistant Organisms: None Reported Past Surgical History: Tubal Ligation Additional Past Surgical History / Comment(s): EGD, colonoscopy, D&C, right groin cyst removed, PICC line placed and later removed while in hospital for overdose. Past Anesthesia/Blood Transfusion Reactions: No Reported Reaction Past Psychological History: ADD/ADHD, Anxiety, Depression Additional Psychological History / Comment(s): ADHD. Smoking Status: Current every day smoker Past Alcohol Use History: Abuse, Daily, Heavy Additional Past Alcohol Use History / Comment(s): Patient reports she is an alcoholic and drinks a fifth of alcohol daily. Patient aware no alcohol for at least 24 hrs prior to procedure. States Dr Alejandro aware she's an alcoholic. Smokes 1 pack per day. Past Drug Use History: Methamphetamine, Opiates Additional Drug Use History / Comment(s): Patient reports "no opiate abuse in years and no meth in months". - Past Family History Mother Family Medical History: Cancer Father History Unknown: Yes Family Medical History: Deep Vein Thrombosis (DVT) General Exam - General Exam Comments Initial Comments: PHYSICAL EXAM: General Impression: Alert and oriented x3, inebriated HEENT: Normocephalic atraumatic, extra-ocular movements intact, pupils equal and reactive to light bilaterally, mucous membranes moist. Cardiovascular: Heart regular rate and rhythm Chest: Able to complete full sentences, no retractions, no tachypnea Abdomen: abdomen soft, non-tender, non-distended, no organomegaly Musculoskeletal: Pulses present and equal in all extremities, no peripheral edema Motor: no focal deficits noted Neurological: CN II-XII grossly intact, no focal motor or sensory deficits noted Skin: Intact with no visualized rashes Psych: Manic pressured speech Course Vital Signs 04/23/24 18:16 Temperature 98.3 F Pulse Rate 101 H Respiratory 20 Rate Blood Pressure 120/69 O2 Sat by Pulse 95 Oximetry EKG Findings - EKG Comments: EKG Findings:: My EKG interpretation: Ventricular rate 89, sinus rhythm,. 153, QRS 114, QTc 432. No [place] prolongation, no QTC prolongation, no ST or T-wave changes noted.Overall, this EKG is unremarkable Medical Decision Making - Medical Decision Making Was pt. sent in by a medical professional or institution (, PA, WATER SERVER, urgent care, hospital, or retirement...) When possible be specific @ -Sent in by psychologist social Did you speak to anyone other than the patient for history (EMS, parent, family, police, friend...)? What history was obtained from this source @ -EMS as described above Did you review nursing and triage notes (agree or disagree)? Why? @ -I reviewed and agree with nursing and triage notes Were old charts reviewed (outside hosp., previous admission, EMS record, old EKG, old radiological studies, urgent care reports/EKG's, retirement records)? Report findings @ -No old charts were reviewed Differential Diagnosis (chest pain, altered mental status, abdominal pain women, abdominal pain men, vaginal bleeding, musculoskeletal, weakness, fever, dyspnea, syncope, headache, dizziness, GI bleed, back pain, seizure, CVA, palpatations, mental health)? @ -Differential Mental Health: Depression, anxiety, bipolar, psychosis, schizophrenia, borderline personality, situational depression, adjustment disorder, behavioral disorder, brain tumor, malingering, substance abuse, encephalopathy, medication reaction, dementia, hypothyroidism, degenerative neurologic disorder, lupus.... This is not meant to be all-inclusive list EKG interpreted by me (3pts min.). @ -None done X-rays interpreted by me (1pt min.). @ -None done CT interpreted by me (1pt min.). @ -None done U/S interpreted by me (1pt. min.). @ -None done What testing was considered but not performed or refused? (CT, X-rays, U/S, labs)? Why? @ -None What meds were considered but not given or refused? Why? @ -None Was smoking cessation discussed for >3mins.? @ -No Were there social determinants of health that impacted care today? How? (Homelessness, low income, unemployed, alcoholism, drug addiction, transportatio n, low edu. Level, literacy, decrease access to med. care, group home, rehab)? @ -No Was there de-escalation of care discussed even if they declined (Discuss DNR or withdrawal of care, Hospice)? DNR status @ -No What co-morbidities impacted this encounter? (DM, HTN, Smoking, COPD, CAD, Cancer, CVA, ARF, Chemo, Hep., AIDS, mental health diagnosis, sleep apnea, morbid obesity)? @ -None Was patient admitted / discharged? Hospital course, mention meds given and route, prescriptions, significant lab abnormalities, going to OR and other pertinent info. @ -48-year-old alcoholic female with mental health issues sent to the ER by psychologist social. Vital signs upon arrival are within acceptable limits. L aboratory evaluation obtained. Alcohol level was 324. No acidosis. Patient will be admitted for alcohol intoxication. Psychiatry will be consulted for mental health eval. Did you discuss the management of the patient with other professionals (professionals i.e. , PA, WATER SERVER, lab, RT, psych nurse, psychologist social, submarine element coordinator, teacher, head correction officer, housing case manager)? Give summary @ -Case discussed with hospitalist for admission Was critical care preformed (if so, how long)? @ -No Undiagnosed new problem with uncertain prognosis? @ -No Drug Therapy requiring intensive monitoring for toxicity (Heparin, Nitro, Insulin, Cardizem)? @ -No Were any procedures done? @ -No Diagnosis/symptom? Acute, or Chronic, or Acute on Chronic? Uncomplicated (without systemic symptoms) or Complicated (systemic symptoms)? @ -Alcohol intoxication Side effects of treatment? @ -No Exacerbation, Progression, or Severe Exacerbation? @ -No Poses a threat to life or bodily function? How? (Chest pain, USA, MS, pneumonia, PE, COPD, DKA, ARF, appy, cholecystitis, CVA, Diverticulitis, Homicidal, Suicidal, threat to staff... and all critical care pts) @ -No - Lab Data Result diagrams: 04/23/24 18:23 04/23/24 18:23 Lab Results 04/23/24 04/23/24 Range/Units 18:23 18:23 WBC 6.5 (3.8-10.6) k/uL RBC 4.57 (3.80-5.40) m/uL Hgb 13.8 (11.4-16.0) gm/dL Hct 41.9 (34.0-46.0) % MCV 91.8 (80.0-100.0) fL MCH 30.3 (25.0-35.0) pg MCHC 33.0 (31.0-37.0) g/dL RDW 13.5 (11.5-15.5) % Plt Count 280 (150-450) k/uL MPV 7.2 Neutrophils % 60 % Lymphocytes % 28 % Monocytes % 6 % Eosinophils % 2 % Basophils % 1 % Neutrophils # 3.9 (1.3-7.7) k/uL Lymphocytes # 1.8 (1.0-4.8) k/uL Monocytes # 0.4 (0-1.0) k/uL Eosinophils # 0.2 (0-0.7) k/uL Basophils # 0.1 (0-0.2) k/uL Hypochromasia Slight Sodium 142 (137-145) mmol/L Potassium 5.4 H (3.5-5.1) mmol/L Chloride 106 (98-107) mmol/L Carbon Dioxide 25 (22-30) mmol/L Anion Gap 11 mmol/L BUN 6 L (7-17) mg/dL Creatinine 0.65 (0.52-1.04) mg/dL Est GFR (CKD-EPI)AfAm >90 (>60 ml/min/1.73 sqM) Est GFR (CKD-EPI)NonAf >90 (>60 ml/min/1.73 sqM) Glucose 148 H (74-99) mg/dL Calcium 9.4 (8.4-10.2) mg/dL Total Bilirubin 0.8 (0.2-1.3) mg/dL AST 45 H (14-36) U/L ALT 18 (4-34) U/L Alkaline Phosphatase 68 (38-126) U/L Total Protein 7.7 (6.3-8.2) g/dL Albumin 4.5 (3.5-5.0) g/dL Lipase 114 (23-300) U/L Serum Alcohol 324 H* mg/dL Disposition Clinical Impression: Alcohol intoxication Disposition: ADMITTED IP TO THIS [facility] Condition: Fair Referrals: Christie Prince MD [Primary Care Provider] - 1-2 days Decision Time: 19:40
[2024-04-23 18:31] LABS: Basophils # (A) 0.1 k/uL (0-0.2); Basophils % (A) 1 %; Eosinophils # (A) 0.2 k/uL (0-0.7); Eosinophils % (A) 2 %; HCT 41.9 % (34.0-46.0); HGB 13.8 gm/dL (11.4-16.0); Hypochromasia Slight; Lymphocytes # (A) 1.8 k/uL (1.0-4.8); Lymphocytes % (A) 28 %; MCH 30.3 pg (25.0-35.0); MCV 91.8 fL (80.0-100.0); Mean Platelet Volume 7.2; Monocytes # (A) 0.4 k/uL (0-1.0); Monocytes % (A) 6 %; Neutrophils # (A) 3.9 k/uL (1.3-7.7); Neutrophils % (A) 60 %; Platelet Count 280 k/uL (150-450); RBC 4.57 m/uL (3.80-5.40); RDW 13.5 % (11.5-15.5); WBC 6.5 k/uL (3.8-10.6)
[2024-04-23 18:42] LABS: ALT 18 U/L (4-34); African American GFR (CKD) >90 (>60 ml/min/1.73 sqM); Anion Gap 11 mmol/L; Blood Urea Nitrogen 6 mg/dL (7-17); Calcium 9.4 mg/dL (8.4-10.2); Carbon Dioxide 25 mmol/L (22-30); Chloride 106 mmol/L (98-107); Glucose 148 mg/dL (74-99); Lipase 114 U/L (23-300); Non-African American GFR(CKD) >90 (>60 ml/min/1.73 sqM); Sodium 142 mmol/L (137-145)
[2024-04-23 18:52] LABS: AST 45 U/L (14-36); Albumin 4.5 g/dL (3.5-5.0); Alcohol 324 mg/dL; Alkaline Phosphatase 68 U/L (38-126); Potassium 5.4 mmol/L (3.5-5.1); Total Bilirubin 0.8 mg/dL (0.2-1.3); Total Protein 7.7 g/dL (6.3-8.2)
[2024-04-23] MEDS ORDERED: LORazepam 2 MG/ML INJ IV PRN (18:56)
[2024-04-23] MEDS ORDERED: NALOXONE 0.4 MG/ML 1 ML VIAL IV PRN (19:37)
[2024-04-23] MEDS ORDERED: ACETAMINOPHEN TAB 500 MG TAB PO PRN (21:07)
[2024-04-23] MEDS ORDERED: IBUPROFEN 600 MG TAB PO PRN (21:07)
[2024-04-23] MEDS ORDERED: busPIRone HCl 5 MG TAB PO PRN (21:07)
[2024-04-23] MEDS: LORazepam 2 MG/ML INJ IV PRN (21:19)
[2024-04-23] MEDS: SODIUM CHLORIDE 0.9% 1,000 ML IV SCH (21:30)
[2024-04-23] MEDS: LURASIDONE 40 MG TAB PO SCH (21:47)
[2024-04-24] MEDS: LORazepam 2 MG/ML INJ IV PRN (04:05)
[2024-04-24 04:11] VITALS: BP 141/83; PULSE 80; RESP 18; TEMP 97.6
[2024-04-24 09:24] LABS: BUN/Creat Ratio 9.57 Ratio (12.00-20.00); Blood Urea Nitrogen 6.7 mg/dL (9.0-27.0); Calcium 8.5 mg/dL (8.7-10.3); Carbon Dioxide 21.7 mmol/L (21.6-31.8); Chloride 102 mmol/L (96-109); Glucose 138 mg/dL (70-110); Magnesium 1.3 mg/dL (1.5-2.4); Potassium 3.7 mmol/L (3.5-5.5); Sodium 139 mmol/L (135-145)
[2024-04-24] MEDS ORDERED: Magnesium Replacement Protocol 1 EACH MISC MISCELLANE PRN (10:37)
[2024-04-24] MEDS: MAGNESIUM SULFATE-D5W PMX 1 GM in DEXTROSE/WATER 1 100ML.BAG IVPB SCH (11:25)
--- NOTE | 2024-04-25 15:06 | P.HPIM ---
History of Present Illness H&P Date: 04/24/24 This is a 48-year-old female who presented to the emergency department with acute alcohol intoxication and also mental health well check as community mental health worker requested and evaluation. EtOH level was noted to be 324. Other labs within normal limits other than a magnesium of 1.3. Attempted to replace and patient refused reporting she would like to take something oral and wanted to leave. Patient was evaluated by psychiatry and cleared for discharge recommending outpatient follow-[facility] with [facility]. Patient was alert and oriented x 3 with a steady gait on physical examination. Patient reports she follows with Dr. Katie Woodson with a past medical history of significant alcohol use daily, diabetes, hyperlipidemia, osteoarthritis, seizure disorder, hypothyroidism, ADD/ADHD with anxiety depression. Patient admits to smoking at least 1 pack of cigarettes daily, drinking at least 1/5 of whiskey and admits to a past medical history of methamphetamine abuse. REVIEW OF SYSTEMS: CONSTITUTIONAL: No fever, no malaise, no fatigue. HEENT: No recent visual problems or hearing problems. Denied any sore throat. CARDIOVASCULAR: No chest pain, orthopnea, PND, no palpitations, no syncope. PULMONARY: No shortness of breath, no cough, no hemoptysis. GASTROINTESTINAL: No diarrhea, no nausea, no vomiting, no abdominal pain. NEUROLOGICAL: No headaches, no weakness, no numbness. HEMATOLOGICAL: Denies any bleeding or petechiae. GENITOURINARY: Denies any burning micturition, frequency, or urgency. MUSCULOSKELETAL/RHEUMATOLOGICAL: Denies any joint pain, swelling, or any muscle pain. ENDOCRINE: Denies any polyuria or polydipsia. The rest of the 14-point review of systems is negative. PHYSICAL EXAMINATION: GENERAL: The patient is alert and oriented x3, not in any acute distress. Well developed, thin built, elderly appearing, emaciated HEENT: Pupils are round and equally reacting to light. EOMI. No scleral icterus. No conjunctival pallor. Normocephalic, atraumatic. No pharyngeal erythema. No thyromegaly. CARDIOVASCULAR: S1 and S2 present. No murmurs, rubs, or gallops. PULMONARY: Chest is clear to auscultation, no wheezing or crackles. ABDOMEN: Soft, thin, mildly distended although soft, nontender, nondistended, normoactive bowel sounds. No palpable organomegaly. MUSCULOSKELETAL: No joint swelling or deformity. EXTREMITIES: No cyanosis, clubbing, or pedal edema. NEUROLOGICAL: Gross neurological examination did not reveal any focal deficits. SKIN: No rashes. Assessment: Acute alcohol intoxication Heavy daily alcohol use Hypomagnesemia, magnesium was 1.3 History of diabetes mellitus, uncontrolled with hyperglycemia Osteoarthritis history Seizure disorder Hypothyroidism History of ADD/ADHD with depression Continued ongoing nicotine dependence Previous history of methamphetamine use and abuse Moderate protein calorie malnutrition with a BMI 23.6 Noncompliance with medications and follow-up Prophylaxis DVT prophylaxis Full code Plan: Patient was admitted on [facility] protocol and also to have psychiatry evaluated for a mental health wellness check per [facility] worker who sent her here Patient was noted be intoxicated with a blood alcohol level of 324 Patient evaluated by psychiatry reporting she does not meet inpatient criteria and has been cleared to follow-up with [facility] outpatient Attempted to replace magnesium via IV piggyback although patient refused reporting she would like something orally Per nursing staff in the ER, patient was wanting to leave and was instructed she can leave AMA. Patient was actually discharged and did not leave AGAINST MEDICAL ADVICE. Patient is high risk for readmissions and has no desire to quit drinking Prognosis guarded The impression and plan of care has been dictated by Ailyn Paul, Nurse Practitioner as directed. Dr. Paolo MD I have performed a history and examination and MDM of this patient, discussed the same with the dictator, and agree with the dictator's assessment and plan as written ,documented as a scribe. Based on total visit time, I have performed more than 50% of the visit. Past Medical History Past Medical History: Diabetes Mellitus, Hyperlipidemia, Osteoarthritis (OA), Seizure Disorder, Thyroid Disorder Additional Past Medical History / Comment(s): Hx "high blood sugar was on Metformin but sugars are normal now and no longer taking Metformin." Hx 2 s eizures on 04/28/18 at [facility], from alcohol withdrawl. Hx opiate overdose 2010, with respiratory failure, on vent. HERNIATED DISCS. MIGRAINES. HX PANCREATITIS. IBS. History of Any Multi-Drug Resistant Organisms: None Reported Past Surgical History: Tubal Ligation Additional Past Surgical History / Comment(s): EGD, colonoscopy, D&C, right groin cyst removed, PICC line placed and later removed while in hospital for overdose. Past Anesthesia/Blood Transfusion Reactions: No Reported Reaction Past Psychological History: ADD/ADHD, Anxiety, Depression Additional Psychological History / Comment(s): ADHD. Smoking Status: Current every day smoker Past Alcohol Use History: Abuse, Daily, Heavy Additional Past Alcohol Use History / Comment(s): Patient reports she is an alco holic and drinks a fifth of alcohol daily. Patient aware no alcohol for at least 24 hrs prior to procedure. States Dr Alejandro aware she's an alcoholic. Smokes 1 pack per day. Past Drug Use History: Methamphetamine, Opiates Additional Drug Use History / Comment(s): Patient reports "no opiate abuse in years and no meth in months". - Past Family History Mother Family Medical History: Cancer Father History Unknown: Yes Family Medical History: Deep Vein Thrombosis (DVT) Medications and Allergies Home Medications Medication Instructions Recorded Confirmed Type Lurasidone [Latuda] 40 mg PO HS 11/08/22 04/24/24 History Dicyclomine [Bentyl] 20 mg PO TID 04/24/24 04/24/24 History Ergocalciferol (Vitamin D2) 1,250 mcg PO MO 04/24/24 04/24/24 History [Drisdol (50,000 Iu)] Fenofibrate Nanocrystallized 145 mg PO DAILY 04/24/24 04/24/24 History [Fenofibrate] Folic Acid 1 mg PO DAILY 04/24/24 04/24/24 History Levothyroxine Sodium [Synthroid] 50 mcg PO DAILY 04/24/24 04/24/24 History Loperamide [Imodium] 2 mg PO TID PRN 04/24/24 04/24/24 History Magnesium Oxide [Mag-Ox] 400 mg PO BID #60 tablet 04/24/24 Rx Ondansetron Odt [Zofran ODT] 4 mg PO DAILY PRN 04/24/24 04/24/24 History Pantoprazole Sodium [Protonix] 20 mg PO DAILY 04/24/24 04/24/24 History Potassium Chloride ER [K-Dur 10] 10 meq PO BID 04/24/24 04/24/24 History busPIRone HCl [Buspar] 20 mg PO BID 04/24/24 04/24/24 History cloNIDine HCL [Catapres] 0.1 mg PO BID PRN 04/24/24 04/24/24 History sitaGLIPtin [Januvia] 25 mg PO DAILY 04/24/24 04/24/24 History traZODone HCL [Desyrel] 200 mg PO HS PRN 04/24/24 04/24/24 History Allergies Allergy/AdvReac Type Severity Reaction Status Date / Time No Known Allergies Allergy Verified 04/24/24 10:22 Physical Exam Vitals: Vital Signs Temp Pulse Resp BP Pulse Ox 04/24/24 04:10 97.6 F 80 18 141/83 96 04/23/24 18:16 98.3 F 101 H 20 120/69 95 Intake and Output 04/23/24 04/24/24 04/24/24 22:59 06:59 14:59 Other: Weight 72.575 kg Results CBC & Chem 7: 04/23/24 18:23 04/24/24 05:05 Labs: Abnormal Lab Results - Last 24 Hours (Table) 04/23/24 04/24/24 Range/Units 18:23 05:05 Potassium 5.4 H (3.5-5.1) mmol/L Anion Gap 15.30 H (4.00-12.00) mmol/L BUN 6 L 6.7 L (7-17) mg/dL BUN/Creatinine Ratio 9.57 L (12.00-20.00) Ratio Glucose 148 H 138 H (74-99) mg/dL Calcium 8.5 L (8.7-10.3) mg/dL Magnesium 1.3 L (1.5-2.4) mg/dL AST 45 H (14-36) U/L Serum Alcohol 324 H* mg/dL
--- NOTE | 2024-04-25 15:09 | P.DS ---
Providers Date of admission: 04/23/24 19:38 Expected date of discharge: 04/24/24 Attending physician: Jean Woodson Consults: 04/23/24 19:37 Consult Physician Routine Consulting Provider: Gualberto Gutierrez Consult Reason/Comments: mental [facility] Do you want consulting provider notified?: Yes Primary care physician: Christie Prince [facility] Course: Final diagnosis Acute alcohol intoxication Heavy daily alcohol use Hypomagnesemia, magnesium was 1.3 History of diabetes mellitus, uncontrolled with hyperglycemia Osteoarthritis history Seizure disorder Hypothyroidism History of ADD/ADHD with depression Continued ongoing nicotine dependence Previous history of methamphetamine use and abuse Moderate protein calorie malnutrition with a BMI 23.6 Noncompliance with medications and follow-up Prophylaxis DVT prophylaxis Full code Discharge disposition Patient is being discharged in a stable condition with guarded prognosis to home. Patient will follow-up with Dr. Niko Woodson in the outpatient setting upon discharge. Patient is to follow-up with community mental health outpatient as scheduled. Total time taken is greater than 35 minutes. Hospital course This is a 48-year-old female who was recently admitted with acute alcohol intoxication for a mental health evaluation per [facility]. Patient reports her worker called the EMS for an evaluation at the home found to be intoxicated. Patient reports she drinks 1/5 of whiskey daily and was intoxicated on admission. On exam patient was alert and oriented x 3 with a steady gait awaiting psychiatry evaluation. Patient was evaluated and cleared reporting she does not meet inpatient criteria and to follow-up with [facility] outpatient. Patient extremely anxious to want a leave and per nursing staff she was leaving AGAINST MEDICAL ADVICE. Patient was actually discharged by admitting services and instructed to follow-up with primary care provider on discharge. Patient was also provided a prescription for magnesium as she refused to receive the IV replacement with a magnesium of 1.4. Patient was to be continued on magnesium oxide 400 mg twice daily with outpatient follow-up for repeat labs in the next few days. Currently no reports of chest pain, shortness of breath, or palpitations. Patient is afebrile. No reports of nausea or vomiting and patient is tolerating diet. Patient will be discharged home today. High risk for readmissions given patient's continued alcohol use and abuse. Patient reports she has no desire to quit at this time. Physical exam: Gen: This is a 48-year-old female who is awake, alert and oriented x 3, thin built, elderly appearing, cachectic HEENT: Head is atraumatic, normocephalic. Pupils equal, round. Sclerae is anicteric. NECK: Supple. No JVD. No lymphadenopathy. No thyromegaly. LUNGS: Clear to auscultation. No wheezes or rhonchi. No intercostal retractions. HEART: Regular rate and rhythm. No murmur. ABDOMEN: Soft. Mildly distended although soft. Bowel sounds are present. No masses. No tenderness. EXTREMITIES: No pedal edema. No calf tenderness. NEUROLOGICAL: Patient is awake, alert and oriented x3. Cranial nerves 2 through 12 are grossly intact. Please refer to medication reconciliation sheet for a list of medications. The impression and plan of care has been dictated by Ailyn Paul, Nurse Practitioner as directed. Dr. Paolo MD I have performed a history and examination and MDM of this patient, discussed the same with the dictator, and agree with the dictator's assessment and plan as written ,documented as a scribe. Based on total visit time, I have performed more than 50% of the visit. Patient Condition at Discharge: Fair Plan - Discharge Summary New Discharge Prescriptions: New Magnesium Oxide [Mag-Ox] 400 mg PO BID #60 tablet Continue Lurasidone [Latuda] 40 mg PO HS Potassium Chloride ER [K-Dur 10] 10 meq PO BID Fenofibrate Nanocrystallized [Fenofibrate] 145 mg PO DAILY sitaGLIPtin [Januvia] 25 mg PO DAILY cloNIDine HCL [Catapres] 0.1 mg PO BID PRN PRN Reason: acute anxiety attacks Pantoprazole Sodium [Protonix] 20 mg PO DAILY Loperamide [Imodium] 2 mg PO TID PRN PRN Reason: Diarrhea traZODone HCL [Desyrel] 200 mg PO HS PRN PRN Reason: sleep Folic Acid 1 mg PO DAILY Levothyroxine Sodium [Synthroid] 50 mcg PO DAILY busPIRone HCl [Buspar] 20 mg PO BID Ergocalciferol (Vitamin D2) [Drisdol (50,000 Iu)] 1,250 mcg PO MO Ondansetron Odt [Zofran ODT] 4 mg PO DAILY PRN PRN Reason: Nausea Dicyclomine [Bentyl] 20 mg PO TID Discharge Medication List Lurasidone [Latuda] 40 mg PO HS 03/14/23 [History] Dicyclomine [Bentyl] 20 mg PO TID 04/24/24 [History] Ergocalciferol (Vitamin D2) [Drisdol (50,000 Iu)] 1,250 mcg PO MO 04/24/24 [History] Fenofibrate Nanocrystallized [Fenofibrate] 145 mg PO DAILY 04/24/24 [History] Folic Acid 1 mg PO DAILY 04/24/24 [History] Levothyroxine Sodium [Synthroid] 50 mcg PO DAILY 04/24/24 [History] Loperamide [Imodium] 2 mg PO TID PRN 04/24/24 [History] Magnesium Oxide [Mag-Ox] 400 mg PO BID #60 tablet 04/24/24 [Rx] Ondansetron Odt [Zofran ODT] 4 mg PO DAILY PRN 04/24/24 [History] Pantoprazole Sodium [Protonix] 20 mg PO DAILY 04/24/24 [History] Potassium Chloride ER [K-Dur 10] 10 meq PO BID 04/24/24 [History] busPIRone HCl [Buspar] 20 mg PO BID 04/24/24 [History] cloNIDine HCL [Catapres] 0.1 mg PO BID PRN 04/24/24 [History] sitaGLIPtin [Januvia] 25 mg PO DAILY 04/24/24 [History] traZODone HCL [Desyrel] 200 mg PO HS PRN 04/24/24 [History] Follow up Appointment(s)/Referral(s): Christie Prince MD [Primary Care Provider] - 1-2 days [facility][1] [NON-STAFF] - 1 Week Ambulatory/Diagnostic Orders: Magnesium [LAB.AMB] Time Frame: 2 Days, Location: None Selected Activity/Diet/Wound Care/Special Instructions: activity limited until follow up follow up with pcp on discharge follow up with [facility] outpatient avoid alcohol Discharge Disposition: HOME SELF-CARE
== END 2024-04-24 12:12 | disposition home or self-care (01) | DRG 775 ==
LOC: EC 17:44 → 4SSUR 19:38 → 5NMEDONC 04-24 00:42
PROVIDERS: ADMIT Hospitalist; ATTEND Hospitalist
DX: F10.229 Alcohol dependence with intoxication, unspecified (principal); E44.0 Moderate protein-calorie malnutrition; G40.909 Epilepsy, unspecified, not intractable, without status epilepticus; E11.9 Type 2 diabetes mellitus without complications; E03.9 Hypothyroidism, unspecified; F15.11 Other stimulant abuse, in remission; F32.A Depression, unspecified; E83.42 Hypomagnesemia; M19.90 Unspecified osteoarthritis, unspecified site; F17.210 Nicotine dependence, cigarettes, uncomplicated; E78.5 Hyperlipidemia, unspecified; F41.9 Anxiety disorder, unspecified; Y90.8 Blood alcohol level of 240 mg/100 ml or more; Z68.23 Body mass index [BMI] 23.0-23.9, adult; Z91.148 Patient's other noncompliance with medication regimen for other reason; Z79.890 Hormone replacement therapy; Z79.899 Other long term (current) drug therapy
CPT/HCPCS: 96374; 96376; 99285

== ENCOUNTER 2024-06-05 09:43 | Observation (INO) | payer OTHER ==
--- NOTE | 2024-06-05 10:32 | ED ---
General Adult HPI - General Chief complaint: Altered Mental Status Stated complaint: Seizure Time Seen by Provider: 06/05/24 09:55 Source: patient, EMS, RN notes reviewed, old records reviewed Mode of arrival: EMS Limitations: no limitations - History of Present Illness Initial comments: This is a 48-year-old female who presents to the emergency department and per EMS the family states she probably had a seizure last night and look like she had another seizure today and so they called EMS. They did not feel necessary to call EMS yesterday. Per EMS she just got out of rehabilitation for alcohol abuse and has not drank in a week. Family states that they have not noticed her drinking. Patient herself denies any drinking or drug use. Patient still seems a little postictal so her history is not that accurate. She denies any pain currently. Patient denies any difficulty breathing shortness of breath. Patient denies nausea patient denies abdominal pain. Patient has obvious trauma on her inferior orbital region however she does not know when it occurred but does not think it occurred today. - Related Data Home Medications Medication Instructions Recorded Confirmed Lurasidone [Latuda] 40 mg PO HS 11/08/22 06/05/24 Dicyclomine [Bentyl] 20 mg PO TID 04/24/24 06/05/24 Ergocalciferol (Vitamin D2) 1,250 mcg PO MO 04/24/24 06/05/24 [Drisdol (50,000 Iu)] Fenofibrate Nanocrystallized 145 mg PO DAILY 04/24/24 06/05/24 [Fenofibrate] Folic Acid 1 mg PO DAILY 04/24/24 06/05/24 Levothyroxine Sodium [Synthroid] 50 mcg PO DAILY 04/24/24 06/05/24 Loperamide [Imodium] 2 mg PO TID PRN 04/24/24 06/05/24 Ondansetron Odt [Zofran ODT] 4 mg PO DAILY PRN 04/24/24 06/05/24 Pantoprazole Sodium [Protonix] 20 mg PO DAILY 04/24/24 06/05/24 Potassium Chloride ER [K-Dur 10] 10 meq PO BID 04/24/24 06/05/24 busPIRone HCl [Buspar] 20 mg PO BID 04/24/24 06/05/24 cloNIDine HCL [Catapres] 0.1 mg PO BID PRN 04/24/24 06/05/24 sitaGLIPtin [Januvia] 25 mg PO DAILY 04/24/24 06/05/24 traZODone HCL [Desyrel] 200 mg PO HS PRN 04/24/24 06/05/24 Previous Rx's Medication Instructions Recorded Magnesium Oxide [Mag-Ox] 400 mg PO BID #60 tablet 04/24/24 Allergies Allergy/AdvReac Type Severity Reaction Status Date / Time No Known Allergies Allergy Verified 06/05/24 09:58 Review of Systems ROS Statement: Those systems with pertinent positive or pertinent negative responses have been documented in the HPI. ROS Other: All systems not noted in ROS Statement are negative. Past Medical History Past Medical History: Diabetes Mellitus, Hyperlipidemia, Osteoarthritis (OA), Seizure Disorder, Thyroid Disorder Additional Past Medical History / Comment(s): Hx "high blood sugar was on Metformin but sugars are normal now and no longer taking Metformin." Hx 2 seizures on 04/28/18 at [place], from alcohol withdrawl. Hx opiate overdose 2010, with respiratory failure, on vent. HERNIATED DISCS. MIGRAINES. HX PANCREATITIS. IBS. History of Any Multi-Drug Resistant Organisms: None Reported Past Surgical History: Tubal Ligation Additional Past Surgical History / Comment(s): EGD, colonoscopy, D&C, right groin cyst removed, PICC line placed and later removed while in hospital for overdose. Past Anesthesia/Blood Transfusion Reactions: No Reported Reaction Past Psychological History: ADD/ADHD, Anxiety, Depression Smoking Status: Current every day smoker Past Alcohol Use History: Abuse, Daily, Heavy Past Drug Use History: Methamphetamine, Opiates - Past Family History Mother Family Medical History: Cancer Father History Unknown: Yes Family Medical History: Deep Vein Thrombosis (DVT) General Exam - General Exam Comments Initial Comments: GENERAL: Patient is well-developed and well-nourished. Patient is nontoxic and well- hydrated and is in mild distress. ENT: Neck is soft and supple. No significant lymphadenopathy is noted. Oropharynx is clear. Moist mucous membranes. Neck has full range of motion without eliciting any pain. EYES: The sclera were anicteric and conjunctiva were pink and moist. Patient has ecchymosis of the lower right eyelid extraocular movements were intact and pupils were equal round and reactive to light. Eyelids were unremarkable. PULMONARY: Unlabored respirations. Good breath sounds bilaterally. No audible rales rhonchi or wheezing was noted. CARDIOVASCULAR: There is a regular rate and rhythm without any murmurs gallops or rubs. ABDOMEN: Soft and nontender with normal bowel sounds. SKIN: Skin is clear with no lesions or rashes and otherwise unremarkable. NEUROLOGIC: Patient is alert and oriented x 2. Cranial nerves II through XII are grossly intact. Motor and sensory are also intact. Normal speech, volume and content. Symmetrical smile. MUSCULOSKELETAL: Normal extremities with adequate strength and full range of motion. LYMPHATICS: No significant lymphadenopathy is noted PSYCHIATRIC: Normal psychiatric evaluation. Limitations: no limitations Course Vital Signs 06/05/24 06/05/24 06/05/24 09:48 10:30 11:36 Temperature 98.6 F Pulse Rate 92 84 78 Respiratory 16 18 20 Rate Blood Pressure 139/81 144/93 130/93 O2 Sat by Pulse 97 97 Oximetry 06/05/24 13:15 Temperature Pulse Rate 83 Respiratory 18 Rate Blood Pressure 138/81 O2 Sat by Pulse 97 Oximetry Medical Decision Making - Medical Decision Making EKG is interpreted by myself but EKG shows sinus rhythm at 83 bpm MI interval 150 QRS 101 QT interval is 4 6 QTc is 446. Patient EKG shows no ST segment ovation or depression. Was pt. sent in by a medical professional or institution ([facility], [facility], urgent care, hospital, or [facility]...) When possible be specific @ -No Did you speak to anyone other than the patient for history (EMS, parent, family, police, friend...)? What history was obtained from this source @ -Most of the history comes from EMS because patient is altered Did you review nursing and triage notes (agree or disagree)? Why? @ -I reviewed and agree with nursing and triage notes Were old charts reviewed (outside hosp., previous admission, EMS record, old EKG, old radiological studies, urgent care reports/EKG's, [facility] records)? Report findings @ -No old charts were reviewed Differential Diagnosis? @ -Differential Altered Mental Status: Hypoglycemia, DKA, hypercapnia, ETOH, overdose, CO poisoning, trauma, myxedema coma, HTN encephalopathy, infection, encephalitis, psychosis, intercranial hemorrhage, hepatic encephalopathy, meningitis, CVA, this is not meant to be an all-inclusive list EKG interpreted by me (3pts min.). @ -As above X-rays interpreted by me (1pt min.). @ -Chest x-ray shows no acute abnormality CT interpreted by me (1pt min.). @ -CT of the brain shows no acute abnormality. CT of the C-spine shows no acute abnormality. CT of the facial bones showed a maxillary sinus fracture U/S interpreted by me (1pt. min.). @ -None done What testing was considered but not performed or refused? (CT, X-rays, U/S, labs)? Why? @ -None What meds were considered but not given or refused? Why? @ -None Did you discuss the management of the patient with other professionals (professionals i.e. , PA, [employer], lab, RT, psych nurse, hospital social worker, electronics test engineer, teacher, psychological operations officer, correctional case manager)? Give summary @ -I spoke with Dr. Woodson he agreed to admit the patient admit the patient wrote admitting orders Was smoking cessation discussed for >3mins.? @ -No Was critical care preformed (if so, how long)? @ -No Were there social determinants of health that impacted care today? How? (Homelessness, low income, unemployed, alcoholism, drug addiction, transportation, low edu. Level, literacy, decrease access to med. care, senior living, rehab)? @ -No Was there de-escalation of care discussed even if they declined (Discuss DNR or withdrawal of care, Hospice)? DNR status @ -No What co-morbidities impacted this encounter? (DM, HTN, Smoking, COPD, CAD, Cancer, CVA, ARF, Chemo, Hep., AIDS, mental health diagnosis, sleep apnea, morbid obesity)? @ -None Was patient admitted / discharged? Hospital course, mention meds given and route, prescriptions, significant lab abnormalities, going to OR and other pertinent info. @ -Patient remained altered throughout her ED course she did have methamphetamines on board as well as benzodiazepines. Patient states it has been a few days since she took those but her history is unreliable because initially she told me she never did any illegal drugs. Patient also has a maxillary sinus fracture. Undiagnosed new problem with uncertain prognosis? @ -No Drug Therapy requiring intensive monitoring for toxicity (Heparin, Nitro, Insulin, Cardizem)? @ -No Were any procedures done? @ -No Diagnosis/symptom? @ -Altered mental status Acute, or Chronic, or Acute on Chronic? @ -Acute Uncomplicated (without systemic symptoms) or Complicated (systemic symptoms)? @ -Complicated Side effects of treatment? @ -No Exacerbation, Progression, or Severe Exacerbation? @ -No Poses a threat to life or bodily function? How? (Chest pain, [place], [place], pneumonia, PE, COPD, DKA, ARF, appy, cholecystitis, CVA, Diverticulitis, Homicidal, Suicidal, threat to staff... and all critical care pts) @ -No Diagnosis/symptom? @ -Methamphetamine abuse Acute, or Chronic, or Acute on Chronic? @ -Acute Uncomplicated (without systemic symptoms) or Complicated (systemic symptoms)? @ -Complicated Side effects of treatment? @ -None Exacerbation, Progression, or Severe Exacerbation] @ -No Poses a threat to life or bodily function? @ -No Diagnosis/symptom? @ -Maxillary sinus fracture Acute, or Chronic, or Acute on Chronic? @ -Acute Uncomplicated (without systemic symptoms) or Complicated (systemic symptoms)? @ -Uncomplicated Side effects of treatment? @ -None Exacerbation, Progression, or Severe Exacerbation] @ -No Poses a threat to life or bodily function? @ -No Diagnosis/symptom? @ -Seizure Acute, or Chronic, or Acute on Chronic? @ -Acute Uncomplicated (without systemic symptoms) or Complicated (systemic symptoms)? @ -Complicated Side effects of treatment? @ -None Exacerbation, Progression, or Severe Exacerbation] @ -No Poses a threat to life or bodily function? @ -No - Lab Data Result diagrams: 06/05/24 10:39 06/05/24 10:39 Lab Results 06/05/24 06/05/24 06/05/24 Range/Units 10:39 10:39 10:39 WBC 8.7 (3.8-10.6) k/uL RBC 4.53 (3.80-5.40) m/uL Hgb 13.6 (11.4-16.0) gm/dL Hct 43.0 (34.0-46.0) % MCV 94.8 (80.0-100.0) fL MCH 30.0 (25.0-35.0) pg MCHC 31.7 (31.0-37.0) g/dL RDW 15.1 (11.5-15.5) % Plt Count 271 (150-450) k/uL MPV 7.3 Neutrophils % 83 % Lymphocytes % 8 % Monocytes % 5 % Eosinophils % 1 % Basophils % 0 % Neutrophils # 7.2 (1.3-7.7) k/uL Lymphocytes # 0.7 L (1.0-4.8) k/uL Monocytes # 0.5 (0-1.0) k/uL Eosinophils # 0.0 (0-0.7) k/uL Basophils # 0.0 (0-0.2) k/uL Sodium 136 L (137-145) mmol/L Potassium 4.5 (3.5-5.1) mmol/L Chloride 100 (98-107) mmol/L Carbon Dioxide 26 (22-30) mmol/L Anion Gap 10 mmol/L BUN 17 (7-17) mg/dL Creatinine 0.54 (0.52-1.04) mg/dL Est GFR (CKD-EPI)AfAm >90 (>60 ml/min/1.73 sqM) Est GFR (CKD-EPI)NonAf >90 (>60 ml/min/1.73 sqM) Glucose 113 H (74-99) mg/dL Calcium 9.9 (8.4-10.2) mg/dL Magnesium 2.1 (1.6-2.3) mg/dL Total Bilirubin 1.0 (0.2-1.3) mg/dL AST 71 H (14-36) U/L ALT 27 (4-34) U/L Alkaline Phosphatase 42 (38-126) U/L Ammonia (<30) umol/L Total Protein 8.7 H (6.3-8.2) g/dL Albumin 5.0 (3.5-5.0) g/dL Urine Color Urine Appearance (Clear) Urine pH (5.0-8.0) Ur Specific [place] (1.001-1.035) Urine Protein (Negative) Urine Glucose (UA) (Negative) Urine Ketones (Negative) Urine Blood (Negative) Urine Nitrite (Negative) Urine Bilirubin (Negative) Urine Urobilinogen (<2.0) mg/dL Ur Leukocyte Esterase (Negative) Urine Opiates Screen Not Detected (NotDetected) Ur Oxycodone Screen Not Detected (NotDetected) Urine Methadone Screen Not Detected (NotDetected) Ur Barbiturates Screen Not Detected (NotDetected) U Tricyclic Antidepress Not Detected (NotDetected) Ur Phencyclidine Scrn Not Detected (NotDetected) Ur Amphetamines Screen Detected H (NotDetected) U Methamphetamines Scrn Detected H (NotDetected) U Benzodiazepines Scrn Detected H (NotDetected) Urine Cocaine Screen Not Detected (NotDetected) U Marijuana (THC) Screen Not Detected (NotDetected) Serum Alcohol <10 mg/dL 06/05/24 06/05/24 Range/Units 10:39 10:39 WBC (3.8-10.6) k/uL RBC (3.80-5.40) m/uL Hgb (11.4-16.0) gm/dL Hct (34.0-46.0) % MCV (80.0-100.0) fL MCH (25.0-35.0) pg MCHC (31.0-37.0) g/dL RDW (11.5-15.5) % Plt Count (150-450) k/uL MPV Neutrophils % % Lymphocytes % % Monocytes % % Eosinophils % % Basophils % % Neutrophils # (1.3-7.7) k/uL Lymphocytes # (1.0-4.8) k/uL Monocytes # (0-1.0) k/uL Eosinophils # (0-0.7) k/uL Basophils # (0-0.2) k/uL Sodium (137-145) mmol/L Potassium (3.5-5.1) mmol/L Chloride (98-107) mmol/L Carbon Dioxide (22-30) mmol/L Anion Gap mmol/L BUN (7-17) mg/dL Creatinine (0.52-1.04) mg/dL Est GFR (CKD-EPI)AfAm (>60 ml/min/1.73 sqM) Est GFR (CKD-EPI)NonAf (>60 ml/min/1.73 sqM) Glucose (74-99) mg/dL Calcium (8.4-10.2) mg/dL Magnesium (1.6-2.3) mg/dL Total Bilirubin (0.2-1.3) mg/dL AST (14-36) U/L ALT (4-34) U/L Alkaline Phosphatase (38-126) U/L Ammonia 12 (<30) umol/L Total Protein (6.3-8.2) g/dL Albumin (3.5-5.0) g/dL Urine Color Light Yellow Urine Appearance Clear (Clear) Urine pH 7.5 (5.0-8.0) Ur Specific [place] 1.023 (1.001-1.035) Urine Protein Trace H (Negative) Urine Glucose (UA) Negative (Negative) Urine Ketones Negative (Negative) Urine Blood Negative (Negative) Urine Nitrite Negative (Negative) Urine Bilirubin Negative (Negative) Urine Urobilinogen <2.0 (<2.0) mg/dL Ur Leukocyte Esterase Negative (Negative) Urine Opiates Screen (NotDetected) Ur Oxycodone Screen (NotDetected) Urine Methadone Screen (NotDetected) Ur Barbiturates Screen (NotDetected) U Tricyclic Antidepress (NotDetected) Ur Phencyclidine Scrn (NotDetected) Ur Amphetamines Screen (NotDetected) U Methamphetamines Scrn (NotDetected) U Benzodiazepines Scrn (NotDetected) Urine Cocaine Screen (NotDetected) U Marijuana (THC) Screen (NotDetected) Serum Alcohol mg/dL Disposition Clinical Impression: Seizure, Methamphetamine abuse, Maxillary sinus fracture, Altered mental status Disposition: ADMITTED IP TO THIS [facility] Referrals: Christie Prince MD [Primary Care Provider] - 1-2 days Time of Disposition: 14:07
[2024-06-05] MEDS: SODIUM CHLORIDE 0.9% 1,000 ML IV ONE ×2 (10:38→14:57)
--- NOTE | 2024-06-05 10:48 | CT ---
EXAMINATION TYPE: CT brain cspine wo con, CT facial bones wo con CT DLP: 1053.8 (accession [id number]), combined with head/cspine exam (accession [id number]) mGycm, Autom ated exposure control for dose reduction was used. DATE OF EXAM: 06/05/2024 10:30 AM COMPARISON: CT brain 08/25/2020 CLINICAL INDICATION:Female, 48 years old with history of Trauma; seizure/trauma/etoh (accession [id number]), etoh/seizure/trauma (accession [id number]) TECHNIQUE: Brain: Multiple axial CT images of the brain were obtained without IV contrast. Cspine: Axial CT images from the skull base to the inferior aspect of T2 we obtained without intraven ous contrast. Coronal and sagittal reformatted images were also reviewed. Facial bones; axial CT images of the facial bones were obtained without contrast and soft tissue and bone windows. Coronal and sagittal reformatted images were also reviewed. FINDINGS: Brain: Extra-axial spaces: No abnormal extra-axial fluid collections. Ventricular system: Within normal limits Cerebral parenchyma: No acute intraparenchymal hemorrhage or mass effect. The pineda-white junction is well differentiated. Cerebellum: Unremarkable. Mass effect: No evidence of midline shift. Intracranial vasculature: unremarkable Soft tissues: Right forehead soft tissue contusion. Calvarium/osseous structures: No depressed skull fracture. Benign hyperostosis frontalis noted. Pleas e refer to CT Facial Bones for findings. Paranasal sinuses and mastoid air cells: Mastoid air cells are clear. Please refer to CT facial bones for findings. Visualized orbits: Orbital contents are intact. Cervical spine: Motion degraded exam. Fracture: None. Osseous structures: Multilevel degenerative disc disease changes with endplate spurring and disc oste ophyte complex's. Vertebral alignment: No spondylolisthesis. Reversal of the normal cervical lordosis. Spinal canal/Neural Foramina: Disc osteophyte complexes at C5-C6 with at least mild spinal canal sten osis. Facet joint uncovertebral joint arthropathy scattered throughout the cervical spine with varyin g degrees of neural foraminal stenosis. Neck soft tissues: Prevertebral soft tissues are within normal limits. Prominent left supraclavicular lymph nodes measuring up to 0.7 cm short axis. Other: The airway is patent. Biapical pleural-parenchymal scarring. Facial Bones: Acute fractures of the superior and lateral right maxillary sinus dickey with opacification and gas li kennedy representing blood products. Approximately 2 mm of depression of the superior sinus wall. No def initive entrapment of the inferior right orbital muscle. Remaining paranasal sinuses are clear. Mild right forehead and cheek soft tissue swelling. The orbits appear intact with the retrobulbar fat iram r. The temporal-mandibular joints appear symmetric. IMPRESSION: Motion degraded exam. 1. No acute intracranial process. 2. Acute minimally displaced fractures of the superior and lateral right maxillary sinus dickey. Bloo d products and gas identified within the right maxillary sinus. Orbits appear intact. Additional mild soft tissue swelling of the right forehead and right cheek. 3. No evidence of cervical spine fracture. 4. Mild multilevel degenerative disc disease. [facility], , 06/05/2024 10:45 AM
[2024-06-05 10:56] LABS: Basophils % (A) 0 %; Eosinophils % (A) 1 %; HGB 13.6 gm/dL (11.4-16.0); Lymphocytes # (A) 0.7 k/uL (1.0-4.8); Lymphocytes % (A) 8 %; MCHC 31.7 g/dL (31.0-37.0); MCV 94.8 fL (80.0-100.0); Mean Platelet Volume 7.3; Monocytes # (A) 0.5 k/uL (0-1.0); Monocytes % (A) 5 %; Neutrophils # (A) 7.2 k/uL (1.3-7.7); Neutrophils % (A) 83 %; Platelet Count 271 k/uL (150-450); RBC 4.53 m/uL (3.80-5.40); RDW 15.1 % (11.5-15.5); WBC 8.7 k/uL (3.8-10.6)
--- NOTE | 2024-06-05 10:58 | XR ---
EXAMINATION TYPE: XR chest 2V DATE OF EXAM: 06/05/2024 COMPARISON: 05/24/2022 HISTORY: 48-year-old female confusion, altered mental status TECHNIQUE: AP and lateral views FINDINGS: Heart upper limits of normal in size. Mild interstitial prominence is a chronic appearance. No consol idation or pleural effusion. IMPRESSION: Chronic changes. No definite acute process. [facility], , 06/05/2024 10:56 AM
[2024-06-05 11:01] LABS: Appearance,Urine Clear (Clear); Bilirubin,Urine Negative (Negative); Blood,Urine Negative (Negative); Color,Urine Light Yellow; Glucose,Urine (UA) Negative (Negative); Ketones,Urine Negative (Negative); Leukocyte Esterase,Urine Negative (Negative); Nitrite,Urine Negative (Negative); PH, Urine 7.5 (5.0-8.0); Protein,Urine Trace (Negative); Specific Gravity,Urine 1.023 (1.001-1.035); Urobilinogen,Urine <2.0 mg/dL (<2.0)
[2024-06-05 11:29] LABS: ALT 27 U/L (4-34); African American GFR (CKD) >90 (>60 ml/min/1.73 sqM); Alcohol <10 mg/dL; Anion Gap 10 mmol/L; Blood Urea Nitrogen 17 mg/dL (7-17); Calcium 9.9 mg/dL (8.4-10.2); Carbon Dioxide 26 mmol/L (22-30); Chloride 100 mmol/L (98-107); Glucose 113 mg/dL (74-99); Non-African American GFR(CKD) >90 (>60 ml/min/1.73 sqM); Sodium 136 mmol/L (137-145); Total Protein 8.7 g/dL (6.3-8.2)
[2024-06-05 11:33] LABS: AST 71 U/L (14-36); Alkaline Phosphatase 42 U/L (38-126); Magnesium 2.1 mg/dL (1.6-2.3); Potassium 4.5 mmol/L (3.5-5.1)
[2024-06-05 11:53] LABS: Amphetamine Screen,Urine Detected (NotDetected); Barbiturate Screen,Urine Not Detected (NotDetected); Benzodiazepines Screen,Urine Detected (NotDetected); Cocaine Screen,Urine Not Detected (NotDetected); Methadone Screen, Urine Not Detected (NotDetected); Opiate Screen,Urine Not Detected (NotDetected); Oxycodone Screen, Urine Not Detected (NotDetected); Phencyclidine Screen,Urine Not Detected (NotDetected); Tricyclic Antidepressant,Urine Not Detected (NotDetected); Urn Cannabinoid Scrn Not Detected (NotDetected)
[2024-06-05] MEDS ORDERED: ONDANSETRON ODT 4 MG TAB PO PRN (14:15)
[2024-06-05] MEDS: HEPARIN SODIUM,PORCINE 5,000 UNIT/ML 1 ML VIAL SQ SCH (14:58)
[2024-06-05] MEDS: cloNIDine HCL 0.1 MG TAB PO SCH (14:59)
[2024-06-05] MEDS: LEVOTHYROXINE 50 MCG TAB PO SCH (15:05)
[2024-06-05] MEDS: THIAMINE 100 MG TAB PO SCH (15:52)
[2024-06-05] MEDS: IBUPROFEN 200 MG TAB PO PRN (15:52)
--- NOTE | 2024-06-05 16:54 | P.CNNES ---
History of Present Illness Consult date: 06/05/24 Requesting physician: Gabriel Garg Reason for Consult: altered mental status, seizure History of Present Illness: This is a 48-year-old woman with history of alcohol use, methamphetamine use, alcohol withdrawal seizure who presents emergency department EMS for seizure- like activity. Some of the history is obtained from medical record since the patient was not a great historian. Per the ED physician note, EMS was notified by family that the patient had seizure-like activity last night and looks like she had another 1 today. Patient stated that her last seizure was about 5 days ago. She states that she does drink heavily daily and last alcohol was a couple days ago. She does complain of headache in the bilateral frontal temporal region. She did have nausea vomiting. Denies any focal weakness. She stated that her prior seizures were due to alcohol use. Seems the patient had obvious to the right orbital region but patient could not tell me what transpired. Some of the workup during this hospital visit consisted of: cbc with differential is unremarkable. Chemistry panel is glucose is 113, AST is 71, ammonia is 12, sodium is 136, calcium is 9.9 Urine drug screen is positive for amphetamine, methamphetamine and benzodiazepine Serum alcohol is less than 10. CT of the head is reported as no acute intracranial process. CT cervical spine is reported no evidence of cervical spine fracture. Mild m ultilevel degenerative disc disease. CT face is acute minimally displaced fracture of the superior and lateral right maxillary sinus dickey. Blood products and gas identified within the right maxillary sinus. Orbit appears intact. Additional mild soft tissue swelling of the right forehead and the right cheek. Review of Systems Limited Past Medical History Past Medical History: Diabetes Mellitus, Hyperlipidemia, Osteoarthritis (OA), Seizure Disorder, Thyroid Disorder Additional Past Medical History / Comment(s): Hx "high blood sugar was on Metformin but sugars are normal now and no longer taking Metformin." Hx 2 seizures on 04/28/18 at [place], from alcohol withdrawl. Hx opiate overdose 2010, with respiratory failure, on vent. HERNIATED DISCS. MIGRAINES. HX PANCREATITIS. IBS. History of Any Multi-Drug Resistant Organisms: None Reported Past Surgical History: Tubal Ligation Additional Past Surgical History / Comment(s): EGD, colonoscopy, D&C, right groin cyst removed, PICC line placed and later removed while in hospital for overdose. Past Anesthesia/Blood Transfusion Reactions: No Reported Reaction Past Psychological History: ADD/ADHD, Anxiety, Depression Smoking Status: Current every day smoker Past Alcohol Use History: Abuse, Daily, Heavy Past Drug Use History: Methamphetamine, Opiates - Past Family History Mother Family Medical History: Cancer Father History Unknown: Yes Family Medical History: Deep Vein Thrombosis (DVT) Medications and Allergies Home Medications Medication Instructions Recorded Confirmed Type Lurasidone [Latuda] 40 mg PO HS 11/08/22 06/05/24 History Dicyclomine [Bentyl] 20 mg PO TID 04/24/24 06/05/24 History Ergocalciferol (Vitamin D2) 1,250 mcg PO MO 04/24/24 06/05/24 History [Drisdol (50,000 Iu)] Fenofibrate Nanocrystallized 145 mg PO DAILY 04/24/24 06/05/24 History [Fenofibrate] Folic Acid 1 mg PO DAILY 04/24/24 06/05/24 History Levothyroxine Sodium [Synthroid] 50 mcg PO DAILY 04/24/24 06/05/24 History Loperamide [Imodium] 2 mg PO TID PRN 04/24/24 06/05/24 History Magnesium Oxide [Mag-Ox] 400 mg PO BID #60 tablet 04/24/24 06/05/24 Rx Ondansetron Odt [Zofran ODT] 4 mg PO DAILY PRN 04/24/24 06/05/24 History Pantoprazole Sodium [Protonix] 20 mg PO DAILY 04/24/24 06/05/24 History Potassium Chloride ER [K-Dur 10] 10 meq PO BID 04/24/24 06/05/24 History busPIRone HCl [Buspar] 20 mg PO BID 04/24/24 06/05/24 History cloNIDine HCL [Catapres] 0.1 mg PO BID PRN 04/24/24 06/05/24 History sitaGLIPtin [Januvia] 25 mg PO DAILY 04/24/24 06/05/24 History traZODone HCL [Desyrel] 200 mg PO HS PRN 04/24/24 06/05/24 History Allergies Allergy/AdvReac Type Severity Reaction Status Date / Time No Known Allergies Allergy Verified 06/05/24 09:58 Physical Examination - Vital Signs Vital Signs: Vital Signs Temp Pulse Resp BP Pulse Ox 06/05/24 14:58 83 16 138/86 99 06/05/24 13:15 83 18 138/81 97 06/05/24 11:36 78 20 130/93 06/05/24 10:30 84 18 144/93 97 06/05/24 09:48 98.6 F 92 16 139/81 97 Intake and Output 06/05/24 06/05/24 06/05/24 06:59 14:59 22:59 Other: Weight 72.575 kg General: Lying in bed and does not appear in acute distress. HENT: supple neck. Has bruises over the right periorbital. Neuro: Patient is awake alert oriented to self and she stated she is in the hospital. She talks tangential. She was following simple commands. The pupils are round equal reactive to light. Visual carballo are full to confrontation. Extraocular movements intact no nystagmus. No facial weakness. No dysarthria. She has a few episodes that she sticks out her tongue out. Motor is able to lift up upper and lower extremity above gravity. Symmetrical Sensation is normal to touch. Results - Laboratory Findings CBC and BMP: 06/05/24 10:39 06/05/24 10:39 Abnormal Lab Findings: Abnormal Labs 06/05/24 06/05/24 06/05/24 10:39 10:39 10:39 Lymphocytes # 0.7 L Sodium 136 L Glucose 113 H AST 71 H Total Protein 8.7 H Urine Protein Ur Amphetamines Screen Detected H U Methamphetamines Scrn Detected H U Benzodiazepines Scrn Detected H 06/05/24 10:39 Lymphocytes # Sodium Glucose AST Total Protein Urine Protein Trace H Ur Amphetamines Screen U Methamphetamines Scrn U Benzodiazepines Scrn Assessment and Plan Assessment: This is a 48-year-old woman with history of alcohol use, meth use, alcohol withdrawal seizure who presented emergency department because of reported seizure-like activity yesterday as well as today by family members. Her alcohol level was less than 10 her urine drug screen was positive for meth, amphetamine and benzodiazepine. Altered mental status with reported to seizure-like activity likely break-th rough seizure, provoked due to alcohol withdrawal as well as drug use (meth) Polysubstance use and urine drug since positive for methamphetamine, amphetamine and benzo. Facial fracture History of alcohol withdrawal seizure Alcohol use Plan: I ordered a routine EEG I will hold off placing the patient on antiseizure medication and if EEG is positive for discharges or seizure will start. I placed the patient on thiamine 200 mg IV twice daily and will do that for 3 days and after that p.o. Will defer CIWA Protocol to primary team. Will defer the rest of medical management to primary team and other specialist. The plan is discussed with nurse. Thank you for the consultation. Time with Patient: Greater than 30
[2024-06-05] MEDS: CEPHALEXIN 500 MG CAP PO SCH (17:42)
[2024-06-05] MEDS: DICYCLOMINE 20 MG TAB PO SCH (17:42)
[2024-06-05] MEDS: HYDROcodone/APAP 5-325MG 1 EACH TAB PO PRN (18:51)
[2024-06-05] MEDS: LOPERAMIDE 2 MG CAP PO PRN (20:36)
[2024-06-05] MEDS: POTASSIUM CHLORIDE ER 10 MEQ TAB.ER.PRT PO SCH (20:36)
[2024-06-05] MEDS: MAGNESIUM OXIDE 400 MG TAB PO SCH (20:36)
[2024-06-05] MEDS: traZODone HCL 100 MG TAB PO PRN (20:36)
[2024-06-05] MEDS: LURASIDONE 40 MG TAB PO SCH (20:37)
[2024-06-05] MEDS: THIAMINE 100 MG/ML 2 ML VIAL IVP SCH (20:37)
[2024-06-05] MEDS: busPIRone HCl 10 MG TAB PO SCH (20:37)
--- NOTE | 2024-06-05 23:44 | HP ---
HISTORY AND PHYSICAL CHIEF COMPLAINT: Change in mental status and possible seizure. HISTORY OF PRESENT ILLNESS: This is a 48-year-old woman with a past medical history of significant history of alcohol intake, who has apparently had a seizure. The patient was found to have ecchymoses below the right eye and was found to have maxillary sinus fracture and the patient was admitted for further evaluation and treatment. The patient is incoherent and had features of acute DTs at this time. There is no history of any fever, rigors, or chills at this time. PAST MEDICAL HISTORY: ETOH, diabetes mellitus, seizures. Rest of the history and rest of the chart is also reviewed. HOME MEDICATIONS: Reviewed include Desyrel. Dose and rest of medications reviewed. ALLERGIES: None. FAMILY HISTORY: History of cancer. SOCIAL HISTORY: History of methamphetamine, opiate abuse, alcohol, smoking. REVIEW OF SYSTEMS: A 14-point review is negative except as mentioned earlier. PHYSICAL EXAMINATION: VITAL SIGNS: Pulse is 83, blood pressure 138/81, respirations 18. HEENT: Conjunctivae normal. NECK: No JVD. CARDIOVASCULAR: S1, S2. RESPIRATIONS: Breath sounds diminished at the bases. ABDOMEN: Soft and nontender. LEGS: No edema. NERVOUS SYSTEM: Diffusely weak. No focal deficit. CHEST: A few scattered rhonchi and ecchymosis on the face as mentioned earlier. LABORATORY DATA: Reviewed. ASSESSMENT: 1. Acute delirium tremens and alcohol withdrawal. 2. Acute seizure disorder with breakthrough seizures. 3. Right maxillary sinus fracture. 4. Diabetes mellitus, type 2. 5. History of polysubstance abuse. RECOMMENDATIONS AND DISCUSSION: This is a 48-year-old woman who was admitted with multiple complex medical issues, we will monitor the patient closely. Continue the current management and continue symptomatic treatment. Otherwise, I would recommend Neurology consultation. The patient will resume the home medications. The patient was taking Latuda. We will continue to monitor. Neuro checks. Seizure precautions. DT prophylaxis. Ativan protocol. Prognosis extremely guarded. Further recommendations to follow. See orders for further details. MMODL / IJN: [id number] /
[2024-06-06] MEDS: PANTOPRAZOLE 40 MG TABLET PO SCH (04:54)
[2024-06-06 08:52] LABS: Basophils # (A) 0.05 X 10*3/uL (0.00-0.10); Basophils % (A) 0.8 %; Eosinophils # (A) 0.11 X 10*3/uL (0.04-0.35); Eosinophils % (A) 1.8 %; HCT 39.7 % (37.2-46.3); HGB 12.9 g/dL (12.0-15.0); Lymphocytes # (A) 1.45 X 10*3/uL (0.90-5.00); Lymphocytes % (A) 23.7 %; MCH 30.5 pg (27.0-32.0); MCHC 32.5 g/dL (32.0-37.0); MCV 93.9 FL (80.0-97.0); Mean Platelet Volume 10.1 FL (9.5-12.2); Monocytes # (A) 0.65 X 10*3/uL (0.20-1.00); Monocytes % (A) 10.6 %; NRBC Per 100 WBC 0 X 10*3/uL (0.00-0.01); Neutrophils # (A) 3.82 X 10*3/uL (1.80-7.70); Neutrophils % (A) 62.4 %; Platelet Count 293 X 10*3/uL (140-440); RBC 4.23 X 10*6/uL (4.10-5.20); RDW 15.6 % (11.5-14.5); WBC 6.12 X 10*3/uL (4.50-10.00)
[2024-06-06] MEDS: FOLIC ACID 1 MG TAB PO SCH (08:55)
[2024-06-06] MEDS: FENOFIBRATE 160 MG TAB PO SCH (08:55)
[2024-06-06] MEDS: LINAGLIPTIN 5 MG TABLET PO SCH (08:57)
[2024-06-06 09:18] LABS: ALT 29 U/L (8-44); AST 71 U/L (13-35); Albumin 4.2 g/dL (3.8-4.9); Albumin/Globulin Ratio 1.62 Ratio (1.60-3.17); Alkaline Phosphatase 55 U/L (41-126); BUN/Creat Ratio 16.86 Ratio (12.00-20.00); Blood Urea Nitrogen 11.8 mg/dL (9.0-27.0); Calcium 9.5 mg/dL (8.7-10.3); Chloride 104 mmol/L (96-109); Globulin 2.6 g/dL (1.6-3.3); Glucose 117 mg/dL (70-110); Sodium 140 mmol/L (135-145); Total Bilirubin 0.3 mg/dL (0.3-1.2); Total Protein 6.8 g/dL (6.2-8.2)
[2024-06-06 14:21] VITALS: BP 106/72; PULSE 71; RESP 14; TEMP 98
--- NOTE | 2024-06-07 01:38 | EEG ---
ELECTROENCEPHALOGRAM REPORT CLINICAL HISTORY: This is a 48-year-old woman with history of alcohol use, polysubstance use, alcohol withdrawal seizure, who presents to emergency department because of reported seizure- like activity. The video EEG is obtained to evaluate for seizure epileptiform activity. RELEVANT MEDICATIONS: 1. BuSpar. 2. Trazodone. EEG TYPE: This is a routine 21-channel EEG with video using the 10/20 electrode placement system. DESCRIPTION: Wakefulness is only obtained. During awake state, the posterior-dominant rhythm consists of [id number] voltage of 8.5 to 9 hertz activity that is well modulated, and well sustained. There is no physiological stage 2 sleep architecture. There is no focal slowing. There is diffuse mild to moderate myogenic artifact. Interictal and ictal is none. ACTIVATION PROCEDURE: Photic stimulation did not evoke a posterior driving response. There is no abnormality during the photic stimulation. Hyperventilation is not performed. CLINICAL INTERPRETATION: This is a normal routine EEG. There is no focal slowing, epileptiform discharge, or seizure on the EEG. A normal routine EEG does not rule out underlying epilepsy. Clinical correlation is recommended. MMODL / IJN: [id number] /
[2024-06-10] MEDS ORDERED: ERGOCALCIFEROL 1,250 MCG (50,000 IU) CAPSULE PO SCH (09:00)
--- NOTE | 2024-06-10 10:17 | P.DS ---
Providers Date of admission: 06/05/24 14:07 Expected date of discharge: 06/06/24 Attending physician: Jean Woodson Consults: 06/05/24 14:50 Consult Physician Urgent Consulting Provider: Mau Martinez Consult Reason/Comments: Altered mental status, seizure Do you want consulting provider notified?: Yes Primary care physician: Christie Prince [facility] Course: Final diagnosis Acute delirium tremens and alcohol withdrawal Acute seizure disorder with breakthrough seizure Right maxillary sinus fracture, status post fall Diabetes mellitus, type II, uncontrolled with hyperglycemia History of polysubstance abuse History of ADHD History of anxiety/depression Continued ongoing nicotine dependence Previous history of methamphetamine use GI prophylaxis DVT prophylaxis Full code Discharge disposition Patient is being discharged in a stable condition with guarded prognosis to home. Patient will follow-up with Dr. Niko Woodson in the outpatient setting upon discharge. Patient is to continue with community mental health outpatient as scheduled. Total time taken is greater than 35 minutes. Hospital course This is a 48-year-old female who was recently admitted with concerns of acute alcohol withdrawal with acute seizure disorder and breakthrough seizures being closely monitored. Patient evaluated by neurology underwent EEG which was abnormal for encephalopathy otherwise no epileptiform discharges noted. Patient reports she only had a shot of alcohol in the bottom of the bottle and did not drink any further. Patient reports to feeling baseline alert and oriented with no withdrawal symptoms noted. Patient anxious to go home and has been instructed to follow-up with primary care provider on discharge. Strongly recommend neurology consultation outpatient as well as [facility]. Patient was noted to have a right maxillary sinus fracture with significant ecchymosis bilaterally although vision is clear patient reports. Patient reports to feeling well and anxious and adamant about going home. Please refer to other consultation notes for further HPI. Currently no reports of chest pain, shortness of breath, or palpitations. Patient is afebrile. No reports of nausea or vomiting and patient is tolerating diet. Patient will be discharged home today. Guarded prognosis and high risk for readmissions given patient's continued drinking and substance abuse along with noncompliance Physical exam: Gen: This is a 48-year-old female who is awake, alert and oriented x 3, well- developed, elderly appearing, anxious HEENT: Head is atraumatic, normocephalic. Pupils equal, round. Sclerae is anicteric. Significant ecchymosis noted bilateral lower eyelids and cheek bones status post fall NECK: Supple. No JVD. No lymphadenopathy. No thyromegaly. LUNGS: Clear to auscultation. No wheezes or rhonchi. No intercostal retractions. HEART: Regular rate and rhythm. No murmur. ABDOMEN: Soft. Bowel sounds are present. No masses. No tenderness. EXTREMITIES: No pedal edema. No calf tenderness. NEUROLOGICAL: Patient is awake, alert and oriented x3. Cranial nerves 2 through 12 are grossly intact. Please refer to medication reconciliation sheet for a list of medications. The impression and plan of care has been dictated by Ailyn Paul Nurse Practitioner as directed. Dr. Chintan MD I have performed a history and examination and MDM of this patient, discussed the same with the dictator, and agree with the dictator's assessment and plan as written ,documented as a scribe. Based on total visit time, I have performed more than 50% of the visit. Patient Condition at Discharge: Fair Plan - Discharge Summary Discharge Rx Participant: No New Discharge Prescriptions: New Ibuprofen [Advil] 200 mg PO TID PRN #15 tab PRN Reason: Mild Pain (Scale 1 To 3) Thiamine [Vitamin B-1] 100 mg PO DAILY #30 tablet Cephalexin [Keflex] 500 mg PO QID 5 Days #20 cap Continue Lurasidone [Latuda] 40 mg PO HS Potassium Chloride ER [K-Dur 10] 10 meq PO BID Fenofibrate Nanocrystallized [Fenofibrate] 145 mg PO DAILY sitaGLIPtin [Januvia] 25 mg PO DAILY cloNIDine HCL [Catapres] 0.1 mg PO BID PRN PRN Reason: acute anxiety attacks Pantoprazole Sodium [Protonix] 20 mg PO DAILY Loperamide [Imodium] 2 mg PO TID PRN PRN Reason: Diarrhea traZODone HCL [Desyrel] 200 mg PO HS PRN PRN Reason: sleep Folic Acid 1 mg PO DAILY Levothyroxine Sodium [Synthroid] 50 mcg PO DAILY busPIRone HCl [Buspar] 20 mg PO BID Ergocalciferol (Vitamin D2) [Drisdol (50,000 Iu)] 1,250 mcg PO MO Ondansetron Odt [Zofran ODT] 4 mg PO DAILY PRN PRN Reason: Nausea Dicyclomine [Bentyl] 20 mg PO TID Magnesium Oxide [Mag-Ox] 400 mg PO BID #60 tablet Discharge Medication List Lurasidone [Latuda] 40 mg PO HS 11/08/22 [History] Dicyclomine [Bentyl] 20 mg PO TID 04/24/24 [History] Ergocalciferol (Vitamin D2) [Drisdol (50,000 Iu)] 1,250 mcg PO MO 04/24/24 [History] Fenofibrate Nanocrystallized [Fenofibrate] 145 mg PO DAILY 04/24/24 [History] Folic Acid 1 mg PO DAILY 04/24/24 [History] Levothyroxine Sodium [Synthroid] 50 mcg PO DAILY 04/24/24 [History] Loperamide [Imodium] 2 mg PO TID PRN 04/24/24 [History] Magnesium Oxide [Mag-Ox] 400 mg PO BID #60 tablet 04/24/24 [Rx] Ondansetron Odt [Zofran ODT] 4 mg PO DAILY PRN 04/24/24 [History] Pantoprazole Sodium [Protonix] 20 mg PO DAILY 04/24/24 [History] Potassium Chloride ER [K-Dur 10] 10 meq PO BID 04/24/24 [History] busPIRone HCl [Buspar] 20 mg PO BID 04/24/24 [History] cloNIDine HCL [Catapres] 0.1 mg PO BID PRN 04/24/24 [History] sitaGLIPtin [Januvia] 25 mg PO DAILY 04/24/24 [History] traZODone HCL [Desyrel] 200 mg PO HS PRN 04/24/24 [History] Cephalexin [Keflex] 500 mg PO QID 5 Days #20 cap 06/06/24 [Rx] Ibuprofen [Advil] 200 mg PO TID PRN #15 tab 06/06/24 [Rx] Thiamine [Vitamin B-1] 100 mg PO DAILY #30 tablet 06/06/24 [Rx] Follow up Appointment(s)/Referral(s): Christie Prince MD [Primary Care Provider] - 1-2 days [facility] [NON-STAFF] - 1 Week Patient Instructions/Handouts: Facial Fracture (DC), Nonepileptic Seizures (GEN), Methamphetamine Abuse (DC) Activity/Diet/Wound Care/Special Instructions: Activity limited until follow-up Follow-up with primary care provider on discharge Follow-up with [facility] mental health Avoid alcohol use and exposure Avoid illegal and illicit drug use Discharge Disposition: HOME SELF-CARE
== END 2024-06-06 14:43 | disposition home or self-care (01) ==
LOC: EC 09:43 → 6NMEDSUR 14:07
PROVIDERS: ADMIT Hospitalist; ATTEND Hospitalist
DX: F10.231 Alcohol dependence with withdrawal delirium (principal); F17.200 Nicotine dependence, unspecified, uncomplicated; E11.65 Type 2 diabetes mellitus with hyperglycemia; E78.5 Hyperlipidemia, unspecified; G40.909 Epilepsy, unspecified, not intractable, without status epilepticus; G93.40 Encephalopathy, unspecified; S02.40CA Maxillary fracture, right side, initial encounter for closed fracture; W19.XXXA Unspecified fall, initial encounter; E07.9 Disorder of thyroid, unspecified; F32.A Depression, unspecified; F41.9 Anxiety disorder, unspecified; F90.9 Attention-deficit hyperactivity disorder, unspecified type; G43.909 Migraine, unspecified, not intractable, without status migrainosus; K58.9 Irritable bowel syndrome, unspecified; M19.90 Unspecified osteoarthritis, unspecified site; Z79.84 Long term (current) use of oral hypoglycemic drugs; Z79.890 Hormone replacement therapy; Z79.899 Other long term (current) drug therapy; Z91.199 Patient's noncompliance with other medical treatment and regimen due to unspecified reason
CPT/HCPCS: 96376; 96372 ×3; 96374; 96361; 99285; 36415; 95816; 93005; 80053 ×2; 82140; 83735; 85025 ×2; 81003; 80306; 71046; 72125; 70486; 70450; G0378 ×2; G0480; J1644 ×2; J3411 ×2; 80320

== ENCOUNTER 2024-10-23 12:34 | Inpatient (IN) | payer OTHER ==
--- NOTE | 2024-10-23 13:22 | ED ---
General Adult HPI - General Chief complaint: Psychiatric Symptoms Stated complaint: detox,ams Time Seen by Provider: 10/23/24 12:35 Source: patient, EMS Mode of arrival: EMS - History of Present Illness Initial comments: Dictation was produced using [employer] dictation software. please excuse any grammatical, word or spelling errors. Chief Complaint: 48-year-old alcoholic female presents with visual and auditory hallucinations History of Present Illness: Patient is a 48-year-old female states that she is a alcohol abuser. States she drinks 1/5 of alcohol daily. Last alcohol intake was 830 this morning. States that for the last several hours she has been hearing voices and seeing things. States that she feels like she might be a started withdrawal. Denies any pain complaints. The ROS documented in this emergency department record has been reviewed and confirmed by me. Those systems with pertinent positive or negative responses have been documented in the HPI. All other systems are other negative and/or noncontributory. - Related Data Home Medications Medication Instructions Recorded Confirmed Lurasidone [Latuda] 40 mg PO HS 11/08/22 10/23/24 Ergocalciferol (Vitamin D2) 1,250 mcg PO WEEKLY 04/24/24 10/23/24 [Drisdol (50,000 Iu)] Fenofibrate Nanocrystallized 145 mg PO DAILY 04/24/24 10/23/24 [Fenofibrate] Folic Acid 1 mg PO DAILY 04/24/24 10/23/24 Levothyroxine Sodium [Synthroid] 50 mcg PO DAILY 04/24/24 10/23/24 Loperamide [Imodium] 2 mg PO TID PRN 04/24/24 10/23/24 Pantoprazole Sodium [Protonix] 20 mg PO DAILY 04/24/24 10/23/24 Potassium Chloride ER [K-Dur 10] 10 meq PO BID 04/24/24 10/23/24 busPIRone HCl [Buspar] 20 mg PO BID 04/24/24 10/23/24 cloNIDine HCL [Catapres] 0.1 mg PO BID PRN 04/24/24 10/23/24 sitaGLIPtin [Januvia] 25 mg PO DAILY 04/24/24 10/23/24 traZODone HCL [Desyrel] 200 mg PO HS PRN 04/24/24 10/23/24 Naltrexone Microspheres [Vivitrol] 380 mg IM Q28D 10/23/24 10/23/24 Allergies Allergy/AdvReac Type Severity Reaction Status Date / Time No Known Allergies Allergy Verified 10/23/24 15:56 Review of Systems ROS Statement: Those systems with pertinent positive or pertinent negative responses have been documented in the HPI. ROS Other: All systems not noted in ROS Statement are negative. Past Medical History Past Medical History: Diabetes Mellitus, Hyperlipidemia, Osteoarthritis (OA), Seizure Disorder, Thyroid Disorder Additional Past Medical History / Comment(s): Hx "high blood sugar was on Metformin but sugars are normal now and no longer taking Metformin." Hx 2 seizures on 04/28/18 at [place], from alcohol withdrawl. Hx opiate overdose 2010, with respiratory failure, on vent. HERNIATED DISCS. MIGRAINES. HX PANCREATITIS. IBS. History of Any Multi-Drug Resistant Organisms: None Reported Past Surgical History: Tubal Ligation Additional Past Surgical History / Comment(s): EGD, colonoscopy, D&C, right groin cyst removed, PICC line placed and later removed while in hospital for ove rdose. Past Anesthesia/Blood Transfusion Reactions: No Reported Reaction Past Psychological History: ADD/ADHD, Anxiety, Depression, Schizophrenia Smoking Status: Current every day smoker Past Alcohol Use History: Abuse, Daily, Heavy Past Drug Use History: Marijuana, Methamphetamine, Opiates - Past Family History Mother Family Medical History: Cancer Father History Unknown: Yes Family Medical History: Deep Vein Thrombosis (DVT) General Exam - General Exam Comments Initial Comments: PHYSICAL EXAM: General Impression: Alert and oriented x3, not in acute distress HEENT: Normocephalic atraumatic, extra-ocular movements intact, pupils equal and reactive to light bilaterally, mucous membranes moist. Cardiovascular: Heart regular rate and rhythm Chest: Able to complete full sentences, no retractions, no tachypnea Abdomen: abdomen soft, non-tender, non-distended, no organomegaly Musculoskeletal: Pulses present and equal in all extremities, no peripheral edema Motor: no focal deficits noted Neurological: CN II-XII grossly intact, no focal motor or sensory deficits noted Skin: Intact with no visualized rashes Psych: Normal affect and mood Course Vital Signs 10/23/24 12:39 Temperature 98.1 F Pulse Rate 100 Respiratory 18 Rate Blood Pressure 147/93 O2 Sat by Pulse 94 L Oximetry EKG Findings - EKG Comments: EKG Findings:: My EKG interpretation: Ventricular rate 96, sinus rhythm,. 138, QRS 106, QTc 429. No NH prolongation, no QTC prolongation, no ST or T-wave changes noted. Overall, this EKG is unremarkable Medical Decision Making - Medical Decision Making Was pt. sent in by a medical professional or institution (, PA, PRECISION INSPECTOR, urgent care, hospital, or senior care...) When possible be specific @ -No Did you speak to anyone other than the patient for history (EMS, parent, family, police, friend...)? What history was obtained from this source @ -No Did you review nursing and triage notes (agree or disagree)? Why? @ -I reviewed and agree with nursing and triage notes Were old charts reviewed (outside hosp., previous admission, EMS record, old EKG, old radiological studies, urgent care reports/EKG's, senior care records)? Report findings @ -No old charts were reviewed Differential Diagnosis (chest pain, altered mental status, abdominal pain women, abdominal pain men, vaginal bleeding, musculoskeletal, weakness, fever, dyspnea, syncope, headache, dizziness, GI bleed, back pain, seizure, CVA, palpatations, mental health)? @ -Differential Altered Mental Status: Hypoglycemia, DKA, hypercapnia, ETOH, overdose, CO poisoning, trauma, myxedema coma, HTN encephalopathy, infection, encephalitis, psychosis, intercranial hemorrhage, hepatic encephalopathy, meningitis, CVA, this is not meant to be an all-inclusive list EKG interpreted by me (3pts min.). @ -As above X-rays interpreted by me (1pt min.). @ -None done CT interpreted by me (1pt min.). @ -None done U/S interpreted by me (1pt. min.). @ -None done What testing was considered but not performed or refused? (CT, X-rays, U/S, labs)? Why? @ -None What meds were considered but not given or refused? Why? @ -None Was smoking cessation discussed for >3mins.? @ -No Were there social determinants of health that impacted care today? How? (Homelessness, low income, unemployed, alcoholism, drug addiction, transportation, low edu. Level, literacy, decrease access to med. care, halfway, rehab)? @ -No Was there de-escalation of care discussed even if they declined (Discuss DNR or withdrawal of care, Hospice)? DNR status @ -No What co-morbidities impacted this encounter? (DM, HTN, Smoking, COPD, CAD, Cancer, CVA, ARF, Chemo, Hep., AIDS, mental health diagnosis, sleep apnea, morbid obesity)? @ -Meth use disorder, alcohol abuse disorder Was patient admitted / discharged? Hospital course, mention meds given and route, prescriptions, significant lab abnormalities, going to OR and other pertinent info. @ -48-year-old female presents emergency department with concerns of visual and auditory hallucinations she does have a history of alcohol abuse and history of alcohol withdrawal requiring admission. Vital signs upon arrival are within acceptable limits. Patient well-appearing at the bedside. Laboratory evaluation obtained. Labs are unremarkable. Serum alcohol is 140. Patient evaluated by EPS was concerned that patient's symptomatology may be secondary to withdrawals as opposed to psychiatric issue. Patient be admitted to medicine with psychiatry on consult. Did you discuss the management of the patient with other professionals (professionals i.e. , PA, PRECISION INSPECTOR, lab, RT, psych nurse, health care social worker, cyber security specialist, teacher, benefits officer, supportive employment case manager)? Give summary @ -See above. Case discussed with hospitalist for admission Was critical care preformed (if so, how long)? @ -No Undiagnosed new problem with uncertain prognosis? @ -No Drug Therapy requiring intensive monitoring for toxicity (Heparin, Nitro, Insulin, Cardizem)? @ -No Were any procedures done? @ -No Diagnosis/symptom? Acute, or Chronic, or Acute on Chronic? Uncomplicated (without systemic symptoms) or Complicated (systemic symptoms)? @ -Altered mental status Side effects of treatment? @ -No Exacerbation, Progression, or Severe Exacerbation? @ -No Poses a threat to life or bodily function? How? (Chest pain, USA, MD, pneumonia, PE, COPD, DKA, ARF, appy, cholecystitis, CVA, Diverticulitis, Homicidal, Suicidal, threat to staff... and all critical care pts) @ -yes - Lab Data Result diagrams: 10/23/24 13:27 10/23/24 13:27 Lab Results 10/23/24 10/23/24 Range/Units 13:27 13:27 WBC 8.6 (3.8-10.6) k/uL RBC 4.70 (3.80-5.40) m/uL Hgb 13.8 (11.4-16.0) gm/dL Hct 43.5 (34.0-46.0) % MCV 92.6 (80.0-100.0) fL MCH 29.4 (25.0-35.0) pg MCHC 31.7 (31.0-37.0) g/dL RDW 14.1 (11.5-15.5) % Plt Count 272 (150-450) k/uL MPV 7.5 Neutrophils % 77 % Lymphocytes % 14 % Monocytes % 4 % Eosinophils % 4 % Basophils % 1 % Neutrophils # 6.5 (1.3-7.7) k/uL Lymphocytes # 1.2 (1.0-4.8) k/uL Monocytes # 0.3 (0-1.0) k/uL Eosinophils # 0.3 (0-0.7) k/uL Basophils # 0.1 (0-0.2) k/uL Sodium 139 (137-145) mmol/L Potassium 4.2 (3.5-5.1) mmol/L Chloride 102 (98-107) mmol/L Carbon Dioxide 22 (22-30) mmol/L Anion Gap 15 mmol/L BUN 9 (7-17) mg/dL Creatinine 0.58 (0.52-1.04) mg/dL Est GFR (CKD-EPI)AfAm >90 (>60 ml/min/1.73 sqM) Est GFR (CKD-EPI)NonAf >90 (>60 ml/min/1.73 sqM) Glucose 169 H (74-99) mg/dL Calcium 9.9 (8.4-10.2) mg/dL Magnesium 1.9 (1.6-2.3) mg/dL Total Bilirubin 0.6 (0.2-1.3) mg/dL AST 41 H (14-36) U/L ALT 21 (4-34) U/L Alkaline Phosphatase 83 (38-126) U/L Total Protein 7.9 (6.3-8.2) g/dL Albumin 4.6 (3.5-5.0) g/dL Serum Alcohol 140 mg/dL Disposition Clinical Impression: Alcohol withdrawal Disposition: ADMITTED IP TO THIS HOSP Condition: Fair Referrals: Sunilkumar,Mini, MD [Primary Care Provider] - 1-2 days Decision Time: 16:29
[2024-10-23 13:36] LABS: Basophils # (A) 0.1 k/uL (0-0.2); Basophils % (A) 1 %; Eosinophils # (A) 0.3 k/uL (0-0.7); Eosinophils % (A) 4 %; HCT 43.5 % (34.0-46.0); HGB 13.8 gm/dL (11.4-16.0); Lymphocytes # (A) 1.2 k/uL (1.0-4.8); Lymphocytes % (A) 14 %; MCH 29.4 pg (25.0-35.0); MCHC 31.7 g/dL (31.0-37.0); MCV 92.6 fL (80.0-100.0); Mean Platelet Volume 7.5; Monocytes # (A) 0.3 k/uL (0-1.0); Monocytes % (A) 4 %; Neutrophils # (A) 6.5 k/uL (1.3-7.7); Neutrophils % (A) 77 %; Platelet Count 272 k/uL (150-450); RDW 14.1 % (11.5-15.5); WBC 8.6 k/uL (3.8-10.6)
[2024-10-23 13:45] LABS: ALT 21 U/L (4-34); AST 41 U/L (14-36); African American GFR (CKD) >90 (>60 ml/min/1.73 sqM); Albumin 4.6 g/dL (3.5-5.0); Alkaline Phosphatase 83 U/L (38-126); Anion Gap 15 mmol/L; Blood Urea Nitrogen 9 mg/dL (7-17); Calcium 9.9 mg/dL (8.4-10.2); Carbon Dioxide 22 mmol/L (22-30); Chloride 102 mmol/L (98-107); Glucose 169 mg/dL (74-99); Magnesium 1.9 mg/dL (1.6-2.3); Non-African American GFR(CKD) >90 (>60 ml/min/1.73 sqM); Potassium 4.2 mmol/L (3.5-5.1); Sodium 139 mmol/L (137-145); Total Bilirubin 0.6 mg/dL (0.2-1.3); Total Protein 7.9 g/dL (6.3-8.2)
[2024-10-23 14:06] LABS: Alcohol 140 mg/dL
[2024-10-23] MEDS: LORazepam 2 MG/ML INJ IM STA (16:05)
[2024-10-23] MEDS ORDERED: LORazepam 2 MG/ML INJ IV PRN (16:25)
[2024-10-23] MEDS ORDERED: NALOXONE 0.4 MG/ML 1 ML VIAL IV PRN (16:25)
[2024-10-23] MEDS: SODIUM CHLORIDE 0.9% 1,000 ML IV SCH (17:54)
[2024-10-23] MEDS: LORazepam 2 MG/ML INJ IV PRN (17:55)
[2024-10-23 20:53] LABS: Urine Alcohol Positive (Negative)
[2024-10-23 20:54] LABS: Urine Barbiturate Negative (Negative); Urine Cocaine Negative (Negative); Urine Methadone Negative (Negative); Urine Opiates Negative (Negative); Urine Phencyclidine Negative (Negative)
[2024-10-24] MEDS: LORazepam 2 MG/ML INJ IV PRN (02:05)
[2024-10-24 10:44] VITALS: BP 130/106; PULSE 80; RESP 17; TEMP 98.3
[2024-10-24] MEDS ORDERED: traZODone HCL 100 MG TAB PO PRN ×2 (11:46→13:17)
[2024-10-24] MEDS ORDERED: DEXTROSE 50% SYRINGE 50 ML IVP PRN ×2 (11:50)
--- NOTE | 2024-10-24 13:19 | P.CN ---
Psychiatric Consult - . Consult date: 10/24/24 Consult:: 10/24/24 12:25 IDENTIFYING DATA: 48-year-old female with a history of seizure disorder, psychosis and substance abuse, presented for ETOH and VH/AH to the ER. She is has 4 kids lives alone in a house Reason for consultation: Psychiatric evaluation HISTORY OF PRESENT ILLNESS: The patient presented to the hospital complaining of alcohol intoxication, auditory and visual hallucinations. Patient stated her last drink was at 8:30 AM, has been drinking a heavy amount approximately a half a gallon of whiskey a day and does have a history of severe withdrawals. Blood alcohol level was 140, urine drug screen was positive for amphetamines. Patient was seen today laying in bed agreeable to speak to video game script writer. She appeared to be fairly anxious, endorsing severe depression. Claims that she has been mainly isolating in her house, drinking heavily. States that she was discharged from [facility] about 3 months ago and relapsed after she was went home. States that she is also using using methamphetamines however was vague about how often. Claims that she has been hearing more negative voices, telling her to do things and calling her different names. States that she is also seeing things and seeing people that are not there. Claims that this has been going on for the past 2 weeks. States that this is causing more anxiety and depression for her she is also endorsing some paranoia about others and people might be out to get her. She does claim that she has a history of severe withdrawal symptoms including tremors, currently experiencing nausea temperature changes and high levels of anxiety. Claims that her sleep is poor appetite is poor. At this time patient denies any current suicidal or homical ideations, intent or plan. She is still complaining of auditory hallucinations as noted above denying any visual hallucinations in the hospital. Claims that she drinks alcohol as noted above methamphetamine use, also nicotine use. Denies any other recreational drug use PAST PSYCHIATRIC HISTORY: Patient has a a history of psychosis anxiety and depression, alcohol and polysubstance abuse. Patient has been on several different medications including Zyprexa, Vistaril Lamictal and melatonin, Latuda Vistaril BuSpar and trazodone. Patient states that her last psychiatric hospitalization was on the mental health unit in August 2020. Patient claims that she currently follows up with [facility] with her nurse practitioner in [facility] on the iddt team. patient denies any history of suicide attempts in the past. Past Medical History: Diabetes Mellitus, Hyperlipidemia, Osteoarthritis (OA), Seizure Disorder, Thyroid Disorder Additional Past Medical History / Comment(s): Hx "high blood sugar was on Metformin but sugars are normal now and no longer taking Metformin." Hx 2 seizures on 04/28/18 at [place], from alcohol withdrawl. Hx opiate overdose 2010, with respiratory failure, on vent. HERNIATED DISCS. MIGRAINES. HX PANCREATITIS. IBS. History of Any Multi-Drug Resistant Organisms: None Reported Past Surgical History: Tubal Ligation Additional Past Surgical History / Comment(s): EGD, colonoscopy, D&C, right groin cyst removed, PICC line placed and later removed while in hospital for overdose. Past Anesthesia/Blood Transfusion Reactions: No Reported Reaction Past Psychological History: ADD/ADHD, Anxiety, Depression, Schizophrenia Smoking Status: Current every day smoker Past Alcohol Use History: Abuse, Daily, Heavy Past Drug Use History: Marijuana, Methamphetamine, Opiates ALLERGIES: as per EMR. CHEMICAL DEPENDENCY HISTORY: as per HPI. FAMILY PSYCHIATRIC/SUBSTANCE USE HISTORY: denies SOCIAL HISTORY: Patient has a GED and did some college work. She worked in [employer] previously. She has been unemployed. She currently lives alone in a house and states that her several years ago. She has 4 adult children and one grandson. denies any legal history MENTAL STATUS EXAM: General Appearance: Patient appears to be tall, stated age is alert, pleasant, and attempts to be cooperative. Patient appears to have poor hygiene and grooming wearing hospital gown with poor eye contact. Behavior: Patient is appears to be fairly anxious, restless. Attempts to cooperate Speech: Patient's speech is fluent and speaks with a lisp. Mood/Affect: Patient reports their mood is "depressed and anxious", affect is congruent and constricted Suicidality/Homicidality: Patient denies having any suicidal or homicidal ideation intent or plan. Perceptions: Patient denies any visual hallucinations. She states that she is still hearing voices telling her negative things distressing to her. Though content/process: There is no evidence of any delusional thought content and thought process is linear and goal-directed. Kimberly. Perseverates on her hallucinations psychiatric symptoms Memory and concentration: AOX3, grossly intact for the purposes of this session. Can spell "WORLD" backwards Judgment and insight: poor. IMPRESSIONS: Schizoaffective disorder Methamphetamine abuse alcohol use disorder severe dependence Seizure disorder Nicotine dependence PLAN: -At this time patient DOES meet criteria for inpatient psychiatric admission. -Would recommend the following medication changes/additions: Will give 1 dose of Librium now 50 mg for alcohol withdrawal. Will start patient on 25 mg 4 times daily with plan to taper down for alcohol withdrawal. Will resume patient back on her home medications including Latuda and trazodone. Will discuss with patient getting back on the Vivitrol injection and when her last dose was for alcohol cravings. -CIWA protocol with PRN Ativan for alcohol withdrawal. Continue to monitor vital signs. -Cannot leave AMA at this time. Patient will need a petition and certification if attempting to leave AMA. -When medically stable, patient is eligible for transfer to a psych bed when available. -Communicated plan to patient's nurse -Psychiatry will sign off at this time -Please contact with any questions. 10/24/24 13:10 10/24/24 13:19
[2024-10-24] MEDS: INSULIN LISPRO (HumaLOG) 100 UNIT/ML 10 mL VL SQ SCH (13:59)
[2024-10-24] MEDS: FOLIC ACID 1 MG TAB PO SCH (14:03)
[2024-10-24] MEDS: chlordiazePOXIDE 25 MG CAP PO STA (14:04)
[2024-10-24 14:08] LABS: Glucose,Whole Blood 156 mg/dL (70-110)
--- NOTE | 2024-10-24 16:19 | P.HPIM ---
History of Present Illness H&P Date: 10/24/24 Patient is a 48-year-old female with a past medical history of alcohol abuse, substance abuse, history of withdrawal seizures with a chief complaint of concerns about alcohol withdrawal and auditory/visual hallucinations and paranoia. Patient states her last drink was at 8:30 AM and she does occasio jessy use meth the last time being 1 week. She states she drink half gallon of whiskey. Patient is concerned of withdrawal as she states she has had seizures in the past secondary to that. Patient states she follows with [facility]. Symptoms include vomiting, cold/hot flashes, shakes, skin crawling, and headaches. She denies any chest pain or shortness of breath. Vitals on admission temperature 98.6, heart rate 92 bpm, respiratory rate 16, blood pressure 139/81, saturation 97% on room air EKG independently interpreted as sinus rhythm with occasional PVCs, ventricular rate 96 bpm and QTc of 429 m Labs on admission show WBC 7.6, hemoglobin 13.8, MCV 92.6. Sodium 139, potassium 4.2, chloride 102, bicarb 22, BUN 9, creatinine 0.58, glucose 169. AST 41, ALT 21. Serum alcohol was 140. UDS was positive for alcohol and amphetamines Review of systems: Pertinent positives and negatives as discussed in HPI, a complete review of systems was performed and all other systems are negative. Allergies: NKDA PCP:Dr. Soriano Social history: Tobacco: pack a day Alcohol: half rec Recreational drugs: occasionally done meth Travel: None Sick contacts: None Physical examination: Vital signs reviewed General: Resting comfortably in bed, appears older than stated age, poor hygiene Derm: warm, dry, intact Head: atraumatic, normocephalic, symmetric Eyes: anicteric sclera Mouth: no lip lesion, mucus membranes moist Cardiovascular: S1 S2 reg, no murmur Lungs: CTA bilateral, no rhonchi, no rales, no accessory muscle use Abdominal: soft, non-tender to palpation, nondistended Extremities: No cyanosis, clubbing, or pedal edema. Neuro: Alert, Oriented to person, time and place, Gross neurological examination did not reveal any focal deficits. Cranial nerves II to XII grossly intact. Bilateral upper and lower extremity muscle strength intact and sensation intact. Psych: well appearing, appropriate affect Assessment/Plan: 48-year-old female with a past medical history of alcohol abuse, substance abuse, history of withdrawal seizures with a chief complaint of concerns about alcohol withdrawal and auditory/visual hallucinations and paranoia. Active: Alcohol use disorder, History of withdrawal seizures Ativan per [facility] protocol Give daily thiamine and folic acid and multivitamin Seizure and fall precautions Monitor daily electrolytes Schizoaffective disorder Psychiatry consulted Patient will be admitted to [facility] Past Medical History Past Medical History: Diabetes Mellitus, Hyperlipidemia, Osteoarthritis (OA), Seizure Disorder, Thyroid Disorder Additional Past Medical History / Comment(s): Hx "high blood sugar was on Metformin but sugars are normal now and no longer taking Metformin." Hx 2 seizures on 04/28/18 at [place], from alcohol withdrawl. Hx opiate overdose 2010, with respiratory failure, on vent. HERNIATED DISCS. MIGRAINES. HX PANCREATITIS. IBS. History of Any Multi-Drug Resistant Organisms: None Reported Past Surgical History: Tubal Ligation Additional Past Surgical History / Comment(s): EGD, colonoscopy, D&C, right groin cyst removed, PICC line placed and later removed while in hospital for overdose. Past Anesthesia/Blood Transfusion Reactions: No Reported Reaction Past Psychological History: ADD/ADHD, Anxiety, Depression, Schizophrenia Smoking Status: Current every day smoker Past Alcohol Use History: Abuse, Daily, Heavy Past Drug Use History: Marijuana, Methamphetamine, Opiates - Past Family History Mother Family Medical History: Cancer Father History Unknown: Yes Family Medical History: Deep Vein Thrombosis (DVT) Medications and Allergies Home Medications Medication Instructions Recorded Confirmed Type Lurasidone [Latuda] 40 mg PO HS 11/08/22 10/23/24 History Ergocalciferol (Vitamin D2) 1,250 mcg PO WEEKLY 04/24/24 10/23/24 History [Drisdol (50,000 Iu)] Fenofibrate Nanocrystallized 145 mg PO DAILY 04/24/24 10/23/24 History [Fenofibrate] Folic Acid 1 mg PO DAILY 04/24/24 10/23/24 History Levothyroxine Sodium [Synthroid] 50 mcg PO DAILY 04/24/24 10/23/24 History Loperamide [Imodium] 2 mg PO TID PRN 04/24/24 10/23/24 History Pantoprazole Sodium [Protonix] 20 mg PO DAILY 04/24/24 10/23/24 History Potassium Chloride ER [K-Dur 10] 10 meq PO BID 04/24/24 10/23/24 History busPIRone HCl [Buspar] 20 mg PO BID 04/24/24 10/23/24 History cloNIDine HCL [Catapres] 0.1 mg PO BID PRN 04/24/24 10/23/24 History sitaGLIPtin [Januvia] 25 mg PO DAILY 04/24/24 10/23/24 History traZODone HCL [Desyrel] 200 mg PO HS PRN 04/24/24 10/23/24 History Naltrexone Microspheres [Vivitrol] 380 mg IM Q28D 10/23/24 10/23/24 History Allergies Allergy/AdvReac Type Severity Reaction Status Date / Time No Known Allergies Allergy Verified 10/23/24 15:56 Physical Exam Vitals: Vital Signs Temp Pulse Resp BP Pulse Ox 10/24/24 05:20 97.7 F 81 15 151/97 95 10/24/24 01:59 97.3 F L 85 15 149/95 98 10/23/24 20:53 90 18 120/74 97 10/23/24 12:39 98.1 F 100 18 147/93 94 L Results CBC & Chem 7: 10/23/24 13:27 10/23/24 13:27 Labs: Abnormal Lab Results - Last 24 Hours (Table) 10/23/24 10/23/24 Range/Units 13:27 16:00 Glucose 169 H (74-99) mg/dL AST 41 H (14-36) U/L Ur Amphetamine Screen Positive A (Negative) Urine Alcohol Positive A (Negative)
--- NOTE | 2024-10-24 16:29 | P.DS ---
Providers Date of admission: 10/23/24 16:26 Expected date of discharge: 10/24/24 Attending physician: Jean Woodson Consults: 10/23/24 16:25 Consult Physician Routine Consulting Provider: Gualberto Gutierrez Consult Reason/Comments: psych eval Do you want consulting provider notified?: Yes Primary care physician: [facility] Course: Patient is a 48-year-old female with a past medical history of alcohol abuse, substance abuse, history of withdrawal seizures with a chief complaint of concerns about alcohol withdrawal and auditory/visual hallucinations and paranoia. Patient states her last drink was at 8:30 AM and she does occasionally use meth the last time being 1 week. She states she drink half gallon of whiskey. Patient is concerned of withdrawal as she states she has had seizures in the past secondary to that. Patient states she follows with [facility]. Symptoms include vomiting, cold/hot flashes, shakes, skin crawling, and headaches. She denies any chest pain or shortness of breath. Vitals on admission temperature 98.6, heart rate 92 bpm, respiratory rate 16, blood pressure 139/81, saturation 97% on room air EKG independently interpreted as sinus rhythm with occasional PVCs, ventricular rate 96 bpm and QTc of 429 m Labs on admission show WBC 7.6, hemoglobin 13.8, MCV 92.6. Sodium 139, potassium 4.2, chloride 102, bicarb 22, BUN 9, creatinine 0.58, glucose 169. AST 41, ALT 21. Serum alcohol was 140. UDS was positive for alcohol and amphetamines Discharge diagnoses; Alcohol use disorder History of withdrawal seizures Schizoaffective disorder Polysubstance abuse 10/24/2024 Patient seen and examined at bedside today. Patient has been deemed medically stable for transfer to psychiatric unit for further evaluation. Physical Exam: General: non toxic, no distress, appears at stated age, normal weight Derm: no unusual rashes/lesions, warm Head: atraumatic, normocephalic, symmetric Eyes: EOMI, anicteric sclera, pupils equal round reactive to light ENT: Nose and ears atraumatic Neck: No cervical lymphadenopathy, trachea midline, supple Mouth: no lip lesion, mucus membranes moist Cardiovascular: S1S2 reg, no murmur, positive dorsalis pedis pulse bilateral, no edema Lungs: Equal air entry bilaterally, no rhonchi, no rales, no accessory muscle use Abdominal: Soft, nontender, non-distended Extremities: No clubbing, no edema Neuro: CN II-XI grossly intact, no gross focal neuro deficits Psych: Alert, oriented, appropriate affect Dictation was produced using CARGO[employer] dictation software. please excuse any grammatical, word or spelling errors. A total of minutes of 20 minutes were spent preparing this complex discharge summary. Patient was discharged on at 10/24/2024 at 1628. Patient Condition at Discharge: Good Plan - Discharge Summary New Discharge Prescriptions: No Action Lurasidone [Latuda] 40 mg PO HS Potassium Chloride ER [K-Dur 10] 10 meq PO BID Fenofibrate Nanocrystallized [Fenofibrate] 145 mg PO DAILY sitaGLIPtin [Januvia] 25 mg PO DAILY cloNIDine HCL [Catapres] 0.1 mg PO BID PRN PRN Reason: acute anxiety attacks Pantoprazole Sodium [Protonix] 20 mg PO DAILY Naltrexone Microspheres [Vivitrol] 380 mg IM Q28D Loperamide [Imodium] 2 mg PO TID PRN PRN Reason: Diarrhea traZODone HCL [Desyrel] 200 mg PO HS PRN PRN Reason: sleep Folic Acid 1 mg PO DAILY Levothyroxine Sodium [Synthroid] 50 mcg PO DAILY busPIRone HCl [Buspar] 20 mg PO BID Ergocalciferol (Vitamin D2) [Drisdol (50,000 Iu)] 1,250 mcg PO WEEKLY Discharge Medication List Lurasidone [Latuda] 40 mg PO HS 11/08/22 [History] Ergocalciferol (Vitamin D2) [Drisdol (50,000 Iu)] 1,250 mcg PO WEEKLY 04/24/24 [History] Fenofibrate Nanocrystallized [Fenofibrate] 145 mg PO DAILY 04/24/24 [History] Folic Acid 1 mg PO DAILY 04/24/24 [History] Levothyroxine Sodium [Synthroid] 50 mcg PO DAILY 04/24/24 [History] Loperamide [Imodium] 2 mg PO TID PRN 04/24/24 [History] Pantoprazole Sodium [Protonix] 20 mg PO DAILY 04/24/24 [History] Potassium Chloride ER [K-Dur 10] 10 meq PO BID 04/24/24 [History] busPIRone HCl [Buspar] 20 mg PO BID 04/24/24 [History] cloNIDine HCL [Catapres] 0.1 mg PO BID PRN 04/24/24 [History] sitaGLIPtin [Januvia] 25 mg PO DAILY 04/24/24 [History] traZODone HCL [Desyrel] 200 mg PO HS PRN 04/24/24 [History] Naltrexone Microspheres [Vivitrol] 380 mg IM Q28D 10/23/24 [History] Follow up Appointment(s)/Referral(s): Christie Prince MD [Primary Care Provider] - 1-2 days Discharge/Stand Alone Forms: AA Meetings [facility] Abuse Facilities
[2024-10-24 16:48] LABS: Glucose,Whole Blood 136 mg/dL (70-110)
[2024-10-24] MEDS: chlordiazePOXIDE 25 MG CAP PO SCH (18:25)
[2024-10-24] MEDS ORDERED: LURASIDONE 40 MG TAB PO SCH (21:00)
[2024-10-25] MEDS ORDERED: LEVOTHYROXINE 50 MCG TAB PO SCH (06:30)
[2024-10-25] MEDS ORDERED: PANTOPRAZOLE 40 MG TABLET PO SCH (07:30)
[2024-10-25] MEDS ORDERED: THIAMINE 100 MG TAB PO SCH (09:00)
[2024-10-25] MEDS ORDERED: MULTIVITAMINS, THERA 1 EACH TAB PO SCH (09:00)
[2024-10-25] MEDS ORDERED: FENOFIBRATE 160 MG TAB PO SCH (09:00)
== END 2024-10-25 02:37 | DRG 775 ==
LOC: EC 12:34 → 3SCARD 16:26
PROVIDERS: ADMIT Hospitalist; ATTEND Hospitalist
DX: F10.239 Alcohol dependence with withdrawal, unspecified (principal); F10.229 Alcohol dependence with intoxication, unspecified; Y90.6 Blood alcohol level of 120-199 mg/100 ml; Z63.5 Disruption of family by separation and divorce; E11.9 Type 2 diabetes mellitus without complications; E78.5 Hyperlipidemia, unspecified; F15.10 Other stimulant abuse, uncomplicated; E07.9 Disorder of thyroid, unspecified; F17.210 Nicotine dependence, cigarettes, uncomplicated; F25.9 Schizoaffective disorder, unspecified; F32.A Depression, unspecified; M19.90 Unspecified osteoarthritis, unspecified site; K58.9 Irritable bowel syndrome, unspecified; F41.9 Anxiety disorder, unspecified; F90.9 Attention-deficit hyperactivity disorder, unspecified type; G40.909 Epilepsy, unspecified, not intractable, without status epilepticus; I49.3 Ventricular premature depolarization; Z79.84 Long term (current) use of oral hypoglycemic drugs; Z79.890 Hormone replacement therapy; Z79.899 Other long term (current) drug therapy; Z79.891 Long term (current) use of opiate analgesic; Z60.2 Problems related to living alone; Z56.0 Unemployment, unspecified
CPT/HCPCS: 36415; 80053; 80306; 80320; 82075; 83735; 85025; 87635; 93005; 96361; 96374; 96376; 99285

== ENCOUNTER 2024-10-24 18:01 | Inpatient (IN) | payer MEDICAID, OTHER ==
[2024-10-24] MEDS ORDERED: LORazepam 1 MG TAB PO PRN (18:05)
[2024-10-24] MEDS ORDERED: MAGNESIUM HYDROXIDE 2,400 MG/30 ML CUP PO PRN (18:05)
[2024-10-24] MEDS ORDERED: IBUPROFEN 600 MG TAB PO PRN (18:05)
[2024-10-24] MEDS ORDERED: MAG HYDROX/AL HYDROX/SIMETH 355 ML BOTTLE PO PRN (18:05)
[2024-10-24] MEDS ORDERED: LOPERAMIDE 2 MG CAP PO PRN (18:12)
[2024-10-24] MEDS ORDERED: HALOPERIDOL LACTATE 5 MG/ML 1 ML VIAL IM PRN (18:12)
[2024-10-24 18:39] LABS: Glucose,Whole Blood 120 mg/dL (70-110)
[2024-10-24 19:37] LABS: Glucose,Whole Blood 147 mg/dL (70-110)
[2024-10-24] MEDS: POTASSIUM CHLORIDE ER 10 MEQ TAB.ER.PRT PO SCH (20:20)
[2024-10-24] MEDS: LURASIDONE 40 MG TAB PO SCH (20:20)
[2024-10-24] MEDS: LORazepam 1 MG TAB PO PRN (20:20)
[2024-10-24] MEDS: cloNIDine HCL 0.1 MG TAB PO PRN (20:20)
[2024-10-24] MEDS: chlordiazePOXIDE 25 MG CAP PO SCH (20:20)
[2024-10-24] MEDS: traZODone HCL 100 MG TAB PO PRN (20:20)
[2024-10-24] MEDS: NICOTINE 21MG/24HR PATCH TRANSDERM SCH (20:28)
[2024-10-25] MEDS: LEVOTHYROXINE 50 MCG TAB PO SCH (05:56)
[2024-10-25 07:21] LABS: Glucose,Whole Blood 121 mg/dL (70-110)
[2024-10-25] MEDS: MULTIVITAMINS, THERA 1 EACH TAB PO SCH (08:40)
[2024-10-25] MEDS: FOLIC ACID 1 MG TAB PO SCH (08:41)
[2024-10-25] MEDS: PANTOPRAZOLE 40 MG TABLET PO SCH (08:41)
[2024-10-25] MEDS: THIAMINE 100 MG TAB PO SCH (08:41)
[2024-10-25] MEDS: LINAGLIPTIN 5 MG TABLET PO SCH (10:22)
[2024-10-25] MEDS: haloperidoL 5 MG TAB PO PRN (10:24)
[2024-10-25] MEDS: LORazepam 1 MG TAB PO STA (11:46)
[2024-10-25] MEDS: NICOTINE GUM (POLACRILEX) 2 MG GUM BUCCAL PRN (11:49)
--- NOTE | 2024-10-25 11:49 | P.HP ---
Psychiatric H&P - . H&P Date: 10/25/24 History & Physical: Allergies Allergy/AdvReac Type Severity Reaction Status Date / Time No Known Allergies Allergy Verified 10/23/24 15:56 Vital Signs Temp 97.6 F 10/25/24 06:03 Pulse 87 10/25/24 06:03 Resp 16 10/25/24 06:03 BP 118/83 10/25/24 06:03 Pulse Ox 98 10/25/24 06:03 FiO2 Intake & Output 10/24/24 10/25/24 10/25/24 18:59 06:59 18:59 Weight 77.111 kg Laboratory Last Values POC Glucose (mg/dL) 121 mg/dL (70-110) H 10/25/24 07:19 POC Glu Medical Management Specialist ID Francis Crews 10/25/24 07:19 TSH 0.507 mIU/L (0.465-4.680) 10/25/24 09:15 10/25/24 11:45 IDENTIFYING DATA: 48-year-old female with a history of seizure disorder, psychosis and substance abuse, presented for ETOH and VH/AH to the ER. She is has 4 kids lives alone in a house HISTORY OF PRESENT ILLNESS: Was seen by manual writer yesterday for psychiatric consultation and according to note "the patient presented to the hospital complaining of alcohol intoxication, auditory and visual hallucinations. Patient stated her last drink was at 8:30 AM, has been drinking a heavy amount approximately a half a gallon of whiskey a day and does have a history of severe withdrawals. Blood alcohol level was 140, urine drug screen was positive for amphetamines. Patient was seen today laying in bed agreeable to speak to manual writer. She appeared to be fairly anxious, endorsing severe depression. Claims that she has been mainly isolating in her house, drinking heavily. States that she was discharged from [place] about 3 months ago and relapsed after she was went home. States that she is also using using methamphetamines however was vague about how often. Claims that she has been hearing more negative voices, telling her to do things and calling her different names. States that she is also seeing things and seeing people that are not there. Claims that this has been going on for the past 2 weeks. States that this is causing more anxiety and depression for her she is also endorsing some paranoia about others and people might be out to get her. She does claim that she has a history of severe withdrawal symptoms including tremors, currently experiencing nausea temperature changes and high levels of anxiety. Claims that her sleep is poor appetite is poor. At this time patient denies any current suicidal or homical ideations, intent or plan. She is still complaining of auditory hallucinations as noted above denying any visual hallucinations in the hospital. Claims that she drinks alcohol as noted above methamphetamine use, also nicotine use. Denies any other recreational drug use". Patient was seen today wandering the hallways agreeable to speak to manual writer today for psychiatric evaluation. Patient continues to state that she is feeling like she is going through withdrawals, continues to state that she is hearing voices telling her negative things. Continues to endorse anxiety depression. We spoke a bit about medications she claims that she is craving cigarettes. She appeared to be more pleasant today and more cooperative improving hygiene and grooming. Claims that she had difficulty sleeping last register of wills trazodone increased. At this time she is denying any problems with appetite. Denies any suicidal homicidal ideations intent or plan. Is continuing to state that she is hearing voices denies any visual hallucinations. PAST PSYCHIATRIC HISTORY: Patient has a a history of psychosis anxiety and depression, alcohol and polysubstance abuse. Patient has been on several different medications including Zyprexa, Vistaril Lamictal and melatonin, Latuda Vistaril BuSpar and trazodone. Patient states that her last psychiatric hospitalization was on the mental health unit in August 2020. Patient claims that she currently follows up with [facility] with her nurse practitioner in [facility] on the iddt team. patient denies any history of suicide attempts in the past. Past Medical History: Diabetes Mellitus, Hyperlipidemia, Osteoarthritis (OA), Seizure Disorder, Thyroid Disorder Additional Past Medical History / Comment(s): Hx "high blood sugar was on Metformin but sugars are normal now and no longer taking Metformin." Hx 2 seizures on 04/28/18 at [place], from alcohol withdrawl. Hx opiate overdose 2010, with respiratory failure, on vent. HERNIATED DISCS. MIGRAINES. HX PANCREATITIS. IBS. History of Any Multi-Drug Resistant Organisms: None Reported Past Surgical History: Tubal Ligation Additional Past Surgical History / Comment(s): EGD, colonoscopy, D&C, right groin cyst removed, PICC line placed and later removed while in hospital for overdose. Past Anesthesia/Blood Transfusion Reactions: No Reported Reaction Past Psychological History: ADD/ADHD, Anxiety, Depression, Schizophrenia Smoking Status: Current every day smoker Past Alcohol Use History: Abuse, Daily, Heavy Past Drug Use History: Marijuana, Methamphetamine, Opiates ALLERGIES: as per EMR. CHEMICAL DEPENDENCY HISTORY: as per HPI. FAMILY PSYCHIATRIC/SUBSTANCE USE HISTORY: denies SOCIAL HISTORY: Patient has a GED and did some college work. She worked in [employer] previously. She has been unemployed. She currently lives alone in a house and states that her several years ago. She has 4 adult children and one grandson. denies any legal history MENTAL STATUS EXAM: General Appearance: Patient appears to be tall, stated age is alert, pleasant, and attempts to be cooperative. Patient appears to have improving hygiene and grooming wearing hospital gown with improving eye contact. Behavior: Patient is appears to be fairly anxious, Attempts to cooperate, improving, appears to be restless Speech: Patient's speech is fluent and speaks with a lisp. Mood/Affect: Patient reports their mood is "depressed and anxious", affect is congruent appears to be anxious Suicidality/Homicidality: Patient denies having any suicidal or homicidal ideation intent or plan. Perceptions: Patient denies any visual hallucinations. She states that she is still hearing voices telling her negative things distressing to her. Though content/process: There is no evidence of any delusional thought content and thought process is linear and goal-directed. [place]. Perseverates on her hallucinations Memory and concentration: AOX3, grossly intact for the purposes of this session. Can spell "WORLD" backwards Judgment and insight: poor, improving mildly IMPRESSIONS: Schizoaffective disorder Methamphetamine abuse alcohol use disorder severe dependence Seizure disorder Nicotine dependence STRENGTHS/WEAKNESSES: strength is that patient is resilient. Weakness is that patient has poor judgment and is impulsive and has severe alcohol dependence INTELLECT: Average PLAN: -Patient is admitted under voluntary status to MHU for stabilization of psychiatric symptoms and safety. Patient has signed adult voluntary form and has not signed medication consent and is placed in patient's chart. -Medications : Zoloft 50 mg nightly for mood/anxiety, increase Latuda to 60 mg at 1800hr for mood stabilization/psychosis, trazodone 150 mg nightly as needed for insomnia -Ativan and Haldol PRN for agitation/aggression -Started thiamine, MVM for etoh use -CIWA protocol with Ativan PRN for ETOH withdrawal. Scheduled Librium for alcohol withdrawal with plan to taper. -Patient was counselled on substance abuse and desired to cut back on use. Will offer patient subtance use rehab -Patient was informed of the risks, benefits and side effects of the medications and patient verbally consented to taking the medications. Patient signed med consent form and was placed in chart. Patient was offered medication information and declined it -Internal Medicine consult to perform medical evaluation and physical. -NRT -nicotine patch and nicotine gum -SW on board for discharge planning. Encourage patient to participate in groups to work on coping skills.
[2024-10-25] MEDS: NALTREXONE MICROSPHERES 380 MG VIAL (NO COST - VIVITROL) IM SCH (12:49)
[2024-10-25] MEDS: FENOFIBRATE 160 MG TAB PO SCH (12:49)
[2024-10-25] MEDS: chlordiazePOXIDE 25 MG CAP PO SCH (13:32)
[2024-10-25] MEDS ORDERED: DEXTROSE 50% SYRINGE 50 ML IVP PRN ×2 (15:09)
--- NOTE | 2024-10-25 15:09 | P.MDCNMH ---
History of Present Illness H&P Date: 10/25/24 This is a who was just on medicine service admitted for pleasant 48-year-old female alcohol withdrawal with visual and auditory hallucinations with concerns of withdrawal and also has withdrawal induced seizures. Patient follows with Dr. Niko Woodson in the outpatient setting with a past medical history of diabetes mellitus, hyperlipidemia, osteoarthritis, thyroid disorder, ADD/HD, anxiety, depression, schizophrenia, admits to smoking daily with daily alcohol use and also uses marijuana, methamphetamine and opiates. Patient was medically stable maintained on CIWA protocol and also Librium taper and voluntarily admitted to [facility] for further psychiatric evaluation. Urine drug screen was po sitive for alcohol and amphetamines, COVID testing was negative, other labs within normal limits than a mildly elevated glucose count. Patient seen and evaluated this morning with a steady gait and does not appear to be actively withdrawing and has been compliant with psychiatry evaluation, group therapy, and medications. REVIEW OF SYSTEMS: CONSTITUTIONAL: No fever, no malaise, no fatigue. HEENT: No recent visual problems or hearing problems. Denied any sore throat. CARDIOVASCULAR: No chest pain, orthopnea, PND, no palpitations, no syncope. PULMONARY: No shortness of breath, no cough, no hemoptysis. GASTROINTESTINAL: No diarrhea, no nausea, no vomiting, no abdominal pain. NEUROLOGICAL: No headaches, no weakness, no numbness. HEMATOLOGICAL: Denies any bleeding or petechiae. GENITOURINARY: Denies any burning micturition, frequency, or urgency. MUSCULOSKELETAL/RHEUMATOLOGICAL: Denies any joint pain, swelling, or any muscle pain. ENDOCRINE: Denies any polyuria or polydipsia. The rest of the 14-point review of systems is negative. PHYSICAL EXAMINATION: GENERAL: The patient is alert and oriented x3, anxious. Well developed, thin built HEENT: Pupils are round and equally reacting to light. EOMI. No scleral icterus. No conjunctival pallor. Normocephalic, atraumatic. No pharyngeal erythema. No thyromegaly. CARDIOVASCULAR: S1 and S2 present. No murmurs, rubs, or gallops. PULMONARY: Chest is clear to auscultation, no wheezing or crackles. ABDOMEN: Soft, nontender, nondistended, normoactive bowel sounds. No palpable organomegaly. MUSCULOSKELETAL: No joint swelling or deformity. EXTREMITIES: No cyanosis, clubbing, or pedal edema. NEUROLOGICAL: Gross neurological examination did not reveal any focal deficits. SKIN: No rashes. Assessment: Alcohol use disorder with history of withdrawal seizures, was maintained on [facility] overhead medicine service and placed on Librium taper History of alcohol induced seizures Schizoaffective disorder Diabetes mellitus, uncontrolled with hyperglycemia Hyperlipidemia Osteoarthritis history Thyroid disorder History of anxiety, depression, schizophrenia History of ADD/ADHD Continued ongoing nicotine dependence THC use Polysubstance use with methamphetamine and opiates GI prophylaxis Full code Plan: Patient was evaluated on 3 W. and gait was steady and normal physical exam. Patient was noted to be mildly anxious and reported her withdrawals are improving Encouraged group therapy sessions and compliance with medications and psychiatric evaluation Patient instructed to follow-up with Dr. Niko Woodson on discharge Home medications will be reviewed and resumed as appropriate Recommend Accu-Cheks before meals and at bedtime along with consistent carb diet and would recommend adding sliding scale as needed Patient also to follow with [facility] outpatient Thank you kindly for this consultation The impression and plan of care has been dictated by Ailyn Paul, Nurse Practitioner as directed. Dr. Paolo MD I have performed a history and examination and MDM of this patient, discussed the same with the dictator, and agree with the dictator's assessment and plan as written ,documented as a scribe. Based on total visit time, I have performed more than 50% of the visit. Past Medical History Past Medical History: Diabetes Mellitus, Hyperlipidemia, Osteoarthritis (OA), Seizure Disorder, Thyroid Disorder Additional Past Medical History / Comment(s): Hx "high blood sugar was on Metformin but sugars are normal now and no longer taking Metformin." Hx 2 seizures on 04/28/18 at [place], from alcohol withdrawl. Hx opiate overdose 2010, with respiratory failure, on vent. HERNIATED DISCS. MIGRAINES. HX PANCREATITIS. IBS. History of Any Multi-Drug Resistant Organisms: None Reported Past Surgical History: Tubal Ligation Additional Past Surgical History / Comment(s): EGD, colonoscopy, D&C, right groin cyst removed, PICC line placed and later removed while in hospital for overdose. Past Anesthesia/Blood Transfusion Reactions: No Reported Reaction Past Psychological History: ADD/ADHD, Anxiety, Depression, Schizophrenia Smoking Status: Current every day smoker Past Alcohol Use History: Abuse, Daily, Heavy Past Drug Use History: Marijuana, Methamphetamine, Opiates - Past Family History Mother Family Medical History: Cancer Father History Unknown: Yes Family Medical History: Deep Vein Thrombosis (DVT) Medications and Allergies Home Medications Medication Instructions Recorded Confirmed Type Lurasidone [Latuda] 40 mg PO HS 11/08/22 10/24/24 History Ergocalciferol (Vitamin D2) 1,250 mcg PO WEEKLY 04/24/24 10/24/24 History [Drisdol (50,000 Iu)] Fenofibrate Nanocrystallized 145 mg PO DAILY 04/24/24 10/24/24 History [Fenofibrate] Folic Acid 1 mg PO DAILY 04/24/24 10/24/24 History Levothyroxine Sodium [Synthroid] 50 mcg PO DAILY 04/24/24 10/24/24 History Pantoprazole Sodium [Protonix] 20 mg PO DAILY 04/24/24 10/24/24 History Potassium Chloride ER [K-Dur 10] 10 meq PO BID 04/24/24 10/24/24 History busPIRone HCl [Buspar] 20 mg PO BID 04/24/24 10/24/24 History sitaGLIPtin [Januvia] 25 mg PO DAILY 04/24/24 10/24/24 History traZODone HCL [Desyrel] 200 mg PO HS PRN 04/24/24 10/24/24 History Naltrexone Microspheres [Vivitrol] 380 mg IM Q28D 10/23/24 10/24/24 History Multivitamins, Thera [Multivitamin 1 each PO DAILY tab 10/24/24 10/24/24 Rx (formulary)] Thiamine [Vitamin B-1] 100 mg PO DAILY tab 10/24/24 10/24/24 Rx chlordiazePOXIDE HCl [Librium] 25 mg PO QID cap 10/24/24 10/24/24 Rx Allergies Allergy/AdvReac Type Severity Reaction Status Date / Time No Known Allergies Allergy Verified 10/23/24 15:56 Physical Exam Vitals: Vital Signs Temp Pulse Pulse Resp BP BP Pulse Ox 10/25/24 06:03 97.6 F 87 16 118/83 98 10/24/24 19:14 97.4 F L 90 18 143/96 97 Intake and Output 10/24/24 10/25/24 10/25/24 22:59 06:59 14:59 Other: Weight 77.111 kg Cranial Nerve Examination - Cranial Nerves Cranial Nerve I- Olfactory: Intact Cranial Nerve II- Optic: Intact Cranial Nerve III- Oculomotor: Intact Cranial Nerve IV- Trochlear: Intact Cranial Nerve V- Trigeminal: Intact Cranial Nerve - Abducens: Intact Cranial Nerve VII- Facial: Intact Cranial Nerve VIII- Auditory: Intact Cranial Nerve IX- Glossopharyngeal: Intact Cranial Nerve X- Vagus: Intact Cranial Nerve XI- Accessory: Intact Cranial Nerve XII- Hypoglossal: Intact Results Labs: Abnormal Lab Results - Last 24 Hours (Table) 10/24/24 10/24/24 10/25/24 Range/Units 18:37 19:32 07:19 POC Glucose (mg/dL) 120 H 147 H 121 H (70-110) mg/dL
[2024-10-25 17:43] LABS: Glucose,Whole Blood 152 mg/dL (70-110)
[2024-10-25] MEDS: INSULIN LISPRO (HumaLOG) 100 UNIT/ML 10 mL VL SQ SCH (18:52)
[2024-10-25] MEDS: LURASIDONE 60 MG TAB PO SCH (19:00)
[2024-10-25 19:56] LABS: Glucose,Whole Blood 162 mg/dL (70-110)
[2024-10-25] MEDS: SERTRALINE 50 MG TAB PO SCH (20:07)
[2024-10-25] MEDS: traZODone HCL 50 MG TAB PO PRN (21:50)
[2024-10-26 07:22] LABS: Glucose,Whole Blood 156 mg/dL (70-110)
--- NOTE | 2024-10-26 10:37 | P.PN ---
Subjective Progress Note Date: 10/26/24 Principal diagnosis: schizoaffective Alcohol abuse Methamphetamine abuse subjective the patient says that she is not having any shaking have not had any seizures was able to sleep last night feels she is going through withdrawal properly and has not had alcohol for 2 or 3 days. She says she's been to rehab before even goes to and has a sponsor. She says she is working on a plan to get the support she needs to not go back on the alcohol.she is positive about the visit control shot and hopes that that helps her do well and be more responsible. MENTAL STATUS EXAM: General Appearance: Patient appears to be tall, stated age is alert, pleasant, and attempts to be cooperative. Patient appears to have improving hygiene and grooming wearing hospital gown with improving eye contact. Behavior: Patient is appears to be fairly anxious, Attempts to cooperate, improving, appears to be restless Speech: Patient's speech is fluent and speaks with a lisp.she says she doesn't have any bottom teeth S like she talks that way Mood/Affect: Patient reports their mood is "depressed and anxious", affect is congruent appears to be anxious Suicidality/Homicidality: Patient denies having any suicidal or homicidal ideation intent or plan. Perceptions: Patient denies any visual hallucinations. She states that she is still hearing voices telling her negative things distressing to her. Though content/process: There is no evidence of any delusional thought content and thought process is linear and goal-directed. [place]. Perseverates on her hallucinations Memory and concentration: AOX3, grossly intact for the purposes of this session. Can spell "WORLD" backwards Judgment and insight: poor, improving mildly IMPRESSIONS: Schizoaffective disorder Methamphetamine abuse alcohol use disorder severe dependence Seizure disorder Nicotine dependence STRENGTHS/WEAKNESSES: strength is that patient is resilient. Weakness is that patient has poor judgment and is impulsive and has severe alcohol dependence INTELLECT: Average PLAN: no change in medication at this time -Patient is admitted under voluntary status to MHU for stabilization of psychiatric symptoms and safety. Patient has signed adult voluntary form and has not signed medication consent and is placed in patient's chart. -Medications : Zoloft 50 mg nightly for mood/anxiety, increase Latuda to 60 mg at 1800hr for mood stabilization/psychosis, trazodone 150 mg nightly as needed for insomnia -Ativan and Haldol PRN for agitation/aggression -Started thiamine, MVM for etoh use -CIWA protocol with Ativan PRN for ETOH withdrawal. Scheduled Librium for alcohol withdrawal with plan to taper. -Patient was counselled on substance abuse and desired to cut back on use. Will offer patient subtance use rehab -Patient was informed of the risks, benefits and side effects of the medications and patient verbally consented to taking the medications. Patient signed med consent form and was placed in chart. Patient was offered medication information and declined it -Internal Medicine consult to perform medical evaluation and physical. -NRT -nicotine patch and nicotine gum -SW on board for discharge planning. Encourage patient to participate in groups to work on coping skills. Objective - Vital Signs Vital signs: Vital Signs Temp 97.4 F L 10/26/24 08:39 Pulse 93 10/26/24 08:39 Resp 20 10/26/24 08:39 BP 109/77 10/26/24 08:39 Pulse Ox 98 10/25/24 06:03 FiO2 - Labs Labs: Abnormal Lab Results - Last 24 Hours (Table) 10/25/24 10/25/24 10/26/24 Range/Units 17:41 19:52 07:19 POC Glucose (mg/dL) 152 H 162 H 156 H (70-110) mg/dL
[2024-10-26 12:39] LABS: Glucose,Whole Blood 132 mg/dL (70-110)
[2024-10-26 17:37] LABS: Glucose,Whole Blood 135 mg/dL (70-110)
[2024-10-26 19:56] LABS: Glucose,Whole Blood 207 mg/dL (70-110)
[2024-10-26] MEDS: traZODone HCL 50 MG TAB PO PRN (20:33)
[2024-10-27 07:37] LABS: Glucose,Whole Blood 124 mg/dL (70-110)
--- NOTE | 2024-10-27 08:51 | P.PN ---
Subjective Progress Note Date: 10/27/24 Principal diagnosis: schizoaffective Alcohol abuse Methamphetamine abuse subjective: the patient says that she is not having any shaking have not had any seizures was able to sleep last night feels she is going through withdrawal properly and has not had alcohol for 2 or 3 days. she did wonder she could have a higher dose of Ativan. However when I told her that we need to stick with to see what protocol and away she should focus on his what she needs to do to not put herself through this in the future: she was not agitated about my response. MENTAL STATUS EXAM: good eye contact quick responses General Appearance: Patient appears to be tall,appears her stated age, is alert, pleasant, andis cooperative. Patient appears to havegood hygiene and grooming.. Behavior: Patientdoes not seem to be anxious although she has some internal anxiety she is not shaking no pressured speech, Attempts to cooperate, improving, appears to be restless Speech: Patient's speech is fluent and speaks with a lisp.she says she doesn't have any bottom teeth which is why she talks that way Mood/Affect: Patient reports their mood isstill anxious but hopeful, affect is calm Suicidality/Homicidality: Patient denies having any suicidal or homicidal ideation intent or plan. Perceptions: Patient denies any visual hallucinations. She states that she is still hearing voices telling her negative things distressing to her. Though content/process: There is no evidence of any delusional thought content and thought process is linear and goal-directed. [place]. Perseverates on her hallucinations Memory and concentration: AOX3, grossly intact for the purposes of this session. Can spell "WORLD" backwards Judgment and insight: poor, improving mildly IMPRESSIONS: Schizoaffective disorder Methamphetamine abuse alcohol use disorder severe dependence Seizure disorder Nicotine dependence STRENGTHS/WEAKNESSES: strength is that patient is resilient. Weakness is that patient has poor judgment and is impulsive and has severe alcohol dependence Assessment: Patient is sexually going through withdrawal fairly smoothly and she has a reasonable discharge plan. She says that she had friends over who would drink and that led to her own drinking. she also quit working because she didn' t like to adopt they gave her when she came back from [facility] but then she had this enormous amount of free time which increase the chance of drinking. She has a friend and sponsor lives across the street name Radha was willing to be firm with her and she plans to work with Radha and doing she says she says she has a whole team over at the [facility] to help her. PLAN: no change in medication at this timeshe is tolerating the medications well -Patient is admitted under voluntary status to MHU for stabilization of psychiatric symptoms and safety. Patient has signed adult voluntary form and has not signed medication consent and is placed in patient's chart. -Medications : Zoloft 50 mg nightly for mood/anxiety, increase Latuda to 60 mg at 1800hr for mood stabilization/psychosis, trazodone 150 mg nightly as needed for insomnia -Ativan and Haldol PRN for agitation/aggression -Started thiamine, MVM for etoh use -CIWA protocol with Ativan PRN for ETOH withdrawal. Scheduled Librium for alcohol withdrawal with plan to taper. -Patient was counselled on substance abuse and desired to cut back on use. Will offer patient subtance use rehab -Patient was informed of the risks, benefits and side effects of the medications and patient verbally consented to taking the medications. Patient signed med consent form and was placed in chart. Patient was offered medication information and declined it -Internal Medicine consult to perform medical evaluation and physical. -NRT -nicotine patch and nicotine gum -SW on board for discharge planning. Encourage patient to participate in groups to work on coping skills. Objective - Vital Signs Vital signs: Vital Signs Temp 97.4 F L 10/26/24 08:39 Pulse 93 10/26/24 08:39 Resp 20 10/26/24 08:39 BP 109/77 10/26/24 08:39 Pulse Ox 98 10/25/24 06:03 FiO2 - Labs Labs: Abnormal Lab Results - Last 24 Hours (Table) 10/25/24 10/26/24 10/26/24 Range/Units 09:15 12:37 17:36 POC Glucose (mg/dL) 132 H 135 H (70-110) mg/dL Hemoglobin A1c 6.9 H (<=6.0) % 10/26/24 10/27/24 Range/Units 19:33 07:36 POC Glucose (mg/dL) 207 H 124 H (70-110) mg/dL Hemoglobin A1c (<=6.0) %
[2024-10-27 12:56] LABS: Glucose,Whole Blood 128 mg/dL (70-110)
[2024-10-27 17:39] LABS: Glucose,Whole Blood 129 mg/dL (70-110)
[2024-10-27] MEDS: ACETAMINOPHEN TAB 325 MG TAB PO PRN (17:41)
[2024-10-27] MEDS ORDERED: ONDANSETRON ODT 4 MG TAB PO PRN (18:36)
[2024-10-27 20:18] LABS: Glucose,Whole Blood 202 mg/dL (70-110)
[2024-10-28 07:45] LABS: Glucose,Whole Blood 141 mg/dL (70-110)
[2024-10-28 12:45] LABS: Glucose,Whole Blood 132 mg/dL (70-110)
[2024-10-28 17:54] LABS: Glucose,Whole Blood 168 mg/dL (70-110)
--- NOTE | 2024-10-28 19:46 | P.PN ---
Progress Note - Text Progress Note Date: 10/28/24 Interval history: Patient was found resting in bed this evening. She reports she is doing well, is tolerating her medications without side effects. She appears to shake slightly. Vitals reviewed and BP is 109/75 and HR 96. She is on Librium 20 mg QID for alcohol withdrawal. She also required Ativan 1 mg po x 2 per CIWA so far today, and received Haldol 5 mg po x 1 today for agitation. She is pleasant and calm on assessment. She denies any SI/HI, AVH. She reports she met with her [facility] worker and reports they have a post-discharge plan for services at [facility]. Patient inquires about discharge tomorrow and we discussed this would need to be considered by her primary team tomorrow. MENTAL STATUS EXAM: General Appearance: Patient appears to be tall, slender, appears older than stated age with facial hirsutism, fair hygiene and grooming. Behavior: Patient attempts to cooperate, has mild tremor in upper extremities while putting on her sweatshirt. Speech: Patient's speech is fluent and speaks with a lisp at baseline. Mood/Affect: She claims mood is good, affect appears euthymic Suicidality/Homicidality: Patient denies having any suicidal or homicidal ideation intent or plan. Perceptions: Patient denies any visual hallucinations, denies auditory hallucinations. Though content/process: There is no evidence of any delusional thought content and thought process is somewhat concrete. Memory and concentration: AOX3, grossly intact for the purposes of this session. Judgment and insight: poor, improving mildly IMPRESSIONS: Schizoaffective disorder Methamphetamine use disorder Alcohol use disorder, severe dependence, with alcohol withdrawal Seizure disorder Nicotine dependence PLAN: -Patient is admitted under voluntary status to MHU for stabilization of psychiatric symptoms and safety. Patient has signed adult voluntary form and has not signed medication consent and is placed in patient's chart. -Medications: Decrease Librium 20 mg QID to 20 mg TID starting tomorrow morning for alcohol withdrawal. Monitor vital signs and adjust Librium taper as needed. Discontinued Clonidine 0.1 mg BID PRN since this may mask alcohol withdrawal. Continue Zoloft 50 mg nightly for mood/anxiety, Latuda 60 mg at 1800hr for mood stabilization/psychosis, Trazodone 150 mg nightly as needed for insomnia. -Ativan and Haldol PRN for agitation/aggression -Thiamine, MVM for etoh use -CIWA protocol with Ativan PRN for ETOH withdrawal. -Internal Medicine consult to perform medical evaluation and physical. -NRT -nicotine patch and nicotine gum -SW on board for discharge planning. Encourage patient to participate in groups to work on coping skills.
[2024-10-28 20:23] LABS: Glucose,Whole Blood 177 mg/dL (70-110)
[2024-10-29 07:58] LABS: Glucose,Whole Blood 139 mg/dL (70-110)
[2024-10-29 08:41] VITALS: TEMP 97.2
--- NOTE | 2024-10-29 12:22 | P.PN ---
Progress Note - Text Progress Note Date: 10/29/24 Interval history: Patient was found resting in bed today and was agreeable to speak to machine sign writer in the office. Patient claims that she is doing better today, states that her mood and anxiety have been improving. Continues to state that she does have some anxiety during the day. Claims that she sleeps about 4 hours a night. Claims that she is stopping some minor withdrawal symptoms monitor shakes at times. We spoke about continuing to decrease her Librium. She was fairly focused on disch arge, believe that she was being discharged today. Claims that she is eating better. Going to some groups. States that she does not want to go to rehab and would rather go to AA meetings. She denies any SI/HI, AVH. MENTAL STATUS EXAM: General Appearance: Patient appears to be tall, slender, appears older than stated age with facial hirsutism, fair hygiene and grooming. Behavior: Patient attempts to cooperate, Speech: Patient's speech is fluent and speaks with a lisp at baseline. Mood/Affect: She claims mood is good, with some anxiety, affect appears euthymic Suicidality/Homicidality: Patient denies having any suicidal or homicidal ideation intent or plan. Perceptions: Patient denies any visual hallucinations, denies auditory hallucinations. Though content/process: There is no evidence of any delusional thought content and thought process is somewhat concrete. Focused on discharge Memory and concentration: AOX3, grossly intact for the purposes of this session. Judgment and insight: improving mildly IMPRESSIONS: Schizoaffective disorder Methamphetamine use disorder Alcohol use disorder, severe dependence, with alcohol withdrawal Seizure disorder Nicotine dependence PLAN: -Patient is admitted under voluntary status to MHU for stabilization of psychiatric symptoms and safety. Patient has signed adult voluntary form and has not signed medication consent and is placed in patient's chart. -Medications: Decrease Librium 10 mg TID, plan to discontinue tomorrow morning increase Zoloft 100 mg nightly for mood/anxiety, increase Latuda 80 mg at 1800hr for mood stabilization/psychosis, Trazodone 200 mg nightly as needed for insomnia. -Ativan and Haldol PRN for agitation/aggression -Thiamine, MVM for etoh use -CIWA protocol with Ativan PRN for ETOH withdrawal. -NRT -nicotine patch and nicotine gum -SW on board for discharge planning. Encourage patient to participate in groups to work on coping skills. Likely discharge tomorrow back home, refusing rehab at this time.
[2024-10-29 12:47] LABS: Glucose,Whole Blood 145 mg/dL (70-110)
[2024-10-29 17:57] LABS: Glucose,Whole Blood 149 mg/dL (70-110)
[2024-10-29] MEDS: LURASIDONE 80 MG TAB PO SCH (18:01)
[2024-10-29 19:47] LABS: Glucose,Whole Blood 152 mg/dL (70-110)
[2024-10-29] MEDS: SERTRALINE 100 MG TAB PO SCH (20:32)
[2024-10-30 08:05] LABS: Glucose,Whole Blood 116 mg/dL (70-110)
[2024-10-30 09:41] VITALS: BP 126/83; PULSE 89; RESP 18
--- NOTE | 2024-10-30 09:43 | P.DS ---
Providers Date of admission: 10/24/24 18:39 Expected date of discharge: 10/30/24 Attending physician: Gualberto Gutierrez MD Consults: 10/24/24 18:05 Consult Physician Routine Consulting Provider: [facility] Consult Reason/Comments: H&P Do you want consulting provider notified?: Yes Primary care physician: Stated None - Discharge Diagnosis(es) (1) Schizoaffective disorder Current Visit: Yes Status: Acute Priority: High (2) Methamphetamine use disorder, moderate Current Visit: Yes Status: Acute Priority: High (3) Alcohol use disorder, severe, dependence Current Visit: Yes Status: Acute Priority: High (4) Seizure disorder Current Visit: Yes Status: Acute Priority: Medium (5) Nicotine dependence Current Visit: Yes Status: Acute Priority: Low Hospital Course: Admission HPI: Admission note was completed by internal communications writer "48-year-old female with a history of seizure disorder, psychosis and substance abuse, presented for ETOH and VH/AH to the ER. She is has 4 kids lives alone in a house. Was seen by internal communications writer yesterday for psychiatric consultation and according to note "the patient presented to the hospital complaining of alcohol intoxication, auditory and visual hallucinations. Patient stated her last drink was at 8:30 AM, has been drinking a heavy amount approximately a half a gallon of whiskey a day and does have a history of severe withdrawals. Blood alcohol level was 140, urine drug screen was positive for amphetamines. Patient was seen today laying in bed agreeable to speak to internal communications writer. She appeared to be fairly anxious, endorsing severe depression. Claims that she has been mainly isolating in her house, drinking heavily. States that she was discharged from [facility] about 3 months ago and relapsed after she was went home. States that she is also using using methamphetamines however was vague about how often. Claims that she has been hearing more negative voices, telling her to do things and calling her different names. States that she is also seeing things and seeing people that are not there. Claims that this has been going on for the past 2 weeks. States that this is causing more anxiety and depression for her she is also endorsing some paranoia about others and people might be out to get her. She does claim t hat she has a history of severe withdrawal symptoms including tremors, currently experiencing nausea temperature changes and high levels of anxiety. Claims that her sleep is poor appetite is poor. At this time patient denies any current suicidal or homical ideations, intent or plan. She is still complaining of auditory hallucinations as noted above denying any visual hallucinations in the hospital. Claims that she drinks alcohol as noted above methamphetamine use, also nicotine use. Denies any other recreational drug use". Patient was seen today wandering the hallways agreeable to speak to internal communications writer today for psychiatric evaluation. Patient continues to state that she is feeling like she is going through withdrawals, continues to state that she is hearing voices telling her negative things. Continues to endorse anxiety depression. We spoke a bit about medications she claims that she is craving cigarettes. She appeared to be more pleasant today and more cooperative improving hygiene and grooming. Claims that she had difficulty sleeping last pastry cook trazodone increased. At this time she is denying any problems with appetite. Denies any suicidal homicidal ideations intent or plan. Is continuing to state that she is hearing voices denies any visual hallucinations." Hospital course: Upon admission to the unit patient was directable and agreeable to commence treatment and signed adult voluntary form. Patient was initially depressed, going through alcohol withdrawals however with time and treatment patient got along well with other patients on the unit and followed unit protocol. Patient was compliant with the medications and denied any side effects throughout hospital course. Patient was started on Librium gradually taper down and Ativan and CIWA protocol for alcohol withdrawal, patient was also started on Zoloft increased to dose 100 mg nightly for mood/anxiety, Latuda increased to dose of 80 mg at 1800hr for mood stabilization/psychosis, trazodone 200 mg nightly as needed for insomnia. Patient spoke of her stressors and engaged in therapy both group/activity therapy. Patient was also seen by medical team for history and physical exam. Throughout the course of the hospitalization patient gradually improved with regards to mood, anxiety, psychosis, sleep and became more future oriented with improved insight and judgment. On the day of discharge patient denied any suicidal or homicidal ideations intent or plan denied any auditory or visual hallucinations. Patient endorsed wanting to live for their health and family. The patient denied any access to guns or weapons. Patient denied any paranoia and did not endorse any delusions. Patient does have a significant history of substance abuse and was counseled on abstaining from all substances including alcohol and marijuana. Patient was offered however declined inpatient substance-abuse rehab. Patient elected to do outpatient substance use treatment program through their outpatient provider. Patient is also currently taking vivitrol injection however missed her dose at [facility], she was agreeable to recieve a dose on 10/25 and next dose will be due in one month on 11/22. Patient was also counseled on the medications and need for regular compliance and was encouraged to follow-up with their outpatient appointment for mental health and also for primary care. Mental status exam: General Appearance: Patient appears to be tall, thin stated age is alert, pleasant, and cooperative. Patient is in no acute distress and has improved hygiene and grooming Behavior: Patient is calmly seated without any agitated behavior. Cooperative Speech: Patient's speech is fluent and nonpressured. With a lisp Mood/Affect: Patient reports their mood is "good", affect is congruent and euthymic. Suicidality/Homicidality: Patient denies having any suicidal or homicidal ideation intent or plan. Perceptions: Patient denies any auditory or visual hallucinations. Though content/process: There is no evidence of any delusional thought content and thought process is linear and goal-directed. More future oriented Memory and concentration: AOX3, grossly intact for the purposes of this session. Can spell "WORLD" backwards correctly. Judgment and insight: Chronically poor, however has improved with guarded prognosis Impression: Schizoaffective disorder Methamphetamine use disorder moderate Alcohol use disorder severe dependence Seizure disorder Nicotine dependence Plan: -Continue with discharge today as patient has improved and stabilized psychiatrically and is not currently an imminent threat to themself and/or others. Patient will remain at chronically elevated risk for harm to self and/or others due to their impulsivity and substance abuse. -Continue medications: Zoloft 100 mg nightly for mood/anxiety, Latuda 80 mg at 1800 hrs. for mood stabilization/psychosis, trazodone 200 mg nightly as needed for insomnia, Vivitrol 380 mg IM for alcohol cravings, last dose given on 10/25 next dose will be due on 11/22 -Patient was counseled on the need for medication compliance and appropriate follow-up at mental health and also primary care for medical issues. Patient verbalized understanding and agreed. -Social work to help coordinate patients discharge today. also to ensure safe home environment that guns/weapons are either removed from the home or locked away. Social work also to arrange for patients follow up appointments with [facility] for psychiatric care along with follow up with primary care provider. -Patient counseled on abstaining from recreational drugs and marijuana and alcohol. Was informed/educated on the adverse effects on their physical and mental health. Patient verbally agreed and understood. Patient was offered substance abuse treatment however declined at this time. -Patient was instructed to return to the hospital or seek immediate medical care if their psychiatric or medical symptoms do worsen or reoccur. Allergies Allergy/AdvReac Type Severity Reaction Status Date / Time No Known Allergies Allergy Verified 10/23/24 15:56 Laboratory Results POC Glucose (mg/dL) 116 mg/dL (70-110) H 10/30/24 08:03 POC Glu Director Plans ID Jt Robertson 10/30/24 08:[address] Glu mg/dL 151 mg/dL 10/25/24 09:15 Hemoglobin A1c 6.9 % (<=6.0) H 10/25/24 09:15 TSH 0.507 mIU/L (0.465-4.680) 10/25/24 09:15 Vital Signs Temp 97.2 F L 10/29/24 08:40 Pulse 89 10/30/24 09:09 Resp 18 10/30/24 09:09 BP 126/83 10/30/24 09:09 Pulse Ox 97 10/30/24 09:09 FiO2 Patient Condition at Discharge: Stable Plan - Discharge Summary Discharge Rx Participant: No New Discharge Prescriptions: New Nicotine 21Mg/24Hr Patch [Habitrol] 1 patch TRANSDERM DAILY 14 Days #14 patch Pantoprazole [Protonix] 40 mg PO DAILY 30 Days #30 tab Sertraline [Zoloft] 100 mg PO HS 30 Days #30 tab Lurasidone [Latuda] 80 mg PO 1800 30 Days #30 tab Continue Potassium Chloride ER [K-Dur 10] 10 meq PO BID Fenofibrate Nanocrystallized [Fenofibrate] 145 mg PO DAILY sitaGLIPtin [Januvia] 25 mg PO DAILY traZODone HCL [Desyrel] 200 mg PO HS PRN 30 Days #60 tab PRN Reason: sleep Ergocalciferol (Vitamin D2) [Drisdol (50,000 Iu)] 1,250 mcg PO WEEKLY 28 Days #4 cap Folic Acid 1 mg PO DAILY 30 Days #30 tab Multivitamins, Thera [Multivitamin (formulary)] 1 each PO DAILY 30 Days #30 tab Thiamine [Vitamin B-1] 100 mg PO DAILY 30 Days #30 tab Naltrexone Microspheres [Vivitrol] 380 mg IM Q28D #1 ml Levothyroxine Sodium [Synthroid] 50 mcg PO DAILY 30 Days #30 tab Discontinued Lurasidone [Latuda] 40 mg PO HS Pantoprazole Sodium [Protonix] 20 mg PO DAILY chlordiazePOXIDE HCl [Librium] 25 mg PO QID cap busPIRone HCl [Buspar] 20 mg PO BID Discharge Medication List Fenofibrate Nanocrystallized [Fenofibrate] 145 mg PO DAILY 04/24/24 [History] Potassium Chloride ER [K-Dur 10] 10 meq PO BID 04/24/24 [History] sitaGLIPtin [Januvia] 25 mg PO DAILY 04/24/24 [History] Ergocalciferol (Vitamin D2) [Drisdol (50,000 Iu)] 1,250 mcg PO WEEKLY 28 Days #4 cap 10/30/24 [Rx] Folic Acid 1 mg PO DAILY 30 Days #30 tab 10/30/24 [Rx] Levothyroxine Sodium [Synthroid] 50 mcg PO DAILY 30 Days #30 tab 10/30/24 [Rx] Lurasidone [Latuda] 80 mg PO 1800 30 Days #30 tab 10/30/24 [Rx] Multivitamins, Thera [Multivitamin (formulary)] 1 each PO DAILY 30 Days #30 tab 10/30/24 [Rx] Naltrexone Microspheres [Vivitrol] 380 mg IM Q28D #1 ml 10/30/24 [Rx] Nicotine 21Mg/24Hr Patch [Habitrol] 1 patch TRANSDERM DAILY 14 Days #14 patch 10/30/24 [Rx] Pantoprazole [Protonix] 40 mg PO DAILY 30 Days #30 tab 10/30/24 [Rx] Sertraline [Zoloft] 100 mg PO HS 30 Days #30 tab 10/30/24 [Rx] Thiamine [Vitamin B-1] 100 mg PO DAILY 30 Days #30 tab 10/30/24 [Rx] traZODone HCL [Desyrel] 200 mg PO HS PRN 30 Days #60 tab 10/30/24 [Rx] Activity/Diet/Wound Care/Special Instructions: [facility] Discharge Info Avoid the use of street drugs and alcohol. Take all medications as prescribed. When you are in need of refills on your medications, please contact your outpatient medical provider and/or outpatient psychiatrist. Please go to your scheduled outpatient appointments for aftercare treatment. If symptoms return or become worse, call the crisis line at or and/or visit the nearest emergency room for assistance. National Suicide and Crisis Lifeline - call or text 675 Discharge/Stand Alone Forms: AA Aundrea [facility] Discharge Disposition: HOME SELF-CARE
== END 2024-10-30 12:25 | disposition home or self-care (01) | DRG 761 ==
LOC: 3MHU 18:39
PROVIDERS: ADMIT Psychiatry & Neurology Psychiatry; ATTEND Psychiatry & Neurology Psychiatry
DX: F25.9 Schizoaffective disorder, unspecified (principal); F32.A Depression, unspecified; F41.9 Anxiety disorder, unspecified; F80.0 Phonological disorder; F90.9 Attention-deficit hyperactivity disorder, unspecified type; M19.90 Unspecified osteoarthritis, unspecified site; F11.10 Opioid abuse, uncomplicated; G40.909 Epilepsy, unspecified, not intractable, without status epilepticus; G47.00 Insomnia, unspecified; E07.9 Disorder of thyroid, unspecified; K58.9 Irritable bowel syndrome, unspecified; E11.65 Type 2 diabetes mellitus with hyperglycemia; E78.5 Hyperlipidemia, unspecified; F10.239 Alcohol dependence with withdrawal, unspecified; F15.20 Other stimulant dependence, uncomplicated; F17.210 Nicotine dependence, cigarettes, uncomplicated; Z79.84 Long term (current) use of oral hypoglycemic drugs; Z79.890 Hormone replacement therapy; Z79.899 Other long term (current) drug therapy; Z28.310 Unvaccinated for COVID-19; Z28.21 Immunization not carried out because of patient refusal; Z71.41 Alcohol abuse counseling and surveillance of alcoholic; Z71.51 Drug abuse counseling and surveillance of drug abuser; Z71.89 Other specified counseling
CPT/HCPCS: 83036; 84443

== ENCOUNTER 2024-12-18 10:30 | Inpatient (IN) | payer OTHER ==
[2024-12-18] MEDS: LORazepam 2 MG/ML INJ IV STA (10:41)
[2024-12-18] MEDS: MIDAZOLAM 1 MG/ML 5 ML VIAL IV STA (10:51)
[2024-12-18] MEDS: SODIUM CHLORIDE 0.9% 1,000 ML IV ONE (10:53)
[2024-12-18] MEDS: HYDROmorphone 1 MG/ML 1 ML SYRINGE IVP STA ×2 (10:53→14:35)
[2024-12-18 11:05] LABS: Basophils # (A) 0.12 10*3/uL (0.00-0.10); Basophils % (A) 1.6 %; Eosinophils # (A) 0.18 10*3/uL (0.04-0.35); Eosinophils % (A) 2.4 %; HCT 42.3 % (37.2-46.3); HGB 14.4 g/dL (12.0-15.0); Lymphocytes # (A) 1.41 10*3/uL (0.90-5.00); MCH 30.7 pg (27.0-32.0); MCV 90.2 fL (80.0-97.0); Mean Platelet Volume 9.5 fL (9.5-12.2); Monocytes # (A) 0.44 10*3/uL (0.20-1.00); Monocytes % (A) 5.9 %; Neutrophils # (A) 5.13 10*3/uL (1.80-7.70); Neutrophils % (A) 69.2 %; Platelet Count 145 10*3/uL (140-440); RBC 4.69 10*6/uL (4.10-5.20); RDW 13.5 % (11.5-14.5); WBC 7.42 10*3/uL (4.50-10.00)
[2024-12-18 11:21] LABS: ALT 46 U/L (4-34); AST 116 U/L (14-36); Acetaminophen <10.0 ug/mL; African American GFR (CKD) >90 (>60 ml/min/1.73 sqM); Albumin 4.1 g/dL (3.5-5.0); Alcohol <10 mg/dL; Alkaline Phosphatase 118 U/L (38-126); Anion Gap 14 mmol/L; Blood Urea Nitrogen 10 mg/dL (7-17); Calcium 9.2 mg/dL (8.4-10.2); Carbon Dioxide 20 mmol/L (22-30); Chloride 103 mmol/L (98-107); Glucose 254 mg/dL (74-99); Magnesium 1.4 mg/dL (1.6-2.3); Non-African American GFR(CKD) >90 (>60 ml/min/1.73 sqM); Salicylate <1.0 mg/dL; Sodium 137 mmol/L (137-145); Total Bilirubin 0.5 mg/dL (0.2-1.3); Total Protein 7.1 g/dL (6.3-8.2)
--- NOTE | 2024-12-18 12:14 | CT ---
EXAMINATION TYPE: CT brain cspine wo con CT DLP: 2777.2 COMBINED mGycm, Automated exposure control for dose reduction was used. DATE OF EXAM: 12/18/2024 12:05 PM COMPARISON: CT Brain and cspine, facial bones 06/05/2024. CLINICAL INDICATION:Female, 49 years old with history of seizure, head injury; SEIZURE, HEAD INJURY A ND BACK PAIN, pain TECHNIQUE: Brain: Multiple axial CT images of the brain were obtained without IV contrast. Cspine: Axial CT images from the skull base to the inferior aspect of T2 we obtained without intraven ous contrast. Coronal and sagittal reformatted images were also reviewed. FINDINGS: Brain: Extra-axial spaces: No abnormal extra-axial fluid collections. Ventricular system: Within normal limits Cerebral parenchyma: No acute intraparenchymal hemorrhage or mass effect. The pnieda-white junction is well differentiated. Cerebellum: Unremarkable. Mass effect: No evidence of midline shift. Intracranial vasculature: Atherosclerotic calcifications of the intracranial vessels. Soft tissues: Symmetric thickening of the left temporalis muscle with some stranding changes in the s calp. Calvarium/osseous structures: No depressed skull fracture. Paranasal sinuses and mastoid air cells: Clear. Visualized orbits: Orbital contents are intact. Cervical spine: Fracture: None. Osseous structures: Multilevel degenerative disc disease changes with endplate spurring and disc oste ophyte complex's. Multilevel facet arthropathy. Vertebral alignment: Degenerative grade 1 retrolisthesis of C5 on C6. Spinal canal/Neural Foramina: Disc osteophyte complexes at C5-C6 and C6-C7 with at least mild spinal canal stenosis. No evidence for significant neural foraminal stenosis. Neck soft tissues: Prevertebral soft tissues are within normal limits. Other: The airway is patent. Minimal biapical pleural-parenchymal scarring. IMPRESSION: 1. No acute intracranial process. 2. Asymmetric thickening of the left temporalis muscle with fat stranding. Finding suggests intramus cular hematoma. 3. No evidence of cervical spine fracture. 4. Mild multilevel degenerative disc disease. [facility], , 12/18/2024 12:12 PM
--- NOTE | 2024-12-18 12:22 | CT ---
EXAMINATION TYPE: CT thor lumbar spine wo con CT DLP: 2777.2 COMBINED mGycm, Automated exposure control for dose reduction was used. DATE OF EXAM: 12/18/2024 12:05 PM CLINICAL INDICATION:Female, 49 years old with history of fall, back pain; SEIZURE, HEAD INJURY AND BA CK PAIN, pain COMPARISON: CT abdomen and pelvis 08/26/2013 TECHNIQUE: Axial images of the thoracic and lumbar spine were obtained without contrast. Coronal and sagittal reformats were performed. CT Contrast: Contrast used: none. Oral contrast used: none. FINDINGS: Thoracic: The thoracic vertebral bodies have preserved heights and alignment. Intervertebral discs and osseou s structures have normal appearance. I do not see any evidence of extradural defects nor significant spinal canal narrowing at any thoraci c vertebral body level. Lumbar: There are 5 lumbar type vertebral bodies. Grade 1 anterolisthesis of L4 on L5. There is uncovering of the disc. Ligament of flavum buckling at this level with bilateral facet arthropathy results in mild left and moderate right neural foraminal stenosis. Acute fracture involving the L2 vertebral body with vertically oriented fracture line involving the s uperior and inferior endplates. There is superior endplate focal height loss of approximately 10%. Th ere is buckling of the anterior and posterior cortexes. Approximately 3 mm retropulsion. No significa nt central canal stenosis. No definitive extension into the posterior elements. Mild paraspinal edema . No other significant central canal or neural foraminal stenosis of the lumbar spine. Mild dependent subsegmental atelectasis within both lower lobes. Otherwise the lungs are clear. The l iver is diffusely hypoattenuating academic affairs assistant with steatosis. IMPRESSION: 1. Acute burst-type fracture involving the L2 vertebral body with approximately 10% height loss and 3 mm retropulsion. No significant central canal stenosis. 2. Grade 1 anterolisthesis of L4-L5 with moderate degenerative disc disease at this level. 3. No evidence of significant central canal or neural foraminal stenosis at the remaining thoracolumb ar levels. [facility], , 12/18/2024 12:20 PM
[2024-12-18 14:04] LABS: Amorphous Sediment,Urine Occasional /hpf; Appearance,Urine Cloudy (Clear); Bilirubin,Urine Negative (Negative); Blood,Urine Negative (Negative); Color,Urine Yellow; Glucose,Urine (UA) Negative (Negative); Ketones,Urine Negative (Negative); Leukocyte Esterase,Urine Negative (Negative); Mucus,Urine Few /hpf; Nitrite,Urine Negative (Negative); Protein,Urine Trace (Negative); Specific Gravity,Urine 1.019 (1.001-1.035); Squamous Epithelial Cell,Urine 11 /hpf (0-4); Urobilinogen,Urine <2.0 mg/dL (<2.0); WBC,Urine 2 /hpf (0-5)
[2024-12-18 14:10] LABS: Amphetamine Screen,Urine Detected (NotDetected); Cocaine Screen,Urine Not Detected (NotDetected); Opiate Screen,Urine Detected (NotDetected); Phencyclidine Screen,Urine Not Detected (NotDetected); Urn Cannabinoid Scrn Not Detected (NotDetected)
[2024-12-18 14:11] LABS: Barbiturate Screen,Urine Not Detected (NotDetected); Benzodiazepines Screen,Urine Detected (NotDetected); Methadone Screen, Urine Not Detected (NotDetected); Oxycodone Screen, Urine Not Detected (NotDetected); Tricyclic Antidepressant,Urine Not Detected (NotDetected)
--- NOTE | 2024-12-18 14:38 | ED ---
General Adult HPI - General Chief complaint: Seizure Stated complaint: fall, AMS Time Seen by Provider: 12/18/24 10:35 Source: patient, EMS Mode of arrival: EMS Limitations: no limitations - History of Present Illness Initial comments: 49-year-old female with past medical history of methamphetamine abuse, daily alcohol use who presents to the emergency department after a seizure. Patient is a very poor historian and so was the boyfriend on scene. It was reported that the patient was found on the ground by her boyfriend. Possibly had a s eizure and fell. When EMS arrived the patient was alert and talking. She states that she has a seizure history however when reviewing the patient's record it appears that the patient has history of seizures due to alcohol withdrawal. She states that she does drink alcohol daily. Last drink was e arlier this morning. The patient has visible injury to the left side of her face. She is complaining of low back pain. She was given Toradol by EMS but states it did not help. Denies any numbness or tingling in her groin. No bowel or bladder incontinence. She denies any methamphetamine use. No other alleviating, precipitating or modifying factors - Related Data Home Medications Medication Instructions Recorded Confirmed Fenofibrate Nanocrystallized 145 mg PO DAILY 04/24/24 12/18/24 [Fenofibrate] Potassium Chloride ER [K-Dur 10] 10 meq PO BID 04/24/24 12/18/24 sitaGLIPtin [Januvia] 25 mg PO DAILY 04/24/24 12/18/24 Lurasidone HCl [Latuda] 120 mg PO HS 12/18/24 12/18/24 Multivitamins, Thera [Multivitamin 1 tab PO DAILY 12/18/24 12/18/24 (formulary)] busPIRone HCl [Buspar] 20 mg PO BID 12/18/24 12/18/24 cloNIDine HCL 0.2 mg PO BID PRN 12/18/24 12/18/24 traZODone HCL [Desyrel] 250 mg PO HS PRN 12/18/24 12/18/24 Previous Rx's Medication Instructions Recorded Ergocalciferol (Vitamin D2) 1,250 mcg PO WEEKLY 28 Days #4 cap 10/30/24 [Drisdol (50,000 Iu)] Folic Acid 1 mg PO DAILY 30 Days #30 tab 10/30/24 Levothyroxine Sodium [Synthroid] 50 mcg PO DAILY 30 Days #30 tab 10/30/24 Naltrexone Microspheres [Vivitrol] 380 mg IM Q28D #1 ml 10/30/24 Nicotine 21Mg/24Hr Patch [Habitrol] 1 patch TRANSDERM DAILY 14 Days 10/30/24 #14 patch Pantoprazole [Protonix] 40 mg PO DAILY 30 Days #30 tab 10/30/24 Sertraline [Zoloft] 100 mg PO HS 30 Days #30 tab 10/30/24 Thiamine [Vitamin B-1] 100 mg PO DAILY 30 Days #30 tab 10/30/24 Allergies Allergy/AdvReac Type Severity Reaction Status Date / Time No Known Allergies Allergy Verified 12/18/24 15:51 Review of Systems ROS Statement: Those systems with pertinent positive or pertinent negative responses have been documented in the HPI. ROS Other: All systems not noted in ROS Statement are negative. Past Medical History Past Medical History: Diabetes Mellitus, Hyperlipidemia, Osteoarthritis (OA), Seizure Disorder, Thyroid Disorder Additional Past Medical History / Comment(s): Hx "high blood sugar was on Metformin but sugars are normal now and no longer taking Metformin." Hx 2 seizures on 04/28/18 at [place], from alcohol withdrawl. Hx opiate overdose 2010, with respiratory failure, on vent. HERNIATED DISCS. MIGRAINES. HX PANCREATITIS. IBS. History of Any Multi-Drug Resistant Organisms: None Reported Past Surgical History: Tubal Ligation Additional Past Surgical History / Comment(s): EGD, colonoscopy, D&C, right groin cyst removed, PICC line placed and later removed while in hospital for overdose. Past Anesthesia/Blood Transfusion Reactions: No Reported Reaction Past Psychological History: ADD/ADHD, Anxiety, Depression, Schizophrenia Smoking Status: Current every day smoker Past Alcohol Use History: Abuse, Daily, Heavy Past Drug Use History: Marijuana, Methamphetamine, Opiates - Past Family History Mother Family Medical History: Cancer Father History Unknown: Yes Family Medical History: Deep Vein Thrombosis (DVT) General Exam Limitations: no limitations General appearance: alert, in distress, other (In pain) Head exam: Present: normocephalic, other (Hematoma noted to the left episcopalian with a mild abrasion measuring 3 mm) Eye exam: Present: normal appearance, PERRL, EOMI. Absent: scleral icterus, co njunctival injection, periorbital swelling ENT exam: Present: normal exam, mucous membranes moist Neck exam: Present: normal inspection. Absent: tenderness, meningismus, lymphadenopathy Respiratory exam: Present: normal lung sounds bilaterally. Absent: respiratory distress, wheezes, rales, rhonchi, stridor Cardiovascular Exam: Present: regular rate, normal rhythm, normal heart sounds. Absent: systolic murmur, diastolic murmur, rubs, gallop, clicks GI/Abdominal exam: Present: soft, normal bowel sounds. Absent: distended, tenderness, guarding, rebound, rigid Extremities exam: Present: normal inspection, normal capillary refill. Absent: tenderness, pedal edema, joint swelling, calf tenderness Back exam: Present: vertebral tenderness (Over L1-L2.) Neurological exam: Present: alert, oriented X3, CN II-XII intact Psychiatric exam: Present: normal affect, normal mood Skin exam: Present: warm, dry, intact, normal color. Absent: rash Course Vital Signs 12/18/24 12/18/24 12/18/24 10:33 11:44 13:04 Temperature 98.2 F Pulse Rate 87 75 76 Respiratory 26 H 16 16 Rate Blood Pressure 92/75 159/92 151/99 O2 Sat by Pulse 99 97 99 Oximetry 12/18/24 12/18/24 12/18/24 14:37 17:18 17:53 Temperature 97.8 F Pulse Rate 74 78 Respiratory 16 18 Rate Blood Pressure 149/91 149/98 O2 Sat by Pulse 95 97 Oximetry - Reevaluation(s) Reevaluation #1: 12/18/24 14:38 Still awaiting callback to see if patient can he hospitalized here Medical Decision Making - Medical Decision Making Was pt. sent in by a medical professional or institution (, PA, [employer], urgent care, hospital, or care home...) When possible be specific @ -No Did you speak to anyone other than the patient for history (EMS, parent, family, police, friend...)? What history was obtained from this source @ -Spoke with EMS for history Did you review nursing and triage notes (agree or disagree)? Why? @ -I reviewed and agree with nursing and triage notes Were old charts reviewed (outside hosp., previous admission, EMS record, old EKG, old radiological studies, urgent care reports/EKG's, care home records)? Report findings @ -I reviewed past clinical encounters from the patient. She has been seen multiple times in the emergency department for methamphetamine use as well as alcohol withdrawal seizures Differential Diagnosis (chest pain, altered mental status, abdominal pain women, abdominal pain men, vaginal bleeding, weakness, fever, dyspnea, syncope, headache, dizziness, GI bleed, back pain, seizure, CVA, palpatations, mental health, musculoskeletal)? @ -Differential Seizure: Recurrent seizure disorder, febrile seizure, alcohol withdrawal, stimulants, meningitis, encephalitis, intercranial hemorrhage, intracranial tumor, stroke, eclampsia, thyrotoxicosis, hypocalcemia, hyponatremia, hypernatremia, hypomagnesemia, psychogenic, this is not meant to be an all-inclusive list. Differential Back Pain: Strain, zoster, cauda equina syndrome, epidural abscess, vertebral osteomyelitis, discitis, fracture, subluxation, disc herniation, DJD, spinal stenosis, dissection, AAA, pancreatitis, peptic ulcer disease, pyelonephritis, kidney stone, this is not meant to be an all-inclusive list. EKG interpreted by me (3pts min.). @ -Yes and demonstrates sinus rhythm with a rate of 74. ME interval 136. QRS 105. QTc of 486. No acute ST segment elevations or depressions X-rays interpreted by me (1pt min.). @ -None done CT interpreted by me (1pt min.). @ -CT of the lumbar spine demonstrates an L2 burst fracture U/S interpreted by me (1pt. min.). @ -None done What testing was considered but not performed or refused? (CT, X-rays, U/S, labs)? Why? @ -None What meds were considered but not given or refused? Why? @ -None Did you discuss the management of the patient with other professionals (professionals i.e. , PA, [employer], lab, RT, psych nurse, social work assistant, floorleader, teacher, information systems security officer, nurse case management)? Give summary @ -Spoke with Tamara Lawrence from orthopedics who does accept the patient as a consult. I also spoke with Dr. Melvin for the admission Was smoking cessation discussed for >3mins.? @ -No Was critical care preformed (if so, how long)? @ -No Were there social determinants of health that impacted care today? How? (Homelessness, low income, unemployed, alcoholism, drug addiction, transportation, low edu. Level, literacy, decrease access to med. care, fci, rehab)? @ -No Was there de-escalation of care discussed even if they declined (Discuss DNR or withdrawal of care, Hospice)? DNR status @ -No What co-morbidities impacted this encounter? (DM, HTN, Smoking, COPD, CAD, Cancer, CVA, ARF, Chemo, Hep., AIDS, mental health diagnosis, sleep apnea, morbid obesity)? @ -Alcohol dependence, methamphetamine abuse Was patient admitted / discharged? Hospital course, mention meds given and route, prescriptions, significant lab abnormalities, going to OR and other pertinent info. @ -Upon arrival patient seen and evaluated in bed 4. Thorough history and physical exam was performed. Patient comes in complaining of significant lower back pain. She is given 5 mg of Versed and a milligram of Dilaudid as she is hysterical. Patient does have improvement in her pain. She was agreeable to laboratory studies. CT is performed of the patient's head as well as her lumbar spine. The results are discussed with the patient. I also spoke with Tamara Lawrence. States that they will be able to consult on the patient for her injuries. They request that the patient be admitted to medicine. I spoke with Dr. Melvin for the admission. Pain control is ordered as well as alcohol withdrawal protocol Undiagnosed new problem with uncertain prognosis? @ -No Drug Therapy requiring intensive monitoring for toxicity (Heparin, Nitro, Insulin, Cardizem)? @ -No Were any procedures done? @ -No Diagnosis/symptom? @ -Possible breakthrough seizure, fall, acute back pain, L2 burst fracture, blunt head trauma, history of alcohol withdrawal seizures Acute, or Chronic, or Acute on Chronic? @ -Acute on chronic Uncomplicated (without systemic symptoms) or Complicated (systemic symptoms)? @ -Complicated Side effects of treatment? @ -No Exacerbation, Progression, or Severe Exacerbation? @ -No Poses a threat to life or bodily function? How? (Chest pain, [place], [place], pneumonia, PE, COPD, DKA, ARF, appy, cholecystitis, CVA, Diverticulitis, Homicidal, Suicidal, threat to staff... and all critical care pts) @ -No - Lab Data Result diagrams: 12/18/24 10:57 12/18/24 10:57 Lab Results 12/18/24 12/18/24 12/18/24 Range/Units 10:57 10:57 13:53 WBC 7.42 (4.50-10.00) 10*3/uL RBC 4.69 (4.10-5.20) 10*6/uL Hgb 14.4 (12.0-15.0) g/dL Hct 42.3 (37.2-46.3) % MCV 90.2 (80.0-97.0) fL MCH 30.7 (27.0-32.0) pg MCHC 34.0 (32.0-37.0) g/dL Plt Count 145 (140-440) 10*3/uL MPV 9.5 (9.5-12.2) fL Immature Gran % (Auto) 1.9 % Neutrophils % 69.2 % Lymphocytes % 19.0 % Monocytes % 5.9 % Eosinophils % 2.4 % Basophils % 1.6 % Immature Gran # 0.14 H (0.00-0.04) 10*3/uL Neutrophils # 5.13 (1.80-7.70) 10*3/uL Lymphocytes # 1.41 (0.90-5.00) 10*3/uL Monocytes # 0.44 (0.20-1.00) 10*3/uL Eosinophils # 0.18 (0.04-0.35) 10*3/uL Basophils # 0.12 H (0.00-0.10) 10*3/uL Sodium 137 (137-145) mmol/L Potassium 4.0 (3.5-5.1) mmol/L Chloride 103 (98-107) mmol/L Carbon Dioxide 20 L (22-30) mmol/L Anion Gap 14 mmol/L BUN 10 (7-17) mg/dL Creatinine 0.56 (0.52-1.04) mg/dL Est GFR (CKD-EPI)AfAm >90 (>60 ml/min/1.73 sqM) Est GFR (CKD-EPI)NonAf >90 (>60 ml/min/1.73 sqM) Glucose 254 H (74-99) mg/dL Calcium 9.2 (8.4-10.2) mg/dL Magnesium 1.4 L (1.6-2.3) mg/dL Total Bilirubin 0.5 (0.2-1.3) mg/dL AST 116 H (14-36) U/L ALT 46 H (4-34) U/L Alkaline Phosphatase 118 (38-126) U/L Total Protein 7.1 (6.3-8.2) g/dL Albumin 4.1 (3.5-5.0) g/dL Urine Color Urine Appearance (Clear) Urine pH (5.0-8.0) Ur Specific [place] (1.001-1.035) Urine Protein (Negative) Urine Glucose (UA) (Negative) Urine Ketones (Negative) Urine Blood (Negative) Urine Nitrite (Negative) Urine Bilirubin (Negative) Urine Urobilinogen (<2.0) mg/dL Ur Leukocyte Esterase (Negative) Urine WBC (0-5) /hpf Ur Squamous Epith Cells (0-4) /hpf Amorphous Sediment (None) /hpf Urine Mucus (None) /hpf Salicylates <1.0 mg/dL Urine Opiates Screen Detected H (NotDetected) Ur Oxycodone Screen Not Detected (NotDetected) Urine Methadone Screen Not Detected (NotDetected) Acetaminophen <10.0 ug/mL Ur Barbiturates Screen Not Detected (NotDetected) U Tricyclic Antidepress Not Detected (NotDetected) Ur Phencyclidine Scrn Not Detected (NotDetected) Ur Amphetamines Screen Detected H (NotDetected) U Methamphetamines Scrn Detected H (NotDetected) U Benzodiazepines Scrn Detected H (NotDetected) Urine Cocaine Screen Not Detected (NotDetected) U Marijuana (THC) Screen Not Detected (NotDetected) Serum Alcohol <10 mg/dL 12/18/24 Range/Units 13:53 WBC (4.50-10.00) 10*3/uL RBC (4.10-5.20) 10*6/uL Hgb (12.0-15.0) g/dL Hct (37.2-46.3) % MCV (80.0-97.0) fL MCH (27.0-32.0) pg MCHC (32.0-37.0) g/dL Plt Count (140-440) 10*3/uL MPV (9.5-12.2) fL Immature Gran % (Auto) % Neutrophils % % Lymphocytes % % Monocytes % % Eosinophils % % Basophils % % Immature Gran # (0.00-0.04) 10*3/uL Neutrophils # (1.80-7.70) 10*3/uL Lymphocytes # (0.90-5.00) 10*3/uL Monocytes # (0.20-1.00) 10*3/uL Eosinophils # (0.04-0.35) 10*3/uL Basophils # (0.00-0.10) 10*3/uL Sodium (137-145) mmol/L Potassium (3.5-5.1) mmol/L Chloride (98-107) mmol/L Carbon Dioxide (22-30) mmol/L Anion Gap mmol/L BUN (7-17) mg/dL Creatinine (0.52-1.04) mg/dL Est GFR (CKD-EPI)AfAm (>60 ml/min/1.73 sqM) Est GFR (CKD-EPI)NonAf (>60 ml/min/1.73 sqM) Glucose (74-99) mg/dL Calcium (8.4-10.2) mg/dL Magnesium (1.6-2.3) mg/dL Total Bilirubin (0.2-1.3) mg/dL AST (14-36) U/L ALT (4-34) U/L Alkaline Phosphatase (38-126) U/L Total Protein (6.3-8.2) g/dL Albumin (3.5-5.0) g/dL Urine Color Yellow Urine Appearance Cloudy H (Clear) Urine pH 6.0 (5.0-8.0) Ur Specific [place] 1.019 (1.001-1.035) Urine Protein Trace H (Negative) Urine Glucose (UA) Negative (Negative) Urine Ketones Negative (Negative) Urine Blood Negative (Negative) Urine Nitrite Negative (Negative) Urine Bilirubin Negative (Negative) Urine Urobilinogen <2.0 (<2.0) mg/dL Ur Leukocyte Esterase Negative (Negative) Urine WBC 2 (0-5) /hpf Ur Squamous Epith Cells 11 H (0-4) /hpf Amorphous Sediment Occasional H (None) /hpf Urine Mucus Few H (None) /hpf Salicylates mg/dL Urine Opiates Screen (NotDetected) Ur Oxycodone Screen (NotDetected) Urine Methadone Screen (NotDetected) Acetaminophen ug/mL Ur Barbiturates Screen (NotDetected) U Tricyclic Antidepress (NotDetected) Ur Phencyclidine Scrn (NotDetected) Ur Amphetamines Screen (NotDetected) U Methamphetamines Scrn (NotDetected) U Benzodiazepines Scrn (NotDetected) Urine Cocaine Screen (NotDetected) U Marijuana (THC) Screen (NotDetected) Serum Alcohol mg/dL Disposition Clinical Impression: Seizure, Alcohol withdrawal, Back pain, Burst fracture of lumbar vertebra, Blunt head trauma Disposition: ADMITTED IP TO THIS [facility] Condition: Stable Is patient prescribed a controlled substance at d/c from ED?: No Time of Disposition: 14:55 Decision to Admit Reason: Admit from EC Decision Date: 12/18/24 Decision Time: 14:55
[2024-12-18] MEDS ORDERED: ONDANSETRON 4 MG/2 ML VIAL IVP PRN (14:58)
[2024-12-18] MEDS ORDERED: NALOXONE 0.4 MG/ML 1 ML VIAL IV PRN (14:58)
[2024-12-18] MEDS ORDERED: ACETAMINOPHEN TAB 325 MG TAB PO PRN (14:58)
[2024-12-18] MEDS ORDERED: LORazepam 2 MG/ML INJ IV PRN ×3 (15:00)
[2024-12-18] MEDS: SODIUM CHLORIDE 0.9% 1,000 ML IV SCH (15:08)
[2024-12-18] MEDS: MAGNESIUM SULFATE-D5W PMX 1 GM in DEXTROSE/WATER 1 100ML.BAG IVPB SCH (15:09)
[2024-12-18] MEDS: THIAMINE 100 MG TAB PO SCH (16:18)
[2024-12-18] MEDS: HYDROmorphone 1 MG/ML 1 ML SYRINGE IVP PRN (17:19)
[2024-12-18] MEDS ORDERED: LORazepam 1 MG/0.5 ML VIAL IV PRN ×2 (18:17)
[2024-12-18] MEDS ORDERED: cloNIDine HCL 0.2 MG TAB PO PRN (19:24)
--- NOTE | 2024-12-18 19:34 | P.HPIM ---
History of Present Illness This is a pleasant 49 years old female with past medical history of substance abuse. Presents because of seizure. Patient seen and examined at bedside. No family member or boyfriend at bedside. Patient could not remember what happened but she was told by her boyfriend she had a seizure. She woke up in the ambulance. Patient denies urinary or bowel incontinence. No tongue biting. Patient is a known case of alcohol use disorder. She drinks 1/5 of liquor every day her last drink was this morning. No leg weakness or tingling. She denies depression or suicidal ideation She is afebrile. Blood pressure stable. Labs unremarkable CBC, BMP. Liver enzymes mildly elevated. Urine analysis not suspicious for infection CT of the head and cervical spine showing no acute process but there is asymmetrical thickening of the left temporal muscles suspicious for hematoma Urine drug screen is positive for opiates, amphetamine methamphetamine and benzodiazepines. Thoracolumbar CAT scan showing acute burst fracture of L2 Serum alcohol less than 10. Salicylate less than 1 and acetaminophen less than 10. EKG showing sinus rhythm at [address]-T changes Patient started on normal saline CIWA and thiamine Review of Systems Review of systems CONSTITUTIONAL: No fever, no malaise, no fatigue. HEENT: No recent visual problems or hearing problems. Denied any sore throat. CARDIOVASCULAR: No orthopnea, PND, no palpitations, no syncope. PULMONARY: No shortness of breath, no cough, no hemoptysis. GASTROINTESTINAL: No diarrhea, no nausea, no vomiting, no abdominal pain. Normoactive bowel sounds. NEUROLOGICAL: No headaches, no dizziness HEMATOLOGICAL: Denies any bleeding or petechiae. GENITOURINARY: Denies any burning micturition, frequency, or urgency. MUSCULOSKELETAL/RHEUMATOLOGICAL: Denies any joint pain, swelling, or any muscle pain. ENDOCRINE: Denies any polyuria or polydipsia. Past Medical History Past Medical History: Diabetes Mellitus, Hyperlipidemia, Osteoarthritis (OA), Seizure Disorder, Thyroid Disorder Additional Past Medical History / Comment(s): Hx "high blood sugar was on Metformin but sugars are normal now and no longer taking Metformin." Hx 2 seizures on 04/28/18 at [place], from alcohol withdrawl. Hx opiate overdose 2010, with respiratory failure, on vent. HERNIATED DISCS. MIGRAINES. HX PANCREATITIS. IBS. History of Any Multi-Drug Resistant Organisms: None Reported Past Surgical History: Tubal Ligation Additional Past Surgical History / Comment(s): EGD, colonoscopy, D&C, right groin cyst removed, PICC line placed and later removed while in hospital for overdose. Past Anesthesia/Blood Transfusion Reactions: No Reported Reaction Past Psychological History: ADD/ADHD, Anxiety, Depression, Schizophrenia Smoking Status: Current every day smoker Past Alcohol Use History: Abuse, Daily, Heavy Past Drug Use History: Marijuana, Methamphetamine, Opiates - Past Family History Mother Family Medical History: Cancer Father History Unknown: Yes Family Medical History: Deep Vein Thrombosis (DVT) Medications and Allergies Home Medications Medication Instructions Recorded Confirmed Type Fenofibrate Nanocrystallized 145 mg PO DAILY 04/24/24 12/18/24 History [Fenofibrate] Potassium Chloride ER [K-Dur 10] 10 meq PO BID 04/24/24 12/18/24 History sitaGLIPtin [Januvia] 25 mg PO DAILY 04/24/24 12/18/24 History Ergocalciferol (Vitamin D2) 1,250 mcg PO WEEKLY 28 Days #4 cap 10/30/24 12/18/24 Rx [Drisdol (50,000 Iu)] Folic Acid 1 mg PO DAILY 30 Days #30 tab 10/30/24 12/18/24 Rx Levothyroxine Sodium [Synthroid] 50 mcg PO DAILY 30 Days #30 tab 10/30/24 12/18/24 Rx Naltrexone Microspheres [Vivitrol] 380 mg IM Q28D #1 ml 10/30/24 12/18/24 Rx Nicotine 21Mg/24Hr Patch [Habitrol] 1 patch TRANSDERM DAILY 14 Days 10/30/24 12/18/24 Rx #14 patch Pantoprazole [Protonix] 40 mg PO DAILY 30 Days #30 tab 10/30/24 12/18/24 Rx Sertraline [Zoloft] 100 mg PO HS 30 Days #30 tab 10/30/24 12/18/24 Rx Thiamine [Vitamin B-1] 100 mg PO DAILY 30 Days #30 tab 10/30/24 12/18/24 Rx Lurasidone HCl [Latuda] 120 mg PO HS 12/18/24 12/18/24 History Multivitamins, Thera [Multivitamin 1 tab PO DAILY 12/18/24 12/18/24 History (formulary)] busPIRone HCl [Buspar] 20 mg PO BID 12/18/24 12/18/24 History cloNIDine HCL 0.2 mg PO BID PRN 12/18/24 12/18/24 History traZODone HCL [Desyrel] 250 mg PO HS PRN 12/18/24 12/18/24 History Allergies Allergy/AdvReac Type Severity Reaction Status Date / Time No Known Allergies Allergy Verified 12/18/24 15:51 Physical Exam Vitals: Vital Signs Temp Pulse Pulse Resp BP BP Pulse Ox 12/18/24 18:19 97.7 F 68 16 154/95 96 12/18/24 17:53 97.8 F 12/18/24 17:18 78 18 149/98 97 12/18/24 14:37 74 16 149/91 95 12/18/24 13:04 76 16 151/99 99 12/18/24 11:44 75 16 159/92 97 12/18/24 10:33 98.2 F 87 26 H 92/75 99 Intake and Output 12/18/24 12/18/24 12/18/24 06:59 14:59 22:59 Other: # Voids 0 Weight 77.111 kg GENERAL: The patient is alert and oriented x3, not in any acute distress. Well developed, well nourished. HEENT: Pupils are round and equally reacting to light. EOMI. No scleral icterus. No conjunctival pallor. Normocephalic, atraumatic. No pharyngeal erythema. No thyromegaly. CARDIOVASCULAR: S1 and S2 present. No murmurs, rubs, or gallops. PULMONARY: Chest is clear to auscultation, no wheezing , no crackles. ABDOMEN: Soft, nontender, nondistended, normoactive bowel sounds. No palpable organomegaly. -MUSCULOSKELETAL: No joint swelling or deformity. Severe lower back tenderness in the midline EXTREMITIES: No cyanosis, clubbing, or pedal edema. NEUROLOGICAL: Gross neurological examination did not reveal any focal deficits. SKIN: No rashes. no petechiae. Results CBC & Chem 7: 12/18/24 10:57 12/18/24 10:57 Labs: Abnormal Lab Results - Last 24 Hours (Table) 12/18/24 12/18/24 12/18/24 Range/Units 10:57 10:57 13:53 Immature Gran # 0.14 H (0.00-0.04) 10*3/uL Basophils # 0.12 H (0.00-0.10) 10*3/uL Carbon Dioxide 20 L (22-30) mmol/L Glucose 254 H (74-99) mg/dL Magnesium 1.4 L (1.6-2.3) mg/dL AST 116 H (14-36) U/L ALT 46 H (4-34) U/L Urine Appearance (Clear) Urine Protein (Negative) Ur Squamous Epith Cells (0-4) /hpf Amorphous Sediment (None) /hpf Urine Mucus (None) /hpf Urine Opiates Screen Detected H (NotDetected) Ur Amphetamines Screen Detected H (NotDetected) U Methamphetamines Scrn Detected H (NotDetected) U Benzodiazepines Scrn Detected H (NotDetected) 12/18/24 Range/Units 13:53 Immature Gran # (0.00-0.04) 10*3/uL Basophils # (0.00-0.10) 10*3/uL Carbon Dioxide (22-30) mmol/L Glucose (74-99) mg/dL Magnesium (1.6-2.3) mg/dL AST (14-36) U/L ALT (4-34) U/L Urine Appearance Cloudy H (Clear) Urine Protein Trace H (Negative) Ur Squamous Epith Cells 11 H (0-4) /hpf Amorphous Sediment Occasional H (None) /hpf Urine Mucus Few H (None) /hpf Urine Opiates Screen (NotDetected) Ur Amphetamines Screen (NotDetected) U Methamphetamines Scrn (NotDetected) U Benzodiazepines Scrn (NotDetected) Assessment and Plan Assessment: Seizure activity, most likely related to substance abuse and/or withdrawal. Alcohol use disorder Alcoholic transaminitis Substance abuse, opiates, amphetamine, methamphetamine L2 acute vertebral burst fracture, with severe back pain Plan: Continue with CIWA protocol Thiamine IV hydration Orthopedic team consult Pain management, with bedrest Neurology evaluation Labs and medication were reviewed.. Continue same treatment. Continue with symptomatic treatment. Resume home medication. Monitor labs and vitals. DVT and GI prophylaxis. Further recommendations as per clinical course of the patient DVT prophylaxis: Subcutaneous heparin GI Prophylaxis: Pepcid PT/OT: Pending. Deferred now Prognosis is guarded
[2024-12-18] MEDS: HYDROmorphone 2 MG/ML 1 ML SYRINGE IVP PRN (20:30)
[2024-12-18] MEDS: LORazepam 1 MG/0.5 ML VIAL IV PRN (23:15)
[2024-12-18] MEDS: LURASIDONE 60 MG TAB PO SCH (23:16)
[2024-12-18] MEDS: busPIRone HCl 10 MG TAB PO SCH (23:16)
[2024-12-19] MEDS: LEVOTHYROXINE 50 MCG TAB PO SCH (05:38)
[2024-12-19 08:40] LABS: Basophils # (A) 0.09 X 10*3/uL (0.00-0.10); Basophils % (A) 1.2 %; Eosinophils # (A) 0.12 X 10*3/uL (0.04-0.35); Eosinophils % (A) 1.6 %; HGB 14.6 g/dL (12.0-15.0); Lymphocytes # (A) 1.04 X 10*3/uL (0.90-5.00); Lymphocytes % (A) 13.9 %; MCH 29.6 pg (27.0-32.0); MCHC 31.7 g/dL (32.0-37.0); MCV 93.1 FL (80.0-97.0); Monocytes # (A) 0.59 X 10*3/uL (0.20-1.00); Monocytes % (A) 7.9 %; NRBC Per 100 WBC 0 X 10*3/uL (0.00-0.01); Neutrophils # (A) 5.61 X 10*3/uL (1.80-7.70); Neutrophils % (A) 74.7 %; Platelet Count 145 X 10*3/uL (140-440); RBC 4.94 X 10*6/uL (4.10-5.20); RDW 13.2 % (11.5-14.5)
[2024-12-19 09:09] LABS: ALT 45 U/L (8-44); AST 65 U/L (13-35); Albumin 3.9 g/dL (3.8-4.9); Alkaline Phosphatase 126 U/L (41-126); Bilirubin, Conjugated <0.20 mg/dL (0.20-0.40); Bilirubin,Unconjugated >0.30 mg/dL (0.20-1.00); Blood Urea Nitrogen 6.8 mg/dL (9.0-27.0); Calcium 8.7 mg/dL (8.7-10.3); Chloride 100 mmol/L (96-109); Glucose 134 mg/dL (70-110); Potassium 3.9 mmol/L (3.5-5.5); Sodium 137 mmol/L (135-145); Total Bilirubin 0.5 mg/dL (0.3-1.2); Total Protein 6.9 g/dL (6.2-8.2)
[2024-12-19] MEDS: FOLIC ACID 1 MG TAB PO SCH (09:19)
[2024-12-19] MEDS: FENOFIBRATE 160 MG TAB PO SCH (09:20)
[2024-12-19] MEDS: PANTOPRAZOLE 40 MG TABLET PO SCH (09:20)
[2024-12-19] MEDS: MULTIVITAMINS, THERA 1 EACH TAB PO SCH (09:20)
[2024-12-19] MEDS: LINAGLIPTIN 5 MG TABLET PO SCH (09:20)
[2024-12-19] MEDS: NICOTINE 21MG/24HR PATCH TRANSDERM SCH (10:10)
--- NOTE | 2024-12-19 10:13 | P.PN ---
Subjective This is a pleasant 49 years old female with past medical history of substance abuse. Presents because of seizure. Patient seen and examined at bedside. No family member or boyfriend at bedside. Patient could not remember what happened but she was told by her boyfriend she had a seizure. She woke up in the ambulance. Patient denies urinary or bowel incontinence. No tongue biting. Patient is a known case of alcohol use disorder. She drinks 1/5 of liquor every day her last drink was this morning. No leg weakness or tingling. She denies depression or suicidal ideation She is afebrile. Blood pressure stable. Labs unremarkable CBC, BMP. Liver enzymes mildly elevated. Urine analysis not suspicious for infection CT of the head and cervical spine showing no acute process but there is asymmetrical thickening of the left temporal muscles suspicious for hematoma Urine drug screen is positive for opiates, amphetamine methamphetamine and benzodiazepines. Thoracolumbar CAT scan showing acute burst fracture of L2 Serum alcohol less than 10. Salicylate less than 1 and acetaminophen less than 10. EKG showing sinus rhythm at [address]-T changes Patient started on normal saline CIWA and thiamine Patient awake alert this morning, she looks relaxed but has withdrawal symptoms and has been controlled with Ativan per CIWA protocol. She still has significant pain in her back fracture site with point tenderness She can move both lower extremities with restriction due to pain. No tingling or numbness. No urinary bowel incontinence She has a bruise around her left eye She is hemodynamically stable and afebrile Labs look stable and liver enzymes trending down She remains on normal saline at 130 mL/h, however patient refusing IV fluids. She is refusing nicotine patch as well Review of systems CONSTITUTIONAL: No fever, no malaise, no fatigue. HEENT: No recent visual problems or hearing problems. Denied any sore throat. CARDIOVASCULAR: No orthopnea, PND, no palpitations, no syncope. PULMONARY: No shortness of breath, no cough, no hemoptysis. GASTROINTESTINAL: No diarrhea, no nausea, no vomiting, no abdominal pain. Normoactive bowel sounds. Active Medications Generic Name Dose Route Start Last Admin Trade Name Freq PRN Reason Stop Dose Admin Acetaminophen 650 mg 12/18/24 14:58 Acetaminophen Tab 325 Mg Tab PO Q6HR PRN Mild Pain or Fever > 100.5 Buspirone HCl 20 mg 12/18/24 21:00 12/19/24 09:19 Buspirone Hcl 10 Mg Tab PO 20 mg BID JAMES Administration Clonidine 0.2 mg 12/18/24 19:24 Clonidine Hcl 0.2 Mg Tab PO BID PRN acute anxiety/panic attacks Ergocalciferol 1,250 mcg 12/25/24 09:00 Ergocalciferol 1,250 Mcg (50,000 Iu) Capsule PO WEEKLY JAMES Fenofibrate 160 mg 12/19/24 09:00 12/19/24 09:20 Fenofibrate 160 Mg Tab PO 160 mg DAILY JAMES Administration Folic Acid 1 mg 12/19/24 09:00 12/19/24 09:19 Folic Acid 1 Mg Tab PO 1 mg DAILY JAMES Administration Hydromorphone HCl 1 mg 12/18/24 18:15 12/19/24 09:20 Hydromorphone 2 Mg/Ml 1 Ml Syringe IVP 1 mg Q3HR PRN Administration Severe Pain (Scale 7 to 10) Sodium Chloride 1,000 mls @ 130 mls/hr 12/18/24 15:00 12/19/24 06:56 Saline 0.9% IV Not Given .[id number] JAMES Levothyroxine Sodium 50 mcg 12/19/24 06:30 12/19/24 05:38 Levothyroxine 50 Mcg Tab PO 50 mcg DAILY@0630 JAMES Administration Linagliptin 5 mg 12/19/24 09:00 12/19/24 09:20 Linagliptin 5 Mg Tablet PO 5 mg DAILY JAMES Administration Lorazepam 1 mg 12/18/24 18:17 Lorazepam 1 Mg/0.5 Ml Vial IV Q1HR PRN CIWA 10 to 15 Lorazepam 1 mg 12/18/24 18:17 12/19/24 06:55 Lorazepam 1 Mg/0.5 Ml Vial IV 1 mg Q2HR PRN Administration CIWA 8 or 9 Lorazepam 2 mg 12/18/24 18:17 Lorazepam 1 Mg/0.5 Ml Vial IV 12/28/24 18:16 Q10M PRN CIWA 16 or higher Lurasidone HCl 120 mg 12/18/24 21:00 12/18/24 23:16 Lurasidone 60 Mg Tab PO 120 mg HS JAMES Administration Multivitamins 1 each 12/19/24 09:00 12/19/24 09:20 Multivitamins, Thera 1 Each Tab PO 1 each DAILY JAMES Administration Naloxone HCl 0.2 mg 12/18/24 14:58 Naloxone 0.4 Mg/Ml 1 Ml Vial IV Q2M PRN Opioid Reversal Nicotine 1 patch 12/19/24 09:00 12/19/24 10:10 Nicotine 21mg/24hr Patch TRANSDERM Not Given DAILY JAMES Pantoprazole Sodium 40 mg 12/19/24 09:00 12/19/24 09:20 Pantoprazole 40 Mg Tablet PO 40 mg DAILY JAMES Administration Thiamine HCl 100 mg 12/18/24 16:15 12/19/24 09:19 Thiamine 100 Mg Tab PO 100 mg DAILY JAMES Administration Trazodone HCl 250 mg 12/18/24 19:24 Trazodone Hcl 100 Mg Tab PO HS PRN Insomnia Objective - Vital Signs Vital signs: Vital Signs Temp 98.7 F 12/19/24 07:06 Pulse 71 12/19/24 07:06 Resp 17 12/19/24 07:06 BP 149/87 12/19/24 07:06 Pulse Ox 95 12/19/24 07:06 FiO2 Intake & Output 12/18/24 12/19/24 12/19/24 18:59 06:59 18:59 Output Total 1450 Balance -1450 Weight 77.111 kg 77.111 kg Output: Urine 1450 Other: Voiding Method External Catheter # Voids 0 1 - Exam GENERAL: The patient is alert and oriented x3, not in any acute distress. Well developed, well nourished. HEENT: Pupils are round and equally reacting to light. EOMI. No scleral icterus. No conjunctival pallor. Normocephalic, atraumatic. No pharyngeal erythema. No thyromegaly. CARDIOVASCULAR: S1 and S2 present. No murmurs, rubs, or gallops. PULMONARY: Chest is clear to auscultation, no wheezing , no crackles. ABDOMEN: Soft, nontender, nondistended, normoactive bowel sounds. No palpable organomegaly. -MUSCULOSKELETAL: No joint swelling or deformity. Lower back tenderness EXTREMITIES: No cyanosis, clubbing, or pedal edema. NEUROLOGICAL: Gross neurological examination did not reveal any focal deficits. SKIN: No rashes. no petechiae. - Labs CBC & Chem 7: 12/19/24 06:02 12/19/24 06:02 Labs: Abnormal Lab Results - Last 24 Hours (Table) 12/18/24 12/18/24 12/18/24 Range/Units 10:57 10:57 13:53 MCHC (32.0-37.0) g/dL Immature Gran # 0.14 H (0.00-0.04) 10*3/uL Basophils # 0.12 H (0.00-0.10) 10*3/uL Carbon Dioxide 20 L (22-30) mmol/L BUN (9.0-27.0) mg/dL Creatinine (0.6-1.5) mg/dL Glucose 254 H (74-99) mg/dL Magnesium 1.4 L (1.6-2.3) mg/dL AST 116 H (14-36) U/L ALT 46 H (4-34) U/L Albumin/Globulin Ratio (1.60-3.17) Ratio Urine Appearance (Clear) Urine Protein (Negative) Ur Squamous Epith Cells (0-4) /hpf Amorphous Sediment (None) /hpf Urine Mucus (None) /hpf Urine Opiates Screen Detected H (NotDetected) Ur Amphetamines Screen Detected H (NotDetected) U Methamphetamines Scrn Detected H (NotDetected) U Benzodiazepines Scrn Detected H (NotDetected) 12/18/24 12/19/24 12/19/24 Range/Units 13:53 06:02 06:02 MCHC 31.7 L (32.0-37.0) g/dL Immature Gran # 0.05 H (0.00-0.04) 10*3/uL Basophils # (0.00-0.10) 10*3/uL Carbon Dioxide (22-30) mmol/L BUN 6.8 L (9.0-27.0) mg/dL Creatinine 0.5 L (0.6-1.5) mg/dL Glucose 134 H (74-99) mg/dL Magnesium (1.6-2.3) mg/dL AST 65 H (14-36) U/L ALT 45 H (4-34) U/L Albumin/Globulin Ratio 1.30 L (1.60-3.17) Ratio Urine Appearance Cloudy H (Clear) Urine Protein Trace H (Negative) Ur Squamous Epith Cells 11 H (0-4) /hpf Amorphous Sediment Occasional H (None) /hpf Urine Mucus Few H (None) /hpf Urine Opiates Screen (NotDetected) Ur Amphetamines Screen (NotDetected) U Methamphetamines Scrn (NotDetected) U Benzodiazepines Scrn (NotDetected) Assessment and Plan Assessment: Seizure activity, most likely related to substance abuse and/or withdrawal. Alcohol use disorder Alcoholic transaminitis Substance abuse, opiates, amphetamine, methamphetamine L2 acute vertebral burst fracture, with severe back pain Plan: Continue with CIWA protocol Thiamine IV hydration Orthopedic team consult Pain management, with bedrest Neurology evaluation Labs and medication were reviewed.. Continue same treatment. Continue with symptomatic treatment. Resume home medication. Monitor labs and vitals. DVT and GI prophylaxis. Further recommendations as per clinical course of the patient DVT prophylaxis: Subcutaneous heparin GI Prophylaxis: Pepcid PT/OT: Pending. Deferred now Prognosis is guarded
--- NOTE | 2024-12-19 12:26 | P.CNOR ---
History of Present Illness - [facility] Consult date: 12/19/24 Requesting physician: Heidi Cazares Consult reason: fracture (L2 burst fracture) History of present illness: Patient is a pleasant 49-year-old female who is seen examined the bedside for further evaluation of a known L2 burst fracture. Patient had presented to the emergency department because of seizure. She could not remember the incident but was told by her boyfriend she had a seizure. She woke up in the ambulance. She was brought to [facility] for further evaluation. Upon further imaging, she was found to have an L2 burst fracture. Patient does admit to significant pain at her fracture site of L2. She denies any lower extremity weakness or radiculopathy bilaterally. She does have a significant black eye to her left eye. Patient does have a significant medical history including substance abuse. She states she was discharged from [facility] for alcohol 1 month ago but relapsed. She does admit to alcohol abuse. She states she recently received an injection to help with her alcohol dependence. She denies any use of narcotic medications in the outpatient setting. She is admitted to medicine and continues to be seen and examined by medicine. Her other medical diagnoses include diabetes mellitus, hyperlipidemia, thyroid disorder, and seizure disorder. Patient is currently on [facility] protocol. Consultation has been placed with neurology. Past Medical History Past Medical History: Diabetes Mellitus, Hyperlipidemia, Osteoarthritis (OA), Seizure Disorder, Thyroid Disorder Additional Past Medical History / Comment(s): Hx "high blood sugar was on Metformin but sugars are normal now and no longer taking Metformin." Hx 2 seizures on 04/28/18 at [place], from alcohol withdrawl. Hx opiate overdose 2010, with respiratory failure, on vent. HERNIATED DISCS. MIGRAINES. HX PANCREATITIS. IBS. History of Any Multi-Drug Resistant Organisms: None Reported Past Surgical History: Tubal Ligation Additional Past Surgical History / Comment(s): EGD, colonoscopy, D&C, right groin cyst removed, PICC line placed and later removed while in hospital for overdose. Past Anesthesia/Blood Transfusion Reactions: No Reported Reaction Past Psychological History: ADD/ADHD, Anxiety, Depression, Schizophrenia Smoking Status: Current every day smoker Past Alcohol Use History: Abuse, Daily, Heavy Past Drug Use History: Marijuana, Methamphetamine, Opiates - Past Family History Mother Family Medical History: Cancer Father History Unknown: Yes Family Medical History: Deep Vein Thrombosis (DVT) Medications and Allergies Home Medications Medication Instructions Recorded Confirmed Type Fenofibrate Nanocrystallized 145 mg PO DAILY 04/24/24 12/18/24 History [Fenofibrate] Potassium Chloride ER [K-Dur 10] 10 meq PO BID 04/24/24 12/18/24 History sitaGLIPtin [Januvia] 25 mg PO DAILY 04/24/24 12/18/24 History Ergocalciferol (Vitamin D2) 1,250 mcg PO WEEKLY 28 Days #4 cap 10/30/24 12/18/24 Rx [Drisdol (50,000 Iu)] Folic Acid 1 mg PO DAILY 30 Days #30 tab 10/30/24 12/18/24 Rx Levothyroxine Sodium [Synthroid] 50 mcg PO DAILY 30 Days #30 tab 10/30/24 12/18/24 Rx Naltrexone Microspheres [Vivitrol] 380 mg IM Q28D #1 ml 10/30/24 12/18/24 Rx Nicotine 21Mg/24Hr Patch [Habitrol] 1 patch TRANSDERM DAILY 14 Days 10/30/24 12/18/24 Rx #14 patch Pantoprazole [Protonix] 40 mg PO DAILY 30 Days #30 tab 10/30/24 12/18/24 Rx Sertraline [Zoloft] 100 mg PO HS 30 Days #30 tab 10/30/24 12/18/24 Rx Thiamine [Vitamin B-1] 100 mg PO DAILY 30 Days #30 tab 10/30/24 12/18/24 Rx Lurasidone HCl [Latuda] 120 mg PO HS 12/18/24 12/18/24 History Multivitamins, Thera [Multivitamin 1 tab PO DAILY 12/18/24 12/18/24 History (formulary)] busPIRone HCl [Buspar] 20 mg PO BID 12/18/24 12/18/24 History cloNIDine HCL 0.2 mg PO BID PRN 12/18/24 12/18/24 History traZODone HCL [Desyrel] 250 mg PO HS PRN 12/18/24 12/18/24 History traMADol HCl [Ultram] 50 mg PO Q6HR PRN 7 Days #28 tab 12/19/24 Rx Allergies Allergy/AdvReac Type Severity Reaction Status Date / Time No Known Allergies Allergy Verified 12/18/24 15:51 Physical Examination Osteopathic Statement: *. No significant issues noted on an osteopathic structural exam other than those noted in the History and Physical/Consult. Physical exam: Patient is awake, alert, and oriented 3 Vital signs stable Good chest excursion with deep inspiration and expiration Significant left black eye Examination of lumbar spine reveals skin is intact with no abrasions, lacerations, or bruises; no erythema, purulence or signs of infection Significant pain with palpation along the midline of the mid upper lumbar spine Dorsiflexion, plantarflexion, and extensor hallucis longus positive sustained bilaterally Lower extremity strength 5/5 bilaterally Straight leg test negative bilateral lower extremities Negative Lasegue's test bilaterally No signs or symptoms of DVT; no calf pain Neurovascularly intact Results Pertinent studies: CT of the thoracic and lumbar spine taken on 12/18/2024: Acute burst L2 fracture at the superior and inferior endplates with approximately 10% height loss with buckling at the anterior posterior cortex is without significant retropulsion and no evidence of significant central canal stenosis and no definitive extension into the posterior elements; no significant central canal or neuroforaminal stenosis of the lumbar spine; L4-5 spondylolisthesis - Labs Labs: Abnormal Lab Results - Last 24 Hours (Table) 12/18/24 12/18/24 12/19/24 Range/Units 13:53 13:53 06:02 MCHC 31.7 L (32.0-37.0) g/dL Immature Gran # 0.05 H (0.00-0.04) X 10*3/uL BUN (9.0-27.0) mg/dL Creatinine (0.6-1.5) mg/dL Glucose (70-110) mg/dL AST (13-35) U/L ALT (8-44) U/L Albumin/Globulin Ratio (1.60-3.17) Ratio Urine Appearance Cloudy H (Clear) Urine Protein Trace H (Negative) Ur Squamous Epith Cells 11 H (0-4) /hpf Amorphous Sediment Occasional H (None) /hpf Urine Mucus Few H (None) /hpf Urine Opiates Screen Detected H (NotDetected) Ur Amphetamines Screen Detected H (NotDetected) U Methamphetamines Scrn Detected H (NotDetected) U Benzodiazepines Scrn Detected H (NotDetected) 12/19/24 Range/Units 06:02 MCHC (32.0-37.0) g/dL Immature Gran # (0.00-0.04) X 10*3/uL BUN 6.8 L (9.0-27.0) mg/dL Creatinine 0.5 L (0.6-1.5) mg/dL Glucose 134 H (70-110) mg/dL AST 65 H (13-35) U/L ALT 45 H (8-44) U/L Albumin/Globulin Ratio 1.30 L (1.60-3.17) Ratio Urine Appearance (Clear) Urine Protein (Negative) Ur Squamous Epith Cells (0-4) /hpf Amorphous Sediment (None) /hpf Urine Mucus (None) /hpf Urine Opiates Screen (NotDetected) Ur Amphetamines Screen (NotDetected) U Methamphetamines Scrn (NotDetected) U Benzodiazepines Scrn (NotDetected) H & H 12/18/24 12/19/24 Range/Units 10:57 06:02 Hgb 14.4 14.6 (12.0-15.0) g/dL Hct 42.3 46.0 (37.2-46.3) % Result Diagrams: 12/19/24 06:02 12/19/24 06:02 Assessment and Plan Assessment: Assessment: Acute L2 burst fracture L4-5 spondylolisthesis Acute low back pain Substance abuse including opiates, amphetamine, and methamphetamine Alcohol use disorder Recent alcohol rehabilitation Seizure activity Diabetes mellitus Hypertension Thyroid disorder (1) Closed L2 vertebral fracture Current Visit: Yes Status: Acute Code(s): S32.029A - UNSP FRACTURE OF SECOND LUMBAR VERTEBRA, INIT FOR CLOS FX SNOMED Code(s): 83830072179729420 (2) Status post seizure Current Visit: Yes Status: Acute Code(s): Z86.69 - PERSONAL HISTORY OF DIS OF THE NERVOUS SYS AND SENSE ORGANS SNOMED Code(s): 486907175 (3) Acute low back pain Current Visit: Yes Status: Acute Code(s): M54.50 - LOW BACK PAIN, UNSPECIFIED SNOMED Code(s): 182395334 (4) Spondylolisthesis, lumbar region Current Visit: Yes Status: Acute Code(s): M43.16 - SPONDYLOLISTHESIS, LUMBAR REGION SNOMED Code(s): 574812655229303 (5) Substance abuse Current Visit: Yes Status: Acute Code(s): F19.10 - OTHER PSYCHOACTIVE SUBSTANCE ABUSE, UNCOMPLICATED SNOMED Code(s): 97460256 (6) Alcohol use disorder Current Visit: Yes Status: Acute Code(s): F10.90 - ALCOHOL USE, UNSPECIFIED, UNCOMPLICATED SNOMED Code(s): 8879378 (7) Diabetes mellitus Current Visit: Yes Status: Acute Code(s): E11.9 - TYPE 2 DIABETES MELLITUS WITHOUT COMPLICATIONS SNOMED Code(s): 82793784 (8) Hypertension Current Visit: Yes Status: Acute Code(s): I10 - ESSENTIAL (PRIMARY) HYPERTENSION SNOMED Code(s): 31451051 (9) Thyroid disorder Current Visit: Yes Status: Acute Code(s): E07.9 - DISORDER OF THYROID, UNSPECIFIED SNOMED Code(s): 30800959 Plan: Plan: 1. Patient recently sustained a seizure and was brought to [facility] for further evaluation. She has been experiencing acute severe low back pain since her seizure. Reviewing of imaging shows evidence of an acute L2 burst fracture. There is not significant retropulsion of this fracture. Patient is neurovascularly intact. She is not experiencing any lower extremity weakness or radiculopathy bilaterally. She has good range of motion of her lower extremities. After reviewing of imaging, physical examination the patient, and further discussion with the patient, will currently planned to have the patient's start working through conservative treatment at this time. At this time we'll plan for bracing. A prescription has been written and provided to case management for a Exos, [place], or equivalent LSO brace. Once this brace is delivered and fitted appropriately, patient should wear this brace while sitting upright at greater than 45, during increase activities, during ambulation. Brace does not have to or while lying in bed or while bathing. Following fitting of this brace, patient is clear for discharge from an orthopedic spine standpoint. We did discuss that this brace was delivered and fitted appropriately today, she would be cleared for discharge home today from an orthopedic spine standpoint. We will follow the patient closely in the outpatient setting. Following discharge, patient may follow-up with Nick Mirza PA-C or Dr. Matthew Serrano at [facility] in appro ximately 1 week. MAPS has been reviewed today, 12/19/2024, with an Overall Overdose Risk Score of 300. An "Opiod Start Talking" Form has been signed and placed in the patient's chart. A prescription has been written for tramadol 50 mg, 1 tab, every 6 hours, as needed for acute pain, dispense #28. Prescription was sent to the [facility] pharmacy located within [facility]. We will also plan to start the patient on tramadol 50 mg every 6 hours during her admission to the hospital. Currently she is only receiving IV Dilaudid. Patient should avoid IV Dilaudid. 2. Patient will continue be seen exam by multiple medical providers including medicine and neurology. I have reviewed the case as well as the patient and the dictation I am in agreement with the above dictation. There is a new L2 fracture with a small burst component through the posterior wall. There is no involvement of the pedicles or the posterior elements. There is no significant canal compromise. There are some degenerative changes without significant stenosis. The patient is neurologically intact and I think that she can do well with bracing at this point. If she is not responding well to bracing over the next couple weeks we would consider surgical intervention and the possibly of kyphoplasty but I would like to see if she can do well with conservative management and bracing. We have ordered an LSO brace for her. From an orthopedic spine standpoint she is okay for discharge with her brace if she is safe with her ambulation and can follow-up with us on an outpatient basis.. Time with Patient: Greater than 30 (Including obtaining history, physical e xamination, reviewing of imaging, and dictation.)
[2024-12-19] MEDS: traMADol 50 MG TAB PO SCH (13:02)
--- NOTE | 2024-12-19 13:31 | P.CNNES ---
History of Present Illness Consult date: 12/19/24 Requesting physician: Heidi Cazares Reason for Consult: seizure-likely etoh withdrawal History of Present Illness: This is a 49-year-old woman with history of alcohol use, methamphetamine use, alcohol withdrawal seizure, polysubstance abuse who presents emergency department because of seizure-like activity. Patient does not recall what transpired and it seems that according to the patient although she remembers is being in the hospital and seems that her friend seen her with a seizure. She denies any urinary or bowel incontinence. She denies any bite make but she feels she bent the side of the mouth on the left. Upon asking about her alcohol use she does acknowledge that she has continued to drink on a daily basis but has been trying to cut down recently and she has been getting a shot for her alcohol use. Upon asking about her polysubstance use initially she denied that and she stated that she does not use it but with further questioning she did acknowledge that her last meth was 4 days ago. She denies following up with a neurologist as an outpatient. Denies being on any antiseizure medication. I seen the patient last on 06/05/2024 for similar presentation and I felt her seizure provoked due alcohol withdrawal and substance use. Please refer to my notes for further details. Some of the work-up during this hospital visit consisted of: I reviewed the lab work-up. UDS: Positive for opiates, amphetamine, methamphetamine, benzodiazepine. Her serum alcohol level is less than 10. CT of the head and CT cervical spine is reported as no acute intracranial process. Asymmetrical thickening of the left temporalis muscle with fat stranding. Findings suggest intramuscular hematoma. No evidence of cervical spine fracture. Mild multilevel degenerative disc disease. CT thoracic and lumbar is reported as acute burst type fracture involving L2 vertebral body with appropriate 10% height loss and 3 mm retropulsion. Review of Systems As per HPI. Past Medical History Past Medical History: Diabetes Mellitus, Hyperlipidemia, Osteoarthritis (OA), Seizure Disorder, Thyroid Disorder Additional Past Medical History / Comment(s): Hx "high blood sugar was on Metformin but sugars are normal now and no longer taking Metformin." Hx 2 seizures on 04/28/18 at [place], from alcohol withdrawl. Hx opiate overdose 2010, with respiratory failure, on vent. HERNIATED DISCS. MIGRAINES. HX PANCREATITIS. IBS. History of Any Multi-Drug Resistant Organisms: None Reported Past Surgical History: Tubal Ligation Additional Past Surgical History / Comment(s): EGD, colonoscopy, D&C, right groin cyst removed, PICC line placed and later removed while in hospital for overdose. Past Anesthesia/Blood Transfusion Reactions: No Reported Reaction Past Psychological History: ADD/ADHD, Anxiety, Depression, Schizophrenia Smoking Status: Current every day smoker Past Alcohol Use History: Abuse, Daily, Heavy Past Drug Use History: Marijuana, Methamphetamine, Opiates - Past Family History Mother Family Medical History: Cancer Father History Unknown: Yes Family Medical History: Deep Vein Thrombosis (DVT) Medications and Allergies Home Medications Medication Instructions Recorded Confirmed Type Fenofibrate Nanocrystallized 145 mg PO DAILY 04/24/24 12/18/24 History [Fenofibrate] Potassium Chloride ER [K-Dur 10] 10 meq PO BID 04/24/24 12/18/24 History sitaGLIPtin [Januvia] 25 mg PO DAILY 04/24/24 12/18/24 History Ergocalciferol (Vitamin D2) 1,250 mcg PO WEEKLY 28 Days #4 cap 10/30/24 12/18/24 Rx [Drisdol (50,000 Iu)] Folic Acid 1 mg PO DAILY 30 Days #30 tab 10/30/24 12/18/24 Rx Levothyroxine Sodium [Synthroid] 50 mcg PO DAILY 30 Days #30 tab 10/30/24 12/18/24 Rx Naltrexone Microspheres [Vivitrol] 380 mg IM Q28D #1 ml 10/30/24 12/18/24 Rx Nicotine 21Mg/24Hr Patch [Habitrol] 1 patch TRANSDERM DAILY 14 Days 10/30/24 12/18/24 Rx #14 patch Pantoprazole [Protonix] 40 mg PO DAILY 30 Days #30 tab 10/30/24 12/18/24 Rx Sertraline [Zoloft] 100 mg PO HS 30 Days #30 tab 10/30/24 12/18/24 Rx Thiamine [Vitamin B-1] 100 mg PO DAILY 30 Days #30 tab 10/30/24 12/18/24 Rx Lurasidone HCl [Latuda] 120 mg PO HS 12/18/24 12/18/24 History Multivitamins, Thera [Multivitamin 1 tab PO DAILY 12/18/24 12/18/24 History (formulary)] busPIRone HCl [Buspar] 20 mg PO BID 12/18/24 12/18/24 History cloNIDine HCL 0.2 mg PO BID PRN 12/18/24 12/18/24 History traZODone HCL [Desyrel] 250 mg PO HS PRN 12/18/24 12/18/24 History traMADol HCl [Ultram] 50 mg PO Q6HR PRN 7 Days #28 tab 12/19/24 Rx Allergies Allergy/AdvReac Type Severity Reaction Status Date / Time No Known Allergies Allergy Verified 12/18/24 15:51 Physical Examination - Vital Signs Vital Signs: Vital Signs Temp Pulse Resp BP Pulse Ox 12/18/24 14:37 74 16 149/91 95 12/18/24 13:04 76 16 151/99 99 12/18/24 11:44 75 16 159/92 97 12/18/24 10:33 98.2 F 87 26 H 92/75 99 Intake and Output 12/18/24 12/18/24 12/18/24 06:59 14:59 22:59 Other: Weight 77.111 kg GENERAL: The patient is lying in bed and is not in acute distress. HENT: Bruises over the left periorbital. NEUROLOGICAL: Higher mental function: The patient is awake, alert, oriented to self, place and time. Patient is following commands. No aphasia and no neglect. Cranial nerves: The pupils are round, equal and reactive to light and accommodation. Visual carballo are full to confrontation throughout. Extraocular movement is intact no nystagmus is noted. Facial sensation is normal to touch throughout. The facial strength is normal throughout. Hearing is normal bilaterally to hand rub. Tongue is midline and moved [id number] without any difficulty. Has hoarse voice (chronic). Motor: The strength is limited because of pain but lifting all extremities above gravity equally. Normal tone and bulk. Cerebellum: Normal finger to nose bilaterally. Sensation: Sensation is normal to touch throughout. . Results - Laboratory Findings CBC and BMP: 12/19/24 06:02 12/19/24 06:02 Abnormal Lab Findings: Abnormal Labs 12/18/24 12/18/24 12/18/24 10:57 10:57 13:53 Immature Gran # 0.14 H Basophils # 0.12 H Carbon Dioxide 20 L Glucose 254 H Magnesium 1.4 L AST 116 H ALT 46 H Urine Appearance Urine Protein Ur Squamous Epith Cells Amorphous Sediment Urine Mucus Urine Opiates Screen Detected H Ur Amphetamines Screen Detected H U Methamphetamines Scrn Detected H U Benzodiazepines Scrn Detected H 12/18/24 13:53 Immature Gran # Basophils # Carbon Dioxide Glucose Magnesium AST ALT Urine Appearance Cloudy H Urine Protein Trace H Ur Squamous Epith Cells 11 H Amorphous Sediment Occasional H Urine Mucus Few H Urine Opiates Screen Ur Amphetamines Screen U Methamphetamines Scrn U Benzodiazepines Scrn Assessment and Plan Assessment: Breakthrough seizure is provoked due to alcohol withdrawal as well as polysubstance use. Acute burst fracture of L2 Polysubstance use and urine drug since positive for methamphetamine, amphetamine and benzo. Facial fracture History of alcohol withdrawal seizure Alcohol use Plan: Patient had EEGs in the past which were negative for any seizure or discharges. There is no need for the EEG since this seems more provoked due to alcohol withdrawal and polysubstance abuse I notified the patient her seizure is due to alcohol withdrawal as well as polysubstance use but she is adamant that she wants to be on antiseizure medication. She does not want to be on Keppra because of side effects of mood irritability therefore I will place her on Vimpat 50 mg twice daily. Recommend [facility]WA protocol and will defer that to the primary team Per the [facility] because of the seizure, to avoid driving for 6 months until seizure-free, avoid heights, avoid treatment assisted or using heavy machinery. Placed patient on thiamine 100 mg daily Orthopedic Surgery is on board Patient was counseled on alcohol cessation as well as cessation of the polysubstance use. Defer rest of the medical management the primary other specialist Commend the patient to follow-up with a neurologist as an outpatient within 2 weeks Plan discussed with the patient and her nurses at bedside. There is no further neurological workup. Will sign off. Please reconsult if needed. Thank you for the consultation. Time with Patient: Greater than 30
[2024-12-19] MEDS: LACOSAMIDE 50 MG TABLET PO SCH (14:40)
[2024-12-19 19:33] VITALS: RESP 17
[2024-12-19] MEDS: traZODone HCL 100 MG TAB PO PRN (20:14)
[2024-12-20 01:42] VITALS: BP 139/86; PULSE 84; TEMP 98.3
--- NOTE | 2024-12-20 07:24 | P.DS ---
Providers Date of admission: 12/18/24 15:14 Attending physician: Bryce Melvin MD Consults: 12/18/24 14:58 Consult Physician Urgent Consulting Provider: Mau Martinez Consult Reason/Comments: seizure - likely etoh withdrawal Do you want consulting provider notified?: Yes Consult Physician Urgent Consulting Provider: Meir Ward Consult Reason/Comments: l2 burst fracture Do you want consulting provider notified?: Already Contacted Primary care physician: [facility] Course: Please note patient was not discharged but left AGAINST MEDICAL ADVICE Diagnoses: Seizure activity, most likely related to substance abuse and/or withdrawal. Alcohol use disorder Alcoholic transaminitis Substance abuse, opiates, amphetamine, methamphetamine L2 acute vertebral burst fracture, with severe back pain hospital course: This is a pleasant 49 years old female with past medical history of substance abuse. Presents because of seizure. Patient seen and examined at bedside. No family member or boyfriend at bedside. Patient could not remember what happened but she was told by her boyfriend she had a seizure. She woke up in the ambulance. Patient denies urinary or bowel incontinence. No tongue biting. Patient is a known case of alcohol use disorder. She drinks 1/5 of liquor every day her last drink was this morning. No leg weakness or tingling. She denies depression or suicidal ideation She is afebrile. Blood pressure stable. Labs unremarkable CBC, BMP. Liver enzymes mildly elevated. Urine analysis not suspicious for infection CT of the head and cervical spine showing no acute process but there is asymmetrical thickening of the left temporal muscles suspicious for hematoma Urine drug screen is positive for opiates, amphetamine methamphetamine and benzodiazepines. Thoracolumbar CAT scan showing acute burst fracture of L2 Serum alcohol less than 10. Salicylate less than 1 and acetaminophen less than 10. EKG showing sinus rhythm at [address]-T changes Patient started on normal saline CIWA and thiamine Patient awake alert this morning, she looks relaxed but has withdrawal symptoms and has been controlled with Ativan per CIWA protocol. She still has significant pain in her back fracture site with point tenderness She can move both lower extremities with restriction due to pain. No tingling or numbness. No urinary bowel incontinence She has a bruise around her left eye She is hemodynamically stable and afebrile Labs look stable and liver enzymes trending down She remains on normal saline at 130 mL/h, however patient refusing IV fluids. She is refusing nicotine patch as well 12/20 Angiogram message from the bedside nurse that patient decided to leave AMA. Patient already been left before I have a chance to see her or talk to her. Patient was educated about the risk and benefits of leaving AMA and hospitalization per Staff. Based upon my evaluation earlier patient has capacity to make medical decision. She is alert awake oriented x 4. She has insight and follow commands. Patient already been evaluated by orthopedic team for her breast fracture and recommended the brace and outpatient follow-up. Patient Condition at Discharge: Stable Plan - Discharge Summary Discharge Rx Participant: Yes New Discharge Prescriptions: New traMADol HCl [Ultram] 50 mg PO Q6HR PRN 7 Days #28 tab PRN Reason: Pain No Action Potassium Chloride ER [K-Dur 10] 10 meq PO BID Fenofibrate Nanocrystallized [Fenofibrate] 145 mg PO DAILY sitaGLIPtin [Januvia] 25 mg PO DAILY Nicotine 21Mg/24Hr Patch [Habitrol] 1 patch TRANSDERM DAILY 14 Days #14 patch Pantoprazole [Protonix] 40 mg PO DAILY 30 Days #30 tab Sertraline [Zoloft] 100 mg PO HS 30 Days #30 tab Ergocalciferol (Vitamin D2) [Drisdol (50,000 Iu)] 1,250 mcg PO WEEKLY 28 Days #4 cap Folic Acid 1 mg PO DAILY 30 Days #30 tab Thiamine [Vitamin B-1] 100 mg PO DAILY 30 Days #30 tab Naltrexone Microspheres [Vivitrol] 380 mg IM Q28D #1 ml traZODone HCL [Desyrel] 250 mg PO HS PRN PRN Reason: Insomnia Levothyroxine Sodium [Synthroid] 50 mcg PO DAILY 30 Days #30 tab Lurasidone HCl [Latuda] 120 mg PO HS cloNIDine HCL 0.2 mg PO BID PRN PRN Reason: acute anxiety/panic attacks busPIRone HCl [Buspar] 20 mg PO BID Multivitamins, Thera [Multivitamin (formulary)] 1 tab PO DAILY Discharge Medication List Fenofibrate Nanocrystallized [Fenofibrate] 145 mg PO DAILY 04/24/24 [History] Potassium Chloride ER [K-Dur 10] 10 meq PO BID 04/24/24 [History] sitaGLIPtin [Januvia] 25 mg PO DAILY 04/24/24 [History] Ergocalciferol (Vitamin D2) [Drisdol (50,000 Iu)] 1,250 mcg PO WEEKLY 28 Days #4 cap 10/30/24 [Rx] Folic Acid 1 mg PO DAILY 30 Days #30 tab 10/30/24 [Rx] Levothyroxine Sodium [Synthroid] 50 mcg PO DAILY 30 Days #30 tab 10/30/24 [Rx] Naltrexone Microspheres [Vivitrol] 380 mg IM Q28D #1 ml 10/30/24 [Rx] Nicotine 21Mg/24Hr Patch [Habitrol] 1 patch TRANSDERM DAILY 14 Days #14 patch 10/30/24 [Rx] Pantoprazole [Protonix] 40 mg PO DAILY 30 Days #30 tab 10/30/24 [Rx] Sertraline [Zoloft] 100 mg PO HS 30 Days #30 tab 10/30/24 [Rx] Thiamine [Vitamin B-1] 100 mg PO DAILY 30 Days #30 tab 10/30/24 [Rx] Lurasidone HCl [Latuda] 120 mg PO HS 12/18/24 [History] Multivitamins, Thera [Multivitamin (formulary)] 1 tab PO DAILY 12/18/24 [History] busPIRone HCl [Buspar] 20 mg PO BID 12/18/24 [History] cloNIDine HCL 0.2 mg PO BID PRN 12/18/24 [History] traZODone HCL [Desyrel] 250 mg PO HS PRN 12/18/24 [History] traMADol HCl [Ultram] 50 mg PO Q6HR PRN 7 Days #28 tab 12/19/24 [Rx] Follow up Appointment(s)/Referral(s): Nick Mirza PAC [PHYSICIAN [employer]AT [employer]EDER] - 1 Week (Patient may follow-up with Nick Mirza PA-C or Dr. Matthew Serrano at [facility] in 1 week following discharge. ) Christie Prince MD [Primary Care Provider] - 1-2 days Odette Farnsworth [NON-STAFF] - 1 Week (back brace) Activity/Diet/Wound Care/Special Instructions: 1. Patient may wear LSO brace for comfort and support while sitting upright at greater than 45, while working with therapy, and while ambulating; patient does not have to wear the brace while lying in bed or bathing 2. Patient should avoid excessive bending, twisting, and lifting; no lifting greater than 10 pounds Discharge Disposition: HOME SELF-CARE
[2024-12-25] MEDS ORDERED: ERGOCALCIFEROL 1,250 MCG (50,000 IU) CAPSULE PO SCH (09:00)
== END 2024-12-20 06:50 | disposition left against medical advice (07) | DRG 773 ==
LOC: EC 10:30 → 4SSUR 15:14
PROVIDERS: ADMIT Internal Medicine; ATTEND Internal Medicine
DX: F10.239 Alcohol dependence with withdrawal, unspecified (principal); S32.021A Stable burst fracture of second lumbar vertebra, initial encounter for closed fracture; G40.89 Other seizures; F15.10 Other stimulant abuse, uncomplicated; F11.10 Opioid abuse, uncomplicated; E11.9 Type 2 diabetes mellitus without complications; I10 Essential (primary) hypertension; F17.210 Nicotine dependence, cigarettes, uncomplicated; S00.81XA Abrasion of other part of head, initial encounter; M50.30 Other cervical disc degeneration, unspecified cervical region; R74.01 Elevation of levels of liver transaminase levels; S00.12XA Contusion of left eyelid and periocular area, initial encounter; E07.9 Disorder of thyroid, unspecified; E78.5 Hyperlipidemia, unspecified; W19.XXXA Unspecified fall, initial encounter; Z79.84 Long term (current) use of oral hypoglycemic drugs; Z79.890 Hormone replacement therapy; Z79.899 Other long term (current) drug therapy; Y90.0 Blood alcohol level of less than 20 mg/100 ml
CPT/HCPCS: 36415; 70450; 72125; 72128; 72131; 80048; 80053; 80076; 80143; 80179; 80306; 80320; 81001; 83735; 85025; 93005; 96361; 96365; 96366; 96375; 96376; 99285